=== PATIENT | female | born 1955 | race African-American/Black ===

== ENCOUNTER 2020-11-28 13:30 | Outpatient (CLI) | payer OTHER, SELFPAY ==
--- NOTE | 2020-11-28 15:00 | NEURO_ITS ---
Impression: # Complains of leg and feet pain. # Normal nerve conduction study including lateral and medial plantar distal latencies. # No tarsal tunnel syndrome noted electrically. # Normal needle/EMG exam. # Clinical correlation recommended. Nerve Conduction Studies Anti Sensory Summary Table Stim Site NR Peak (ms) P-T Amp (?V) Site1 Site2 Delta-P (ms) Dist (cm) Jose Antonio (m/s) Left Sup Fibular Anti Sensory (Ant Lat Mall) 14 cm 3.6 27.7 14 cm Ant Lat Mall 3.6 16.0 44 Right Sup Fibular Anti Sensory (Ant Lat Mall) 14 cm 2.9 5.1 14 cm Ant Lat Mall 2.9 16.0 55 Left Sural Anti Sensory (Lat Mall) Calf 3.3 37.1 Calf Lat Mall 3.3 16.0 48 Right Sural Anti Sensory (Lat Mall) Calf 3.2 19.5 Calf Lat Mall 3.2 16.0 50 Motor Summary Table Stim Site NR Onset (ms) O-P Amp (mV) Site1 Site2 Delta-0 (ms) Dist (cm) Jose Antonio (m/s) Left Lateral Plantar Motor (ADM) Med Mall 4.6 3.3 Right Lateral Plantar Motor (ADM) Med Mall 4.3 5.2 Left Peroneal Motor (Vastus Med) Ankle 3.6 2.1 Popit Ankle 7.1 39.0 55 Popit 10.7 1.5 Right Peroneal Motor (Vastus Med) Ankle 3.8 3.0 Popit Ankle 7.4 37.0 50 Popit 11.2 2.3 Left Tibial Motor (Abd Garcia Brev) Ankle 4.1 5.8 Knee Ankle 7.7 40.0 52 Knee 11.8 3.7 Right Tibial Motor Run (Abd Garcia Brev) Ankle 4.5 9.1 Knee Ankle 7.8 42.0 54 Knee 12.3 9.3 F Wave Studies NR F-Lat (ms) L-R F-Lat (ms) Left Peroneal (Mrkrs) (EDB) 46.17 0.89 Right Peroneal (Mrkrs) (EDB) 45.28 0.89 Left Tibial (Mrkrs) (Abd Hallucis) 45.55 0.39 Right Tibial (Mrkrs) (Abd Hallucis) 45.94 0.39 EMG Side Muscle Nerve Root Ins Act Fibs Amp Dur Recrt Comment Right AntTibialis Dp Br Fibular L4-5 Nml Nml Nml Nml Nml Right Gastroc Tibial S1-2 Nml Nml Nml Nml Nml Right Fibularis Long Sup Br Fibular L5-S1 Nml Nml Nml Nml Nml Right Flex Dig Long Tibial L5-S2 Nml Nml Nml Nml Nml Right Ext Dig Brev Dp Br Fibular L5, S1 Nml Nml Nml Nml Nml Left AntTibialis Dp Br Fibular L4-5 Nml Nml Nml Nml Nml Left Gastroc Tibial S1-2 Nml Nml Nml Nml Nml Left Fibularis Long Sup Br Fibular L5-S1 Nml Nml Nml Nml Nml Left Flex Dig Long Tibial L5-S2 Nml Nml Nml Nml Nml Left Ext Dig Brev Dp Br Fibular L5, S1 Nml Nml Nml Nml Nml MTDD
== END 2020-11-28 13:31 | disposition home or self-care (01) ==
PROVIDERS: PCP Internal Medicine; Visit Provider Internal Medicine
DX: M79.661 Pain in right lower leg (principal)
CPT/HCPCS: 95886; 95910

== ENCOUNTER 2022-03-25 08:26 | Outpatient (CLI) | payer MEDICARE, SELFPAY ==
--- NOTE | ~2022-03-25 | CT_ITS ---
EXAMINATION: CT abdomen pelvis w con INDICATION: Mesenteric mass TECHNIQUE: Computed tomographic images of the abdomen and pelvis were obtained after the administrati on of 100 cc of Omnipaque 300 intravenous contrast. The dose-length product (DLP) was 372.73 mGy-cm. Automated exposure control and iterative reconstruction technique were employed. COMPARISON: None available FINDINGS: Minimal dependent atelectasis is present in the lung bases. The heart size is normal. The l iver, spleen, pancreas, gallbladder, and adrenal glands are normal. The kidneys are unremarkable. The re is calcified atherosclerosis of the aorta and many of the other arteries. No pathologically enlarg ed abdominal or pelvic lymph nodes are identified. There is no free intraperitoneal gas or evidence o f bowel obstruction. A moderate volume of colonic stool is present. There are surgical changes in the right lower quadrant. No definite mesenteric mass is identified. There is mild peritoneal thickening and right lower quadrant of unclear significance. There is mild lumbar spondylosis. There is a small fat-containing umbilical hernia. IMPRESSION: 1. No mesenteric mass identified. Surgical changes in the right lower quadrant may reflect mass resec tion. Reviewed, dictated and finalized at location F. IMPRESSION: 1. No mesenteric mass identified. Surgical changes in the right lower quadrant may reflect mass resection.
[2022-03-25 08:53] LABS: Estimated Glomerular Filt Rate 55
== END 2022-03-25 08:27 | disposition home or self-care (01) ==
PROVIDERS: PCP Internal Medicine; Visit Provider Internal Medicine Hematology & Oncology
DX: K63.89 Other specified diseases of intestine (principal); Z98.890 Other specified postprocedural states
CPT/HCPCS: 74177; Q9967

== ENCOUNTER 2022-07-10 08:36 | Outpatient (RCR) | payer MEDICARE, SELFPAY ==
[2022-07-10] VITALS (12 sets, daily range): BP systolic 107–154; BP diastolic 51–93; PULSE 83–97; RESP 12–18; TEMP 36.3–36.7; O2SAT 97–100
[2022-07-10] MEDS: diphenhydrAMINE HCl CAP 25 MG CAPSULE PO (09:03)
[2022-07-10] MEDS: ACETAMINOPHEN 325 MG TABLET 650 MG PO (09:03)
[2022-07-10] MEDS: FUROSEMIDE INJ 40 MG/4 ML VIAL 20 MG IV PUSH (13:40)
== END 2022-10-08 23:59 | disposition home or self-care (01) ==
LOC: ANHCPCTRAN 08:36
PROVIDERS: PCP Internal Medicine; Visit Provider Internal Medicine Hematology & Oncology
DX: D64.9 Anemia, unspecified (principal)
CPT/HCPCS: 36415; 36430; 86850; 86900; 86901; 86920; A9270; J1940; P9016

== ENCOUNTER 2022-09-08 10:17 | Outpatient (CLI) | payer MEDICARE, SELFPAY ==
--- NOTE | ~2022-09-08 | XR_ITS ---
EXAMINATION: XR abdomen obstructive series DATE: 09/08/2022 10:53 INDICATION: Lower abdominal pain and constipation TECHNIQUE: Upright and supine views of the abdomen were obtained. COMPARISON: None. FINDINGS: There are no dilated loops of bowel. No free intraperitoneal gas is identified. The bowel g as pattern is normal. There is a moderate volume of colonic stool. 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 IMPRESSION: 1. Nonobstructive bowel gas pattern. Reviewed, dictated and finalized at location F. ND BLANCHER HAND
--- NOTE | ~2022-09-08 | XR_ITS ---
XR chest 2V DATE: 09/08/2022 10:53 INDICATION: Chest, lower abdomen pain TECHNIQUE: PA and lateral views COMPARISON: None FINDINGS: Normal heart size. No hilar or mediastinal enlargement. Aortic arch and descending thora cic aortic calcification. There is abdominal aortic calcification. No hilar or mediastinal enlargemen t. No pulmonary infiltrate or consolidation, pulmonary vascular congestion or pleural effusion or pn eumothorax. IMPRESSION: No active cardiopulmonary disease Thoracic aortic and abdominal aortic calcification Reviewed, dictated and finalized at location A. [employer]
== END 2022-09-08 10:18 | disposition home or self-care (01) ==
PROVIDERS: PCP Internal Medicine; Visit Provider Internal Medicine Hematology & Oncology
DX: R10.30 Lower abdominal pain, unspecified (principal)
CPT/HCPCS: 36415; 71046; 74019; 80047; 85027; 85055

== ENCOUNTER 2022-12-17 10:06 | Outpatient (CLI) | payer MEDICARE, SELFPAY ==
[2022-12-17 11:04] LABS: Basophils Percent Auto 0.7 % (0.2-1.2); Eosinophils Absolute Auto 0.1 K/mm3 (0-0.3); Eosinophils Percent Auto 1.5 % (0-4.4); Hematocrit 28.7 % (37.0-47.0); Hemoglobin 9.1 g/dL (12.0-15.0); Immature Granulocyte Absolute 0.04 K/mm3 (0.00-0.031); Immature Granulocyte Percent A 0.9 % (0-0.5); Immature Platelet Fraction Pct 9.2 % (0.9-11.2); Lymphocytes Absolute Auto 2.21 K/mm3 (0.9-3.2); Lymphocytes Percent Auto 48.9 % (18.3-44.2); Mean Corpuscular HGB Conc 31.7 g/dl (32-36); Mean Corpuscular Hemoglobin 27.1 pg (26-34); Mean Corpuscular Volume 85.4 fl (80-100); Monocytes Absolute Auto 0.4 K/mm3 (0.1-0.6); Monocytes Percent Auto 9.5 % (2.6-8.5); Neutrophils Absolute Auto 1.7 K/mm3 (1.3-6.7); Neutrophils Percent Auto 38.5 % (45.5-73.1); Nucleated Red Blood Cells Absolute Auto 0.2 K/mm3 (0.0-0.012); Nucleated Red Blood Cells Perc 3.8 % (0.0-0.2); Platelet Count Result 245 k/mm3 (150-375); Red Blood Count 3.36 M/mm3 (4.2-5.4); Red Cell Distribution Width 26.1 % (11.5-14.5); White Blood Count 4.5 K/mm3 (4.5-10.0)
[2022-12-17 14:17] LABS: Alanine Aminotransferase 16 U/L (6-35); Albumin Level 4.5 g/dL (3.5-5.1); Alkaline Phosphatase 115 U/L (38-126); Anion Gap 5 mmol/L (8-16); Aspartate Amino Transferase 30 U/L (14-36); Bilirubin,Total 0.4 mg/dL (0.2-1.3); Blood Urea Nitrogen 13 mg/dL (7-17); Carbon Dioxide 23 mmol/L (22-30); Chloride 105 mmol/L (98-107); Cholesterol 170 mg/dL (0-200); Estimated Glomerular Filt Rate > 60; Glucose 110 mg/dL (65-110); HDL Direct 42 mg/dL; Potassium 3.8 mmol/L (3.4-5.0); Sodium 133 mmol/L (137-145); Triglycerides 140 mg/dL (<150)
[2022-12-17 14:35] LABS: LDL Cholesterol Direct 81 mg/dL
[2022-12-17 14:42] LABS: Vitamin D 25 Hydroxy 25.8 ng/mL
[2022-12-17 14:51] LABS: Hemoglobin A1C 5.5 % (<5.7)
== END 2022-12-17 10:07 | disposition home or self-care (01) ==
LOC: ANHLAB 10:10
PROVIDERS: PCP Internal Medicine; Visit Provider Internal Medicine
DX: R73.9 Hyperglycemia, unspecified (principal); E55.9 Vitamin D deficiency, unspecified; I10 Essential (primary) hypertension
CPT/HCPCS: 36415; 80053; 80061; 82306; 83036; 84439; 84443; 85025; 85055

== ENCOUNTER 2023-03-31 09:05 | Outpatient (CLI) | payer MEDICARE, SELFPAY ==
[2023-03-31 10:06] LABS: Hemoglobin A1C 5.9 % (<5.7)
[2023-03-31 12:35] LABS: Alanine Aminotransferase 19 U/L (6-35); Albumin Level 4.3 g/dL (3.5-5.1); Alkaline Phosphatase 112 U/L (38-126); Anion Gap 10 mmol/L (8-16); Aspartate Amino Transferase 27 U/L (14-36); Bilirubin,Total 0.4 mg/dL (0.2-1.3); Blood Urea Nitrogen 12 mg/dL (7-17); Calcium 8.8 mg/dL (8.4-10.2); Carbon Dioxide 22 mmol/L (22-30); Chloride 105 mmol/L (98-107); Cholesterol 158 mg/dL (0-200); Estimated Glomerular Filt Rate > 60; Glucose 154 mg/dL (65-110); HDL Direct 37 mg/dL; Potassium 3.7 mmol/L (3.4-5.0); Sodium 137 mmol/L (137-145); Triglycerides 215 mg/dL (<150)
[2023-03-31 12:48] LABS: LDL Cholesterol Direct 83 mg/dL
[2023-03-31 13:12] LABS: Vitamin D 25 Hydroxy 60.5 ng/mL
[2023-03-31 13:25] LABS: Thyroid Stimulating Hormone Reflex 0.932 uIU/mL (0.465-4.68)
== END 2023-03-31 09:06 | disposition home or self-care (01) ==
LOC: ANHLAB 09:07
PROVIDERS: PCP Internal Medicine; Visit Provider Internal Medicine Hematology & Oncology
DX: E55.9 Vitamin D deficiency, unspecified (principal); R73.9 Hyperglycemia, unspecified; Z79.899 Other long term (current) drug therapy
CPT/HCPCS: 36415; 80053; 80061; 82306; 83036; 84443

== ENCOUNTER 2023-06-24 09:58 | Outpatient (CLI) | payer MEDICARE, SELFPAY ==
[2023-06-24 14:34] LABS: Alanine Aminotransferase 14 U/L (6-35); Albumin Level 4.2 g/dL (3.5-5.1); Alkaline Phosphatase 87 U/L (38-126); Anion Gap 9 mmol/L (8-16); Aspartate Amino Transferase 26 U/L (14-36); Bilirubin,Total 0.3 mg/dL (0.2-1.3); Blood Urea Nitrogen 18 mg/dL (7-17); Calcium 9.3 mg/dL (8.4-10.2); Carbon Dioxide 25 mmol/L (22-30); Chloride 104 mmol/L (98-107); Cholesterol 161 mg/dL (0-200); Estimated Glomerular Filt Rate 54; Glucose 107 mg/dL (65-110); HDL Direct 38 mg/dL; Potassium 3.8 mmol/L (3.4-5.0); Sodium 138 mmol/L (137-145); Triglycerides 163 mg/dL (<150)
[2023-06-24 14:44] LABS: LDL Cholesterol Direct 84 mg/dL
[2023-06-24 15:42] LABS: Hemoglobin A1C 5.6 % (<5.7)
== END 2023-06-24 09:59 | disposition home or self-care (01) ==
LOC: ANHLAB 09:59
PROVIDERS: PCP Internal Medicine; Visit Provider Internal Medicine
DX: R73.03 Prediabetes (principal); E78.5 Hyperlipidemia, unspecified
CPT/HCPCS: 36415; 80053; 80061; 83036; 84443

== ENCOUNTER 2023-07-29 09:13 | Outpatient (CLI) | payer MEDICARE, MEDICAID, SELFPAY ==
--- NOTE | ~2023-07-29 | CT_ITS ---
CT Scan of the Chest without Contrast: Clinical Indication: Lung cancer screening, personal history of nicotine dependence Technique: Contiguous sections were acquired throughout the chest without intravenous contrast. Dose reduction technique was used on this scan by utilizing automated exposure control and iterative recon struction technique. The dose-length product (DLP) was 54.90 mGy-cm. Findings: There is no evidence of any significant mediastinal, hilar or axillary lymphadenopathy. Small calcifi ed left hilar lymph nodes are present. There are atherosclerotic calcifications of the aorta and alyssa nary arteries. There is no evidence of pleural or pericardial effusion. 3 mm right middle lobe nodule noted (axial image 47). There is linear scarring at the more inferior r ight middle lobe. Images through the upper abdomen reveal no abnormalities. Impression: Lung RADS 2: Benign appearance. 12 month follow-up screening CT advised. Reviewed, dictated and finalized at [facility]. Impression: Lung RADS 2: Benign appearance. 12 month follow-up screening CT advised.
== END 2023-07-29 09:14 | disposition home or self-care (01) ==
PROVIDERS: PCP Internal Medicine; Visit Provider Internal Medicine Hematology & Oncology
DX: Z12.2 Encounter for screening for malignant neoplasm of respiratory organs (principal); Z87.891 Personal history of nicotine dependence
CPT/HCPCS: 71271

== ENCOUNTER 2023-11-18 12:34 | Outpatient (CLI) | payer MEDICARE, MEDICAID, SELFPAY ==
[2023-11-18 13:33] LABS: Cholesterol 152 mg/dL (0-200); HDL Direct 40 mg/dL; Triglycerides 142 mg/dL (<150)
[2023-11-18 13:43] LABS: LDL Cholesterol Direct 81 mg/dL
[2023-11-18 13:51] LABS: Vitamin D 25 Hydroxy 45.2 ng/mL
[2023-11-18 14:05] LABS: Thyroid Stimulating Hormone Reflex 0.944 uIU/mL (0.465-4.68)
== END 2023-11-18 12:35 | disposition home or self-care (01) ==
LOC: ANHLAB 12:36
PROVIDERS: PCP Internal Medicine; Visit Provider Internal Medicine
DX: I10 Essential (primary) hypertension (principal); E55.9 Vitamin D deficiency, unspecified
CPT/HCPCS: 36415; 80061; 82306; 84443

== ENCOUNTER 2024-01-15 07:59 | Outpatient (CLI) | payer MEDICARE, MEDICAID, SELFPAY ==
--- NOTE | ~2024-01-15 | XR_ITS ---
EXAMINATION: XR_ENEMABAC_CR DATE: 01/15/2024 09:27 INDICATION: Incomplete colonoscopy with prior colonic polyps TECHNIQUE: A protocol officer radiograph was obtained. A catheter was inserted into the patient's rectum. Contra st was infused by gravity. Gas was infused by hand pump. Fluoroscopic spot images and conventional ra diographs were obtained. Fluoroscopy exposure time was 1.8 minutes. A total of 17 fluoroscopic images and 14 overhead radiographs were obtained. COMPARISON: CT dated 03/25/2022 FINDINGS: At the tip of the cecum adjacent to a few surgical clips and/or sutures likely related to prior appen dectomy is a focal contour abnormality with more bulging of the cul-de-sac which extends approximatel y 2.4 cm in length and extends approximately 1 cm inward from the expected margin of the wall which w ould be obtained by extending the contour of the wall on either side of the contour abnormality. No a bnormal wall thickening identified at this location on the CT from nearly 2 years prior. There are co uple small diverticula at the proximal sigmoid colon. No strictures or other abnormal masses or mucos al irregularities. IMPRESSION: 1. Contour abnormality with smooth mucosal margins demonstrating inward bulging of the contour of the tip the cecum adjacent to a few surgical clips and/or sutures likely related to prior appendectomy. This could represent mass effect from the postoperative changes . A sessile polyp cannot be absolutel y excluded although there is no evident mass or wall thickening at this location on the CT from 2021. Reviewed, dictated and finalized at location A. IMPRESSION: 1. Contour abnormality with smooth mucosal margins demonstrating inward bulging of the contour of the tip the cecum adjacent to a few surgical clips and/or elise tures likely related to prior appendectomy. This could represent mass effect fr om the postoperative changes . A sessile polyp cannot be absolutely excluded al though there is no evident mass or wall thickening at this location on the CT f rom 03/25/2022.
== END 2024-01-15 08:00 | disposition home or self-care (01) ==
LOC: ANHIMG 08:02
PROVIDERS: PCP Internal Medicine; Visit Provider Internal Medicine Gastroenterology
DX: Z53.09 Procedure and treatment not carried out because of other contraindication (principal); Z86.010 Personal history of colon polyps
CPT/HCPCS: 74280

== ENCOUNTER 2024-08-01 07:55 | Outpatient (CLI) | payer MEDICARE, MEDICAID, SELFPAY ==
--- NOTE | ~2024-08-01 | CT_ITS ---
CT Scan of the Chest without Contrast: Clinical Indication: Lung cancer screening, nicotine dependence Technique: Contiguous sections were acquired throughout the chest without intravenous contrast. Dose reduction technique was used on this scan by utilizing automated exposure control and iterative recon struction technique. The dose-length product (DLP) was 56.68 mGy-cm. COMPARISON: 07/29/2023 Findings: There is no evidence of any significant mediastinal, hilar or axillary lymphadenopathy. There are ath erosclerotic calcifications of the aorta and coronary arteries. There is no evidence of pleural or pericardial effusion. Stable 2 mm right upper lobe pulmonary nodule. Calcified left upper lobe granuloma present. Images through the upper abdomen reveal no abnormalities. Impression: Lung RADS 2: Benign appearance. 12 month follow-up screening CT advised. Reviewed, dictated and finalized at [facility]. Impression: Lung RADS 2: Benign appearance. 12 month follow-up screening CT advised.
== END 2024-08-01 07:56 | disposition home or self-care (01) ==
LOC: ANHIMG 07:57
PROVIDERS: PCP Internal Medicine; Visit Provider Internal Medicine Hematology & Oncology
DX: Z12.2 Encounter for screening for malignant neoplasm of respiratory organs (principal); Z87.891 Personal history of nicotine dependence
CPT/HCPCS: 71271

== ENCOUNTER 2024-08-19 07:21 | Outpatient (RCR) | payer MEDICARE, MEDICAID, SELFPAY ==
[2024-08-19] VITALS (10 sets, daily range): BP systolic 140–166; BP diastolic 44–79; PULSE 82–97; RESP 16–18; TEMP 36.5–37.1; O2SAT 100
[2024-08-19 07:44] LABS: Hematocrit 22.7 % (37.0-47.0)
[2024-08-19 07:48] LABS: Hemoglobin 6.9 g/dL (12.0-15.0)
[2024-08-19] MEDS: ACETAMINOPHEN 325 MG TABLET 650 MG PO (07:55)
[2024-08-19] MEDS: diphenhydrAMINE HCl CAP 25 MG CAPSULE PO (07:56)
[2024-08-19] MEDS: SODIUM CHLORIDE 0.9% IV 250 ML 30 ML IV CONT (07:56)
[2024-08-19] MEDS: FUROSEMIDE INJ 40 MG/4 ML VIAL 20 MG IV PUSH (11:23)
== END 2024-11-17 10:52 | disposition home or self-care (01) ==
LOC: ANHCPCTRAN 07:21
PROVIDERS: PCP Internal Medicine; Visit Provider Internal Medicine Hematology & Oncology
DX: D64.89 Other specified anemias (principal)
CPT/HCPCS: 36415; 36430; 85014; 85018; 86850; 86900; 86901; 86923; 96374; A9270; J1940; J7050; P9016

== ENCOUNTER 2024-09-13 07:32 | Outpatient (RCR) | payer MEDICARE, MEDICAID, SELFPAY ==
[2024-09-13] VITALS (10 sets, daily range): BP systolic 141–160; BP diastolic 52–66; PULSE 74–91; RESP 16–18; TEMP 36.5–37.1; O2SAT 100
[2024-09-13] MEDS: diphenhydrAMINE HCl CAP 25 MG CAPSULE PO (08:22)
[2024-09-13] MEDS: ACETAMINOPHEN 325 MG TABLET 650 MG PO (08:22)
[2024-09-13] MEDS: SODIUM CHLORIDE 0.9% IV 250 ML 30 ML IV CONT (08:23)
[2024-09-13] MEDS: FUROSEMIDE INJ 40 MG/4 ML VIAL 20 MG IV PUSH (11:40)
== END 2024-11-17 10:51 | disposition home or self-care (01) ==
LOC: ANHCPCTRAN 07:32
PROVIDERS: PCP Internal Medicine; Visit Provider Internal Medicine Hematology & Oncology
DX: D46.9 Myelodysplastic syndrome, unspecified (principal)
CPT/HCPCS: 36415; 36430; 86850; 86900; 86901; 86923; 96374; A9270; J1940; J7050; P9016

== ENCOUNTER 2024-11-18 07:34 | Outpatient (RCR) | payer MEDICARE, MEDICAID, SELFPAY ==
[2024-11-18] VITALS (10 sets, daily range): BP systolic 141–163; BP diastolic 45–65; PULSE 84–95; RESP 16–18; TEMP 36.6–37.1; O2SAT 100
[2024-11-18] MEDS: ACETAMINOPHEN 325 MG TABLET 650 MG PO (08:22)
[2024-11-18] MEDS: SODIUM CHLORIDE 0.9% IV 250 ML 30 ML IV CONT (08:22)
[2024-11-18] MEDS: diphenhydrAMINE HCl CAP 25 MG CAPSULE PO (08:23)
[2024-11-18] MEDS: FUROSEMIDE INJ 40 MG/4 ML VIAL 20 MG IV PUSH (11:29)
== END 2024-12-29 10:47 | disposition home or self-care (01) ==
LOC: ANHCPCTRAN 07:34
PROVIDERS: PCP Internal Medicine; Visit Provider Internal Medicine Hematology & Oncology
DX: D46.9 Myelodysplastic syndrome, unspecified (principal)
CPT/HCPCS: 36415; 36430; 86850; 86900; 86901; 86923; 96374; A9270; J1940; J7050; P9016

== ENCOUNTER 2024-12-05 08:52 | Outpatient (CLI) | payer MEDICARE, MEDICAID, SELFPAY ==
--- NOTE | ~2024-12-05 | CT_ITS ---
EXAMINATION: CT sinus wo con DATE: 12/05/2024 09:16 INDICATION: Acute upper respiratory infection. TECHNIQUE: Computed tomography (CT) of the paranasal sinuses was performed without intravenous contra st. Iterative reconstruction technique was employed. The dose-length product was 213.56 mGy-cm. COMPARISON: None FINDINGS: The frontal, ethmoid, and sphenoid sinuses are clear. There is mild mucosal thickening in t he maxillary sinuses. There is ana bullosa involving the bilateral middle turbinates. The ostiomea jackie units are patent. There is rightward deviation of superior nasal septum and leftward deviation of the inferior nasal septum. IMPRESSION: 1. Mild mucosal thickening in the paranasal sinuses. 2. Rightward deviation of superior nasal septum and leftward deviation of the inferior nasal septum. Reviewed, dictated and finalized at location A. HAND IMPRESSION: 1. Mild mucosal thickening in the paranasal sinuses. 2. Rightward deviation of superior nasal septum and leftward deviation of the i nferior nasal septum.
--- OUTSIDE RECORDS SUMMARY | 2024-12-05 09:17 | XMS_ITS | Data Portability ---
Author Organization [facility], Main Office Address [address] [place] [address] Care Team Providers Care Telephone Plant Power Operator Name Role Phone STACIE MCDONOUGH Primary Care Provider [phone] STACIE MCDONOUGH Referring Provider Assessment Encounter Date Assessment Date Assessment LastModified by Organization Details LastModified Time 07/14/2023 07/14/2023 01/16/2022: TSH/FT4/Vit D/LIPIDS: WNL A1C 6.7 CBC: H/H 8.3/26.3 CMP: Gluc 115, alb 4.5, TP WNL 06/24/2023: A1C 5.6 BUN 18, Cr 1.20, GFR 54 TG 163H WBC 4.2, H/H 9.0/27.6 Not available 07/13/2023 09:32:22 12/15/2023 12/15/2023 01/16/2022: TSH/FT4/Vit D/LIPIDS: WNL A1C 6.7 CBC: H/H 8.3/26.3 CMP: Gluc 115, alb 4.5, TP WNL 06/24/2023: A1C 5.6 BUN 18, Cr 1.20, GFR 54 TG 163H WBC 4.2, H/H 9.0/27.6 11/18/2023: Dr Garza H/H 8.2/26.5 Not available 12/15/2023 15:29:50 06/30/2024 06/30/2024 01/16/2022: TSH/FT4/Vit D/LIPIDS: WNL A1C 6.7 CBC: H/H 8.3/26.3 CMP: Gluc 115, alb 4.5, TP WNL 06/24/2023: A1C 5.6 BUN 18, Cr 1.20, GFR 54 TG 163H WBC 4.2, H/H 9.0/27.6 11/18/2023: Dr Garza H/H 8.2/26.5 [email or web address] Not available 06/29/2024 18:20:18 Plan of Treatment Reminders Order Date Submit Date Provider Last Modified By Organization Details Last Modified Time Details Appointments Medicare Wellness 15 2024 01:00P Denae oakes MD Not available Not available Not available Lab lipid panel, serum [address] (Lab), [address] [place], [address], 12/15/2023 16:21:01 CBC w/ auto diff [address] (Lab), [address] [place], [address], 12/15/2023 16:21:18 CMP, serum or plasma [address] (Lab), [address] [place], [address], 12/15/2023 16:21:19 TSH, serum or plasma [address] (Lab), [address] [place], [address], 05/16/2024 09:14:11 glycohemo globin, total, blood [address] (Lab), [address] [place], [address], 04/26/2024 15:32:58 microalbu min, urine [address] (Lab), [address] [place], [address], 04/26/2024 15:32:58 vitamin D, 25-hydrox y, total, serum [address] (Lab), [address] [place], [address], 12/15/2023 16:21:01 vitamin B12 + folate, serum or blood [address] (Lab), [address] [place], [address], 06/20/2024 10:10:25 lipid panel, serum [address] (Lab), [address] [place], [address], 10/13/2024 08:19:16 CBC w/ auto diff [address] (Lab), [address] [place], [address], 10/13/2024 08:19:16 CMP, serum or plasma [address] (Lab), [address] [place], [address], 10/13/2024 08:19:16 TSH, serum or plasma [address] (Lab), [address] [place], [address], 10/13/2024 08:19:16 glycohemo globin, total, blood [address] (Lab), [address] [place], [address], 06/13/2024 11:54:47 microalbu min, urine [address] (Lab), [address] [place], [address], 06/13/2024 11:54:47 vitamin D, 25-hydrox y, total, serum [address] (Lab), [address] [place], [address], 10/13/2024 08:19:16 lipid panel, serum 2023 024 [facility] (Lab), [address] [place], [address], 06/30/2024 18:31:12 CBC w/ auto diff 2023 024 [facility] (Lab), [address] [place], [address], 06/30/2024 18:35:09 CMP, serum or plasma 2023 024 [facility] (Lab), [address] [place], [address], 06/30/2024 18:31:18 TSH, serum or plasma 2023 024 [facility] (Lab), [address] [place], [address], 06/30/2024 18:29:00 vitamin B12 + folate, serum or blood [address] (Lab), [address] [place], [address], 06/30/2024 14:45:57 glycohemo globin, total, blood 2023 024 [facility] (Lab), [address] [place], [address], 07/01/2024 13:13:42 microalbu min, urine 2023 024 [facility] (Lab), [address] [place], [address], 06/30/2024 18:24:21 vitamin D, 25-hydrox y, total, serum 2023 024 [facility] (Lab), [address] [place], [address], 11/27/2024 04:06:38 Referral podiatris t referral 2022 023 stacy Sin DPM, [address], [address], [place], [address], 01/12/2024 11:16:21 nephrolog ist referral 2022 023 stacy Pace MD (Nephrology, [address], [address], [place], [address], 02/11/2024 08:37:36 cardiolog ist referral 2022 023 [place], [address], [address], [place], [address], 01/12/2024 11:16:20 hematolog ist referral 2023 024 stacy Garza, [address], [place], [address], 01/12/2024 11:17:10 podiatris t referral 2023 024 stacy Sin DPM, [address], [address], [place], [address], 07/11/2024 08:52:57 nephrolog ist referral 2023 024 stacy Pace MD (Nephrology, [address], [address], [place], [address], 09/13/2024 10:59:39 cardiolog ist referral 2023 024 [email or web address] [place], [address], [address], [place], [address], 07/11/2024 08:52:57 hematolog ist referral 2023 024 [email or web address] Perry Garza, [address], [place], [address], 06/30/2024 14:54:16 podiatris t referral 2023 024 Kavon Sin DPM, [address] [facility], [address], [place], [address], 06/30/2024 14:54:15 nephrolog ist referral 2023 024 Bunny Pace MD (Nephrology, [address], [address], [place], [address], 06/30/2024 14:54:15 cardiolog ist referral 2023 024 [email or web address] [place], [address], [address], [place], [address], 06/30/2024 14:54:14 Procedures colonosco py screening (PROC) 2023 024 QUYNH Flowers MD, [address] [place], [address], 02/10/2024 11:05:14 Surgeries None recorded. Imaging LDCT, chest, for lung cancer screening 2022 023 [facility] ([facility]), [address], [place], [address], 07/29/2023 11:32:11 MAMMO, screening , digital, bilateral 2023 024 [facility] ([facility]), [address] [place], [address], 12/04/2024 04:01:45 DEXA, axial skeleton 2023 024 [facility] ([facility]), [address] [place], [address], 02/29/2024 11:43:42 US, neck, soft tissue - Please call patient to schedule. 2024 025 [facility], [address] [place] [address], [address], 11/30/2024 11:15:29 CT, sinuses, w/o contrast - Please call patient to schedule. 2024 025 [facility], [address] [place] [address], [place], [address], 11/30/2024 11:15:28 Medication Orders nicotine 21mg/24hr -14mg/24h r-7mg/24h r daily transderm patches,s equentl 2022 023 [facility] #[id number], [address] [place], [place], [id number], 06/30/2024 14:20:14 nicotine 21 mg/24 hr daily transderm al patch 2023 024 [facility] #[id number], [address] [place], [place], [id number], 06/30/2024 14:20:09 amlodipin e 10 mg-benaze pril 20 mg capsule 2023 024 [id number], [address] [place], [place], [id number], 06/30/2024 14:47:58 Medrol (Gavin) 4 mg tablets in a dose pack 2024 [id number], [address] [place], [place], [id number], 11/29/2024 15:37:08 amoxicill in 875 mg-potass ium clavulana te 125 mg tablet 2024 025 [id number], [address] [place], [place], [id number], 11/29/2024 15:36:56 Patient TargetsNo targets recorded. Patient Instructions Encounter Date Encounter Id Patient Instructions Last Modified By Organization Details Last Modified Time 07/14/2023 [id number] diabetic eye exam* [email or web address] Not available 01/14/2024 08:25:33 12/15/2023 [id number] diabetic eye exam* [email or web address] Not available 07/14/2024 08:30:56 06/30/2024 [id number] diabetic eye exam* [email or web address] Not available 06/30/2024 14:47:34 Reason for Referral [employer] Referral for Co ronary arteriosclerosis Referring Physician: Stacie Mcdonough Internal Medicine, Encounter Date: 07/14/2023 Neonatal Social Worker Referral for Ch ronic kidney disease Referring Physician: Stacie Mcdonough Internal Medicine, Encounter Date: 07/14/2023 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 Referral for Hype rglycemia Referring Physician: Stacie Mcdonough Internal Medicine, Encounter Date: 07/14/2023 [employer] Referral for Co ronary arteriosclerosis Referring Physician: Stacie Mcdonough Internal Medicine, Encounter Date: 12/15/2023 Neonatal Social Worker Referral for Ch ronic kidney disease Referring Physician: Stacie Mcdonough Internal Medicine, Encounter Date: 12/15/2023 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 Referral for Hype rglycemia Referring Physician: Stacie Mcdonough Internal Medicine, Encounter Date: 12/15/2023 Referring Physician: Stacie Mcdonough Internal Medicine, Encounter Date: 12/15/2023 [employer] Referral for Co ronary arteriosclerosis Referring Physician: Stacie Mcdonough Internal Medicine, Encounter Date: 06/30/2024 Neonatal Social Worker Referral for Ch ronic kidney disease Referring Physician: Stacie Mcdonough Internal Medicine, Encounter Date: 06/30/2024 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 Referral for Hype rglycemia Referring Physician: Stacie Mcdonough Internal Medicine, Encounter Date: 06/30/2024 Referring Physician: Stacie Mcdonough Internal Medicine, Encounter Date: 06/30/2024 Results Created Date Observation Date Name Description Value Unit Range Abnormal Flag Note LastModifiedBy Organization Detail LastModifiedTime 06/30/20 24 06/30/2024 MICRO ALBUM IN RANDO M URINE microalbumin , urine 255.7 mg/L 0.0-16 .6 high Not Available [facility] (Lab) [address] [place], [address], 06/30/2024 18:26:08 06/30/20 24 06/30/2024 VITAM IN D 25-HY DROXY [id number] 36.7 NG/mL 30-100 Vitam in D Statu s: Defic ient: <20 ng/mL Insuf ficie nt: 20-29 ng/mL Suffi cient : 30-10 0 ng/mL Not Available [facility] (Lab) [address] [place], [address], 06/30/2024 18:25:37 06/30/20 24 06/30/2024 TSH W/REF ANA FT4 TSH with reflex free T4 0.886 uIU/m L 0.465- 4.680 Not Available [facility] (Lab) [address] [place], [address], 06/30/2024 18:28:59 06/30/2006/30/2024 LIPID PANEL cholesterol 146 mg/dL 140-19 9 NIH LIZ NSUS RECOM MENDA TION FOR MERCEDES STERO L: ADULT CHILD LOW RISK: <200 <170 BORDE RLINE : <200- 239 ----- HIGH RISK: >240 >200 Not Available [facility] (Lab) [address] [place], [address], 06/30/2024 18:31:12 06/30/2006/30/2024 LIPID PANEL triglyceride s 150 mg/dL 0-150 NIH LIZ NSUS REPOR T RECOM MENDA TION FOR TRIGL YCERI CLINT: ADULT CHILD LOW RISK: <150 ----- BODER LINE: 150-1 99 ----- HIGH RISK: >200 ----- Not Available [facility] (Lab) [address] [place], [address], 06/30/2024 18:31:12 06/30/20 24 06/30/2024 LIPID PANEL HDL cholesterol 47 mg/dL 40- Not Available [facility] (Lab) [address] [place], [address], 06/30/2024 18:31:12 06/30/20 24 06/30/2024 LIPID PANEL LDL cholesterol, calculated 69 mg/dL 0-130 NIH LIZ NSUS REPOR T RECOM MENDA TIONS FOR LDL: ADULT CHILD LOW RISK <130 <110 (OPTI MAL LDL) <100 ----- BORDE RLINE : 130-1 59 ----- HIGH RISK: >160 >130 A TRIGL YCERI DE RESUL T >400 INVAL IDATE S THE CALCU LATIO N FOR LDL FRACT IONAT ION - THE LDL RESUL T WILL NOT BE REPOR VISHNU. Not Available [facility] (Lab) [address] [place], [address], 06/30/2024 18:31:12 09/05/20 24 06/30/2024 COMPR EHENS ITALIA METAB OLIC PANEL sodium 133 mmol/ L 137-[address] [facility] (Lab) [address] [place], [address], 06/30/2024 18:31:18 06/30/20 24 06/30/2024 COMPR EHENS ITALIA METAB OLIC PANEL potassium 4.7 mmol/ L 3.5-5. [address] [facility] (Lab) [address] [place], [address], 06/30/2024 18:31:18 06/30/20 24 06/30/2024 COMPR EHENS ITALIA METAB OLIC PANEL chloride 103 mmol/ L 98-[address] [facility] (Lab) [address] [place], [address], 06/30/2024 18:31:18 06/30/20 24 06/30/2024 COMPR EHENS ITALIA METAB OLIC PANEL carbon dioxide 24 mmol/ L 22-[address] [facility] (Lab) [address] [place], [address], 06/30/2024 18:31:18 06/30/20 24 06/30/2024 COMPR EHENS ITALIA METAB OLIC PANEL anion gap 10.7 mmol/ L 14-[address] [facility] (Lab) [address] [place], [address], 06/30/2024 18:31:18 06/30/20 24 06/30/2024 COMPR EHENS ITALIA METAB OLIC PANEL glucose 138 mg/dL 70-[address] [facility] (Lab) [address] [place], [address], 06/30/2024 18:31:18 06/30/20 24 06/30/2024 COMPR EHENS ITALIA METAB OLIC PANEL BUN 11 mg/dL 8-19 Not Available [facility] (Lab) [address] [place], [address], 06/30/2024 18:31:18 06/30/2006/30/2024 COMPR EHENS ITALIA METAB OLIC PANEL creatinine 1.06 mg/dL 0.66-1 .25 Not Available [facility] (Lab) [address] [place], [address], 06/30/2024 18:31:18 06/30/20 24 06/30/2024 COMPR EHENS ITALIA METAB OLIC PANEL GFR >60 Refer ence Range : Francisco ge GFR Healt hy Adult : >60 mL/mi n/1.7 3 m2 Chron ic Kidne y Disea se: 15-60 mL/mi n/1.7 3 m2 Kidne y Failu re: <15/m L/min /1.73 m2 www.n iddk. nih.g ov The MDRD study equat ion has not been valid ated in child nick <18 years of age; pregn ant women ; the elder ly >85 years of age; or in some racia l or ethni c subgr oups, such as Hisaz nics. Outsi de the valid ated kiko eters , estim ated GFR is less accur ate, requi ring clini whit judgm ent on a case- by-ca se basis . Clini whit inter preta tion for other races and ages must be made by the clini angelia. The MDRD study equat ion has not been valid ated for the evalu ation of serum creat inine relat ed to nutri neil l statu s or medic ation usage . For perso ns <18 years of age, a pedia tric GFR calcu lator is avail able on the NKF websi te: https ://bob crook.sherita lyon/pr ofess ional s/kdo qi/gf r_cal culat or Not Available [facility] (Lab) [address] [place], [address], 06/30/2024 18:31:18 09/05/20 24 06/30/2024 COMPR EHENS ITALIA METAB OLIC PANEL alkaline phosphatase 101 U/L 38-126 Not Available [facility] (Lab) [address] [place], [address], 06/30/2024 18:31:18 06/30/20 24 06/30/2024 COMPR EHENS ITALIA METAB OLIC PANEL alanine aminotransfe rase 15 U/L 0-35 Not Available [facility] (Lab) [address] [place], [address], 06/30/2024 18:31:18 06/30/20 24 06/30/2024 COMPR EHENS ITALIA METAB OLIC PANEL aspartate aminotransfe rase 36 U/L 15-37 Not Available [facility] (Lab) [address] [place], [address], 06/30/2024 18:31:18 06/30/20 24 06/30/2024 COMPR EHENS ITALIA METAB OLIC PANEL bilirubin, total 0.60 mg/dL 0.20-1 .30 Not Available [facility] (Lab) [address] [place], [address], 06/30/2024 18:31:18 06/30/20 24 06/30/2024 COMPR EHENS ITALIA METAB OLIC PANEL calcium 9.2 mg/dL 8.4-10 .2 Not Available [facility] (Lab) [address] [place], [address], 06/30/2024 18:31:18 06/30/20 24 06/30/2024 COMPR EHENS ITALIA METAB OLIC PANEL total protein 7.2 g/dL 6.3-8. 2 Not Available [facility] (Lab) [address] [place], [address], 06/30/2024 18:31:18 06/30/20 24 06/30/2024 COMPR EHENS ITALIA METAB OLIC PANEL albumin 4.3 g/dL 3.0-4. 4 Not Available [facility] (Lab) [address] [place], [address], 06/30/2024 18:31:18 06/30/20 24 06/30/2024 COMPR EHENS ITALIA METAB OLIC PANEL globulin 2.9 g/dL 2.6-4. 2 Not Available [facility] (Lab) [address] [place], [address], 06/30/2024 18:31:18 06/30/20 24 06/30/2024 COMPR EHENS ITALIA METAB OLIC PANEL A/G ratio 1.5 ratio 1.0-2. 0 Not Available [facility] (Lab) [address] [place], [address], 06/30/2024 18:31:18 06/30/20 24 06/30/2024 CBC/C OMPLE TE BLD COUNT W/DIF F white blood cells 4.8 x10'3 /uL 4.2-10 .8 Not Available [facility] (Lab) [address] [place], [address], 06/30/2024 18:35:09 06/30/20 24 06/30/2024 CBC/C OMPLE TE BLD COUNT W/DIF F red blood cells 2.72 x10'6 /uL 3.80-5 .20 low Not Available [facility] (Lab) [address] [place], [address], 06/30/2024 18:35:09 06/30/20 24 06/30/2024 CBC/C OMPLE TE BLD COUNT W/DIF F hemoglobin 8.1 g/dL 12.0-1 5.6 low Not Available [facility] (Lab) [address] [place], [address], 06/30/2024 18:35:09 06/30/20 24 06/30/2024 CBC/C OMPLE TE BLD COUNT W/DIF F hematocrit 27.2 % 35.7-4 5[address] [facility] (Lab) [address] [place], [address], 06/30/2024 18:35:09 06/30/20 24 06/30/2024 CBC/C OMPLE TE BLD COUNT W/DIF F mean red cell volume 100.0 fL 82.0-9 9[address] [facility] (Lab) [address] [place], [address], 06/30/2024 18:35:09 06/30/20 24 06/30/2024 CBC/C OMPLE TE BLD COUNT W/DIF F mean red cell hemoglobin 29.8 pg 27.0-3 3.0 Not Available [facility] (Lab) [address] [place], [address], 06/30/2024 18:35:09 06/30/20 24 06/30/2024 CBC/C OMPLE TE BLD COUNT W/DIF F mean RBC HGB concentratio n 29.8 g/dL 31.0-3 [address] [facility] (Lab) [address] [place], [address], 06/30/2024 18:35:09 06/30/20 24 06/30/2024 CBC/C OMPLE TE BLD COUNT W/DIF F red cell distribution width 28.1 % 11.8-1 5.[address] [facility] (Lab) [address] [place], [address], 06/30/2024 18:35:09 06/30/20 24 06/30/2024 CBC/C OMPLE TE BLD COUNT W/DIF F platelets 258 x10'3 /uL 150-40 0 Not Available [facility] (Lab) [address] [place], [address], 06/30/2024 18:35:09 06/30/20 24 06/30/2024 CBC/C OMPLE TE BLD COUNT W/DIF F neutrophils 55 % 39.0-[address] [facility] (Lab) [address] [place], [address], 06/30/2024 18:35:09 06/30/20 24 06/30/2024 CBC/C OMPLE TE BLD COUNT W/DIF F bands 6 % 0-[address] [facility] (Lab) [address] [place], [address], 06/30/2024 18:35:09 06/30/20 24 06/30/2024 CBC/C OMPLE TE BLD COUNT W/DIF F lymphocytes 30 % 16.0-[address] [facility] (Lab) [address] [place], [address], 06/30/2024 18:35:09 06/30/20 24 06/30/2024 CBC/C OMPLE TE BLD COUNT W/DIF F monocytes 2 % 5.0-12 [address] [facility] (Lab) [address] [place], [address], 06/30/2024 18:35:09 06/30/20 24 06/30/2024 CBC/C OMPLE TE BLD COUNT W/DIF F eosinophils 4 % 1.0-7. [address] [facility] (Lab) [address] [place], [address], 06/30/2024 18:35:09 06/30/20 24 06/30/2024 CBC/C OMPLE TE BLD COUNT W/DIF F basophils 2 % 0.0-2. 0 Not Available [facility] (Lab) [address] [place], [address], 06/30/2024 18:35:09 06/30/20 24 06/30/2024 CBC/C OMPLE TE BLD COUNT W/DIF F metamyelocyt es 1 % -0 high Not Available [facility] (Lab) [address] [place], [address], 06/30/2024 18:35:09 06/30/20 24 06/30/2024 CBC/C OMPLE TE BLD COUNT W/DIF F neutrophils, absolute count 2.88 x10'3 /uL 1.5-8. 0 Not Available [facility] (Lab) [address] [place], [address], 06/30/2024 18:35:09 06/30/20 24 06/30/2024 CBC/C OMPLE TE BLD COUNT W/DIF F nucleated red blood cells 4 % -0 high Not Available [facility] (Lab) [address] [place], [address], 06/30/2024 18:35:09 06/30/20 24 06/30/2024 CBC/C OMPLE TE BLD COUNT W/DIF F anisocytosis 3+ Not Available [facility] (Lab) [address] [place], [address], 06/30/2024 18:35:09 06/30/20 24 06/30/2024 CBC/C OMPLE TE BLD COUNT W/DIF F poikilocytos is 3+ Not Available [facility] (Lab) [address] [place], [address], 06/30/2024 18:35:09 06/30/20 24 06/30/2024 CBC/C OMPLE TE BLD COUNT W/DIF F hypochromia 1+ Not Available [facility] (Lab) [address] [place], [address], 06/30/2024 18:35:09 06/30/20 24 06/30/2024 CBC/C OMPLE TE BLD COUNT W/DIF F polychromato philic RBCs OCCASI ONAL Not Available [facility] (Lab) [address] [place], [address], 06/30/2024 18:35:09 06/30/20 24 06/30/2024 CBC/C OMPLE TE BLD COUNT W/DIF F basophilic stippling OCCASI ONAL Not Available [facility] (Lab) [address] [place], [address], 06/30/2024 18:35:09 06/30/20 24 06/30/2024 CBC/C OMPLE TE BLD COUNT W/DIF F target cells 1+ Not Available [facility] (Lab) [address] [place], [address], 06/30/2024 18:35:09 06/30/20 24 06/30/2024 CBC/C OMPLE TE BLD COUNT W/DIF F ovalocytes OCCASI ONAL Not Available [facility] (Lab) [address] [place], [address], 06/30/2024 18:35:09 06/30/20 24 06/30/2024 CBC/C OMPLE TE BLD COUNT W/DIF F teardrop red blood cells OCCASI ONAL Not Available [facility] (Lab) [address] [place], [address], 06/30/2024 18:35:09 06/30/20 24 06/30/2024 CBC/C OMPLE TE BLD COUNT W/DIF F schistocytes OCCASI ONAL Not Available [facility] (Lab) [address] [place], [address], 06/30/2024 18:35:09 06/30/20 24 06/30/2024 CBC/C OMPLE TE BLD COUNT W/DIF F large platelets 1+ Not Available [facility] (Lab) [address] [place], [address], 06/30/2024 18:35:09 06/30/20 24 06/30/2024 CBC/C OMPLE TE BLD COUNT W/DIF F giant platelets OCCASI ONAL Not Available [facility] (Lab) [address] [place], [address], 06/30/2024 18:35:09 06/30/20 24 06/30/2024 VITAM IN B12 (VALERIANO ASIF ) vb12 802 pg/mL 239-93 1 Not Available [facility] (Lab) [address] [place], [address], 06/30/2024 19:01:58 06/30/20 24 06/30/2024 FOLAT E, SERUM /PLAS MA folate 10.6 NG/mL 2.76-2 0.0 Not Available [facility] (Lab) [address] [place], [address], 06/30/2024 19:02:03 03/01/20 23 02/27/2023 scree deyvi breas t jose de jesus, bilat [facility] [address] [place] [address] [phone] Patien t Name: TANESHA DIALLO ion #: [id number] Sex: F : 1955 1 Locati on: RAD Attend ing Physic yonis: DECLAN FLORES Orderi Physic yonis: DECLNA FLORES Exam Date: 02/28/20 1:15 PM Exam Name: MG SCRN BREAST JOSE DE JESUS BILAT Admitt ing Diagno sis(es ): MAMMOG TIEN REPORT - FINAL EXAM: MG SCRN BREAST JOSE DE JESUS BILAT HISTOR Y: SCREEN ING MAMMOG TIFFANY COMPAR ALBERTO: 2019 TECHNI QUE: Bilate ral CC and MLO views of the breast s were perfor med. Digita l Mammog tien images were obtain ed. CAD (compu ter assist ed detect ion) was utiliz ed. 3D Digita l breast tomosy nthesi s was perfor med and used in the interp retati on of images . FINDIN GS: There are scatte red areas of fibrog landul ar densit y. No masses , asymme tries, suspic ious calcif icatio ns, or scarlet ectura l Page 1 of 2 [facility] Mustapha galaviz Name: TANESHA DIALLO ion #: [id number] Sex: F : 1955 1 Exam Date: 02/28/20 1:15 PM Exam Name: MG SCRN BREAST JOSE DE JESUS BILAT Admitt ing Diagno sis(es ): distor tion are seen. IMPRES KOREY: BIRADS 1: Assess ment comple te. Negati ve. Recomm end annual screen ing mammog tien. Accord ing to the [employer], yearly mammog jesusita are recomm ended starti ng at age 40 and contin uing as long as the woman is in good health . Clinic al Breast Exam should be part of the period ic health exam-a bout every 3 years for women in their 20s and 30s and every year for women 40 and over. Breast self-e xam is an option for women in their 20s. Any breast change noted on the breast self-e xam she would be report ed prompt ly to the [facility]. A negati ve mammog tien report should not discou rage follow -up or biopsy of a clinic ally signif icant findin g and/or abnorm ality. Dense breast tissue may obscur e small neopla sms. This mustapha galaviz has been entere d into a mammog tien remind er system with a target date for her next mammog tiffany. Create d and electr onical ly signed by: Tr garcia MD Signed Date: 03/01/20 11:32 AM (CT) Dictat ed by: Tr garcia MD (CT) (CT) Page 2 of 2 [email or web address] [facility] (Imaging) [address] [place] [address], [address], 03/05/2023 14:52:38 07/29/20 23 07/29/2023 LDCT, chest , for lung cance r jesús carnes No observ ation record ed. [email or web address] [facility] [address], [place], [address], 07/30/2023 10:25:22 01/15/20 24 01/15/2024 imagi ng/di agnos tic resul t No observ ation record ed. [email or web address], [place], [address], 07/05/2024 16:47:42 02/29/20 24 02/29/2024 jesús carnes breas t jose de jesus, bilat [facility] [address] [place] [address] Patien t Name: TANESHA DIALLO Access ion #: [id number] Sex: F : 1955 7 Dictat ed By: Nisha Tamez Attend ing Physic yonis: DECLAN FLORES Physic yonis: DECLAN FLORES Exam Date: 2023 09:40 AM Exam Name: MG SCRN BREAST JOSE DE JESUS BILAT Admitt ing Diagno sis(es ): SCREEN ING MAMMOG TIFFANY WITH TOMOSY NTHESI S: REASON FOR EXAM: SCREEN ING MAMMOG TIFFANY COMPAR ALBERTO: 02/27/23 ; 02/27/22 TECHNI QUE: Bilate ral CC and MLO views obtain ed. Images were obtain ed using a Digita l Tomosy nthesi s Unit. Standa rd 2D and 3D Tomosy nthesi s images were review ed. FINDIN GS: BREAST COMPOS ITION: There are scatte red areas of fibrog landul ar densit y in the bilate ral breast s. In the right breast , no asymme trical parenc hymal patter n, scarlet ectura l distor tion, pleomo rphic microc alcifi cation s or masses . In the left breast , no asymme trical parenc hymal patter n, scarlet ectura l distor tion, pleomo rphic microc alcifi cation s or masses . IMPRES KOREY: No findin gs of malign musa. Recomm end annual mammog tiffany. BIRADS : 2 - Benign Electr onical ly Signed by: Nisha Tamez at 2023 10:32: 48 AM Page 1 [email or web address] [facility] (Imaging) [address] [place], [address], 06/07/2024 15:26:27 02/29/20 24 02/29/2024 DEXA, axial skele ton [facility] [address] [place] [address] Patien t Name: TANESHA DIALLO Access ion #: [id number] Sex: F : 1955 7 Dictat ed By: Duane Clark Attend ing Physic yonis: [facility]: DECLAN FLORES Exam Date: 2023 09:40 AM Exam Name: XR DEXA-H IPS PELVIS SPINE Admitt ing Diagno sis(es ): INDICA TION: Postme nopaus al osteop orosis DEXA SCAN: BONE DENSIT Y REPORT : AP SPINE (L1-L4 ) : T Score: 1.2 LEFT HIP TOTAL : T Score: 0.2 RT HIP TOTAL : T Score: -0.1 TOTAL BILAT HIP AVG: T Score: 0.0 10 YEAR FRACTU RE RISK* NA IMPRES KOREY: Normal bone minera lizati on ------ ------ ------ ------ ------ ------ ------ ------ ----- *FRAX versio n 3.08. Fractu re probab ility calcul ated for an untrea vishnu patien t. Fractu re probab ility may be lower if the patien t has receiv ed treatm ent. T-scor e: compar alberto by standjess rd deviat ion (SD) to a young adult popula tion, matche d for sex and ethnic ity (used for postme nopaus al women and men >50 years) and classi fied by WHO criter ia. -1.0: normal <-1.0 to >-2.5: osteop enia -2.5: osteop orosis -2.5 plus fragil ity fractu re: severe osteop orosis Page [address] [facility] [address] [facility] [address] [place] [address] Patien t Name: TANESHA DIALLO Access ion #: [id number] Sex: F : 1955 7 Dictat ed By: Duane Clark Attend ing Physic yonis: NISREEN SYKES [facility] Physic yonis: DECLAN FLORES Exam Date: 2023 09:40 AM Exam Name: XR DEXA-H IPS PELVIS SPINE Admitt ing Diagno sis(es ): Z-scor e: compar ed by SD to an age, sex, and ethnic ity popula tion (used for premen opausa l women, men <50 years, and childr en instea d of T-scor e WHO criter ia 4) <-2.0: below expect ed range/ low bone densit y for age, and a cause should be sought Electr onical ly Signed by: Duane Clark at 2023 10:42: 25 AM Page 2 [email or web address] [facility] (Imaging) [address] [place], [address], 06/07/2024 15:26:28 02/29/20 24 02/29/2024 DEXA, axial skele ton No observ ation record ed. [email or web address] [facility] (One Call Scheduling) [address] [place], [address], 06/07/2024 15:26:12 08/01/20 24 08/01/2024 CT, chest , w/o contr ast No observ ation record ed. [address] [facility] [address], [place], [address], 08/04/2024 16:16:09 Result Notes None recorded. Problems Name Problem SNOMED Code Status Onset Date Resolution Date Notes Provider Name and Address Organization Details Recorded Time Blood glucose outside reference range 946285499 Active 2021 Not Available [facility] 3 20:55:26 Hypertrigl yceridemia 011406640 Active 2021 Not Available [facility] 3 20:55:26 Knee pain Active Not Available [facility] 3 20:55:26 Pain of bilateral knee joints 8993543141448 04 Active 2021 Not Available [facility] 3 20:55:26 Hyperlipid emia 05661609 Active 2021 Not Available [facility] 3 20:55:26 Derangemen t of knee 09738273 Active Not Available [facility] 3 20:55:26 Carotid artery stenosis 46630390 Active 2021 Not Available [facility] 3 20:55:27 Vitamin D deficiency 04163656 Active 2022 Meera neal [facility] 3 13:49:15 Hyperglyce marysol 15315635 Active 2022 Meera neal [facility] 3 13:50:00 Prediabete s 669131390 Active 2022 Meera neal [facility] 3 11:21:51 Essential hypertensi on 74123358 Active 2022 Stacie mercado MD [address] [place] [address], [place] [address], [place], [address] , [facility] 3 15:46:00 Anemia 778262503 Active 2022 Stacie mercado MD [address], [place], [address] , [facility] 3 15:47:15 Bilateral cataracts 77442250 Active 2022 Stacie mercado MD [address], [address], [place], [address] , [facility] 3 15:47:25 Smoker 20791384 Active 2022 Stacie mercado MD [address], [place], [address] , [facility] 3 15:54:38 Pain in right hip joint 4735751594908 02 Active 2022 Stacie mercado MD [address], [place], [address] , [facility] 3 15:55:01 Coronary arterioscl erosis 14604024 Active 2022 Stacie mercado MD [address], [place], [address] , [facility] 3 15:55:19 Chronic kidney disease 009393539 Active 2022 Meera Davis null, [facility] 3 12:10:07 Proteinuri a 79407835 Active 2023 DONOVAN Tilley, [facility] 4 10:49:53 Upper respirator y infection 33356882 Active 2024 Stacie mercado MD [address], [place], [address] , [facility] 5 15:34:31 Lymphadeno danni 32256231 Active 2024 Stacie mercado MD [address], [address], [place], [address] , [facility] [employer] [facility] [employer] [facility] [employer] 15:35:27 Problem Notes None recorded. Procedures Surgical History Date Name Laterality Status Provider Name and Address Organization Details Recorded Time 04/14/20 24 Medicare Wellness CPT Code, subsequent cancelled Brenden Sumner LPN [place] [facility] 04/13/2024 15:56:15 delivery completed Meg Rhodes MA [facility] [employer] 06/30/2024 14:21:48 Hysterectomy completed Meg Rhodes MA [facility] 11/29/2024 15:09:28 repair of meniscus completed Meg Rhodes MA [facility] [employer] [facility] 11/29/2024 15:09:50 Imaging Results Imaging Date Name Status LastModified by Organiz ation Details LastModified Time 02/27/2023 screening breast jose de jesus, bilat completed [address] (Imaging) [address] [place], [address], 03/05/2023 14:52:38 07/29/2023 LDCT, chest, for lung cancer screening completed [address], [address], 07/30/2023 10:25:22 01/15/2024 imaging/diagno stic result completed [address], [address], 07/05/2024 16:47:42 02/29/2024 screening breast jose de jesus, bilat completed [address] (Imaging) [address] [place], [address], 06/07/2024 15:26:27 02/29/2024 DEXA, axial skeleton completed [address] (Imaging) [address] [place], [address], 06/07/2024 15:26:28 02/29/2024 DEXA, axial skeleton completed [address] [facility] [address] [facility] (One Call Scheduling) [address], [place], [address], 06/07/2024 15:26:12 08/01/2024 CT, chest, w/o contrast completed [address] [facility] [address], [place], [address], 08/04/2024 16:16:09 Procedure Notes None recorded. Medical Equipment None Reported. Allergies Allergen ID Allergen Name Allergen Category Reaction Reaction Severity Criticality Documentation Date Start Date Code Code System Note Provider Name and Address Organization Details Recorded Time 96885 ibuprofen medicatio n vomiting Not available Not available 12/24/2022 5640 RxNorm Not Available [facility] 20:56:42 Medications Name Sig Start Date Stop Date Status Note LastModified by Organization Details LastModified Time cyclobenzap rine 10 mg tablet TK 1 T PO QHS 01/14 completed Not Available Not Available Not Available amoxicillin 500 mg capsule Take 1 capsule every 8 hours by oral route for 7 days. active Not Available Not Available No t Available metformin 500 mg tablet Take 1 tablet twice a day by oral route. 07/14 completed Not Available Not Available Not Available bupropion HCl SR 150 mg tablet,12 hr sustained-r elease TK 1 T PO BID 01/14 completed Not Available Not Available Not Available azithromyci n 250 mg tablet 01/14 completed Not Available Not Available Not Available Medrol (Gavin) 4 mg tablets in a dose pack Take 1 dose pk by oral route as directed. 2024 active Not Available Not Available Not Avai lable acetaminoph en 300 mg-codeine 30 mg tablet 06/30 completed Not Available Not Available Not Available peg-electro lyte solution 420 gram oral solution 06/30 completed Not Available Not Available Not Available aspirin 81 mg tablet,raymundo yed release Take 1 tablet every day by oral route. active Not Available Not Available No t Available tramadol 50 mg tablet Take 1 tablet every day by oral route as needed for 30 days. active Not Available Not Available No t Available promethazin e 25 mg tablet 06/30 completed Not Available Not Available Not Available nicotine 21 mg/24 hr daily transdermal patch APPLY 1 PATCH TO SKIN ONCE DAILY 06/30 completed Not Available Not Available Not Available gabapentin 300 mg capsule TK 1 C PO TID UTD 06/30 completed Not Available Not Available Not Available amoxicillin 875 mg-potassiu m clavulanate 125 mg tablet Take 1 tablet every 12 hours by oral route for 7 days. 2024 active Not Available Not Available Not Avai lable amlodipine 10 mg-benazepr il 20 mg capsule Take 1 capsule every day by oral route for 90 days. active Not Available Not Available No t Available nicotine 21mg/24hr-1 4mg/24hr-7m g/24hr daily transderm patches,seq uentl Apply 1 package by transderm al route as directed. 06/30 completed Not Available Not Available Not Available iron 2022 active Not Available Not Available Not Avai lable Oysco 500/D 500 mg-5 mcg (200 unit) tablet TK 2 CS PO QD UTD 01/14 completed Not Available Not Available Not Available cholecalcif alpesh (vitamin D3) 1,250 mcg (50,000 unit) capsule Take 1 capsule every week by oral route. 12/15 completed Not Available Not Available Not Available fenofibrate 54 mg tablet TAKE 1 TABLET BY MOUTH EVERY DAY active Not Available Not Available No t Available Vitals Date Recorded Body mass index (BMI) Body height Heart rate Body temperature Body weight Systolic blood pressure Diastolic blood pressure Provider Name and Address Organization Details Last Updated DateTime 3 26.3 kg/m2 162.56 cm 90 /min 97.3 [degF] 29675.6 3 g 132 mm[Hg] 60 mm[Hg] Not Available [facility] 3 20:54:45 Date Recorded Body height Body mass index (BMI) Body weight Body temperature Heart rate Oxygen saturation Oxygen saturation in Arterial blood by Pulse oximetry Systolic blood pressure Diastolic blood pressure Provider Name and Address Organization Details Last Updated DateTime 3 162.56 cm 24.9 kg/m2 71618.8 9 g 97.4 [degF] 87 /min 97 % 97 % 122 mm[Hg] 68 mm[Hg] Jyotsna Stanton MA [facility] [employer] [facility] 3 15:17:38 Date Recorded Body height Body mass index (BMI) Body weight Body temperature Heart rate Systolic blood pressure Diastolic blood pressure Provider Name and Address Organization Details Last Updated DateTime 4 162.56 cm 24.7 kg/m2 46082.3 g 97.4 [degF] 96 /min 134 mm[Hg] 62 mm[Hg] MARITZA Taylor [facility] [employer] [facility] 4 15:14:39 Date Recorded Body height Body mass index (BMI) Body weight Body temperature Heart rate Oxygen saturation Oxygen saturation in Arterial blood by Pulse oximetry Systolic blood pressure Diastolic blood pressure Provider Name and Address Organization Details Last Updated DateTime 4 162.56 cm 23.5 kg/m2 57989.1 5 g 96.6 [degF] 107 /min 97 % 97 % 124 mm[Hg] 60 mm[Hg] Meg Rhodes MA [facility] [employer] [facility] 4 14:19:34 Date Recorded Body height Body mass index (BMI) Body weight Body temperature Pain severity - 0-10 verbal numeric rating [Score] - Reported Heart rate Oxygen saturation Oxygen saturation in Arterial blood by Pulse oximetry Systolic blood pressure Diastolic blood pressure Provider Name and Address Organization Details Last Updated DateTime 5 162.56 cm 21.8 kg/m2 37909.2 3 g 97.5 [degF] 6 105 /min 98 % 98 % 120 mm[Hg] 64 mm[Hg] Meg Rhodes MA [facility] [employer] [facility] 5 15:04:49 Social History Question Answer Notes LastModified by Organizat ion Details LastModified Time Tobacco Smoking Status Current Every Day Smoker Not Available [facility] 12/24/2022 20:54:20 Do You Have An Advance Directive? No MIGRATION.14571 02713 Information not available 12/24/2022 What Is Your Level Of Alcohol Consumption? None MIGRATION.26929 07618 Information not available 12/24/2022 Are You Blind Or Do You Have Difficulty Seeing? No MIGRATION.51185 68519 Information not available 12/24/2022 What Is Your Level Of Caffeine Consumption? Moderate MIGRATION.00443 10989 Information not available 12/24/2022 In The 14 Days Before Symptom Onset, Have You Had Close Contact With A Laboratory-confi rmed COVID-19 While That Case Was Ill? No MIGRATION.81708 71607 Information not available 12/24/2022 In The 14 Days Before Symptom Onset, Have You Had Close Contact With A Person Who Is Under Investigation For COVID-19 While That Person Was Ill? No MIGRATION.11349 05563 Information not available 12/24/2022 Are You Currently Employed? No Information not available 06/30/2024 Are You Deaf Or Do You Have Serious Difficulty Hearing? No MIGRATION.29783 92040 Information not available 12/24/2022 What Type Of Diet Are You Following? REGULAR MIGRATION.81341 25238 Information not available 12/24/2022 What Is The Highest Grade Or Level Of School You Have Completed Or The Highest Degree You Have Received? [id number] MIGRATION.34205 34347 Information not available 12/24/2022 Have There Been Any Changes To Your Family Or Social Situation? No MIGRATION.50829 44199 Information not available 12/24/2022 What Is The Fluoride Status Of Your Home? Unknown MIGRATION.56791 49261 Information not available 12/24/2022 Are There Any Guns Present In Your Home? No MIGRATION.03081 16053 Information not available 12/24/2022 Do You Use Insect Repellent Routinely? No MIGRATION.47992 99082 Information not available 12/24/2022 Where Do You Live? [place]LevelHouse MIGRATION.31098 51396 Information not available 12/24/2022 Do You Have A Medical Power Of Die Technician? No MIGRATION.92550 96050 Information not available 12/24/2022 What Was The Date Of Your Most Recent Tobacco Screening? 11/29/2024 Information not available 11/29/2024 How Many Children Do You Have? 3 Information not available 06/30/2024 Do You Have Any Pets? No MIGRATION.97662 85378 Information not available 12/24/2022 What Is Your Relationship Status? MIGRATION.30847 51812 Information not available 12/24/2022 Do You Use Your Seat Belt Or Car Seat Routinely? Yes [email or web address] Information not available 07/14/2023 Do You Have Smoke And Carbon Monoxide Detectors In Your Home? Yes MIGRATION.86690 52681 Information not available 12/24/2022 At What Age Did You Start Smoking Tobacco? 24 MIGRATION.82875 81012 Information not available 12/24/2022 Are You Passively Exposed To Smoke? No MIGRATION.36942 60349 Information not available 12/24/2022 Are There Any Smokers In Your House? No MIGRATION.07654 16487 Information not available 12/24/2022 How Much Tobacco Do You Smoke? 1 PPD MIGRATION.76985 03619 Information not available 12/24/2022 Do You Feel Stressed (tense, Restless, Nervous, Or Anxious, Or Unable To Sleep At Night)? [id number] MIGRATION.58542 85743 Information not available 12/24/2022 Do You Use Any Illicit Or Recreational Drugs? No MIGRATION.07030 94508 Information not available 12/24/2022 Do You Use Sunscreen Routinely? No MIGRATION.99301 91108 Information not available 12/24/2022 How Many Years Have You Smoked Tobacco? 42 MIGRATION.84448 74216 Information not available 12/24/2022 Have You Recently Traveled Abroad? No MIGRATION.42651 18680 Information not available 12/24/2022 Do You Have Any Dietary Restrictions? No MIGRATION.27647 34815 Information not available 12/24/2022 Do You Or Have You Ever Used Any Other Forms Of Tobacco Or Nicotine? No MIGRATION.21308 46112 Information not available 12/24/2022 Sex: Female Functional Status Question Answer Note LastModified by Organizat ion Details LastModified Time Do you have difficulty walking or climbing stairs? Yes MIGRATION.5112240 026 Information not available 12/24/2022 Do you have transportation difficulties? No MIGRATION.0466361 026 Information not available 12/24/2022 Are you able to walk? YESWOREST MIGRATION.9338934 026 Information not available 12/24/2022 Do you have difficulty doing errands alone? Yes MIGRATION.9884483 026 Information not available 12/24/2022 Are you able to care for yourself? Yes MIGRATION.2172661 026 Information not available 12/24/2022 Do you have difficulty dressing or bathing? Yes MIGRATION.6230236 026 Information not available 12/24/2022 What is your exercise level? None MIGRATION.1848923 026 Information not available 12/24/2022 Mental Status Question Answer Note LastModified by Organizat ion Details LastModified Time Do you have difficulty concentrating, remembering or making decisions? Yes MIGRATION.418295955 6 Information not available 12/24/2022 Family History Relationship Description Onset Age of this Age Resolved Age Notes LastModified by Organization Details LastModified Time Father Malignant tumor of lung MIGRATION.025 [id number] Not available 12/24/2022 20:54:36 Brother Malignant tumor of lung MIGRATION.222 5859974 Not available 12/24/2022 20:54:36 Sister Malignant tumor of pharynx MIGRATION.085 6109014 Not available 12/24/2022 20:54:36 Mother Malignant tumor of lung MIGRATION.034 6433971 Not available 12/24/2022 20:54:36 Medical History Condition Response NERVE DISEASE N BLINDNESS N RHEUMATIC FEVER N KIDNEY STONES N BLADDER PROBLEMS N MRSA N OTHER # 1 N POLIO N LUNG DISEASE/DISORDER N HISTORY OF DRUG ABUSE N RADIATION / CHEMOTHERAPY N COPD N Other # 2 N BLOOD DISEASES N EAR OR HEARING PROBLEMS N MUMPS N SHINGLES N DEPRESSION (INCLUDING POST ) N BOWEL PROBLEMS N STROKE/TIA N ULCERS N BENIGN PROSTATIC HYPERPLASIA N MEASLES N HYPOTENSION N MYOCARDIAL INFARCTION N OBESITY N GERD/NAUSEA N ANEURYSM N URINARY/BLADDER/KIDNEY PROBLEMS N CORONARY ARTERY DISEASE (CAD) N ADDICTION CONCERNS N Impotence N ENDOMETRIOSIS N USE OF BLOOD THINNERS N SKIN PROBLEMS N GASTROINTESTINAL DISORDER N PERIPHERAL VASCULAR DISEASE N MUSCLE,JOINT OR BONE PROBLEMS N GASTROINTESTINAL BLEEDING N BLOOD CLOTS N ASTHMA N CATARACTS N ERECTILE DYSFUNCTION N VARICOSITIES N GI PROBLEMS N Low Testosterone N INFERTILITY N AIDS/HIV N CHEMOTHERAPY / RADIATION N LIVER DISEASE N MALE HYPOGONADISM N HYPERTENSION Y Deficiency N TOURETTE'S N ANXIETY DISORDER N BLOOD TRANSFUSION N ANEMIA/BLOOD DISORDER N CHRONIC EAR INFECTIONS N BRONCHITIS N TUBERCULOSIS N GLAUCOMA N FOOT PROBLEM N DIVERTICULITIS N SLEEP APNEA N CHICKENPOX N INFECTIOUS DISEASE N PROSTATE N HEART ARRHYTHMIA N INSOMNIA N HIGH CHOLESTEROL / HYPERLIPIDEMIA N EYE PROBLEMS N HYPERTHYROIDISM N EDEMA N CHRONIC PAIN SYNDROME N HYPOTHYROIDISM N CAROTID BLOCKAGE N CONSTIPATION N BACK / NECK PROBLEMS N ATHEROSCLEROSIS N BREAST PROBLEMS N DIALYSIS N ECZEMA N OSTEOPOROSIS N ARTHRITIS N APPENDICITIS N DIABETES, TYPE N BAD TEETH N ENT N HEARTBURN / REFLUX N AUTISM SPECTRUM DISORDER (ASD) N HEPATITIS / LIVER DISEASE N GOUT N SLEEP DISORDER N ALZHEIMER'S DISEASE N Brain Problems N DEMENTIA N HERPES N SEIZURES/EPILEPSY N HEADACHES/MIGRAINES N VASCULAR DISEASE N PACEMAKER N Blood Disorder N DIZZINESS N HEART DISEASE/HEART PROBLEMS N KIDNEY DISEASE N MULTIPLE SCLEROSIS N CANCER: SPECIFY N CARDIAC ARRHYTHMIA N ATRIAL FIBRILLATION N Gall Stones N PULMONARY EMBOLISM N AUTOIMMUNE DISEASE N Gynecological History Statement/Question Response How many live births 3 Date of Last Colonoscopy Date of Last Mammogram Date of LMP Most Recent Bone Density Date of Last Pap Current Control Method Hysterectom y Obstetrics History GPAL:G 3 P 3 0 0 1 Type Value Multiple Births 0 Full Term 3 Induced 0 Spontaneous 0 Premature 0 Living 1 Ectopics 0 Total 3 Immunizations Vaccine Type Date Status Note Provider Nam e and Address Organization Details Recorded Time COVID-19, mRNA, LNP-S, PF, 30 mcg/0.3 mL dose 03/14/2021 completed MARITZA Taylor, [place] - [facility] 08/15/2024 12:38:38 COVID-19, mRNA, LNP-S, PF, 30 mcg/0.3 mL dose 02/21/2021 completed MARITZA Taylor, [place] - [facility] 08/15/2024 12:38:38 Past Encounters Encounter ID Performer Location Encounter Start Date Encounter Closed Date Diagnosis/Indication Diagnosis SNOMED-CT Code Diagnosis ICD10 Code Diagnosis Note [id number] [facility] [address] [place] , [address] [address] 01/14/2022 00:00:00 01/14/2022 16:11:57 [id number] [facility] [address] [place] , [address] [address] 02/18/2022 00:00:00 02/20/2022 09:39:41 [id number] [facility] [address] [facility] [address] [address] 11/27/2022 00:00:00 11/27/2022 17:29:20 [id number] Stacie mercado MD [facility] [address] [place] , [address] [address] 07/14/2023 15:01:25 07/14/2023 15:30:47 Screening - NAD [id number] Z13.9 C-scope: 01/04/2021 : Dr Cody ny enema 02/05/2021 Mammogram: 02/27/2022 : NegMammogr am: 02/27/2023 : Neg DEXA: 02/27/2022 : Neg PAP: Get this Get yearly flu shot, declined 07/14/2923 Get tdap if not doneGet PCV #13 and then #23Can do shingrix vaccineHas declined all the above vaccines 11/27/2022 UTD on COVID 19 vaccineGet RSV vaccine RTC in 4 monthsDo labsER if worseShe did verbalize her understand ing of the above Essential hypertension 19449986 I10 On amlodipine -benazepri l 10-20mg dailyGet labs Vitamin D deficiency 347 50693 E55.9 Anemia 490406118 D64.9 Recently admitted and was told she had a mesentric massGet recordsRep eat the labs, will likely have to see Dr Garza CT A/P 03/15/2022 Dr Garza, no mass seen Dr Garza 10/15/2022 , on luspaterce ptDr Arsahd 05/13/2023 , 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, f/u in 6 weeks Smoker 90909348 F17.200 Smoked 1/2 PPD for about 25 years, now does have a mild coughShe is also SOBGet a CT chest doneWants to get on NRT, with patches, does not want chantix, patches sent 07/14/2023 CT chest 02/27/2022 : See case, see [facility] last OV 04/15/2022 , f/u one year Bilateral cataracts 9572 2003 H26.9 Wears glasses Does not want a referral yet, states that she does not have rides and she does not drive Pain in ri ght hip joint [id number] 96486 M25.551 Get xays statMay need to see ortho Addendum: 02/18/2022 :Get on tramadol, needs to see Dr Blackwood OV 11/27/2022 :Does well at this time Pain of bi lateral knee joints 0016404798 72156 M25.561 M25.562 Get xrays statMay need to see orthoPilarie did take her to radiology in a wheelchair OV 11/27/2022 : Does not want any referrals to ortho at this time, wants a 'pain pill'Get on tramadol VERY sparingly Hyperglycemia 70766038 R 73.9 On metformin, wants to stop this 07/14/2023 States that her hip and knees hurt her so much she does not want any meds at this time Coronary arteriosclerosis [id number] I25.10 [facility] 04/15/2022 , Dr Pace, next apt is in one year Chronic ki dney disease [id number] N18.[address] Pace IJ Hyperlipidemia 53440873 E78.5 Do labsHas declined any meds 07/14/2923 [id number] Stacie mercado MD [facility] [address] [facility], [address] [place] [address] 12/15/2023 15:06:35 12/15/2023 15:44:44 Screening - NAD 990310639 Z13.9 C-scope: 01/04/2021 : Dr Cody ny enema 02/05/2021 Mammogram: 02/27/2022 : NegMammogr am: 02/27/2023 : Neg DEXA: 02/27/2022 : Neg PAP: Get this Get yearly flu shot, declined 07/14/2923 Get tdap if not doneGet PCV #13 and then #23Can do shingrix vaccineHas declined all the above vaccines 11/27/2022 UTD on COVID 19 vaccineGet RSV vaccine RTC in 4 monthsDo labsER if worseShe did verbalize her understand ing of the above Essential hypertension 28835310 I10 On amlodipine -benazepri l 10-20mg dailyGet labs Vitamin D deficiency 347 60074 E55.9 Anemia 987228973 D64.9 Recently admitted and was told she had a mesentric massGet recordsRep eat the labs, will likely have to see Dr Garza CT A/P 03/15/2022 Dr Garza, no mass seen Dr Garza 10/15/2022 , on luspaterce ptDr Vik 05/13/2023 , 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, f/u in 6 weeksDr Kayla 12/09/2023 : On luspaterec ept Smoker 62682513 F17.200 Smoked 1/2 PPD for about 25 years, now does have a mild coughShe is also SOBGet a CT chest doneWants to get on NRT, with patches, does not want chantix, patches sent 07/14/2023 CT chest 02/27/2022 : See case, see [facility] last OV 04/15/2022 , f/u one year LDCT 07/29/2023 Patches sent again 12/15/2023 Bilateral cataracts 9572 2003 H26.9 Wears glasses Does not want a referral yet, states that she does not have rides and she does not drive Pain in ri ght hip joint 4717729672 92702 M25.551 Get xays statMay need to see ortho Addendum: 02/18/2022 :Get on tramadol, needs to see Dr Blackwood OV 11/27/2022 :Does well at this time Pain of bi lateral knee joints [id number] 84858 M25.561 M25.562 Get xrays statMay need to see orthoKatie did take her to radiology in a wheelchair OV 11/27/2022 : Does not want any referrals to ortho at this time, wants a 'pain pill'Get on tramadol VERY sparingly OV 12/15/2023 : Does well now Hyperglycemia 24466541 R 73.9 Not on metformin 07/14/2023 States that her hip and knees hurt her so much she does not want any meds at this time Coronary arteriosclerosis 71385114 I25.10 [facility] 04/15/2022 , Dr Pace, next apt is in one year Chronic ki dney disease 970913528 N18.[address] Pace IJ Hyperlipidemia 37088449 E78.5 Do labsHas declined any meds 07/14/2923 Screening mammography 24 295993 Z12.31 Screening for osteoporosis 410396459 Z13.820 Screening for malignant neoplasm of colon 428074404 Z12.11 [id number] Stacie mercaod MD [facility] [address] [facility], [address] [place] [address] 06/30/2024 14:06:29 06/30/2024 14:47:50 Screening - NAD 955331202 Z13.9 C-scope: 01/04/2021 : Dr Cody ny enema 02/05/2021 C-scope: 01/06/2024 : Dr Cody Flowers, next in 3 years Mammogram: 02/27/2022 : NegMammogr am: 02/27/2023 : NegMammogr am: 02/29/2024 : Neg DEXA: 02/27/2022 : NegDEXA: 02/29/2024 : Neg PAP: Get this, states that she does not see OB, declines, 06/30/2024 , denies any complaints Get yearly flu shot, declined 07/14/2923 Get tdap if not doneGet PCV #13 and then #23Can do shingrix vaccineHas declined all the above vaccines 11/27/2022 UTD on COVID 19 vaccineGet RSV vaccine RTC in 4 monthsDo labsER if worseShe did verbalize her understand ing of the above Essential hypertension 79318138 I10 On amlodipine -benazepri l 10-20mg daily, renewed 06/30/2024 Get labs Vitamin D deficiency 347 30935 E55.9 Anemia 412521435 D64.9 Recently admitted and was told she had a mesentric massGet recordsRep eat the labs, will likely have to see Dr Garza CT A/P 03/15/2022 Dr Garza, no mass seen Dr Garza 10/15/2022 , on luspaterce ptDr Vik 05/13/2023 , 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, f/u in 6 weeksDr Garza 12/09/2023 : On luspaterec ept Dr Garza 05/25/2024 , to get CT scan in 07/2024 Smoker 15166737 F17.200 Smoked 1/2 PPD for about 25 years, now does have a mild coughShe is also SOBGet a CT chest doneWants to get on NRT, with patches, does not want chantix, patches sent 07/14/2023 CT chest 02/27/2022 : See case, see [facility] last OV 04/15/2022 , f/u one year LDCT 07/29/2023 Patches sent again 12/15/[address] chest as per Dr Garza on 07/2024 Bilateral cataracts 9572 2003 H26.9 Wears glasses Does not want a referral yet, states that she does not have rides and she does not drive Pain in ri ght hip joint 7839616471 04808 M25.551 Get xays statMay need to see ortho Addendum: 02/18/2022 :Get on tramadol, needs to see Dr Blackwood OV 11/27/2022 :Does well at this time Pain of bi lateral knee joints 6259108051 74728 M25.561 M25.562 Get xrays statMay need to see orthoKatie did take her to radiology in a wheelchair OV 11/27/2022 : Does not want any referrals to ortho at this time, wants a 'pain pill'Get on tramadol VERY sparingly OV 12/15/2023 : Does well now Hyperglycemia 40825502 R 73.9 Not on metformin 07/14/2023 States that her hip and knees hurt her so much she does not want any meds at this time Coronary arteriosclerosis 74342549 I25.10 [facility] 04/15/2022 , Dr Pace, next apt is in one year Chronic ki dney disease 154968496 N18.[address] Pace IJ Hyperlipidemia 01327984 E78.5 Do labsHas declined any meds 07/14/2923 [id number] Stacie mercado MD [facility] [address] [facility], [address] [place] [address] 11/29/2024 14:53:00 11/29/2024 15:38:54 Upper respiratory infection 40550846 J06.9 Get on MDP, and augmentinS he does smoke, will get CT sinus and also advised to quit smokingNot shukri if not better Lymphadenopathy 35844530 R59.1 Tender, large MIREILLE noted L submandibu lar area, get on antibiotic and also get US neck done Screening - NAD 78279476 3 Z13.9 C-scope: 01/04/2021 : Dr Cody ny enema 02/05/2021 C-scope: 01/06/2024 : Dr Cody Flowers, next in 3 years Mammogram: 02/27/2022 : NegMammogr am: 02/27/2023 : NegMammogr am: 02/29/2024 : Neg DEXA: 02/27/2022 : NegDEXA: 02/29/2024 : Neg PAP: Get this, states that she does not see OB, declines, 06/30/2024 , denies any complaints Get yearly flu shot, declined 07/14/2923 Get tdap if not doneGet PCV #13 and then #23Can do shingrix vaccineHas declined all the above vaccines 11/27/2022 UTD on COVID 19 vaccineGet RSV vaccine RTC in 1 monthDo labsER if worseShe did verbalize her understand ing of the above Health Concerns Section Related Observation LastModified by Organization Detai ls LastModified Time None Recorded Concern Status LastModified by Organization Details LastModified Time None Recorded Advance Directives Directive N: Payers Encounter Date Sequence Insurance Name Policy Number Policy Huertas Covered Member ID Huertas Member ID Guarantor Name 07/14/2023 1 [facility] (MEDICARE REPLACEMENT/A DVANTAGE - HMO) [id number] Tanesha A Mansfield [id number] Tanesha Khadra 12/15/2023 1 [facility] (MEDICARE REPLACEMENT/A DVANTAGE - HMO) [id number] Tanesha A Mansfield [id number] Tanesha Khadra 06/30/2024 1 [facility] (MEDICARE REPLACEMENT/A DVANTAGE - HMO) [id number] Tanesha A Khadra [id number] Tanesha Khadra 11/29/2024 1 [facility] (MEDICARE REPLACEMENT/A DVANTAGE - HMO) [id number] Tanesha A Khadra [id number] Tanesha Khadra Notes Date Note Type Note Provider Name and Address Organization Details Recorded Time 07/14/20 23 text/htm l OV 01/14/2022:Here to establish carePast Hx:HTNAnemia, recent hosp with blood transfusionSmokingReviewed social family and surgical historyHere to discuss above, she would like to get labs and is especially wanting to know if she is still anemicFeels well, no blood in urine or stool, no pre syncope or syncope OV 02/18/2022:Here for her routine aptShe has done her labs but not other health maintenance orders and has not yet seen Dr Schneiedr today is in severe pain in the R hip and elizabeth kneesShe denies any traumaShe also c/o R earache, no d/c from the ear, no tinnitus, no dizziness, no fevers or chills OV 11/27/2022:Here for her f/u apt, she is doing well at this time, no recent labs noted, still has the R knee pain, and this hurts her when she walks long distances, declines any ortho referrals at this time OV 07/14/2023: Here for her f/u apt, she is doing well today Stacie Mcdonough MD [address] [facility], [facility] [address], [place], [address], [facility] 07/14/2023 15:46:03 12/15/19 24 text/htm l OV 01/14/2022:Here to establish carePast Hx:HTNAnemia, recent hosp with blood transfusionSmokingReviewed social family and surgical historyHere to discuss above, she would like to get labs and is especially wanting to know if she is still anemicFeels well, no blood in urine or stool, no pre syncope or syncope OV 02/18/2022:Here for her routine aptShe has done her labs but not other health maintenance orders and has not yet seen Dr Schneider today is in severe pain in the R hip and elizabeth kneesShe denies any traumaShe also c/o R earache, no d/c from the ear, no tinnitus, no dizziness, no fevers or chills OV 11/27/2022:Here for her f/u apt, she is doing well at this time, no recent labs noted, still has the R knee pain, and this hurts her when she walks long distances, declines any ortho referrals at this time OV 07/14/2023: Here for her f/u apt, she is doing well today OV 12/15/2023: Here for her routine apt, she is doing well today, she would like to try the nicotine patches again Stacie Mcdonough MD [address], [address], [place], [address], [facility] [employer] [facility] 12/15/2023 15:52:30 06/30/20 24 text/htm l OV 01/14/2022:Here to establish carePast Hx:HTNAnemia, recent hosp with blood transfusionSmokingReviewed social family and surgical historyHere to discuss above, she would like to get labs and is especially wanting to know if she is still anemicFeels well, no blood in urine or stool, no pre syncope or syncopeOV 02/18/2022:Here for her routine aptShe has done her labs but not other health maintenance orders and has not yet seen Dr Schneider today is in severe pain in the R hip and elizabeth kneesShe denies any traumaShe also c/o R earache, no d/c from the ear, no tinnitus, no dizziness, no fevers or chillsOV 11/27/2022:Here for her f/u apt, she is doing well at this time, no recent labs noted, still has the R knee pain, and this hurts her when she walks long distances, declines any ortho referrals at this time OV 07/14/2023: Here for her f/u apt, she is doing well today OV 12/15/2023: Here for her routine apt, she is doing well today, she would like to try the nicotine patches again OV 06/30/2024: Here for her f/u apt, she is doing well today, no new labs noted, does keep her apt with Dr Kayla Mcdonough MD [address], [facility] [address], [place], [address], [facility] [employer] [facility] 06/30/2024 14:49:02 11/29/19 25 text/htm l OV 01/14/2022:Here to establish carePast Hx:HTNAnemia, recent hosp with blood transfusionSmokingReviewed social family and surgical historyHere to discuss above, she would like to get labs and is especially wanting to know if she is still anemicFeels well, no blood in urine or stool, no pre syncope or syncopeOV 02/18/2022:Here for her routine aptShe has done her labs but not other health maintenance orders and has not yet seen Dr Schneider today is in severe pain in the R hip and elizabeth kneesShe denies any traumaShe also c/o R earache, no d/c from the ear, no tinnitus, no dizziness, no fevers or chillsOV 11/27/2022:Here for her f/u apt, she is doing well at this time, no recent labs noted, still has the R knee pain, and this hurts her when she walks long distances, declines any ortho referrals at this time OV 07/14/2023: Here for her f/u apt, she is doing well today OV 12/15/2023: Here for her routine apt, she is doing well today, she would like to try the nicotine patches again OV 06/30/2024: Here for her f/u apt, she is doing well today, no new labs noted, does keep her apt with Dr Garza OV 11/29/2024: Here for ACVNoted difficulty with swallowing as she has a 'bad sinus' infection, has also noted a swelling on the L jaw, since yesterday, no fevers or chills, no cough, no wheezing, no chest pain, no difficulty breathing Stacie Mcdonough MD [address] [place] [address], [place] [address], [place], [address], [facility] 11/29/2024 15:41:58 OBGyn Episode No OBEpisode recorded.
--- OUTSIDE RECORDS SUMMARY | 2024-12-05 09:17 | XMS_ITS | CONTINUITY OF CARE DOCUMENT ---
Author Name chicho valentino Address Unknown Organization [facility] Address [address] [facility] [address] [place] [address] Phone [phone] Care Team Providers Care Quilt Maker Name Role Phone Scott Pace MD Unavailable [phone] STACIE GALLOWAY MD Unavailable [phone] STACIE GALLOWAY MD Unavailable [phone] PROBLEMS Condition Status Date Provider Notes Hyperlipidemia active Remigio Ahmedzai CAD h/o coronary calcificati ons on CT--normal stress nuc, 03/2022 active Remigio Ahmedzai Essential hypertension--echo ef 65%, 03/2022 active 20 16/03/09 Remigio Ahmedzai Tobacco abuse active Remigio Ahmedzai Shortness of breath active Remigio Ahmedzai Pericardial effusion - small seen on CT active Scott Pace MD ENCOUNTERS Date Type Provider Location Encounter Diag nosis - In-person encounter Office Visit Scott Pace MD [facility] - In-person encounter Office Visit Scott Pace MD [facility] CAD h/o coronary calcifications on CT--normal stress nuc, 03/2022Essential hypertension--echo ef 65%, 03/2022 - In-person encounter Office Visit Scott Pace MD [facility] HyperlipidemiaCAD h/o coronary calcifications on CT--normal stress nuc, 03/2022Essential hypertension--echo ef 65%, 03/2022Tobacco abuseShortness of breathPericardial effusion - small seen on CT VITAL SIGNS Date Observation Value Provider Body Mass Index (Ratio) 25.92 kg/m2 Wilfrido Pace MD blood pressure, diastolic 49 mm[Hg] Ca therine Jefferson blood pressure, systolic 115 mm[Hg] Cat herine Jefferson oxygen saturation, oximetry 98 % Manju Jesús pulse rate 91 /min Manju Jesús respiratory rate E&M 16 /min Catheri ne Jesús weight E&M 151 [lb_av] Manju Jesús blood pressure, cuff size regular Ca therine Jesús height E&M 64 [in_i] Manju Jefferson Body Mass Index (Ratio) 26.95 kg/m2 Wilfrido Pace MD blood pressure, diastolic 92 mm[Hg] Mimi nkLogmeera blood pressure, systolic 116 mm[Hg] Carley Arreolaogmeera blood pressure, diastolic 92 mm[Hg] Dinorah Ania Ram blood pressure, systolic 116 mm[Hg] Dali henaovelvetgagan Ram respiratory rate E&M 18 /min Argelia eliot Ram pulse rate 92 /min Arias walton oxygen saturation, oximetry 99 % Arias Ram blood pressure, cuff size regular Dinorah Ram weight E&M 157 [lb_av] Arias walton height E&M 64 [in_i] Arias walton ALLERGIES Allergy Name Onset Date Reaction Criticality Status IBUPROFEN Low Criticality active HISTORY OF MEDICATION USE Medication Status Instructions Dates Provider Indications Com ments aspirin 81 mg tablet,delayed release (DR/EC) active Take 1 tablet by mouth once a day Remigio Del Toro amlodipine-rebecca epril 10-20 mg capsule active 1 capsule daily Arias Ram fenofibrate 54 mg tablet active 1 tablet ralph Ram SOCIAL HISTORY Date Observation Value Provider Exercise counseling yes Linda Staley mmon smoking/tobacco cess ation, patient education and counseling yes Linda Haro number of years as a smoker 20 a Linda Haro smoking, date started 20 Linda Haro smoking history, tot al pack/day 1 Linda Haro cigarette use yes Linda Haro smoking status Current every day smoker S lisa Haro social history reviewed E&M revi ewed - no changes required Linda Haro smoking/tobacco cess ation, patient education and counseling yes Scott Pace MD number of years as a smoker 20 a Manju Jefferson smoking, date started 20 Cather ine Jesús smoking history, tot al pack/day 1 Manju Jesús cigarette use yes Manju Jefferson smoking status Current every day smoker C atherine Jefferson social history reviewed E&M revi ewed - no changes required Scott Pace MD social history E&M S moking History: P atient currently smokes every day. Remigio Del Toro social history reviewed E&M revi ewed - no changes required Remigio Del Toro drug use no Arias walton alcohol use, average drinks per day social Arias Ram alcohol use yes Arias walton number of years as a smoker 20 a Arias Ram smoking, date started 20 Gisselle Ram smoking history, tot al pack/day 1 Arias Ram cigarette use yes Arias espinoza smoking status Current every day smoker L Magali Yo Exercise counseling yes Maegan Ram INSURANCE PROVIDERS Payer name Policy type / Coverage type Steve red republican ID [employer] MEDICARE ADVANTAGE HMO-POS HMO [id number] TREATMENT PLAN Date Name Performer [id number],S, Remigio Ahmedza i [id number],S, Remigio Ahmedza i [id number],S, Remigio Ahmedza i [id number],S, Remigio Ahmedza i [id number],S, Remigio Ahmedza i [id number],B, Remigio Ahmedza i [id number],S, Remigio Ahmedza i [id number],S, Remigio Ahmedza i [id number],S, Remigio Ahmedza i [id number],S, Remigio Ahmedza i [id number],S, Remigio Ahmedza i Cardiology Remigio Ahmedzai Cardiology Remigio Ahmedzai Cardiology Remigio Ahmedzai Cardiology Remigio Ahmedzai Cardiology Remigio Ahmedzai Cardiology Remigio Ahmedzai Cardiology Remigio Ahmedzai Cardiology Remigio Ahmedzai Cardiology Remigio Ahmedzai Cardiology Remigio Ahmedzai Cardiology Remigio Ahmedzai Date Name Stress Exercise Card iolite Complete Echo HISTORY OF PROCEDURES Procedure Date Procedure Name Provider Procedure Notes S tatus EKG Scott Pace MD completed SARAH Pace MD completed
--- OUTSIDE RECORDS SUMMARY | 2024-12-05 09:17 | XMS_ITS | Clinical Summary ---
Author Organization [facility] Scott Robledo Address [address] [place] [address] Care Team Providers Care Package Lift Operator Name Role Phone Winifred Mcdonough MD Primary Care Provider Allergies Active Allergy Reactions Criticality Noted Date Comments Ibuprofen Nausea and Vomiting Low 06/30/2019 Tramadol Headache Low 09/08/2022 Medications amLODIPine-michael zepril (LOTREL) 10-20 mg capsule amlodipine 10 mg-benazepril 20 mg capsule TK 1 C PO D 9 Active gabapentin (NEURONTIN) 300 mg capsule Take 1 Capsule (300 mg) by mouth 3 times daily. 90 Capsule 1 3 Active traMADoL (ULTRAM) 50 mg tabletIndicatio ns:Myelodysplas tic syndrome (CMS/HCC) Take 1 Tablet (50 mg) by mouth every 8 hours as needed for Pain. 60 Tablet 4 Active ferrous fumarate/iron ps cplx (FERROUS FUMARATE-IRON PS CMPLX ORAL) 3 Active Active Problems Problem Noted Date Diagnosed Date Peripheral neuropathy 08/26/2023 Mesenteric mass 03/14/2022 Myelodysplastic syndrome 03/14/2022 Encounters Date Type Department Care Team Description 11/28/2024 Orders Only [facility] Oncology and Hematology - [place] [address] [place] [address] Perry Garza MD Myelodysplastic syndrome (CMS/HCC) 11/18/2024 Abstract [facility] Oncology and Hematology - [place] [address] [place] [address] Perry Garza MD 11/17/2024 9:15 AM TECHNICAL PLANNER [facility] Oncology and Hematology - [place] [place] [address] Perry Garza MD Myelodysplastic syndrome (CMS/HCC) (Primary Dx) 11/16/2024 External Device Data STL ABSTRACTION Provider, Abstract 11/15/2024 External Device Data STL ABSTRACTION Provider, Abstract 11/14/2024 [facility] Oncology and Hematology - [place] [address] [place] [address] Perry Garza MD Myelodysplastic syndrome (CMS/HCC) 11/08/2024 External Device Data STL ABSTRACTION Provider, Abstract 10/31/2024 Orders Only [facility] Oncology and Hematology - [place] [address] [place] [address] Perry Garza MD Myelodysplastic syndrome (CMS/HCC) 10/17/2024 Orders Only [facility] Oncology and Hematology - [place] [address] [place] [address] Perry Garza MD Myelodysplastic syndrome ([facility]/HCC) 10/05/2024 Orders Only [facility] Oncology and Hematology - [address] [place] [address] Perry Garza MD 10/04/2024 [facility] Oncology and Hematology - [place] [address] [place] [address] Perry Garza MD 10/03/2024 9:45 AM TECHNICAL PLANNER Office Visit [facility] Oncology and Hematology - [address] [place] [address] Perry Garza MD Myelodysplastic syndrome (CMS/HCC) 09/19/2024 Orders [facility] Oncology and Hematology - [address] [place] [address] Perry Garza MD Myelodysplastic syndrome (CMS/HCC) 09/16/2024 Abstract [facility] Oncology and Hematology - [place] [address] [place] [id number] Perry Garza MD 09/13/2024 Orders Only [facility] Oncology and Hematology - [place] [address] [place] [address] Perry Garza MD 09/05/2024 Orders Only [facility] Oncology and Hematology - [place] [address] [place] [address] Perry Garza MD Myelodysplastic syndrome ([facility]/HCC) from Last 3 Months Family History Relation Name Status Comments Brother 1 Brother 2 Brother 3 Father Mother Sister 1 Sister 2 Sister 3 Alive Sister 4 Alive Son 1 Alive Son 2 Son 3 Social History Tobacco Use Types Packs/Day Years Used Date Smoking Tobacco: Every Day Cigarettes 0.5 37.1 Started: 1987 Smokeless Tobacco: Never Tobacco Cessation:Ready to Q uit: Not Asked; Counseling Given: Not Answered Alcohol Use Standard Drinks/Week Comments Not Currently 0 (1 standard drink = 0.6 oz pur e alcohol) Comments Unknown Sex and Gender Information Value Date Recorded Sex Assigned at Not on file Legal Sex Female 2:29 PM CDT Gender Identity Not on file Sexual Orientation Not on file Last Filed Vital Signs Vital Sign Reading Time Taken Comments Blood Pressure 82/52 11/17/2024 9:43 AM TECHNICAL PLANNER Pulse 105 11/17/2024 9:43 AM TECHNICAL PLANNER Temperature 36.6 C (97.9 F) 11/17/2024 9:43 AM TECHNICAL PLANNER Respiratory Rate 16 11/17/2024 9:43 AM TECHNICAL PLANNER Oxygen Saturation 97% 11/17/2024 9:43 AM TECHNICAL PLANNER Inhaled Oxygen Concentration - - Weight 61.7 kg (136 lb) 11/17/2024 9:43 AM TECHNICAL PLANNER Height 162.6 cm (5' 4 ) 08/18/2022 8:36 AM CDT Body Mass Index 23.34 08/18/2022 8:36 AM CDT Plan of Treatment Upcoming Encounters Date Type Department Care Team (Late st Contact Info) Description 12/08/2024 10:15 AM TECHNICAL PLANNER Office Visit [facility] Oncology and Hematology [facility] [address] [facility] [address] [place] [address] Perry Garza MD [address] [facility] [address] [place] [address] Health Maintenance Due Date Last Done Comments DTAP/TDAP/TD VACCINES (1 - Tdap) 1975 PNEUMOCOCCAL VACCINE 65+ YEA RS (1 of 2 - PCV) 1975 BREAST CANCER SCREENING 1996 COLORECTAL SCREENING 2001 Colorectal Cancer Screening 2001 FIT-DNA Q 3 years 2001 FIT/FOBT Q 1 year 2001 Flex Sig/CT Colonography Q 5 years 2001 ZOSTER VACCINE (1 of 2) 2006 INFLUENZA VACCINE (#1) 2024 COVID-19 Vaccine ( season) 2024, 02/21/2021 Medicare [place] ([place]) Prev entative Visit/Annual Wellness Visit 10/26/2024 RSV VACCINE (60+ or ) (1 - 1-dose 75+ series) 2031 OSTEOPOROSIS SCREENING Completed 02/27/2022 Procedures Procedure Name Priority Date/Time Associated Diagnosis Comments CHG BLOOD TYPING, ANTIGEN SCREEN Routine 11/18/2024 12:09 PM TECHNICAL PLANNER BASIC METABOLIC PANEL Routine 11/17/2024 10:17 AM TECHNICAL PLANNER CBC WITH DIFFERENTIAL Routine 10/03/2024 4:22 PM TECHNICAL PLANNER BASIC METABOLIC PANEL Routine 10/03/2024 1:05 PM TECHNICAL PLANNER CBC WITH DIFFERENTIAL Routine 09/12/2024 4:12 PM TECHNICAL PLANNER from Last 3 Months Results * CHG BLOOD TYPING, ANTIGEN SCREEN (11/18/2024 12:09 PM TECHNICAL PLANNER) Perry Garza MD CHG - LABORATORY Final Result * BASIC METABOLIC PANEL (11/17/2024 10:17 AM TECHNICAL PLANNER) Only the most recent of2 resultswithin the time period is included. Blood Perry Garza MD CHEMISTRY ORDERABLES Final Resu lt * CBC WITH DIFFERENTIAL (10/03/2024 4:22 PM TECHNICAL PLANNER) Only the most recent of2 resultswithin the time period is included. Blood Perry Garza MD HEMATOLOGY ORDERABLES Final Res ult from Last 3 Months Insurance [facility] [id number] Member Subscriber Plan / Payer (Ef fective 2022-Present) Name:Tanesha Gaviria Relation to Subscriber:Self Name:Tanesha Gaviria Payer ID:[id number] (NAIC) Type:O Address: [place] [id number] Care Teams Package Lift Operator Relationship Specialty Start Date End Date Winifred Mcdonough MD PCP - General Internal Medicine 03/14/22
--- OUTSIDE RECORDS SUMMARY | 2024-12-05 09:17 | XMS_ITS ---
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 Past Treatment and Therapy Plans ONCOLOGY SUPPORTIVE CARE Plan Name Start Date Discontinue Date Treatment Medications Discontinue Reason Plan Provider Cycles SUPPORT - PROCRIT - 2 WEEK - [facility]SCI 07/21/2019 12/20/2020 No medications scheduled. Plan Clean Up Saeed Ellis MD Treatment not started
--- OUTSIDE RECORDS SUMMARY | 2024-12-05 09:17 | XMS_ITS | Clinical Summary ---
Author Organization [facility] Address [address], [facility] [place] [address] Phone Care Team Providers Care Photographic Spotter Name Role Phone Ila Linares MD Primary Care Provider [phone] Allergies Active Allergy Reactions Criticality Noted Date Comments Ibuprofen Vomiting 06/30/2019 Medications amLODIPine Besy-Benazepril HCl 10-20 MG Capsule Take 1 Cap by mouth daily. 3 06/08/2019 Active folic acid (FOLVITE) 1 MG Tablet Take 1 Tab by mouth daily. 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 Family History Medical History Relation Name Comments Cancer Brother 1 Cancer Brother 2 Cancer Brother 3 Cancer Father Cancer Mother Cancer Sister 1 Cancer Sister 2 Other-comment Son 1 Other-comment Son 2 Relation Name Status Comments Brother 1 Brother 2 Brother 3 Father Mother Sister 1 Sister 2 Alive Son 1 Shot Son 2 Shot Son 3 Alive Social History Tobacco Use Types Packs/Day Years Used Date Smoking Tobacco: Every Day Cigarettes 0.5 37 Smokeless Tobacco: Never Alcohol Use Standard Drinks/Week Comments Yes 0 (1 standard drink = 0.6 oz pur e alcohol) Only special occasions PHQ-2 Answer Date Recorded PHQ-2 Score 0 07/21/2019 Comments Unknown Sex and Gender Information Value Date Recorded Sex Assigned at Not on file Legal Sex Female 8:48 PM CDT Gender Identity Not on file Sexual Orientation Not on file Last Filed Vital Signs Vital Sign Reading Time Taken Comments Blood Pressure 148/70 07/21/2019 9:08 AM CDT Pulse 84 07/21/2019 9:08 AM CDT Temperature 36.6 C (97.9 F) 07/21/2019 9:08 AM CDT Respiratory Rate 16 07/21/2019 9:08 AM CDT Oxygen Saturation 98% 07/21/2019 9:08 AM CDT Inhaled Oxygen Concentration - - Weight 72.1 kg (159 lb) 07/21/2019 9:08 AM CDT Height 162.6 cm (5' 4 ) 07/21/2019 9:08 AM CDT Body Mass Index 27.29 07/21/2019 9:08 AM CDT Plan of Treatment Health Maintenance Due Date Last Done Comments DEXA Bone Density 1955 Hepatitis C Virus (HCV) Screening 1955 TdaP Immunization 1955 Pneumococcal Immunization (5 0+ years) (1 of 2 - PCV) 1975 Zoster Immunization (1 of 2) 1975 Colonoscopy 2001 Colorectal Cancer Screening 2001 Cologuard 2006 Immunochemical Fecal Occult Blood 2006 Mammogram 2006 SARS-COV-2 Immunization (3 - Pfizer risk series) 04/11/2021 03/14/2021, 02/21/2021 Influenza Immunization (#1) 2024 Respiratory Syncytial Virus (RSV) Immunization (Adult) (1 - 1-dose 75+ series) 2031 Hepatitis B Immunization Aged Out No longer eligible based on patient's age to complete this topic Meningococcal Immunization (ACWY) Aged Out No longer eligible b ased on patient's age to complete this topic Rotavirus Immunization Aged Out No lo nger eligible based on patient's age to complete this topic Insurance MEDICAID [employer] Care Teams Photographic Spotter Relationship Specialty Start Date End Date Ila Linares MD [address] [place] [address] PCP - General Geriatric Medicine 06/24/19
== END 2024-12-05 08:53 | disposition home or self-care (01) ==
PROVIDERS: PCP Internal Medicine; Visit Provider Internal Medicine
DX: J34.89 Other specified disorders of nose and nasal sinuses (principal); J34.2 Deviated nasal septum; J06.9 Acute upper respiratory infection, unspecified
CPT/HCPCS: 70486

== ENCOUNTER 2024-12-07 14:19 | Outpatient (CLI) | payer MEDICARE, MEDICAID, SELFPAY ==
--- NOTE | ~2024-12-07 | US_ITS ---
EXAMINATION: US soft tissue head and neck DATE: 12/07/2024 15:09 INDICATION: Lymphadenopathy. Acute upper respiratory infection. TECHNIQUE: Multiple grayscale and Doppler ultrasound images of the head and neck were obtained. COMPARISON: None FINDINGS: There are normal lymph nodes in the patient's area of concern in left neck. IMPRESSION: 1. No abnormal mass or lymphadenopathy. Reviewed, dictated and finalized at location A. HANDISE ASSOCIATE
--- OUTSIDE RECORDS SUMMARY | 2024-12-07 14:25 | XMS_ITS | Clinical Summary ---
Author Organization [facility] Address [address], [facility] [address] [place] [address] Phone Care Team Providers Care Touch Up Painter Name Role Phone Ila Linares MD Primary Care Provider [phone] Allergies Active Allergy Reactions Criticality Noted Date [...] Insurance MEDICAID [employer] Care Teams Touch Up Painter Relationship Specialty Start Date End Date Ila Linares MD [address] [place] [address] PCP - General Geriatric Medicine 06/24/19
--- OUTSIDE RECORDS SUMMARY | 2024-12-07 14:25 | XMS_ITS ---
Author Organization [facility] Address [address], [facility] [address] [place] [address] Phone Care Team Providers Care Button Sewer Hand Name Role Phone Ila Linares MD Primary Care Provider [phone] Active Problems Problem Noted Date Diagnosed Date [...]
--- OUTSIDE RECORDS SUMMARY | 2024-12-07 14:25 | XMS_ITS | Clinical Summary ---
Author Organization [facility] Scott Robledo Address [address] [place] [address] Care Team Providers Care Site Identification Specialist Name Role Phone Winifred Mcdonough MD Primary [...] Department Care Team Description 11/28/2024 Orders Only [facility] Oncology and Hematology - [place] [address] [place] [address] Perry Garza MD Myelodysplastic syndrome (CMS/HCC) 11/18/2024 Abstract [facility] Oncology and Hematology - [place] [address] [place] [address] Perry Garza MD 11/17/2024 9:15 AM SECOND WORKER [facility] Oncology and Hematology - [place] [place] [address] Perry Garza MD Myelodysplastic syndrome (CMS/HCC) (Primary Dx) 11/16/2024 External Device Data STL ABSTRACTION Provider, Abstract 11/15/2024 External Device Data STL ABSTRACTION Provider, Abstract 11/14/2024 Orders [facility] Oncology and Hematology - [place] [address] [place] [address] Perry Garza MD Myelodysplastic syndrome (CMS/HCC) 11/08/2024 External Device Data STL ABSTRACTION Provider, Abstract 10/31/2024 Orders Only [facility] Oncology and Hematology - [place] [address] [place] [address] Perry Garza MD Myelodysplastic syndrome (CMS/HCC) 10/17/2024 Orders Only [facility] Oncology and Hematology - [place] [address] [place] [address] Perry Garza MD Myelodysplastic syndrome ([facility]/HCC) 10/05/2024 Orders Only [facility] Oncology and Hematology - [place] [place] [address] Perry Garza MD 10/04/2024 Orders Only [facility] Oncology and Hematology - [place] [address] [place] [address] Perry Garza MD 10/03/2024 9:45 AM SECOND WORKER Office Visit [facility] Oncology and Hematology - [address] [place] [address] Perry Garza MD Myelodysplastic syndrome (CMS/HCC) 09/19/2024 [facility] Oncology and Hematology - [place] [place] [address] Perry Garza MD Myelodysplastic syndrome (CMS/HCC) 09/16/2024 Abstract [facility] Oncology and Hematology - [place] [address] [place] [address] Perry Garza MD 09/13/2024 Orders Only [facility] Oncology and Hematology - [place] [address] [place] [address] Perry Garza MD from Last 3 Months Family History Relation [...] Comments Blood Pressure 82/52 11/17/2024 9:43 AM SECOND WORKER Pulse 105 11/17/2024 9:43 AM SECOND WORKER Temperature 36.6 C (97.9 F) 11/17/2024 9:43 AM SECOND WORKER Respiratory Rate 16 11/17/2024 9:43 AM SECOND WORKER Oxygen Saturation 97% 11/17/2024 9:43 AM SECOND WORKER Inhaled Oxygen Concentration - - Weight 61.7 kg (136 lb) 11/17/2024 9:43 AM SECOND WORKER Height 162.6 cm (5' 4 ) 08/18/2022 8:36 AM CDT Body Mass Index 23.34 08/18/2022 8:36 AM CDT Plan of Treatment Upcoming Encounters Date Type Department Care Team (Late st Contact Info) Description 12/08/2024 10:15 AM SECOND WORKER Office Visit [facility] Oncology and Hematology - [place] [address] [place] [address] Prery Garza MD [address] [facility] [address] [place] [address] Health Maintenance Due Date Last [...] Vaccine ( season) 2024, 02/21/2021 [place] ([place]) Prev entative Visit/Annual Wellness Visit 10/26/2024 RSV VACCINE (60+ or ) (1 - 1-dose 75+ series) 2031 OSTEOPOROSIS SCREENING Completed 02/27/2022 Procedures Procedure Name Priority Date/Time Associated Diagnosis Comments CHG BLOOD TYPING, ANTIGEN SCREEN Routine 11/18/2024 12:09 PM SECOND WORKER BASIC METABOLIC PANEL Routine 11/17/2024 10:17 AM SECOND WORKER CBC WITH DIFFERENTIAL Routine 10/03/2024 4:22 PM SECOND WORKER BASIC METABOLIC PANEL Routine 10/03/2024 1:05 PM SECOND WORKER CBC WITH DIFFERENTIAL Routine 09/12/2024 4:12 PM SECOND WORKER from Last 3 Months Results * CHG BLOOD TYPING, ANTIGEN SCREEN (11/18/2024 12:09 PM SECOND WORKER) Perry Garza MD CHG - LABORATORY Final Result * BASIC METABOLIC PANEL (11/17/2024 10:17 AM SECOND WORKER) Only the most recent of2 resultswithin the time period is included. Blood us Perry Garza MD CHEMISTRY ORDERABLES Final Resu lt * CBC WITH DIFFERENTIAL (10/03/2024 4:22 PM SECOND WORKER) Only the most recent of2 resultswithin the time period is included. Blood Perry Garza MD HEMATOLOGY ORDERABLES Final Res ult from Last 3 Months Insurance [facility] [id number] Care Teams Site Identification Specialist Relationship Specialty Start Date End Date Winifred Mcdonough MD PCP - General Internal Medicine 03/14/22
== END 2024-12-07 14:20 | disposition home or self-care (01) ==
PROVIDERS: PCP Internal Medicine; Visit Provider Internal Medicine
DX: J06.9 Acute upper respiratory infection, unspecified (principal)
CPT/HCPCS: 76536

== ENCOUNTER 2024-12-29 10:48 | Outpatient (RCR) | payer MEDICARE, MEDICAID, SELFPAY | END 2024-12-29 10:49 | disposition home or self-care (01) | LOC: ANHCPCTRAN 10:48 | PROVIDERS: PCP Internal Medicine; Visit Provider Internal Medicine Hematology & Oncology | DX: D46.9 Myelodysplastic syndrome, unspecified (principal) | CPT/HCPCS: 99199 ==

== ENCOUNTER 2024-12-30 08:30 | Outpatient (RCR) | payer MEDICARE, MEDICAID, SELFPAY ==
[2024-12-30] VITALS (10 sets, daily range): BP systolic 124–151; BP diastolic 50–62; PULSE 78–93; RESP 16–18; TEMP 36.8–37.2; O2SAT 98–100
[2024-12-30] MEDS: diphenhydrAMINE HCl CAP 25 MG CAPSULE PO (09:18)
[2024-12-30] MEDS: ACETAMINOPHEN 325 MG TABLET 650 MG PO (09:19)
[2024-12-30] MEDS: SODIUM CHLORIDE 0.9% IV 250 ML 30 ML IV CONT (09:20)
[2024-12-30] MEDS: FUROSEMIDE INJ 40 MG/4 ML VIAL 20 MG IV PUSH (12:36)
== END 2025-03-30 23:59 | disposition home or self-care (01) ==
LOC: ANHCPCTRAN 08:30
PROVIDERS: PCP Internal Medicine; Visit Provider Internal Medicine Hematology & Oncology
DX: D46.9 Myelodysplastic syndrome, unspecified (principal)
CPT/HCPCS: 36415; 36430; 86850; 86900; 86901; 86923; A9270; J1940; J7050; P9016

== ENCOUNTER 2025-01-05 09:56 | Outpatient (CLI) | payer MEDICARE, MEDICAID, SELFPAY ==
[2025-01-05 10:28] LABS: Hematocrit 30.4 % (37.0-47.0); Hemoglobin 9.8 g/dL (12.0-15.0); Immature Platelet Fraction Pct 13.4 % (0.9-11.2); Mean Corpuscular HGB Conc 32.2 g/dl (32-36); Mean Corpuscular Hemoglobin 29.6 pg (26-34); Mean Corpuscular Volume 91.8 fl (80-100); Mean Platelet Volume 12.3 fl (7.4-10.4); Platelet Count Result 197 k/mm3 (150-375); Red Blood Count 3.31 M/mm3 (4.2-5.4); Red Cell Distribution Width 20.7 % (11.5-14.5); White Blood Count 5.8 K/mm3 (4.5-10.0)
[2025-01-05 10:37] LABS: Prothrombin Time 13.6 Seconds (11.1-14.7)
[2025-01-05 10:38] LABS: Partial Thromboplastin Time 27.9 Seconds (22.3-36.8)
[2025-01-05 11:08] LABS: Band Neutrophils Percent 10 % (0-6); Eosinophils Absolute Manual 0.46 K/mm3 (0.02-0.50); Eosinophils Percent Manual 8 % (0-4); Lymphocytes Absolute Manual 2.55 K/mm3 (1.1-4.5); Monocytes Absolute Manual 0.23 K/mm3 (0.1-0.90); Monocytes Percent Manual 4 % (3-9); Neutrophils Absolute Manual 2.55 K/mm3 (1.7-7.2); Neutrophils Percent Manual 34 % (46-73); Total Cells Counted 100
[2025-01-05 11:10] LABS: Platelet Estimate Adequate (Adequate); Schistocytes None Seen
[2025-01-05 11:11] LABS: Anisocytosis 2+
--- OUTSIDE RECORDS SUMMARY | 2025-01-05 11:26 | XMS_ITS | Data Portability ---
Author Organization [employer], Main Office Address [address] [place] [address] Care Team Providers Care Visual And Stock Associate Name Role Phone STACIE MCDONOUGH Primary Care Provider [phone] STACIE MCDONOUGH Referring Provider Assessment Encounter Date [...] H/H 9.0/27.6 11/18/2023: Dr Garza H/H 8.2/26.5 [email or web address] Not available 06/29/2024 18:20:18 Plan of Treatment Reminders Order Date Submit Date Provider Last Modified By Organization Details Last Modified Time Details Appointments Medicare Wellness 15 2024 02:30P Denae oakes MD Not available Not available Not available Lab lipid panel, serum 2023 024 [facility] (Lab), [address] [place], [address], 06/30/2024 18:31:12 CBC w/ auto diff 2023 024 [facility] (Lab), [address] [place], [address], 06/30/2024 18:35:09 CMP, serum or plasma 2023 024 [facility] (Lab), [address] [place], [address], 06/30/2024 18:31:18 TSH, serum or plasma 2023 024 [facility] (Lab), [address] [place], [address], 06/30/2024 18:29:00 vitamin B12 + folate, serum or blood [email or web address] (Lab), [address] [place], [address], 01/03/2025 10:04:38 glycohemo globin, total, blood 2023 024 [facility] (Lab), [address] [place], [address], 07/01/2024 13:13:42 microalbu min, urine 2023 0[email or web address] [address] [place], [address], 06/30/2024 18:24:21 vitamin D, 25-hydrox y, total, serum [address] (Lab), [address] [place], [address], 12/06/2024 11:24:59 vitamin B12 + folate, serum or blood [address] (Lab), [address] [place], [address], 06/20/2024 10:10:25 lipid panel, serum [address] (Lab), [address] [place], [address], 10/13/2024 08:19:16 CBC w/ auto diff [address] (Lab), [address] [place], [address], 10/13/2024 08:19:16 CMP, serum or plasma [address] (Lab), [address] [place], [address], 10/13/2024 08:19:16 TSH, serum or plasma [address] (Lab), [address] [place], [address], 10/13/2024 08:19:16 glycohemo globin, total, blood [address] (Lab), [address] [place], [address], 12/12/2024 11:55:36 microalbu min, urine [address] (Lab), [address] [place], [address], 12/12/2024 11:55:36 vitamin D, 25-hydrox y, total, serum [address] (Lab), [address] [place], [address], 10/13/2024 08:19:16 lipid panel, serum [address] (Lab), [address] [place], [address], 12/15/2023 16:21:01 CBC w/ auto diff [address] (Lab), [address] [place], [address], 12/15/2023 16:21:18 CMP, serum or plasma [address] (Lab), [address] [place], [address], 12/15/2023 16:21:19 TSH, serum or plasma [address] (Lab), [address] [place], [address], 05/16/2024 09:14:11 glycohemo globin, total, blood [address] (Lab), [address] [place], [address], 04/26/2024 15:32:58 microalbu min, urine 2022 023 [email or web address] [facility] (Lab), [address] [place], [address], 04/26/2024 15:32:58 vitamin D, 25-hydrox y, total, serum 2022 023 [email or web address] [facility] (Lab), [address] [place], [address], 12/15/2023 16:21:01 Referral hematolog ist referral 2023 024 [email or web address] Perry Garza MD, [address], [place], [address], 06/30/2024 14:54:16 podiatris t referral 2023 024 [email or web address] Kavon Sin DPM, [address], [place], [address], 06/30/2024 14:54:15 nephrolog ist referral 2023 024 [email or web address] Bunny Pace MD (Nephrology, [address], [address], [place], [address], 06/30/2024 14:54:15 cardiolog ist referral 2023 024 [email or web address] [place], [address], [address], [place], [address], 06/30/2024 14:54:14 hematolog ist referral 2023 024 [email or web address] miguel Garza MD, [address], [place], [address], 01/12/2024 11:17:10 podiatris t referral 2023 024 [email or web address] miguel Sin DPM, [address], [address], [place], [address], 07/11/2024 08:52:57 nephrolog ist referral 2023 024 stacy Pace MD (Nephrology, [address], [address], [place], [address], 09/13/2024 10:59:39 cardiolog ist referral 2023 024 [place], [address], [address], [place], [address], 07/11/2024 08:52:57 podiatris t referral 2022 023 stacy Sin DPM, [address], [address], [place], [address], 01/12/2024 11:16:21 nephrolog ist referral 2022 023 stacy Pace MD (Nephrology, [address], [address], [place], [address], 02/11/2024 08:37:36 cardiolog ist referral 2022 023 [place], [address], [address], [place], [address], 01/12/2024 11:16:20 Procedures colonosco py screening (PROC) 2023 024 [email or web address] Flowers MD, [address] [place], [address], 02/10/2024 11:05:14 Surgeries None recorded. Imaging US, neck, soft tissue - Please call patient to schedule. 2024 025 [facility], [address] [facility] [address], [place], [address], 12/07/2024 16:24:49 CT, sinuses, w/o contrast - Please call patient to schedule. 2024 025 [facility], [address], [place], [address], 12/05/2024 10:57:38 MAMMO, screening , digital, bilateral [email or web address] ([facility]), [address] [place], [address], 12/05/2024 16:17:27 DEXA, axial skeleton 2023 024 [facility] ([facility]), [address] [place], [address], 02/29/2024 11:43:42 LDCT, chest, for lung cancer screening 2022 023 [facility] ([facility]), [address] [place], [address], 07/29/2023 11:32:11 Medication Orders Medrol (Gavin) 4 mg tablets in a dose pack 2024 025 [facility] #[id number], [address], [place], [id number], 11/29/2024 15:37:08 amoxicill in 875 mg-potass ium clavulana te 125 mg tablet 2024 025 [facility] #[id number], [address], [place], [id number], 11/29/2024 15:36:56 amlodipin e 10 mg-benaze pril 20 mg capsule 2023 024 [facility] #67391, [address], [place], [id number], 06/30/2024 14:47:58 nicotine 21 mg/24 hr daily transderm al patch 2023 024 [facility] #25348, [address], [place], [id number], 06/30/2024 14:20:09 nicotine 21mg/24hr -14mg/24h r-7mg/24h r daily transderm patches,s equentl 2022 023 [facility] #[id number], [address], [place], [id number], 06/30/2024 14:20:14 Patient TargetsNo targets recorded. Patient Instructions Encounter Date Encounter Id Patient Instructions Last Modified By Organization Details Last Modified Time 07/14/2023 [id number] diabetic eye exam* [email or web address] Not available 01/14/2024 08:25:33 12/15/2023 [id number] diabetic eye exam* [email or web address] Not available 07/14/2024 08:30:56 06/30/2024 [id number] diabetic eye exam* [email or web address] Not available 12/27/2024 08:45:14 Reason for Referral Internal Medicine Physician Referral for Co ronary arteriosclerosis Referring Physician: Stacie Mcdonough Internal Medicine, Encounter Date: 07/14/2023 Lathe Machinist Referral for Ch ronic kidney disease Referring Physician: Stacie Mcdonough Internal Medicine, Encounter Date: 07/14/2023 Life Insurance Sales Agent Referral for Hype rglycemia Referring Physician: Stacie Mcdonough Internal Medicine, Encounter Date: 07/14/2023 Internal Medicine Physician Referral for Co ronary arteriosclerosis Referring Physician: Stacie Mcdonough Internal Medicine, Encounter Date: 12/15/2023 Lathe Machinist Referral for Ch ronic kidney disease Referring Physician: Stacie Mcdonough Internal Medicine, Encounter Date: 12/15/2023 Life Insurance Sales Agent Referral for Hype rglycemia Referring Physician: Stacie Mcdonough Internal Medicine, Encounter Date: 12/15/2023 Referring Physician: Stacie Mcdonough Internal Medicine, Encounter Date: 12/15/2023 Internal Medicine Physician Referral for Co ronary arteriosclerosis Referring Physician: Stacie Mcdonough Internal Medicine, Encounter Date: 06/30/2024 Lathe Machinist Referral for Ch ronic kidney disease Referring Physician: Stacie Mcdonough Internal Medicine, Encounter Date: 06/30/2024 Life Insurance Sales Agent Referral for Hype rglycemia Referring Physician: Stacie Mcdonough Internal Medicine, Encounter Date: 06/30/2024 Referring Physician: Stacie Mcdonough Internal Medicine, Encounter Date: 06/30/2024 Results Created Date Observation Date Name Description Value Unit Range Abnormal Flag Note LastModifiedBy Organization Detail LastModifiedTime 06/30/20 24 06/30/2024 MICRO ALBUM IN RANDO M URINE microalbumin , urine 255.7 mg/L 0.0-16 .6 high Not Available [facility] (Lab) [address] [place], [address], 06/30/2024 18:26:08 06/30/20 24 06/30/2024 VITAM IN D 25-HY DROXY [id number] 36.7 NG/mL 30-100 Vitam in D Statu s: Defic ient: <20 ng/mL Insuf ficie nt: 20-29 ng/mL Suffi cient : 30-10 0 ng/mL Not Available [facility] (Lab) [address] [place], [address], 06/30/2024 18:25:37 06/30/20 24 06/30/2024 TSH W/REF ANA FT4 TSH with reflex free T4 0.886 uIU/m L 0.465- 4.680 Not Available [facility] (Lab) [address] [place], [address], 06/30/2024 18:28:59 06/30/2006/30/2024 LIPID PANEL cholesterol 146 mg/dL 140-19 9 NIH LIZ NSUS RECOM MENDA TION FOR MERCEDES STERO L: ADULT CHILD LOW RISK: <200 <170 BORDE RLINE : <200- 239 ----- HIGH RISK: >240 >200 Not Available [facility] (Lab) [address] [place], [address], 06/30/2024 18:31:12 06/30/2006/30/2024 LIPID PANEL triglyceride s 150 mg/dL 0-150 NIH LIZ NSUS REPOR T RECOM MENDA TION FOR TRIGL YCERI CLINT: ADULT CHILD LOW RISK: <150 ----- BODER LINE: 150-1 99 ----- HIGH RISK: >200 ----- Not Available [facility] (Lab) [address] [place], [address], 06/30/2024 18:31:12 06/30/2006/30/2024 LIPID PANEL HDL cholesterol 47 mg/dL 40- Not Available [facility] (Lab) [address] [place], [address], 06/30/2024 18:31:12 06/30/2006/30/2024 LIPID PANEL LDL cholesterol, calculated 69 mg/dL [...] WILL NOT BE REPOR VISHNU. Not Available [facility] (Lab) [address] [place], [address], 06/30/2024 18:31:12 06/30/20 24 06/30/2024 COMPR EHENS ITALIA METAB OLIC PANEL sodium 133 mmol/ L 137-14 5 low Not Available [facility] (Lab) [address] [place], [address], 06/30/2024 18:31:18 06/30/20 24 06/30/2024 COMPR EHENS ITALIA METAB OLIC PANEL potassium 4.7 mmol/ L 3.5-5. 1 Not Available [facility] (Lab) [address] [place], [address], 06/30/2024 18:31:18 06/30/20 24 06/30/2024 COMPR EHENS ITALIA METAB OLIC PANEL chloride 103 mmol/ L 98-107 Not Available [facility] (Lab) [address] [place], [address], 06/30/2024 18:31:18 06/30/20 24 06/30/2024 COMPR EHENS ITALIA METAB OLIC PANEL carbon dioxide 24 mmol/ L 22-30 Not Available [facility] (Lab) [address] [place], [address], 06/30/2024 18:31:18 06/30/20 24 06/30/2024 COMPR EHENS ITALIA METAB OLIC PANEL anion gap 10.7 mmol/ L 14-22 low Not Available [facility] (Lab) [address] [place], [address], 06/30/2024 18:31:18 06/30/20 24 06/30/2024 COMPR EHENS ITALIA METAB OLIC PANEL glucose 138 mg/dL 70-99 high Not Available [facility] (Lab) [address] [place], [address], 06/30/2024 18:31:18 06/30/20 24 06/30/2024 COMPR EHENS ITALIA METAB OLIC PANEL BUN 11 mg/dL 8-19 Not Available [facility] (Lab) [address] [place], [address], 06/30/2024 18:31:18 06/30/2006/30/2024 COMPR EHENS ITALIA METAB OLIC PANEL creatinine 1.06 mg/dL 0.66-1 .25 Not Available [facility] (Lab) [address] [place], [address], 06/30/2024 18:31:18 06/30/20 24 06/30/2024 COMPR EHENS ITALIA METAB OLIC PANEL GFR >60 Refer ence Range : [place] ge GFR Healt hy Adult : >60 [...] or ethni c subgr oups, such as Hismi nics. Outsi de the valid ated kiko [...] the NKF websi te: https ://bob crook.sherita ylon/pr isisess ional s/kdo qi/gf r_cal culat or Not Available [facility] (Lab) [address] [place], [address], 06/30/2024 18:31:18 06/30/2006/30/2024 COMPR EHENS ITALIA METAB OLIC PANEL alkaline phosphatase 101 U/L 38-126 Not Available [facility] (Lab) [address] [facility], [address], 06/30/2024 18:31:18 06/30/20 24 06/30/2024 COMPR EHENS ITALIA METAB OLIC PANEL alanine aminotransfe rase 15 U/L 0-35 Not Available [facility] (Lab) [address] [place], [address], 06/30/2024 18:31:18 06/30/20 24 06/30/2024 COMPR EHENS ITALIA METAB OLIC PANEL aspartate aminotransfe rase 36 U/L 15-37 Not Available [facility] (Lab) [address] [place], [address], 06/30/2024 18:31:18 06/30/20 24 06/30/2024 COMPR EHENS ITALIA METAB OLIC PANEL bilirubin, total 0.60 mg/dL 0.20-1 .30 Not Available [facility] (Lab) [address] [place], [address], 06/30/2024 18:31:18 06/30/20 24 06/30/2024 COMPR EHENS ITALIA METAB OLIC PANEL calcium 9.2 mg/dL 8.4-10 .2 Not Available [facility] (Lab) [address] [place], [address], 06/30/2024 18:31:18 06/30/20 24 06/30/2024 COMPR EHENS ITALIA METAB OLIC PANEL total protein 7.2 g/dL 6.3-8. 2 Not Available [facility] (Lab) [address] [place], [address], 06/30/2024 18:31:18 06/30/20 24 06/30/2024 COMPR EHENS ITALIA METAB OLIC PANEL albumin 4.3 g/dL 3.0-4. 4 Not Available [facility] (Lab) [address] [place], [address], 06/30/2024 18:31:18 06/30/20 24 06/30/2024 COMPR EHENS ITALIA METAB OLIC PANEL globulin 2.9 g/dL 2.6-4. 2 Not Available [facility] (Lab) [address] [place], [address], 06/30/2024 18:31:18 06/30/20 24 06/30/2024 COMPR EHENS ITALIA METAB OLIC PANEL A/G ratio 1.5 ratio 1.0-2. 0 Not Available [facility] (Lab) [address] [place], [address], 06/30/2024 18:31:18 06/30/20 24 06/30/2024 CBC/C OMPLE TE BLD COUNT W/DIF F white blood cells 4.8 x10'3 /uL 4.2-10 .8 Not Available [facility] (Lab) [address] [place], [address], 06/30/2024 18:35:09 06/30/20 24 06/30/2024 CBC/C OMPLE TE BLD COUNT W/DIF F red blood cells 2.72 x10'6 /uL 3.80-5 .20 low Not Available [facility] (Lab) [address] [place], [address], 06/30/2024 18:35:09 06/30/20 24 06/30/2024 CBC/C OMPLE TE BLD COUNT W/DIF F hemoglobin 8.1 g/dL 12.0-1 5.6 low Not Available [facility] (Lab) [address] [place], [address], 06/30/2024 18:35:09 06/30/20 24 06/30/2024 CBC/C OMPLE TE BLD COUNT W/DIF F hematocrit 27.2 % 35.7-4 5.7 low Not Available [facility] (Lab) [address] [place], [address], 06/30/2024 18:35:09 06/30/20 24 06/30/2024 CBC/C OMPLE TE BLD COUNT W/DIF F mean red cell volume 100.0 fL 82.0-9 9.0 high Not Available [facility] (Lab) [address] [place], [address], 06/30/2024 18:35:09 06/30/20 24 06/30/2024 CBC/C OMPLE TE BLD COUNT W/DIF F mean red cell hemoglobin 29.8 pg 27.0-3 3.0 Not Available [facility] (Lab) [address] [place], [address], 06/30/2024 18:35:09 06/30/20 24 06/30/2024 CBC/C OMPLE TE BLD COUNT W/DIF F mean RBC HGB concentratio n 29.8 g/dL 31.0-3 6.0 low Not Available [facility] (Lab) [address] [place], [address], 06/30/2024 18:35:09 06/30/20 24 06/30/2024 CBC/C OMPLE TE BLD COUNT W/DIF F red cell distribution width 28.1 % 11.8-1 5.5 high Not Available [facility] (Lab) [address] [place], [address], 06/30/2024 18:35:09 06/30/20 24 06/30/2024 CBC/C OMPLE TE BLD COUNT W/DIF F platelets 258 x10'3 /uL 150-40 0 Not Available [facility] (Lab) [address] [place], [address], 06/30/2024 18:35:09 06/30/20 24 06/30/2024 CBC/C OMPLE TE BLD COUNT W/DIF F neutrophils 55 % 39.0-7 2.0 Not Available [facility] (Lab) [address] [place], [address], 06/30/2024 18:35:09 06/30/20 24 06/30/2024 CBC/C OMPLE TE BLD COUNT W/DIF F bands 6 % 0-3 high Not Available [facility] (Lab) [address] [place], [address], 06/30/2024 18:35:09 06/30/20 24 06/30/2024 CBC/C OMPLE TE BLD COUNT W/DIF F lymphocytes 30 % 16.0-4 7.0 Not Available [facility] (Lab) [address] [place], [address], 06/30/2024 18:35:09 06/30/20 24 06/30/2024 CBC/C OMPLE TE BLD COUNT W/DIF F monocytes 2 % 5.0-12 .0 low Not Available [facility] (Lab) [address] [place], [address], 06/30/2024 18:35:09 06/30/20 24 06/30/2024 CBC/C OMPLE TE BLD COUNT W/DIF F eosinophils 4 % 1.0-7. 0 Not Available [facility] (Lab) [address] [place], [address], 06/30/2024 18:35:09 06/30/20 24 06/30/2024 CBC/C OMPLE TE BLD COUNT W/DIF F basophils 2 % 0.0-2. 0 Not Available [facility] (Lab) [address] [place], [address], 06/30/2024 18:35:09 06/30/20 24 06/30/2024 CBC/C OMPLE TE BLD COUNT W/DIF F metamyelocyt es 1 % -0 high Not Available [facility] (Lab) [address] [place], [address], 06/30/2024 18:35:09 06/30/20 24 06/30/2024 CBC/C OMPLE TE BLD COUNT W/DIF F neutrophils, absolute count 2.88 x10'3 /uL 1.5-8. 0 Not Available [facility] (Lab) [address] [place], [address], 06/30/2024 18:35:09 06/30/20 24 06/30/2024 CBC/C OMPLE TE BLD COUNT W/DIF F nucleated red blood cells 4 % -0 high Not Available [facility] (Lab) [address] [place], [address], 06/30/2024 18:35:09 06/30/20 24 06/30/2024 CBC/C OMPLE TE BLD COUNT W/DIF F anisocytosis 3+ Not Available [facility] (Lab) [address] [place], [address], 06/30/2024 18:35:09 06/30/20 24 06/30/2024 CBC/C OMPLE TE BLD COUNT W/DIF F poikilocytos is 3+ Not Available [facility] (Lab) [address] [place], [address], 06/30/2024 18:35:09 06/30/20 24 06/30/2024 CBC/C OMPLE TE BLD COUNT W/DIF F hypochromia 1+ Not Available [facility] (Lab) [address] [place], [address], 06/30/2024 18:35:09 06/30/20 24 06/30/2024 CBC/C OMPLE TE BLD COUNT W/DIF F polychromato philic RBCs OCCASI ONAL Not Available [facility] (Lab) [address] [place], [address], 06/30/2024 18:35:09 06/30/20 24 06/30/2024 CBC/C OMPLE TE BLD COUNT W/DIF F basophilic stippling OCCASI ONAL Not Available [facility] (Lab) [address] [place], [address], 06/30/2024 18:35:09 06/30/20 24 06/30/2024 CBC/C OMPLE TE BLD COUNT W/DIF F target cells 1+ Not Available [facility] (Lab) [address] [place], [address], 06/30/2024 18:35:09 06/30/20 24 06/30/2024 CBC/C OMPLE TE BLD COUNT W/DIF F ovalocytes OCCASI ONAL Not Available [facility] (Lab) [address] [place], [address], 06/30/2024 18:35:09 06/30/20 24 06/30/2024 CBC/C OMPLE TE BLD COUNT W/DIF F teardrop red blood cells OCCASI ONAL Not Available [facility] (Lab) [address] [place], [address], 06/30/2024 18:35:09 06/30/20 24 06/30/2024 CBC/C OMPLE TE BLD COUNT W/DIF F schistocytes OCCASI ONAL Not Available [facility] (Lab) [address] [place], [address], 06/30/2024 18:35:09 06/30/20 24 06/30/2024 CBC/C OMPLE TE BLD COUNT W/DIF F large platelets 1+ Not Available [facility] (Lab) [address] [place], [address], 06/30/2024 18:35:09 06/30/20 24 06/30/2024 CBC/C OMPLE TE BLD COUNT W/DIF F giant platelets OCCASI ONAL Not Available [facility] (Lab) [address] [place], [address], 06/30/2024 18:35:09 06/30/20 24 06/30/2024 VITAM IN B12 (VALERIANO ASIF ) vb12 802 pg/mL 239-93 1 Not Available [facility] (Lab) [address] [place], [address], 06/30/2024 19:01:58 06/30/20 24 06/30/2024 FOLAT E, SERUM /PLAS MA folate 10.6 NG/mL 2.76-2 0.0 Not Available [facility] (Lab) [address] [place], [address], 06/30/2024 19:02:03 03/01/20 23 02/27/2023 scree deyvi breas t jose de jesus, bilat [facility] [address] [place] [address] Patien t Name: TANESHA DIALLO ion #: [id number] Sex: F : 1955 1 Locati on: RAD Attend ing Physic yonis: DECLAN FLORES Orderi Physic yonis: DECLAN FLORES Exam Date: 02/28/20 1:15 PM Exam Name: MG FRANCHESCA BREAST JOSE DE JESUS BILAT Admitt ing [...] scarlet ectura l Page 1 of 2 [facility] Mustapha galaviz Name: TANESHA DIALLO Access ion #: [id number] Sex: F : 1955 1 Exam [...] (CT) (CT) Page 2 of 2 [email or web address] [facility] (Imaging) [address] [place] [address], [address], 03/05/2023 14:52:38 07/29/20 23 07/29/2023 LDCT, chest , for lung cance r jesús carnes No observ ation record ed. [email or web address] [facility] [address] [facility] [address], [place], [address], 07/30/2023 10:25:22 01/15/20 24 01/15/2024 imagi ng/di agnos tic resul t No observ ation record ed. [email or web address] [place] [address] [address] [facility] [address], [place], [address], 07/05/2024 16:47:42 02/29/20 24 02/29/2024 ejsús carnes breas t jose de jesus, bilat [facility] [address] [address] [phone] Patien t Name: TANESHA DIALLO Access ion #: [id number] Sex: F : 1955 7 Dictat [...] at 2023 10:32: 48 AM Page 1 [email or web address] [facility] (Imaging) [address] [place], [address], 06/07/2024 15:26:27 02/29/20 24 02/29/2024 DEXA, axial skele ton [facility] [address] [id number] Patien t Name: TANESHA DIALLO Access ion #: [id number] Sex: F : 1955 7 Dictat ed By: Duane Clark Attend ing Physic yonis: DECLAN FLORES [facility] Physic yonis: DECLAN FLORES Exam Date: 2023 [...] treatm ent. T-scor e: compar alberto by sahil rg deviat ion (SD) to a young adult popula tion, matche d for sex and ethnic ity (used for postme nopaus al women and men >50 years) and classi fied by WHO criter ia. -1.0: normal <-1.0 to >-2.5: osteop enia -2.5: osteop orosis -2.5 plus fragil ity fractu re: severe osteop orosis Page 1 [facility] [address] [place] [address] Patien t Name: TANESHA DIALLO Access ion #: [id number] Sex: F : 1955 7 Dictat ed By: Duane Clark Attend ing Physic yonis: NISREEN SYKES [facility] Physic yonis: DECLAN FLORES Exam Date: 2023 [...] at 2023 10:42: 25 AM Page 2 [email or web address] [facility] (Im[facility]) [address] [place], [address], 06/07/2024 15:26:28 02/29/20 24 02/29/2024 DEXA, axial skele ton No observ ation record ed. [email or web address] [facility] ([facility]) [address] [place], [address], 06/07/2024 15:26:12 08/01/20 24 08/01/2024 CT, chest , w/o contr ast No observ ation record ed. [address], [place], [address], 08/04/2024 16:16:09 12/05/19 25 12/05/2024 CT, sinus es, w/o contr ast No observ ation record ed. [address], [place], [address], 12/05/2024 10:57:38 12/07/19 25 12/07/2024 US, neck, soft tissu e No observ ation record ed. [address], [place], [address], 12/07/2024 16:24:50 Result Notes None recorded. Problems Name Problem SNOMED Code Status Onset Date Resolution Date Notes Provider Name and Address Organization Details Recorded Time Blood glucose outside reference range 123281153 Active 2021 Not Available [facility] 3 20:55:26 Hypertrigl yceridemia 975080639 Active 2021 Not Available [facility] 3 20:55:26 Knee pain Active Not Available [facility] 3 20:55:26 Pain of bilateral knee joints 9968871479781 04 Active 2021 Not Available [facility] 3 20:55:26 Hyperlipid emia 50993151 Active 2021 Not Available [facility] 3 20:55:26 Derangemen t of knee 68513288 Active Not Available [facility] 3 20:55:26 Carotid artery stenosis 33284213 Active 2021 Not Available [facility] 3 20:55:27 Vitamin D deficiency 37739298 Active 2022 Meera neal [facility] 3 13:49:15 Hyperglyce marysol 35537183 Active 2022 Meera neal [facility] 3 13:50:00 Prediabete s 605340406 Active 2022 Meera neal, [facility] 3 11:21:51 Essential hypertensi on 07281527 Active 2022 Stacie mercado MD [address], [place], [address] , [facility] 3 15:46:00 Anemia 189091104 Active 2022 Stacie mercado MD [address], [place], [address] , [facility] 3 15:47:15 Bilateral cataracts 84905667 Active 2022 Stacie mercado MD [address], [place], [address] , [facility] [facility] 3 15:47:25 Smoker 17080469 Active 2022 Stacie mercado MD [address], [address], [place], [address] , [facility] 3 15:54:38 Pain in right hip joint 7741624074519 02 Active 2022 Stacie mercado MD [address], [address], [place], [address] , [facility] 3 15:55:01 Coronary arterioscl erosis 10730941 Active 2022 Stacie mercado MD [address], [address], [place], [address] , [facility] 3 15:55:19 Chronic kidney disease 183220326 Active 2022 Meera neal, [facility] 3 12:10:07 Proteinuri a 04126661 Active 2023 Carmen Velazquez MA null, [facility] [employer] [facility] 10:49:53 Upper respirator y infection 97561423 Active 2024 Stacie mercado MD [address] [facility], [address] [address], [place], [address] , [facility] [employer] [facility] 15:34:31 Lymphadeno danni 76284330 Active 2024 Stacie mercado MD [address] [facility], [facility] [address], [place], [address] , [facility] 15:35:27 Problem Notes None recorded. Procedures Surgical History Date Name Laterality Status Provider Name and Address Organization Details Recorded Time 04/14/20 Medicare Wellness CPT Code, subsequent cancelled Brenden Sumner LPN [facility] [employer] 04/13/2024 15:56:15 delivery completed Meg Rhodes MA [facility] [employer] [facility] 06/30/2024 14:21:48 Hysterectomy completed Meg Rhodes MA [place] [employer] [place] [facility] [employer] 11/29/2024 15:09:28 repair of meniscus completed Meg Rhodes MA [facility] [employer] [facility] 11/29/2024 15:09:50 Imaging Results Imaging Date Name Status LastModified by Organiz ation Details LastModified Time 02/27/2023 screening breast jose de jesus, bilat completed [address] (Imaging) [address] [place], [address], 03/05/2023 14:52:38 07/29/2023 LDCT, chest, for lung cancer screening completed [address], [address], 07/30/2023 10:25:22 01/15/2024 imaging/diagno stic result completed [address], [address], 07/05/2024 16:47:42 02/29/2024 screening breast jose de jesus, bilat completed [facility] (Imaging) [address] [place], [address], 06/07/2024 15:26:27 02/29/2024 DEXA, axial skeleton completed [email or web address] [facility] (Imaging) [address] [place], [address], 06/07/2024 15:26:28 02/29/2024 DEXA, axial skeleton completed [address] ([employer] Scheduling) [address] [place], [address], 06/07/2024 15:26:12 08/01/2024 CT, chest, w/o contrast completed [address], [address], 08/04/2024 16:16:09 12/05/2024 CT, sinuses, w/o contrast active [address], [address], 12/05/2024 10:57:38 12/07/2024 US, neck, soft tissue active [address], [address], 12/07/2024 16:24:50 Procedure Notes None recorded. Medical Equipment None Reported. Allergies Allergen ID Allergen Name Allergen Category Reaction Reaction Severity Criticality Documentation Date Start Date Code Code System Note Provider Name and Address Organization Details Recorded Time 24112 ibuprofen medicatio n vomiting Not available Not available 12/24/2022 5640 RxNorm Not Available [facility] 20:56:42 Medications Name Sig Start Date [...] completed Not Available Not Available Not Available acetaminoph en 300 mg-codeine 30 mg tablet [...] completed Not Available Not Available Not Available methylpredn isolone 4 mg tablets in a dose pack Take 1 dose pk by oral route as directed. active Not Available Not Available No t Available amoxicillin 875 mg-potassiu m clavulanate 125 mg tablet Take 1 tablet every 12 hours by oral route for 7 days. active Not Available Not Available No t Available amlodipine 10 mg-benazepr il 20 mg capsule [...] kg/m2 162.56 cm 90 /min 97.3 [degF] 35176.6 3 g 132 mm[Hg] 60 mm[Hg] Not Available [facility] 3 20:54:45 Date Recorded Body height Body mass index (BMI) Body weight Body temperature Heart rate Oxygen saturation Oxygen saturation in Arterial blood by Pulse oximetry Systolic blood pressure Diastolic blood pressure Provider Name and Address Organization Details Last Updated DateTime 3 162.56 cm 24.9 kg/m2 84387.8 9 g 97.4 [degF] 87 /min 97 % 97 % 122 mm[Hg] 68 mm[Hg] Jyotsna Stanton MA [facility] 3 15:17:38 Date Recorded Body height Body mass index (BMI) Body weight Body temperature Heart rate Systolic blood pressure Diastolic blood pressure Provider Name and Address Organization Details Last Updated DateTime 4 162.56 cm 24.7 kg/m2 65271.3 g 97.4 [degF] 96 /min 134 mm[Hg] 62 mm[Hg] MARITZA Taylor [facility] 4 15:14:39 Date Recorded Body height Body mass index (BMI) Body weight Body temperature Heart rate Oxygen saturation Oxygen saturation in Arterial blood by Pulse oximetry Systolic blood pressure Diastolic blood pressure Provider Name and Address Organization Details Last Updated DateTime 4 162.56 cm 23.5 kg/m2 44942.1 5 g 96.6 [degF] 107 /min 97 % 97 % 124 mm[Hg] 60 mm[Hg] Meg Rhodes MA [facility] 4 14:19:34 Date Recorded Body height Body mass index (BMI) Body weight Body temperature Pain severity - 0-10 verbal numeric rating [Score] - Reported Heart rate Oxygen saturation Oxygen saturation in Arterial blood by Pulse oximetry Systolic blood pressure Diastolic blood pressure Provider Name and Address Organization Details Last Updated DateTime 5 162.56 cm 21.8 kg/m2 55340.2 3 g 97.5 [degF] 6 105 /min 98 % 98 % 120 mm[Hg] 64 mm[Hg] Meg Rhodes MA [place] [facility] [place] [facility] 5 15:04:49 Social History Question Answer Notes LastModified by Organizat ion Details LastModified Time Tobacco Smoking Status Current Every Day Smoker Not Available [facility] 12/24/2022 20:54:20 Do You Have An Advance Directive? No MIGRATION.43945 75256 Information not available 12/24/2022 What Is Your Level Of Alcohol Consumption? None MIGRATION.13883 97222 Information not available 12/24/2022 Are You Blind Or Do You Have Difficulty Seeing? No MIGRATION.83288 08568 Information not available 12/24/2022 What Is Your Level Of Caffeine Consumption? Moderate MIGRATION.27451 31569 Information not available 12/24/2022 In The 14 Days Before Symptom Onset, Have You Had Close Contact With A Laboratory-confi rmed COVID-19 While That Case Was Ill? No MIGRATION.41146 12275 Information not available 12/24/2022 In The 14 Days Before Symptom Onset, Have You Had Close Contact With A Person Who Is Under Investigation For COVID-19 While That Person Was Ill? No MIGRATION.05867 79128 Information not available 12/24/2022 Are You Currently Employed? No Information not available 06/30/2024 Are You Deaf Or Do You Have Serious Difficulty Hearing? No MIGRATION.46519 00292 Information not available 12/24/2022 What Type Of Diet Are You Following? REGULAR MIGRATION.50124 45870 Information not available 12/24/2022 What Is The Highest Grade Or Level Of School You Have Completed Or The Highest Degree You Have Received? [id number] MIGRATION.98466 79401 Information not available 12/24/2022 Have There Been Any Changes To Your Family Or Social Situation? No MIGRATION.91996 35138 Information not available 12/24/2022 What Is The Fluoride Status Of Your Home? Unknown MIGRATION.82857 18131 Information not available 12/24/2022 Are There Any Guns Present In Your Home? No MIGRATION.88412 51432 Information not available 12/24/2022 Do You Use Insect Repellent Routinely? No MIGRATION.76396 95858 Information not available 12/24/2022 Where Do You Live? [place] MIGRATION.97968 24762 Information not available 12/24/2022 Do You Have A Medical Power Of [place] Neck Whipper? No MIGRATION.31864 60851 Information not available 12/24/2022 What Was The Date Of Your Most Recent Tobacco Screening? 11/29/2024 Information not available 11/29/2024 How Many Children Do You Have? 3 Information not available 06/30/2024 Do You Have Any Pets? No MIGRATION.13089 11082 Information not available 12/24/2022 What Is Your Relationship Status? MIGRATION.71329 67178 Information not available 12/24/2022 Do You Use Your Seat Belt Or Car Seat Routinely? Yes [email or web address] Information not available 07/14/2023 Do You Have Smoke And Carbon Monoxide Detectors In Your Home? Yes MIGRATION.51397 98523 Information not available 12/24/2022 At What Age Did You Start Smoking Tobacco? 24 MIGRATION.47461 94911 Information not available 12/24/2022 Are You Passively Exposed To Smoke? No MIGRATION.98482 84366 Information not available 12/24/2022 Are There Any Smokers In Your House? No MIGRATION.84414 10428 Information not available 12/24/2022 How Much Tobacco Do You Smoke? 1 PPD MIGRATION.04067 36037 Information not available 12/24/2022 Do You Feel Stressed (tense, Restless, Nervous, Or Anxious, Or Unable To Sleep At Night)? [id number] MIGRATION.47922 82308 Information not available 12/24/2022 Do You Use Any Illicit Or Recreational Drugs? No MIGRATION.46622 70858 Information not available 12/24/2022 Do You Use Sunscreen Routinely? No MIGRATION.79719 62322 Information not available 12/24/2022 How Many Years Have You Smoked Tobacco? 42 MIGRATION.45779 25632 Information not available 12/24/2022 Have You Recently Traveled Abroad? No MIGRATION.56330 29585 Information not available 12/24/2022 Do You Have Any Dietary Restrictions? No MIGRATION.40168 08848 Information not available 12/24/2022 Do You Or Have You Ever Used Any Other Forms Of Tobacco Or Nicotine? No MIGRATION.22338 08237 Information not available 12/24/2022 Sex: Female Functional Status Question Answer Note LastModified by [employer] Details LastModified Time Do you have difficulty walking or climbing stairs? Yes MIGRATION.0814785 026 Information not available 12/24/2022 Do you have transportation difficulties? No MIGRATION.8558395 026 Information not available 12/24/2022 Are you able to walk? YESWOREST MIGRATION.6999789 026 Information not available 12/24/2022 Do you have difficulty doing errands alone? Yes MIGRATION.0860555 026 Information not available 12/24/2022 Are you able to care for yourself? Yes MIGRATION.3789053 026 Information not available 12/24/2022 Do you have difficulty dressing or bathing? Yes MIGRATION.9444648 026 Information not available 12/24/2022 What is your exercise level? None MIGRATION.1575672 026 Information not available 12/24/2022 Mental Status Question Answer Note LastModified by Organizat [email or web address] Details LastModified Time Do you have difficulty concentrating, remembering or making decisions? Yes MIGRATION.808569175 6 Information not available 12/24/2022 Family History Relationship Description Onset Age of this Age Resolved Age Notes LastModified by Organization Details LastModified Time Father Malignant tumor of lung MIGRATION.294 [id number] Not available 12/24/2022 20:54:36 Brother Malignant tumor of lung MIGRATION.492 9729769 Not available 12/24/2022 20:54:36 Sister Malignant tumor of pharynx MIGRATION.471 8205920 Not available 12/24/2022 20:54:36 Mother Malignant tumor of lung MIGRATION.664 4899032 Not available 12/24/2022 20:54:36 Medical History Condition Response BLINDNESS N NERVE DISEASE N RHEUMATIC FEVER N BLADDER PROBLEMS N KIDNEY STONES N MRSA N OTHER # 1 N [...] ARTERY DISEASE (CAD) N ADDICTION CONCERNS N ENDOMETRIOSIS N Impotence N USE OF BLOOD THINNERS N SKIN [...] GLAUCOMA N FOOT PROBLEM N DIVERTICULITIS N CHICKENPOX N SLEEP APNEA N INFECTIOUS DISEASE N HEART ARRHYTHMIA N PROSTATE N INSOMNIA N HIGH CHOLESTEROL / HYPERLIPIDEMIA N HYPERTHYROIDISM N EYE PROBLEMS N EDEMA N CHRONIC PAIN SYNDROME N [...] N ALZHEIMER'S DISEASE N Brain Problems N HERPES N DEMENTIA N HEADACHES/MIGRAINES N SEIZURES/EPILEPSY N VASCULAR DISEASE N PACEMAKER N Blood Disorder N DIZZINESS N HEART DISEASE/HEART PROBLEMS N KIDNEY DISEASE N MULTIPLE SCLEROSIS N CARDIAC ARRHYTHMIA N CANCER: SPECIFY N ATRIAL FIBRILLATION N Gall Stones N [...] PF, 30 mcg/0.3 mL dose 03/14/2021 completed Emily Wise RMMadonna null, [place] [facility] [email or web address] 08/15/2024 12:38:38 COVID-19, mRNA, LNP-S, PF, 30 mcg/0.3 mL dose 02/21/2021 completed Emily Wise RMA null, [place] [facility] [place] [employer] [facility] 08/15/2024 12:38:38 Past Encounters Encounter ID Performer Location Encounter Start Date Encounter Closed Date Diagnosis/Indication Diagnosis SNOMED-CT Code Diagnosis ICD10 Code Diagnosis Note [id number] [facility] [address] [place] [address] Ave[address] [address] 01/14/2022 00:00:00 01/14/2022 16:11:57 [id number] [facility] [address] [place] [address] Ave[address] [address] 02/18/2022 00:00:00 02/20/2022 09:39:41 [id number] [facility] [address] [place] [address] Ave[address] [address] 11/27/2022 00:00:00 11/27/2022 17:29:20 [id number] Stacie mercado MD [facility] Internal Med [facility] [address] [place], [place] [address]e., [address] [address] 07/14/2023 15:01:25 07/14/2023 15:30:47 Screening - NAD 334451006 Z13.9 C-scope: 01/04/2021 : Dr Cody ny [...] understand ing of the above Essential hypertension 64654902 I10 On amlodipine -benazepri l 10-20mg dailyGet labs Vitamin D deficiency 347 61801 E55.9 Anemia 940801908 D64.9 Recently admitted and was told she had a mesentric massGet recordsRep eat the labs, will likely have to see Dr Garza CT A/P 03/15/2022 Dr Garza, no mass seen Dr Garza 10/15/2022 , on luspaterce ptDr Vik 05/13/2023 , 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, f/u in 6 weeks Smoker 75317797 F17.200 Smoked 1/2 PPD for about 25 [...] drive Pain in ri ght hip joint 2524192811 27058 M25.551 Get xays statMay need to see ortho Addendum: 02/18/2022 :Get on tramadol, needs to see Dr Blackwood OV 11/27/2022 :Does well at this time Pain of bi lateral knee joints 1343824992 52451 M25.561 M25.562 Get xrays statMay need to see orthoShaunna did take her to radiology in a wheelchair OV 11/27/2022 : Does not want any referrals to ortho at this time, wants a 'pain pill'Get on tramadol VERY sparingly Hyperglycemia 14911530 R 73.9 On metformin, wants to stop this 07/14/2023 States that her hip and knees hurt her so much she does not want any meds at this time Coronary arteriosclerosis 30025304 I25.10 [facility] 04/15/2022 , Dr Pace, next apt is in one year Chronic ki dney disease 642846975 N18.[address] Pace IJ Hyperlipidemia 79747298 E78.5 Do labsHas declined any meds 07/14/2923 [id number] Stacie mercado MD [facility] Med [address] [place] [address] 12/15/2023 15:06:35 12/15/2023 15:44:44 Screening - NAD 978988440 Z13.9 C-scope: 01/04/2021 : Dr Cody ny [...] understand ing of the above Essential hypertension 76204674 I10 On amlodipine -benazepri l 10-20mg dailyGet labs Vitamin D deficiency 347 54991 E55.9 Anemia 820590319 D64.9 Recently admitted and was told she had a mesentric massGet recordsRep eat the labs, will likely have to see Dr Garza CT A/P 03/15/2022 Dr Garza, no mass seen Dr Garza 10/15/2022 , on luspaterce ptDr Vik 05/13/2023 , 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, f/u in 6 weeksDr Kayla 12/09/2023 : On luspaterec ept Smoker 79549922 F17.200 Smoked 1/2 PPD for about 25 [...] drive Pain in ri ght hip joint 5681991349 69517 M25.551 Get xays statMay need to see ortho Addendum: 02/18/2022 :Get on tramadol, needs to see Dr Blackwood OV 11/27/2022 :Does well at this time Pain of bi lateral knee joints 4048443495 40011 M25.561 M25.562 Get xrays statMay need to see orthoShaunna did take her to radiology in a wheelchair OV 11/27/2022 : Does not want any referrals to ortho at this time, wants a 'pain pill'Get on tramadol VERY sparingly OV 12/15/2023 : Does well now Hyperglycemia 04804319 R 73.9 Not on metformin 07/14/2023 States that her hip and knees hurt her so much she does not want any meds at this time Coronary arteriosclerosis 32370885 I25.10 [facility] 04/15/2022 , Dr Pace, next apt is in one year Chronic ki dney disease 433488127 N18.[address] Pace IJ Hyperlipidemia 37480268 E78.5 Do labsHas declined any meds 07/14/2923 Screening mammography 24 351114 Z12.31 Screening for osteoporosis 455388392 Z13.820 Screening for malignant neoplasm of colon 112214289 Z12.11 [id number] Stacie mercado MD [facility] Internal Med [facility] [address] [facility], [facility] [address] [place] [address] 06/30/2024 14:06:29 06/30/2024 14:47:50 Screening - NAD 934913905 Z13.9 C-scope: 01/04/2021 : Dr Cody ny enema 02/05/2021 C-scope: 01/06/2024 : Dr Cody Flowers, rory in 3 years Mammogram: 02/27/2022 : NegMammogr [...] understand ing of the above Essential hypertension 60247360 I10 On amlodipine -benazepri l 10-20mg daily, renewed 06/30/2024 Get labs Vitamin D deficiency 347 63593 E55.9 Anemia 082915282 D64.9 Recently admitted and was told she [...] to get CT scan in 07/2024 Smoker 72498323 F17.200 Smoked 1/2 PPD for about 25 [...] Dr Garza on 07/2024 Bilateral cataracts 9572 2004 H26.9 Wears glasses Does not want a referral yet, states that she does not have rides and she does not drive Pain in ri ght hip joint 3743642926 06340 M25.551 Get xays statMay need to see ortho Addendum: 02/18/2022 :Get on tramadol, needs to see Dr Blackwood OV 11/27/2022 :Does well at this time Pain of bi lateral knee joints 5521751327 69499 M25.561 M25.562 Get xrays statMay need to see orthoShaunna did take her to radiology in a wheelchair OV 11/27/2022 : Does not want any referrals to ortho at this time, wants a 'pain pill'Get on tramadol VERY sparingly OV 12/15/2023 : Does well now Hyperglycemia 42671985 R 73.9 Not on metformin 07/14/2023 States that her hip and knees hurt her so much she does not want any meds at this time Coronary arteriosclerosis 74700260 I25.10 [facility] 04/15/2022 , Dr Pace, next apt is in one year Chronic ki dney disease 353378416 N18.[address] Pace IJ Hyperlipidemia 03850014 E78.5 Do labsHas declined any meds 07/14/2923 [id number] Stacie mercado MD [facility] Internal Med [facility] [address] [facility], [address] [place] [address] 11/29/2024 14:53:00 11/29/2024 15:38:54 Upper respiratory infection 22327604 J06.9 Get on MDP, and augmentinS he does smoke, will get CT sinus and also advised to quit smokingNot shukri if not better Lymphadenopathy 25398443 R59.1 Tender, large MIREILLE noted L submandibu lar area, get on antibiotic and also get US neck done Screening - NAD 73683501 3 Z13.9 C-scope: 01/04/2021 : Dr Cody [...] Huertas Member ID Guarantor Name 07/14/2023 1 [facility] (MEDICARE REPLACEMENT/A DVANTAGE - HMO) [id number] Tanesha A Khadra [id number] Tanesha Khadra 12/15/2023 1 [facility] (MEDICARE REPLACEMENT/A DVANTAGE - HMO) [id number] Tanesha A Khadra [id number] Tanesha [place] 06/30/2024 1 [facility] (MEDICARE REPLACEMENT/A DVANTAGE - HMO) [id number] Tanesha A Khadra [id number] Tanesha [place] 11/29/2024 1 [facility] (MEDICARE REPLACEMENT/A DVANTAGE - HMO) [id number] Tanesha A [place] [id number] Tanesha [place] Notes Date Note Type Note Provider Name [...] is doing well today Stacie Mcdonough MD [address] [place] [address], [facility] [address], [place], [address], [facility] [email or web address] 07/14/2023 15:46:03 12/15/19 24 text/htm l OV [...] nicotine patches again Stacie Mcdonough MD [address] [facility], [address], [place], [address], [place] [facility] [place] [facility] [employer] 12/15/2023 15:52:30 06/30/20 24 text/htm l OV [...] apt with Dr Kayla Mcdonough MD [address] [facility], [address], [place], [address], [place] [facility] 06/30/2024 14:49:02 11/29/19 25 text/htm [...] wheezing, no chest pain, no difficulty breathing Murtuza Bahrainwala, MD [address] [facility], [facility] [address], [place], [address], [facility] 11/29/2024 15:41:58 OBGyn Episode No OBEpisode recorded.
--- OUTSIDE RECORDS SUMMARY | 2025-01-05 11:26 | XMS_ITS | Clinical Summary ---
Author Organization [facility] Address [address], [facility] [address] [place] [address] Phone Care Team Providers Care Language Therapist Name Role Phone Ila Linares MD Primary Care Provider Allergies Active Allergy [...] Insurance MEDICAID [employer] Care Teams Language Therapist Relationship Specialty Start Date End Date Ila Linares MD [address] [place] [address] PCP - General Geriatric Medicine 06/24/19
--- OUTSIDE RECORDS SUMMARY | 2025-01-05 11:26 | XMS_ITS ---
Author Organization [facility] Address [address], [facility] [address] [place] [address] Phone Care Team Providers Care Flakeboard Line Tender Name Role Phone Ila Linares MD Primary Care Provider [phone] Active Problems Problem Noted Date Diagnosed Date [...]
--- OUTSIDE RECORDS SUMMARY | 2025-01-05 11:26 | XMS_ITS | Clinical Summary ---
Author Organization [facility] Scott Robledo Address [address] [place] [address] Care Team Providers Care Hawk Missile System Crewmember Name Role Phone Winifred Mcdonough MD Primary Care Provider Allergies Active Allergy Reactions Criticality Noted Date Comments Ibuprofen Nausea and Vomiting Low 06/30/2019 Medications amLODIPine-michael zepril (LOTREL) 10-20 mg capsule [...] (FERROUS FUMARATE-IRON PS CMPLX ORAL) 3 Active aspirin (ECOTRIN EC) 81 mg Tablet, Delayed Release (E.C.) Take 81 mg by mouth daily. Active Active Problems Problem Noted Date Diagnosed Date Peripheral neuropathy 08/26/2023 Mesenteric mass 03/14/2022 Myelodysplastic syndrome 03/14/2022 Encounters Date Type Department Care Team Description 12/31/2024 External Device Data STL ABSTRACTION Provider, Abstract 12/30/2024 External Device Data STL ABSTRACTION Provider, Abstract 12/30/2024 Abstract [facility] Oncology and Hematology - [address] [address] Perry Garza MD 12/29/2024 8:30 AM GRADUATE RECRUITER Office Visit [facility] Oncology and Hematology - [place] [address] [place] [address] Perry Garza MD Myelodysplastic syndrome (CMS/HCC) (Primary Dx) 12/29/2024 Orders Only [facility] Oncology and Hematology - [place]y [address] [place] [address] Perry Garza MD 12/28/2024 External Device Data STL ABSTRACTION Provider, Abstract 12/27/2024 External Device Data STL ABSTRACTION Provider, Abstract 12/26/2024 Orders Only [facility] Oncology and Hematology - [place]y [address] [place] [address] Perry Garza MD Myelodysplastic syndrome ([facility]/HCC) 12/13/2024 External Device Data STL ABSTRACTION Provider, Abstract 12/12/2024 Orders Only [facility] Oncology and Hematology - Raffy [address] [place] [address] Perry Garza MD Myelodysplastic syndrome ([facility]/HCC) 12/08/2024 10:15 AM GRADUATE RECRUITER Office Visit [facility] Oncology and Hematology - [place]affy [address] [place] [address] Perry Garza MD Myelodysplastic syndrome (CMS/HCC) (Primary Dx) 11/28/2024 Orders Only [facility] Oncology and Hematology - Raffy [address] [place] [address] Perry Garza MD Myelodysplastic syndrome (CMS/HCC) 11/18/2024 Abstract [facility] Oncology and Hematology - [place]y [address] [place] [address] Perry Garza MD 11/17/2024 9:15 AM GRADUATE RECRUITER Office Visit [facility] Oncology and Hematology - Raffy [address] [place] [address] Perry Garza MD Myelodysplastic syndrome (CMS/HCC) (Primary Dx) 11/16/2024 External Device Data STL ABSTRACTION Provider, Abstract 11/15/2024 External Device Data STL ABSTRACTION Provider, Abstract 11/14/2024 Orders Only [facility] Oncology and Hematology - Raffy [address] [place] [address] Perry Garza MD Myelodysplastic syndrome (CMS/HCC) 11/08/2024 External Device Data STL ABSTRACTION Provider, Abstract 10/31/2024 Orders Only [facility] Oncology and Hematology - Raffy [address] [place] [address] Perry Garza MD Myelodysplastic syndrome (CMS/HCC) 10/17/2024 Orders Only [facility] Oncology and Hematology - Raffy [address] [place] [address] Perry Garza MD Myelodysplastic syndrome (CMS/HCC) from Last 3 Months Family History Relation Name Status Comments Brother 1 Brother 2 Brother 3 Father Mother Sister 1 Sister 2 Sister 3 Alive Sister 4 Alive Son 1 Alive Son 2 Son 3 Social History Tobacco Use Types Packs/Day Years Used Date Smoking Tobacco: Every Day Cigarettes 0.5 37.2 Started: 1987 Smokeless Tobacco: Never Tobacco Cessation:Ready [...] Sign Reading Time Taken Comments Blood Pressure 106/65 12/29/2024 8:39 AM GRADUATE RECRUITER Pulse 98 12/29/2024 8:39 AM GRADUATE RECRUITER Temperature 36.1 C (96.9 F) 12/29/2024 8:39 AM GRADUATE RECRUITER Respiratory Rate 15 12/29/2024 8:39 AM GRADUATE RECRUITER Oxygen Saturation 98% 12/29/2024 8:39 AM GRADUATE RECRUITER Inhaled Oxygen Concentration - - Weight 61.7 kg (136 lb) 12/29/2024 8:39 AM GRADUATE RECRUITER Height 162.6 cm (5' 4 ) 08/18/2022 8:36 AM CDT Body Mass Index 23.34 08/18/2022 8:36 AM CDT Plan of Treatment Upcoming Encounters Date Type Department Care Team (Late st Contact Info) Description 01/26/2025 8:30 AM CDT Office Visit [facility] Oncology and Hematology [facility] [address] [facility] [address] [place] [address] Perry Garza MD [address] [facility] [address] [place] [address] Health Maintenance Due Date Last Done Comments DTAP/TDAP/TD VACCINES (1 - Tdap) 1975 PNEUMOCOCCAL VACCINE 50+ YEA RS (1 of 2 - PCV) 1975 BREAST CANCER SCREENING 1996 COLORECTAL SCREENING 2001 Colorectal Cancer Screening 2001 FIT-DNA Q 3 years 2001 FIT/FOBT Q 1 year 2001 Flex Sig/CT Colonography Q 5 years 2001 ZOSTER VACCINE (1 of 2) 2006 INFLUENZA VACCINE (#1) 2024 COVID-19 Vaccine ( season) 2024, 02/21/2021 RSV VACCINE (60+ or ) (1 - 1-dose 75+ series) 2031 OSTEOPOROSIS SCREENING Completed 02/27/2022 Procedures Procedure Name Priority Date/Time Associated Diagnosis Comments BASIC METABOLIC PANEL Routine 12/29/2024 1:44 PM GRADUATE RECRUITER CHG BLOOD TYPING, ANTIGEN SCREEN Routine 11/18/2024 12:09 PM GRADUATE RECRUITER BASIC METABOLIC PANEL Routine 11/17/2024 10:17 AM GRADUATE RECRUITER from Last 3 Months Results * BASIC METABOLIC PANEL (12/29/2024 1:44 PM GRADUATE RECRUITER) Only the most recent of2 resultswithin the time period is included. Blood Perry Garza MD CHEMISTRY ORDERABLES Final Resu lt * CHG BLOOD TYPING, ANTIGEN SCREEN (11/18/2024 12:09 PM GRADUATE RECRUITER) Perry Garza MD CHG - LABORATORY Final Result from Last 3 Months Insurance [facility] [id number] [facility] [place] Address: [place] [address] Care Teams Hawk Missile System Crewmember Relationship Specialty Start Date End Date Winifred Mcdonough MD PCP - General Internal Medicine 03/14/22
--- OUTSIDE RECORDS SUMMARY | 2025-01-05 11:26 | XMS_ITS | CONTINUITY OF CARE DOCUMENT ---
Author Name chicho valentino Address Unknown Organization [place] [facility] Address [address] [facility] [address] [place] [address] Phone [phone] Care Team Providers Care Ladle Liner Helper Name Role Phone Scott Pace MD Unavailable [phone] STACIE GALLOWAY MD Unavailable [phone] STACIE GALLOWAY MD Unavailable [phone] PROBLEMS Condition Status Date Provider Notes Hyperlipidemia [...] In-person encounter Office Visit Scott Pace MD [facility] - In-person encounter Office Visit Scott Pace MD [facility] CAD h/o coronary calcifications on CT--normal stress nuc, 03/2022Essential hypertension--echo ef 65%, 03/2022 - In-person encounter Office Visit Scott Pace MD [facility] HyperlipidemiaCAD h/o coronary calcifications on CT--normal stress nuc, 03/2022Essential hypertension--echo ef 65%, 03/2022Tobacco abuseShortness of breathPericardial effusion - small seen on CT VITAL SIGNS Date Observation Value Provider Body Mass Index (Ratio) 25.92 kg/m2 Wilfrido Pace MD blood pressure, diastolic 49 mm[Hg] Ca therine [place] blood pressure, systolic 115 mm[Hg] Cat herine [place] oxygen saturation, oximetry 98 % Manju Jesús pulse rate 91 /min Manju Jesús respiratory rate E&M 16 /min Catheri ne [place] weight E&M 151 [lb_av] Manju [place] blood pressure, cuff size regular Ca therine [place] height E&M 64 [in_i] Manju [place] Body Mass Index (Ratio) 26.95 kg/m2 Wilfrido [...] Dinorah Ram weight E&M 157 [lb_av] Arias [place] height E&M 64 [in_i] Arias [place] ALLERGIES [...] years as a smoker 20 a Manju Jesús smoking, date started 20 Cather ine Jesús smoking history, tot al pack/day 1 Manju [place] cigarette use yes Manju Jesús smoking status Current every day smoker C atherine Jesús social history reviewed E&M revi ewed - [...] Policy type / Coverage type Steve red constitution party ID AARP MEDICARE ADVANTAGE HMO-POS HMO [id number] TREATMENT PLAN Date Name Performer [id number],S, Remigio Ahmedza i [id number],S, Remigio Ahmedza i [id number],S, Remigio Ahmedza i [id number],S, Remigio Ahmedza i [id number],S, Remigio Ahmedza i [id number],B, Remigio Ahmedza i [id number],S, Remigio Ahmedza i [id number],S, Remigio Ahmedza i [id number],S, Remigio Ahmedza i [id number],S, Remigio Ahmedza i [id number],S, Remigio Ahmedza i Cardiology Remigio Ahmedzai Cardiology [...]
== END 2025-01-05 09:57 | disposition home or self-care (01) ==
PROVIDERS: PCP Internal Medicine; Visit Provider Surgery
DX: D46.9 Myelodysplastic syndrome, unspecified (principal)
CPT/HCPCS: 36415; 85025; 85055; 85610; 85730

== ENCOUNTER 2025-01-11 00:36 | Day surgery (SDC) | payer MEDICARE, MEDICAID, SELFPAY ==
[2025-01-02 16:01] VITALS: BMI 22.6
--- NOTE | 2025-01-02 16:12 | PC.NURSE ---
Addendum entered by Madeleine Lam RN 01/02/25 16:25: 1624 pm - PT to check with Dr Arambula office regarding her daily baby aspirin instructions, I left message for their office to call pt with instructions preop as pt was added on and is unaware of to HOLD it or not as of today. DEA Original Note: Report to the Outpatient Waiting Room, entrance under [facility] green pavilion [facility], at time __1030am on date __01/11/25____. Planned Procedure Time: __12:30pm .? Time changes happen often and if your time is changed the preop area will call you the afternoon before. - You and your visitor will be asked to self-screen and do not enter if you have any COVID symptoms. Please call surgeon if you need to reschedule. - A mask is optional within the hospital at this time. Patients may have clear liquids (water, carbonated beverages, clear teas, apple juice) until 3 hours prior to surgery with a maximum of 20 ounces. - No food from midnight until time of surgery and no smoking, or chewing tobacco (or any form of nicotine). No chewing gum, candy or mints.(0930am) Take only the following medications with a SIP of water on the morning of surgery: __None DO NOT STOP ANY OF YOUR OTHER PRESCRIPTION MEDICATIONS PRIOR TO SURGERY EXCEPT THE FOLLOWING Hold all vitamins and supplements for 3 days per anesthesiologist.Date to take last dose____None Medications to discontinue per physician ____None Date to take last dose__None Please no make-up, nail comoran, hairspray, perfume, deodorant, or body powder the day of surgery.? No jewelry (including any body piercings) or valuables the day of surgery, leave them at home.? Please take a shower or bath the night before, or the morning of, surgery with an antibacterial soap.? Wear comfortable, loose fitting clothing.? - Jewelry must be removed prior to entering the operating room.? Rings and piercings that are not removed may be cut off. - The hospital will not accept responsibility for valuables.? - Please leave all valuables, including medications, at home the day of surgery. If you are going home after surgery, a licensed national flatbed truck driver must drive you home.? - NO public transportation without another adult if you receive anesthesia. - We recommend that an adult stay with you for 24 hours following discharge. - We also recommend that you do not drive, make important decision, drink alcoholic beverages, or take any drugs that were not prescribed by your health care provider for at least 24 hours after your discharge time. Follow any additional instructions given to you from your surgeon. Telephone instructions given to ___Patient and asked if any additional questions and then verbalized understanding. Patient advised to call surgeon office or pre surgery nurse liaison [phone] if any additional questions.
--- NOTE | ~2025-01-11 | XR_ITS ---
XR chest port-a-cath/central Ordering provider: Amada Arambula MD History: 69 years Female with . POST INSERTION TRA CATH . Comparison: September 08, 2022 FINDINGS: MEDIASTINUM: The cardiac silhouette is not enlarged. Left Port-A-Cath with the tip overlying the supe rior vena cava. LUNGS: No infiltrates, effusions or pneumothorax. OTHER: No free air under the diaphragm. IMPRESSION: No acute cardiopulmonary pathology. Reviewed, dictated and finalized at location A.
--- NOTE | ~2025-01-11 | XR_ITS ---
INTRAOPERATIVE FLUOROSCOPY: CLINICAL HISTORY: 69 years old Female; INSERTION TRA CATH PROCEDURE COMMENTS: Limited intraoperative fluoroscopy of the mediastinum was performed. CUMULATIVE DOSE: 13 mGy FLUOROSCOPY TIME: 120 seconds FINDINGS/IMPRESSION: Please refer to operative note for further details. Reviewed, dictated and finalized at location A.
--- OUTSIDE RECORDS SUMMARY | 2025-01-11 00:40 | XMS_ITS | Encounter Summary ---
Author Organization [facility] [place] [facility] Address [address] [place] [address] Care Team Providers Care Cosmetics Supervisor Name Role Phone Winifred Mcdonough MD Primary Care Provider Encounter Details Date Type Department Care Team ([facility] Contact Info) Description 01/09/2025 Orders Only [facility] Oncology and Hematology - [place]affy [address] [place] [address] Perry Garza MD [address] [place] [address] Myelodysplastic syndrome (CMS/HCC) Social History Tobacco Use Types Packs/Day Years Used Date Smoking Tobacco: Every Day Cigarettes 0.5 37.2 Started: 1987 Smokeless Tobacco: Never Alcohol Use Standard Drinks/Week Comments Not Currently 0 (1 standard drink = 0.6 oz pur e alcohol) Comments Unknown Sex and Gender Information Value Date Recorded Sex Assigned at Not on file Legal Sex Female 2:29 PM CDT Gender Identity Not on file Sexual Orientation Not on file documented as of this encounter Plan of Treatment Upcoming Encounters Date Type Department Care Team (Late Contact Info) Description 01/17/2025 10:00 AM CDT Office Visit [facility] Oncology and Hematology - [place]affy [address] [place] [address] Perry Garza MD [address] [place] [address] documented as of this encounter Visit Diagnoses Diagnosis Myelodysplastic syndrome (CMS/HCC) Myelodysplastic syndrome, unspecified documented in this encounter Care Teams Cosmetics Supervisor Relationship Specialty Start Date End Date Winifred Mcdonough MD PCP - General Internal Medicine 03/14/22 documented as of this encounter
--- OUTSIDE RECORDS SUMMARY | 2025-01-11 00:40 | XMS_ITS | Clinical Summary ---
Author Organization [facility] Scott Robledo Address [address] [place] [address] Care Team Providers Care Insurance Commissioner Name Role Phone Winifred Mcdonough MD Primary [...] Take 81 mg by mouth daily. Active lidocaine-prilo tye (EMLA) 2.5-2.5 % CreamIndication s:Myelodysplast ic syndrome (CMS/HCC) Apply a quarter size amount to port site 30 minutes before access. 30 Gram 1 5 Active ondansetron (ZOFRAN ODT) 8 mg Tablet, Rapid Dissolve Dissolve 1 tablet on top of tongue then swallow with saliva every 8 hours as needed for nausea or vomiting 30 Tablet 1 5 Active Active Problems Problem Noted Date Diagnosed Date Peripheral neuropathy 08/26/2023 Mesenteric mass 03/14/2022 Myelodysplastic syndrome 03/14/2022 Encounters Date Type Department Care Team Description 01/09/2025 Orders Only [facility] Oncology and Hematology - [place] [address] [place] [address] Perry Garza MD Myelodysplastic syndrome ([facility]/HCC) 01/06/2025 Refill [facility] Oncology and Hematology - [place] [place] [address] Perry Garza MD Myelodysplastic syndrome ([facility]/HCC) (Primary Dx) 12/31/2024 External Device Data STL ABSTRACTION Provider, Abstract 12/30/2024 External Device Data STL ABSTRACTION Provider, Abstract 12/30/2024 Abstract [facility] Oncology and Hematology - [place] [place] [phone] Perry Garza MD 12/29/2024 8:30 AM FAIRING WORKER Office Visit [facility] Oncology and Hematology - [place] [address] [place] [address] Perry Garza MD Myelodysplastic syndrome ([facility]/HCC) (Primary Dx) 12/29/2024 Orders Only [facility] Oncology and Hematology - [place] [place] [address] Perry Garza MD 12/28/2024 External Device Data STL ABSTRACTION Provider, Abstract 12/27/2024 External Device Data STL ABSTRACTION Provider, Abstract 12/26/2024 Orders Only [facility] Oncology and Hematology - [place] [place] [address] Perry Garza MD Myelodysplastic syndrome ([facility]/HCC) 12/13/2024 External Device Data STL ABSTRACTION Provider, Abstract 12/12/2024 Orders Only [facility] Oncology and Hematology - [place]y [address] [place] [address] Perry Garza MD Myelodysplastic syndrome (CMS/HCC) 12/08/2024 10:15 AM FAIRING WORKER Office Visit [facility] Oncology and Hematology - [place] [address] [place] [address] Perry Garza MD Myelodysplastic syndrome (CMS/HCC) (Primary Dx) 11/28/2024 Orders Only [facility] Oncology and Hematology - [place] [place] [phone] Perry Garza MD Myelodysplastic syndrome (CMS/HCC) 11/18/2024 Abstract [facility] Oncology and Hematology - [place] [place] [address] Perry Garza MD 11/17/2024 9:15 AM FAIRING WORKER Office Visit [facility] Oncology and Hematology - [place] [place] [address] Perry Garza MD Myelodysplastic syndrome (CMS/HCC) (Primary Dx) 11/16/2024 External Device Data STL ABSTRACTION Provider, Abstract 11/15/2024 External Device Data STL ABSTRACTION Provider, Abstract 11/14/2024 Orders Only [facility] Oncology and Hematology - [place] [place] [address] Perry Garza MD Myelodysplastic syndrome ([facility]/HCC) 11/08/2024 External Device Data STL ABSTRACTION Provider, Abstract 10/31/2024 Orders Only [facility] Oncology and Hematology - [place] [place] [address] Perry Garza MD Myelodysplastic syndrome (CMS/HCC) 10/17/2024 Orders Only [facility] Oncology and Hematology - [place] [address] [place] [address] Perry Garza MD Myelodysplastic syndrome (CMS/HCC) from [...] Comments Blood Pressure 106/65 12/29/2024 8:39 AM FAIRING WORKER Pulse 98 12/29/2024 8:39 AM FAIRING WORKER Temperature 36.1 C (96.9 F) 12/29/2024 8:39 AM FAIRING WORKER Respiratory Rate 15 12/29/2024 8:39 AM FAIRING WORKER Oxygen Saturation 98% 12/29/2024 8:39 AM FAIRING WORKER Inhaled Oxygen Concentration - - Weight 61.7 kg (136 lb) 12/29/2024 8:39 AM FAIRING WORKER Height 162.6 cm (5' 4 ) 08/18/2022 8:36 AM CDT Body Mass Index 23.34 08/18/2022 8:36 AM CDT Plan of Treatment Upcoming Encounters Date Type Department Care Team (Late st Contact Info) Description 01/17/2025 10:00 AM CDT Office Visit [facility] Oncology and Hematology [facility] [address] [facility] [address] [place] [address] Perry Garza MD [address] [facility] [address] [place] [address] Health Maintenance Due Date Last [...] Vaccine ( season) 2024, 02/21/2021 Medicare Advant[place] ([place]) Prev entative Visit/Annual Wellness Visit 10/26/2024 RSV VACCINE (60+ or ) (1 - 1-dose 75+ series) 2031 OSTEOPOROSIS SCREENING Completed 02/27/2022 Procedures Procedure Name Priority Date/Time Associated Diagnosis Comments BASIC METABOLIC PANEL Routine 12/29/2024 1:44 PM FAIRING WORKER CHG BLOOD TYPING, ANTIGEN SCREEN Routine 11/18/2024 12:09 PM FAIRING WORKER BASIC METABOLIC PANEL Routine 11/17/2024 10:17 AM FAIRING WORKER from Last 3 Months Results * BASIC METABOLIC PANEL (12/29/2024 1:44 PM FAIRING WORKER) Only the most recent of2 resultswithin the time period is included. Blood us Perry Garza MD CHEMISTRY ORDERABLES Final Resu lt * CHG BLOOD TYPING, ANTIGEN SCREEN (11/18/2024 12:09 PM FAIRING WORKER) us Perry Garza MD CHG - LABORATORY Final Result from Last 3 Months Insurance [facility] [id number] Care Teams Insurance Commissioner Relationship Specialty Start Date End Date Winifred Mcdonough MD PCP - General Internal Medicine 03/14/22
--- OUTSIDE RECORDS SUMMARY | 2025-01-11 00:40 | XMS_ITS | Clinical Summary ---
Author Organization [facility] Address [address], [facility] [address] [place] [address] Phone Care Team Providers Care Radio Dispatcher Name Role Phone Ila Linares MD Primary Care Provider [phone] Allergies Active Allergy Reactions Criticality Noted Date [...] Insurance MEDICAID [employer] Care Teams Radio Dispatcher Relationship Specialty Start Date End Date Ila Linares MD [address] [place] [address] PCP - General Geriatric Medicine 06/24/19
--- OUTSIDE RECORDS SUMMARY | 2025-01-11 00:40 | XMS_ITS ---
Author Organization [facility] Address [address], [facility] [address] [place] [address] Phone Care Team Providers Care Adjustment Clerk Name Role Phone Ila Linares MD Primary Care Provider [phone] Active Problems Problem Noted Date Diagnosed Date [...]
--- OUTSIDE RECORDS SUMMARY | 2025-01-11 00:40 | XMS_ITS | Data Portability ---
Author Organization [place] [facility], Main Office Address [address] [place] [address] Care Team Providers Care Pharmacovigilance Safety Expert Name Role Phone STACIE MCDOONUGH Primary Care Provider STACIE MCDONOUGH Referring Provider Assessment Encounter Date [...] available Lab lipid panel, serum 2023 024 [facility] (Lab), [address] [place], [address], 06/30/2024 18:31:12 CBC w/ auto diff 2023 024 [facility] (Lab), [address] [place], [address], 06/30/2024 18:35:09 CMP, serum or plasma 2023 024 [facility] (Lab), [address] [place], [address], 06/30/2024 18:31:18 TSH, serum or plasma 2023 024 [facility] (Lab), [address] [place], [address], 06/30/2024 18:29:00 vitamin B12 + folate, serum or blood [email or web address] (Lab), [address] [place], [address], 01/03/2025 10:04:38 glycohemo globin, total, blood 2023 024 [facility] (Lab), [address] [place], [address], 07/01/2024 13:13:42 [facility]albu min, [email or web address] [address] [place], [address], 06/30/2024 18:24:21 vitamin D, 25-hydrox y, total, serum [address] (Lab), [address] [place], [address], 12/06/2024 11:24:59 vitamin B12 + folate, serum or blood [address] (Lab), [address] [place], [address], 06/20/2024 10:10:25 lipid panel, serum [address] (Lab), [address] [place], [address], 10/13/2024 08:19:16 CBC w/ auto diff [address] (Lab), [address] [place], [address], 10/13/2024 08:19:16 CMP, serum or plasma [address] (Lab), [address] [place], [address], 10/13/2024 08:19:16 TSH, serum or plasma [address] (Lab), [address] [place], [address], 10/13/2024 08:19:16 glycohemo globin, total, blood [address] (Lab), [address] [place], [address], 12/12/2024 11:55:36 microalbu min, urine [address] (Lab), [address] [place], [address], 12/12/2024 11:55:36 vitamin D, 25-hydrox y, total, serum [address] (Lab), [address] [place], [address], 10/13/2024 08:19:16 lipid panel, serum [address] (Lab), [address] [place], [address], 12/15/2023 16:21:01 CBC w/ auto diff [address] (Lab), [address] [place], [address], 12/15/2023 16:21:18 CMP, serum or plasma [address] (Lab), [address] [place], [address], 12/15/2023 16:21:19 TSH, serum or plasma [address] (Lab), [address] [place], [address], 05/16/2024 09:14:11 glycohemo globin, total, blood [address] (Lab), [address] [place], [address], 04/26/2024 15:32:58 microalbu min, urine 2022 023 [email or web address] [facility] (Lab), [address] [place], [address], 04/26/2024 15:32:58 vitamin D, 25-hydrox y, total, serum 2022 023 [email or web address] [facility] (Lab), [address] [place], [address], 12/15/2023 16:21:01 Referral hematolog ist referral 2023 024 [email or web address] Perry Garza MD, [address], [place], [address], 06/30/2024 14:54:16 podiatris t referral 2023 024 Kavon Sin DPM, [address] , [address], [place], [address], 06/30/2024 14:54:15 nephrolog ist referral 2023 024 Bunny Pace MD (Nephrology, [address], [address], [place], [address], 06/30/2024 14:54:15 cardiolog ist referral 2023 024 [email or web address] [place], [address], [address], [place], [address], 06/30/2024 14:54:14 hematolog ist referral 2023 024 [email or web address] miguel Garza MD, [address], [place], [address], 01/12/2024 11:17:10 podiatris t referral 2023 024 [email or web address] miguel Sin DPM, [address], [address], [place], [address], 07/11/2024 08:52:57 nephrolog ist referral 2023 024 stacy Pace MD (Nephrology, [address], [address], [place], [address], 09/13/2024 10:59:39 cardiolog ist referral 2023 024 [place], [address], [address], [place], [address], 07/11/2024 08:52:57 podiatris t referral 2022 023 stacy Sin DPM, [address], [address], [place], [address], 01/12/2024 11:16:21 nephrolog ist referral 2022 023 stacy Pace MD (Nephrology, [address], [address], [place], [address], 02/11/2024 08:37:36 cardiolog ist referral 2022 023 [place], [address], [address], [place], [address], 01/12/2024 11:16:20 Procedures colonosco py screening (PROC) 2023 024 [email or web address] Flowers MD, [address] [place], [address], 02/10/2024 11:05:14 Surgeries None recorded. Imaging US, neck, soft tissue - Please call patient to schedule. 2024 025 [facility], [address] [facility] [address], [place], [address], 12/07/2024 16:24:49 CT, sinuses, w/o contrast - Please call patient to schedule. 2024 025 [facility], [address], [place], [address], 12/05/2024 10:57:38 MAMMO, screening , digital, bilateral [email or web address] ([facility]), [address] [place], [address], 12/05/2024 16:17:27 DEXA, axial skeleton 2023 024 [facility] ([facility]), [address] [place], [address], 02/29/2024 11:43:42 LDCT, chest, for lung cancer screening 2022 023 [facility] ([facility]), [address] [place], [address], 07/29/2023 11:32:11 Medication Orders Medrol (Gavin) 4 mg tablets in a dose pack 2024 025 [id number], [address] [place], [place], [id number], 11/29/2024 15:37:08 amoxicill in 875 mg-potass ium clavulana te 125 mg tablet 2024 025 [facility] #34272, [address], [place], [id number], 11/29/2024 15:36:56 amlodipin e 10 mg-benaze pril 20 mg capsule 2023 024 [facility] #36643, [address], [place], [id number], 06/30/2024 14:47:58 nicotine 21 mg/24 hr daily transderm al patch 2023 024 [facility] #09967, [address] [place], [place], [id number], 06/30/2024 14:20:09 nicotine 21mg/24hr -14mg/24h r-7mg/24h r daily transderm patches,s equentl 2022 023 [facility] #45185, [address], [place], [id number], 06/30/2024 14:20:14 Patient TargetsNo targets recorded. Patient Instructions Encounter Date Encounter Id Patient Instructions Last Modified By Organization Details Last Modified Time 07/14/2023 [id number] diabetic eye exam* [email or web address] Not available 01/14/2024 08:25:33 12/15/2023 [id number] diabetic eye exam* [email or web address] Not available 07/14/2024 08:30:56 06/30/2024 [id number] diabetic eye exam* [email or web address] Not available 12/27/2024 08:45:14 Reason for Referral Nub Card Tender Referral for Co ronary arteriosclerosis Referring Physician: Stacie Mcdonough Internal Medicine, Encounter Date: 07/14/2023 Sap Director Referral for Ch ronic kidney disease Referring Physician: Stacie Mcdonough Internal Medicine, Encounter Date: 07/14/2023 Blocker Metal Base Referral for Hype rglycemia Referring Physician: Stacie Mcdonough Internal Medicine, Encounter Date: 07/14/2023 Nub Card Tender Referral for Co ronary arteriosclerosis Referring Physician: Stacie Mcdonough Internal Medicine, Encounter Date: 12/15/2023 Sap Director Referral for Ch ronic kidney disease Referring Physician: Stacie Mcdonough Internal Medicine, Encounter Date: 12/15/2023 Blocker Metal [employer] Referral for Hype rglycemia Referring Physician: Stacie Mcdonough Internal Medicine, Encounter Date: 12/15/2023 Referring Physician: Stacie Mcdonough Internal Medicine, Encounter Date: 12/15/2023 Nub Card Tender Referral for Co ronary arteriosclerosis Referring Physician: Stacie Mcdonough Internal Medicine, Encounter Date: 06/30/2024 Sap Director Referral for Ch ronic kidney disease Referring Physician: Stacie Mcdonough Internal Medicine, Encounter Date: 06/30/2024 [employer]ocker [employer] Referral for Hype rglycemia Referring Physician: Stacie Mcdonough Internal Medicine, Encounter Date: 06/30/2024 Referring Physician: Stacie Mcdonough Internal Medicine, Encounter Date: 06/30/2024 Results Created Date Observation Date Name Description Value Unit Range Abnormal Flag Note LastModifiedBy Organization Detail LastModifiedTime 06/30/20 24 06/30/2024 MICRO ALBUM IN RANDO M URINE microalbumin , urine 255.7 mg/L 0.0-16 .6 high Not Available [facility] (Lab) [address] [place], [address], 06/30/2024 18:26:08 06/30/20 24 06/30/2024 VITAM IN D 25-HY DROXY [id number] 36.7 NG/mL 30-100 Vitam in D Statu s: Defic ient: <20 ng/mL Insuf ficie nt: 20-29 ng/mL Suffi cient : 30-10 0 ng/mL Not Available [facility] (Lab) [address] [place], [address], 06/30/2024 18:25:37 06/30/20 24 06/30/2024 TSH W/REF ANA FT4 TSH with reflex free T4 0.886 uIU/m L 0.465- 4.680 Not Available [facility] (Lab) [address] [place], [address], 06/30/2024 18:28:59 06/30/2006/30/2024 LIPID PANEL cholesterol 146 mg/dL 140-19 9 NIH LIZ NSUS RECOM MENDA TION FOR MERCEDES STERO L: ADULT CHILD LOW RISK: <200 <170 BORDE RLINE : <200- 239 ----- HIGH RISK: >240 >200 Not Available [facility] (Lab) [address] [place], [address], 06/30/2024 18:31:12 06/30/2006/30/2024 LIPID PANEL triglyceride s 150 mg/dL 0-150 NIH LIZ NSUS REPOR T RECOM MENDA TION FOR TRIGL YCERI CLINT: ADULT CHILD LOW RISK: <150 ----- BODER LINE: 150-1 99 ----- HIGH RISK: >200 ----- Not Available [facility] (Lab) [address] [place], [address], 06/30/2024 18:31:12 06/30/2006/30/2024 LIPID PANEL HDL cholesterol 47 mg/dL 40- Not Available [facility] (Lab) [address] [place], [address], 06/30/2024 18:31:12 06/30/2006/30/2024 LIPID PANEL LDL cholesterol, [...] WILL NOT BE REPOR VISHNU. Not Available [facility] (Lab) [address] [place], [address], 06/30/2024 18:31:12 06/30/20 24 06/30/2024 COMPR EHENS ITALIA METAB OLIC PANEL sodium 133 mmol/ L 137-14 5 low Not Available [facility] (Lab) [address] [place], [address], 06/30/2024 18:31:18 06/30/20 24 06/30/2024 COMPR EHENS ITALIA METAB OLIC PANEL potassium 4.7 mmol/ L 3.5-5. 1 Not Available [facility] (Lab) [address] [place], [address], 06/30/2024 18:31:18 06/30/20 24 06/30/2024 COMPR EHENS ITALIA METAB OLIC PANEL chloride 103 mmol/ L 98-107 Not Available [facility] (Lab) [address] [place], [address], 06/30/2024 18:31:18 06/30/20 24 06/30/2024 COMPR EHENS ITALIA METAB OLIC PANEL carbon dioxide 24 mmol/ L 22-30 Not Available [facility] (Lab) [address] [place], [address], 06/30/2024 18:31:18 06/30/20 24 06/30/2024 COMPR EHENS ITALIA METAB OLIC PANEL anion gap 10.7 mmol/ L 14-22 low Not Available [facility] (Lab) [address] [place], [address], 06/30/2024 18:31:18 06/30/20 24 06/30/2024 COMPR EHENS ITALIA METAB OLIC PANEL glucose 138 mg/dL 70-99 high Not Available [facility] (Lab) [address] [place], [address], 06/30/2024 18:31:18 06/30/20 24 06/30/2024 COMPR EHENS ITALIA METAB OLIC PANEL BUN 11 mg/dL 8-19 Not Available [facility] (Lab) [address] [place], [address], 06/30/2024 18:31:18 06/30/2006/30/2024 COMPR EHENS ITALIA METAB OLIC PANEL creatinine 1.06 mg/dL 0.66-1 .25 Not Available [facility] (Lab) [address] [place], [address], 06/30/2024 18:31:18 06/30/20 24 06/30/2024 COMPR EHENS ITALIA METAB OLIC PANEL GFR >60 Refer ence Range : [place] ge GFR Healt hy Adult : >60 [...] or ethni c subgr oups, such as Hisfl nics. Outsi de the valid ated kiko [...] NKF websi te: https :[email or web address] crook.sherita lyon/pr isisess ional s/kdo qi/gf r_cal culat or Not Available [facility] (Lab) [address] [place], [address], 06/30/2024 18:31:18 06/30/2006/30/2024 COMPR EHENS ITALIA METAB OLIC PANEL alkaline phosphatase 101 U/L 38-126 Not Available [facility] (Lab) [address] [facility] [place], [address], 06/30/2024 18:31:18 06/30/20 24 06/30/2024 COMPR EHENS ITALIA METAB OLIC PANEL alanine aminotransfe rase 15 U/L 0-35 Not Available [facility] (Lab) [address] [place], [address], 06/30/2024 18:31:18 06/30/20 24 06/30/2024 COMPR EHENS ITALIA METAB OLIC PANEL aspartate aminotransfe rase 36 U/L 15-37 Not Available [facility] (Lab) [address] [place], [address], 06/30/2024 18:31:18 06/30/20 24 06/30/2024 COMPR EHENS ITALIA METAB OLIC PANEL bilirubin, total 0.60 mg/dL 0.20-1 .30 Not Available [facility] (Lab) [address] [place], [address], 06/30/2024 18:31:18 06/30/20 24 06/30/2024 COMPR EHENS ITALIA METAB OLIC PANEL calcium 9.2 mg/dL 8.4-10 .2 Not Available [facility] (Lab) [address] [place], [address], 06/30/2024 18:31:18 06/30/20 24 06/30/2024 COMPR EHENS ITALIA METAB OLIC PANEL total protein 7.2 g/dL 6.3-8. 2 Not Available [facility] (Lab) [address] [place], [address], 06/30/2024 18:31:18 06/30/20 24 06/30/2024 COMPR EHENS ITALIA METAB OLIC PANEL albumin 4.3 g/dL 3.0-4. 4 Not Available [facility] (Lab) [address] [place], [address], 06/30/2024 18:31:18 06/30/20 24 06/30/2024 COMPR EHENS ITALIA METAB OLIC PANEL globulin 2.9 g/dL 2.6-4. 2 Not Available [facility] (Lab) [address] [place], [address], 06/30/2024 18:31:18 06/30/20 24 06/30/2024 COMPR EHENS ITALIA METAB OLIC PANEL A/G ratio 1.5 ratio 1.0-2. 0 Not Available [facility] (Lab) [address] [place], [address], 06/30/2024 18:31:18 06/30/20 24 06/30/2024 CBC/C OMPLE TE BLD COUNT W/DIF F white blood cells 4.8 x10'3 /uL 4.2-10 .8 Not Available [facility] (Lab) [address] [place], [address], 06/30/2024 18:35:09 06/30/20 24 06/30/2024 CBC/C OMPLE TE BLD COUNT W/DIF F red blood cells 2.72 x10'6 /uL 3.80-5 .20 low Not Available [facility] (Lab) [address] [place], [address], 06/30/2024 18:35:09 06/30/20 24 06/30/2024 CBC/C OMPLE TE BLD COUNT W/DIF F hemoglobin 8.1 g/dL 12.0-1 5.6 low Not Available [facility] (Lab) [address] [place], [address], 06/30/2024 18:35:09 06/30/20 24 06/30/2024 CBC/C OMPLE TE BLD COUNT W/DIF F hematocrit 27.2 % 35.7-4 5.7 low Not Available [facility] (Lab) [address] [place], [address], 06/30/2024 18:35:09 06/30/20 24 06/30/2024 CBC/C OMPLE TE BLD COUNT W/DIF F mean red cell volume 100.0 fL 82.0-9 9.0 high Not Available [facility] (Lab) [address] [place], [address], 06/30/2024 18:35:09 06/30/20 24 06/30/2024 CBC/C OMPLE TE BLD COUNT W/DIF F mean red cell hemoglobin 29.8 pg 27.0-3 3.0 Not Available [facility] (Lab) [address] [place], [address], 06/30/2024 18:35:09 06/30/20 24 06/30/2024 CBC/C OMPLE TE BLD COUNT W/DIF F mean RBC HGB concentratio n 29.8 g/dL 31.0-3 6.0 low Not Available [facility] (Lab) [address] [place], [address], 06/30/2024 18:35:09 06/30/20 24 06/30/2024 CBC/C OMPLE TE BLD COUNT W/DIF F red cell distribution width 28.1 % 11.8-1 5.5 high Not Available [facility] (Lab) [address] [place], [address], 06/30/2024 18:35:09 06/30/20 24 06/30/2024 CBC/C OMPLE TE BLD COUNT W/DIF F platelets 258 x10'3 /uL 150-40 0 Not Available [facility] (Lab) [address] [place], [address], 06/30/2024 18:35:09 06/30/20 24 06/30/2024 CBC/C OMPLE TE BLD COUNT W/DIF F neutrophils 55 % 39.0-7 2.0 Not Available [facility] (Lab) [address] [place], [address], 06/30/2024 18:35:09 06/30/20 24 06/30/2024 CBC/C OMPLE TE BLD COUNT W/DIF F bands 6 % 0-3 high Not Available [facility] (Lab) [address] [place], [address], 06/30/2024 18:35:09 06/30/20 24 06/30/2024 CBC/C OMPLE TE BLD COUNT W/DIF F lymphocytes 30 % 16.0-4 7.0 Not Available [facility] (Lab) [address] [place], [address], 06/30/2024 18:35:09 06/30/20 24 06/30/2024 CBC/C OMPLE TE BLD COUNT W/DIF F monocytes 2 % 5.0-12 .0 low Not Available [facility] (Lab) [address] [place], [address], 06/30/2024 18:35:09 06/30/20 24 06/30/2024 CBC/C OMPLE TE BLD COUNT W/DIF F eosinophils 4 % 1.0-7. 0 Not Available [facility] (Lab) [address] [place], [address], 06/30/2024 18:35:09 06/30/20 24 06/30/2024 CBC/C OMPLE TE BLD COUNT W/DIF F basophils 2 % 0.0-2. 0 Not Available [facility] (Lab) [address] [place], [address], 06/30/2024 18:35:09 06/30/20 24 06/30/2024 CBC/C OMPLE TE BLD COUNT W/DIF F metamyelocyt es 1 % -0 high Not Available [facility] (Lab) [address] [place], [address], 06/30/2024 18:35:09 06/30/20 24 06/30/2024 CBC/C OMPLE TE BLD COUNT W/DIF F neutrophils, absolute count 2.88 x10'3 /uL 1.5-8. 0 Not Available [facility] (Lab) [address] [place], [address], 06/30/2024 18:35:09 06/30/20 24 06/30/2024 CBC/C OMPLE TE BLD COUNT W/DIF F nucleated red blood cells 4 % -0 high Not Available [facility] (Lab) [address] [place], [address], 06/30/2024 18:35:09 06/30/20 24 06/30/2024 CBC/C OMPLE TE BLD COUNT W/DIF F anisocytosis 3+ Not Available [facility] (Lab) [address] [place], [address], 06/30/2024 18:35:09 06/30/20 24 06/30/2024 CBC/C OMPLE TE BLD COUNT W/DIF F poikilocytos is 3+ Not Available [facility] (Lab) [address] [place], [address], 06/30/2024 18:35:09 06/30/20 24 06/30/2024 CBC/C OMPLE TE BLD COUNT W/DIF F hypochromia 1+ Not Available [facility] (Lab) [address] [place], [address], 06/30/2024 18:35:09 06/30/20 24 06/30/2024 CBC/C OMPLE TE BLD COUNT W/DIF F polychromato philic RBCs OCCASI ONAL Not Available [facility] (Lab) [address] [place], [address], 06/30/2024 18:35:09 06/30/20 24 06/30/2024 CBC/C OMPLE TE BLD COUNT W/DIF F basophilic stippling OCCASI ONAL Not Available [facility] (Lab) [address] [place], [address], 06/30/2024 18:35:09 06/30/20 24 06/30/2024 CBC/C OMPLE TE BLD COUNT W/DIF F target cells 1+ Not Available [facility] (Lab) [address] [place], [address], 06/30/2024 18:35:09 06/30/20 24 06/30/2024 CBC/C OMPLE TE BLD COUNT W/DIF F ovalocytes OCCASI ONAL Not Available [facility] (Lab) [address] [place], [address], 06/30/2024 18:35:09 06/30/20 24 06/30/2024 CBC/C OMPLE TE BLD COUNT W/DIF F teardrop red blood cells OCCASI ONAL Not Available [facility] (Lab) [address] [place], [address], 06/30/2024 18:35:09 06/30/20 24 06/30/2024 CBC/C OMPLE TE BLD COUNT W/DIF F schistocytes OCCASI ONAL Not Available [facility] (Lab) [address] [place], [address], 06/30/2024 18:35:09 06/30/20 24 06/30/2024 CBC/C OMPLE TE BLD COUNT W/DIF F large platelets 1+ Not Available [facility] (Lab) [address] [place], [address], 06/30/2024 18:35:09 06/30/20 24 06/30/2024 CBC/C OMPLE TE BLD COUNT W/DIF F giant platelets OCCASI ONAL Not Available [facility] (Lab) [address] [place], [address], 06/30/2024 18:35:09 06/30/20 24 06/30/2024 VITAM IN B12 (VALERIANO ASIF ) vb12 802 pg/mL 239-93 1 Not Available [facility] (Lab) [address] [place], [address], 06/30/2024 19:01:58 06/30/20 24 06/30/2024 FOLAT E, SERUM /PLAS MA folate 10.6 NG/mL 2.76-2 0.0 Not Available [facility] (Lab) [address] [place], [address], 06/30/2024 19:02:03 03/01/20 23 02/27/2023 scree deyvi breas t jose de jesus, bilat [facility] [address] [place] [address] Patien t Name: TANESHA DIALLO ion #: [id number] Sex: F : 1955 1 Locati [...] scarlet ectura l Page 1 of 2 [facility] Mustapha galaviz Name: TANESHA DIALLO Access ion #: [id number] Sex: F : 1955 1 Exam [...] ly to the [facility]. A negati ve mammog tien report [...] (CT) (CT) Page 2 of 2 [email or web address] [facility] (Imaging) [address] [place] [address], [address], 03/05/2023 14:52:38 07/29/20 23 07/29/2023 LDCT, chest , for lung cance r jesús carnes No observ ation record ed. [email or web address] [facility] [address], [place], [address], 07/30/2023 10:25:22 01/15/20 24 01/15/2024 imagi ng/di agnos tic resul t No observ ation record ed. [email or web address] [place] [address] [address], [place], [address], 07/05/2024 16:47:42 02/29/20 24 02/29/2024 jesús carnes breas t jose de jesus, bilat [facility] [address] [address] [phone] Patien t Name: TANESHA DIALLO Access ion #: [id number] Sex: F : 1955 7 Dictat [...] at 2023 10:32: 48 AM Page 1 [email or web address] [facility] (Imaging) [address] [place], [address], 06/07/2024 15:26:27 02/29/20 24 02/29/2024 DEXA, axial skele ton [facility] [address] [id number] Patien t Name: TANESHA DIALLO Access ion #: [id number] Sex: F : 1955 7 Dictat ed By: Duane Clark Attend ing Physic yonis: DECLAN LFORES [facility] Physic yonis: DECLAN FLORES Exam Date: 2023 [...] severe osteop orosis Page 1 [facility] [address] [place] [address] Patien t Name: TANESHA DIALLO Access ion #: [id number] Sex: F : 1955 7 Dictat ed By: Duane Clark Attend ing Physic yonis: NISREEN SYKES [facility] Physic yonis: DECLAN FLORES Exam Date: 2023 [...] at 2023 10:42: 25 AM Page 2 [email or web address] [facility] (Imaging) [address] [place], [address], 06/07/2024 15:26:28 02/29/20 24 02/29/2024 DEXA, axial skele ton No observ ation record ed. [email or web address] [facility] ([facility]) [address] [place], [address], 06/07/2024 15:26:12 08/01/20 24 08/01/2024 CT, chest , w/o contr ast No observ ation record ed. [address], [place], [address], 08/04/2024 16:16:09 12/05/19 25 12/05/2024 CT, sinus es, w/o contr ast No observ ation record ed. [address], [place], [address], 12/05/2024 10:57:38 12/07/19 25 12/07/2024 US, neck, soft tissu e No observ ation record ed. [address], [place], [address], 12/07/2024 16:24:50 Result Notes None recorded. Problems Name Problem SNOMED Code Status Onset Date Resolution Date Notes Provider Name and Address Organization Details Recorded Time Blood glucose outside reference range 712168248 Active 2021 Not Available [facility] 3 20:55:26 Hypertrigl yceridemia 096576280 Active 2021 Not Available [facility] 3 20:55:26 Knee pain Active Not Available [facility] 3 20:55:26 Pain of bilateral knee joints 6304185177534 04 Active 2021 Not Available [facility] 3 20:55:26 Hyperlipid emia 45435263 Active 2021 Not Available [facility] 3 20:55:26 Derangemen t of knee 41516457 Active Not Available [facility] 3 20:55:26 Carotid artery stenosis 04236264 Active 2021 Not Available [facility] 3 20:55:27 Vitamin D deficiency 59776461 Active 2022 Meera neal [facility] [employer] [facility] 3 13:49:15 Hyperglyce marysol 38695633 Active 2022 Meera neal [facility] [employer] [facility] 3 13:50:00 Prediabete s 856015513 Active 2022 Meera neal, [facility] 3 11:21:51 Essential hypertensi on 91062727 Active 2022 Stacie mercado MD [address], [place], [address] , [facility] 3 15:46:00 Anemia 134014445 Active 2022 Stacie mercado MD [address], [place], [address] , [facility] 3 15:47:15 Bilateral cataracts 36250503 Active 2022 Stacie mercado MD [address], [place], [address] , [facility] 3 15:47:25 Smoker 83737360 Active 2022 Stacie mercado MD [address], [place], [address] , [facility] 3 15:54:38 Pain in right hip joint 8923194224439 02 Active 2022 Stacie mercado MD [address], [place], [address] , [facility] 3 15:55:01 Coronary arterioscl erosis 17912962 Active 2022 Stacie mercado MD [address], [place], [address] , [facility] [facility] 3 15:55:19 Chronic kidney disease 240381968 Active 2022 Meera neal, [facility] 3 12:10:07 Proteinuri a 84666879 Active 2023 Carmen Velazquez MA null, [facility] [employer] [facility] 10:49:53 Upper respirator y infection 05170224 Active 2024 Satcie mercado MD [address] [facility], [place] [address], [place], [address] , apstrata [facility] [employer] [facility] 15:34:31 Lymphadeno danni 05915249 Active 2024 Stacie mercado MD [address] [facility], [facility] [address], [place], [address] , [employer] 15:35:27 Problem Notes None recorded. Procedures Surgical History Date Name Laterality Status Provider Name and Address Organization Details Recorded Time 04/14/20 Medicare Wellness CPT Code, subsequent cancelled Brenden Sumner LPN apstrata [facility] 04/13/2024 15:56:15 delivery completed Meg Rhodes MA [facility] [employer] [facility] 06/30/2024 14:21:48 Hysterectomy completed Meg Rhodes MA [place] Mungo [facility] [employer] 11/29/2024 15:09:28 repair of meniscus completed Meg Rhodes MA [facility] [employer] [facility] 11/29/2024 15:09:50 Imaging Results Imaging Date Name Status LastModified by Organiz ation Details LastModified Time 02/27/2023 screening breast jose de jesus, bilat completed [address] (Imaging) [address] [place], [address], 03/05/2023 14:52:38 07/29/2023 LDCT, chest, for lung cancer screening completed [address], [address], 07/30/2023 10:25:22 01/15/2024 imaging/diagno stic result completed [address], [address], 07/05/2024 16:47:42 02/29/2024 screening breast jose de jesus, bilat completed [email or web address] [facility] (Imaging) [address] [place], [address], 06/07/2024 15:26:27 02/29/2024 DEXA, axial skeleton completed [email or web address] [facility] (Imaging) [address] [place], [address], 06/07/2024 15:26:28 02/29/2024 DEXA, axial skeleton completed [address] (One Call Scheduling) [address] [place], [address], 06/07/2024 15:26:12 08/01/2024 CT, chest, w/o contrast completed [address], [address], 08/04/2024 16:16:09 12/05/2024 CT, sinuses, w/o contrast active [address], [address], 12/05/2024 10:57:38 12/07/2024 US, neck, soft tissue active [address], [address], 12/07/2024 16:24:50 Procedure Notes None recorded. Medical Equipment None Reported. Allergies Allergen ID Allergen Name Allergen Category Reaction Reaction Severity Criticality Documentation Date Start Date Code Code System Note Provider Name and Address Organization Details Recorded Time 85668 ibuprofen medicatio n vomiting Not available Not available 12/24/2022 5640 RxNorm Not Available [facility] 20:56:42 Medications Name Sig Start Date Stop [...] kg/m2 162.56 cm 90 /min 97.3 [degF] 60908.6 3 g 132 mm[Hg] 60 mm[Hg] Not Available [facility] 3 20:54:45 Date Recorded Body height Body mass index (BMI) Body weight Body temperature Heart rate Oxygen saturation Oxygen saturation in Arterial blood by Pulse oximetry Systolic blood pressure Diastolic blood pressure Provider Name and Address Organization Details Last Updated DateTime 3 162.56 cm 24.9 kg/m2 03612.8 9 g 97.4 [degF] 87 /min 97 % 97 % 122 mm[Hg] 68 mm[Hg] Jyotsna Stanton MA [employer] [facility] 3 15:17:38 Date Recorded Body height Body mass index (BMI) Body weight Body temperature Heart rate Systolic blood pressure Diastolic blood pressure Provider Name and Address Organization Details Last Updated DateTime 4 162.56 cm 24.7 kg/m2 08942.3 g 97.4 [degF] 96 /min 134 mm[Hg] 62 mm[Hg] MARITZA Taylor [employer] [facility] 4 15:14:39 Date Recorded Body height Body mass index (BMI) Body weight Body temperature Heart rate Oxygen saturation Oxygen saturation in Arterial blood by Pulse oximetry Systolic blood pressure Diastolic blood pressure Provider Name and Address Organization Details Last Updated DateTime 4 162.56 cm 23.5 kg/m2 82630.1 5 g 96.6 [degF] 107 /min 97 % 97 % 124 mm[Hg] 60 mm[Hg] Meg Rhodes MA [facility] 4 14:19:34 Date Recorded Body height Body mass index (BMI) Body weight Body temperature Pain severity - 0-10 verbal numeric rating [Score] - Reported Heart rate Oxygen saturation Oxygen saturation in Arterial blood by Pulse oximetry Systolic blood pressure Diastolic blood pressure Provider Name and Address Organization Details Last Updated DateTime 5 162.56 cm 21.8 kg/m2 70144.2 3 g 97.5 [degF] 6 105 /min 98 % 98 % 120 mm[Hg] 64 mm[Hg] Meg Rhodes MA [place] [facility] [place] [employer] [facility] 5 15:04:49 Social History Question Answer Notes LastModified by Organizat ion Details LastModified Time Tobacco Smoking Status Current Every Day Smoker Not Available [facility] 12/24/2022 20:54:20 Do You Have An Advance Directive? No MIGRATION.74059 06858 Information not available 12/24/2022 What Is Your Level Of Alcohol Consumption? None MIGRATION.44025 31542 Information not available 12/24/2022 Are You Blind Or Do You Have Difficulty Seeing? No MIGRATION.22137 82128 Information not available 12/24/2022 What Is Your Level Of Caffeine Consumption? Moderate MIGRATION.96988 09169 Information not available 12/24/2022 In The 14 Days Before Symptom Onset, Have You Had Close Contact With A Laboratory-confi rmed COVID-19 While That Case Was Ill? No MIGRATION.30824 57743 Information not available 12/24/2022 In The 14 Days Before Symptom Onset, Have You Had Close Contact With A Person Who Is Under Investigation For COVID-19 While That Person Was Ill? No MIGRATION.61754 04238 Information not available 12/24/2022 Are You Currently Employed? No Information not available 06/30/2024 Are You Deaf Or Do You Have Serious Difficulty Hearing? No MIGRATION.17793 44995 Information not available 12/24/2022 What Type Of Diet Are You Following? REGULAR MIGRATION.79078 56699 Information not available 12/24/2022 What Is The Highest Grade Or Level Of School You Have Completed Or The Highest Degree You Have Received? [id number] MIGRATION.87790 21440 Information not available 12/24/2022 Have There Been Any Changes To Your Family Or Social Situation? No MIGRATION.48272 08033 Information not available 12/24/2022 What Is The Fluoride Status Of Your Home? Unknown MIGRATION.63986 74744 Information not available 12/24/2022 Are There Any Guns Present In Your Home? No MIGRATION.25728 51170 Information not available 12/24/2022 Do You Use Insect Repellent Routinely? No MIGRATION.42282 52516 Information not available 12/24/2022 Where Do You Live? [place] MIGRATION.60587 12455 Information not available 12/24/2022 Do You Have A Medical Power Of Abstractor? No MIGRATION.34789 68944 Information not available 12/24/2022 What Was The Date Of Your Most Recent Tobacco Screening? 11/29/2024 Information not available 11/29/2024 How Many Children Do You Have? 3 Information not available 06/30/2024 Do You Have Any Pets? No MIGRATION.23820 61415 Information not available 12/24/2022 What Is Your Relationship Status? MIGRATION.23922 56190 Information not available 12/24/2022 Do You Use Your Seat Belt Or Car Seat Routinely? Yes [email or web address] Information not available 07/14/2023 Do You Have Smoke And Carbon Monoxide Detectors In Your Home? Yes MIGRATION.83760 69537 Information not available 12/24/2022 At What Age Did You Start Smoking Tobacco? 24 MIGRATION.52005 66432 Information not available 12/24/2022 Are You Passively Exposed To Smoke? No MIGRATION.52628 73076 Information not available 12/24/2022 Are There Any Smokers In Your House? No MIGRATION.81423 40350 Information not available 12/24/2022 How Much Tobacco Do You Smoke? 1 PPD MIGRATION.90766 20625 Information not available 12/24/2022 Do You Feel Stressed (tense, Restless, Nervous, Or Anxious, Or Unable To Sleep At Night)? [id number] MIGRATION.20369 23120 Information not available 12/24/2022 Do You Use Any Illicit Or Recreational Drugs? No MIGRATION.02782 92605 Information not available 12/24/2022 Do You Use Sunscreen Routinely? No MIGRATION.61238 93615 Information not available 12/24/2022 How Many Years Have You Smoked Tobacco? 42 MIGRATION.32615 29780 Information not available 12/24/2022 Have You Recently Traveled Abroad? No MIGRATION.42709 82243 Information not available 12/24/2022 Do You Have Any Dietary Restrictions? No MIGRATION.19001 18737 Information not available 12/24/2022 Do You Or Have You Ever Used Any Other Forms Of Tobacco Or Nicotine? No MIGRATION.61312 65952 Information not available 12/24/2022 Sex: Female Functional Status Question Answer Note LastModified by [employer] Details LastModified Time Do you have difficulty walking or climbing stairs? Yes MIGRATION.4465892 026 Information not available 12/24/2022 Do you have transportation difficulties? No MIGRATION.1159550 026 Information not available 12/24/2022 Are you able to walk? YESWOREST MIGRATION.0963826 026 Information not available 12/24/2022 Do you have difficulty doing errands alone? Yes MIGRATION.2375156 026 Information not available 12/24/2022 Are you able to care for yourself? Yes MIGRATION.6189957 026 Information not available 12/24/2022 Do you have difficulty dressing or bathing? Yes MIGRATION.5942267 026 Information not available 12/24/2022 What is your exercise level? None MIGRATION.6637164 026 Information not available 12/24/2022 Mental Status Question Answer Note LastModified by Organizat [employer] Details LastModified Time Do you have difficulty concentrating, remembering or making decisions? Yes MIGRATION.300822855 6 Information not available 12/24/2022 Family History Relationship Description Onset Age of this Age Resolved Age Notes LastModified by Organization Details LastModified Time Father Malignant tumor of lung MIGRATION.947 [id number] Not available 12/24/2022 20:54:36 Brother Malignant tumor of lung MIGRATION.154 7287609 Not available 12/24/2022 20:54:36 Sister Malignant tumor of pharynx MIGRATION.675 4855118 Not available 12/24/2022 20:54:36 Mother Malignant tumor of lung MIGRATION.329 9146843 Not available 12/24/2022 20:54:36 Medical History Condition Response NERVE DISEASE N BLINDNESS N RHEUMATIC FEVER N KIDNEY STONES N BLADDER PROBLEMS N MRSA N OTHER # 1 N POLIO N LUNG DISEASE/DISORDER N HISTORY OF DRUG ABUSE N RADIATION / CHEMOTHERAPY N COPD N Other # 2 N BLOOD DISEASES N EAR OR HEARING PROBLEMS N MUMPS N SHINGLES N BOWEL PROBLEMS N DEPRESSION (INCLUDING POST ) N STROKE/TIA N ULCERS N BENIGN PROSTATIC [...] N CHRONIC PAIN SYNDROME N HYPOTHYROIDISM N CONSTIPATION N CAROTID BLOCKAGE N BACK / NECK PROBLEMS N ATHEROSCLEROSIS [...] mcg/0.3 mL dose 03/14/2021 completed Emily Wise RMA null, [place] [facility] [employer] 08/15/2024 12:38:38 COVID-19, mRNA, LNP-S, PF, 30 mcg/0.3 mL dose 02/21/2021 completed Emily Wise RMA null, [place] [facility] [place] [employer] [facility] 08/15/2024 12:38:38 Past Encounters Encounter ID Performer Location Encounter Start Date Encounter Closed Date Diagnosis/Indication Diagnosis SNOMED-CT Code Diagnosis ICD10 Code Diagnosis Note [id number] [facility] Internal Med [facility] [address] [place] [address] Ave[address] [address] 01/14/2022 00:00:00 01/14/2022 16:11:57 [id number] [facility] Internal Med [facility] [address] [place] [address] Ave[address] [address] 02/18/2022 00:00:00 02/20/2022 09:39:41 [id number] [facility] Internal Med [facility] [address] [place] [address] Ave[address] [address] 11/27/2022 00:00:00 11/27/2022 17:29:20 [id number] Stacie mercado MD [facility] Internal Med [facility] [address] [place], [place] [address]e., [address] [address] 07/14/2023 15:01:25 07/14/2023 15:30:47 Screening - NAD 843639354 Z13.9 C-scope: 01/04/2021 : Dr Cody ny [...] understand ing of the above Essential hypertension 93924623 I10 On amlodipine -benazepri l 10-20mg dailyGet labs Vitamin D deficiency 347 60240 E55.9 Anemia 082424541 D64.9 Recently admitted and was told she had a mesentric massGet recordsRep eat the labs, will likely have to see Dr Garza CT A/P 03/15/2022 Dr Garza, no mass seen Dr Garza 10/15/2022 , on luspaterce ptDr Vik 05/13/2023 , 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, f/u in 6 weeks Smoker 18347559 F17.200 Smoked 1/2 PPD for about 25 [...] drive Pain in ri ght hip joint 7704343899 55199 M25.551 Get xays statMay need to see ortho Addendum: 02/18/2022 :Get on tramadol, needs to see Dr Blackwood OV 11/27/2022 :Does well at this time Pain of bi lateral knee joints 8088067809 18901 M25.561 M25.562 Get xrays statMay need to see orthoShaunna did take her to radiology in a wheelchair OV 11/27/2022 : Does not want any referrals to ortho at this time, wants a 'pain pill'Get on tramadol VERY sparingly Hyperglycemia 53076612 R 73.9 On metformin, wants to stop this 07/14/2023 States that her hip and knees hurt her so much she does not want any meds at this time Coronary arteriosclerosis 78329965 I25.10 [facility] 04/15/2022 , Dr Pace, next apt is in one year Chronic ki dney disease 776305665 N18.[address] Pace IJ Hyperlipidemia 68329830 E78.5 Do labsHas declined any meds 07/14/2923 [id number] Stacie mercado MD [facility] [facility] [address] , [address] [place] [address] 12/15/2023 15:06:35 12/15/2023 15:44:44 Screening - NAD 828960582 Z13.9 C-scope: 01/04/2021 : Dr Cody ny [...] understand ing of the above Essential hypertension 15725691 I10 On amlodipine -benazepri l 10-20mg dailyGet labs Vitamin D deficiency 347 71906 E55.9 Anemia 083242999 D64.9 Recently admitted and was told she had a mesentric massGet recordsRep eat the labs, will likely have to see Dr Garza CT A/P 03/15/2022 Dr Garza, no mass seen Dr Garza 10/15/2022 , on luspaterce ptDr Vik 05/13/2023 , 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, f/u in 6 weeksDr Kayla 12/09/2023 : On luspaterec ept Smoker 48653524 F17.200 Smoked 1/2 PPD for about 25 [...] drive Pain in ri ght hip joint 9044782564 70925 M25.551 Get xays statMay need to see ortho Addendum: 02/18/2022 :Get on tramadol, needs to see Dr Blackwood OV 11/27/2022 :Does well at this time Pain of bi lateral knee joints 8949932349 68018 M25.561 M25.562 Get xrays statMay need to see orthoShaunna did take her to radiology in a wheelchair OV 11/27/2022 : Does not want any referrals to ortho at this time, wants a 'pain pill'Get on tramadol VERY sparingly OV 12/15/2023 : Does well now Hyperglycemia 21575453 R 73.9 Not on metformin 07/14/2023 States that her hip and knees hurt her so much she does not want any meds at this time Coronary arteriosclerosis 56742770 I25.10 [facility] 04/15/2022 , Dr Pace, next apt is in one year Chronic ki dney disease 488259066 N18.[address] Pace IJ Hyperlipidemia 40931984 E78.5 Do labsHas declined any meds 07/14/2923 Screening mammography 24 649784 Z12.31 Screening for osteoporosis 104841007 Z13.820 Screening for malignant neoplasm of colon 954234489 Z12.11 [id number] Stacie mercado MD [facility] Internal Med [facility] [address] [facility], [facility] [address] [place] [address] 06/30/2024 14:06:29 06/30/2024 14:47:50 Screening - NAD 955395882 Z13.9 C-scope: 01/04/2021 : Dr Cody ny [...] understand ing of the above Essential hypertension 34338961 I10 On amlodipine -benazepri l 10-20mg daily, renewed 06/30/2024 Get labs Vitamin D deficiency 347 59815 E55.9 Anemia 215742639 D64.9 Recently admitted and was told she [...] to get CT scan in 07/2024 Smoker 60288501 F17.200 Smoked 1/2 PPD for about 25 [...] drive Pain in ri ght hip joint 2082431066 65413 M25.551 Get xays statMay need to see ortho Addendum: 02/18/2022 :Get on tramadol, needs to see Dr Blackwood OV 11/27/2022 :Does well at this time Pain of bi lateral knee joints 6983965101 35786 M25.561 M25.562 Get xrays statMay need to see orthoShaunna did take her to radiology in a wheelchair OV 11/27/2022 : Does not want any referrals to ortho at this time, wants a 'pain pill'Get on tramadol VERY sparingly OV 12/15/2023 : Does well now Hyperglycemia 53240435 R 73.9 Not on metformin 07/14/2023 States that her hip and knees hurt her so much she does not want any meds at this time Coronary arteriosclerosis 55071410 I25.10 [facility] 04/15/2022 , Dr Pace, next apt is in one year Chronic ki dney disease 505032727 N18.[address] Pace IJ Hyperlipidemia 46804408 E78.5 Do labsHas declined any meds 07/14/2923 [id number] Stacie mercado MD [facility] [address] [facility], [address] [place] [address] 11/29/2024 14:53:00 11/29/2024 15:38:54 Upper respiratory infection 24231006 J06.9 Get on MDP, and augmentinS he does smoke, will get CT sinus and also advised to quit smokingNot shukri if not better Lymphadenopathy 24456242 R59.1 Tender, large MIREILLE noted L submandibu lar area, get on antibiotic and also get US neck done Screening - NAD 25265891 3 Z13.9 C-scope: 01/04/2021 : Dr Cody [...] Huertas Member ID Guarantor Name 07/14/2023 1 [facility] (MEDICARE REPLACEMENT/A DVANTAGE - HMO) [id number] Tanesha A Khadra [id number] Tanesha Khadra 12/15/2023 1 [facility] (MEDICARE REPLACEMENT/A DVANTAGE - HMO) [id number] Tanesha A Khadra [id number] [employer] 06/30/2024 1 [facility] (MEDICARE REPLACEMENT/A DVANTAGE - HMO) [id number] Tanesha A Khadra [id number] [employer] 11/29/2024 1 [facility] (MEDICARE REPLACEMENT/A DVANTAGE - HMO) [id number] Tanesha A [employer] [id number] [employer]anesha [employer] Notes Date Note Type Note Provider Name [...] is doing well today Stacie Mcdonough MD [address] [place] [address], [facility] [address], [place], [address], [facility] [employer] 07/14/2023 15:46:03 12/15/19 24 text/htm l OV [...] nicotine patches again Stacie Mcdonough MD [address] [facility], [address], [place], [address], [place] - [facility] [place] [facility] [employer] 12/15/2023 15:52:30 06/30/20 24 text/htm l OV [...] apt with Dr Kayla Mcdonough MD [address] [facility], [address], [place], [address], [place] - [facility] 06/30/2024 14:49:02 11/29/19 25 text/htm l OV [...] no difficulty breathing Murtuza Bahrainwala, MD [address] [facility], [facility] [address], [place], [address], [facility] - [facility] 11/29/2024 15:41:58 OBGyn Episode No OBEpisode recorded.
--- OUTSIDE RECORDS SUMMARY | 2025-01-11 00:40 | XMS_ITS | CONTINUITY OF CARE DOCUMENT ---
Author Name chicho valentino Address Unknown Organization [place] [facility] Address [address] [facility] [address] [place] [address] Phone [phone] Care Team Providers Care Rice Farmer Name Role Phone Scott Pace MD Unavailable STACIE GALLOWAY MD Unavailable STACIE GALLOWAY MD Unavailable PROBLEMS Condition Status Date Provider Notes Hyperlipidemia [...] In-person encounter Office Visit Scott Pace MD [facility] - In-person encounter Office Visit Scott Pace MD [place] [facility] CAD h/o coronary calcifications on CT--normal stress nuc, 03/2022Essential hypertension--echo ef 65%, 03/2022 - In-person encounter Office Visit Scott Pace MD [place] [facility] HyperlipidemiaCAD h/o coronary calcifications on CT--normal stress nuc, 03/2022Essential hypertension--echo ef 65%, 03/2022Tobacco abuseShortness of breathPericardial effusion - small seen on CT VITAL SIGNS Date Observation Value Provider Body Mass Index (Ratio) 25.92 kg/m2 Wilfrido Pace MD blood pressure, diastolic 49 mm[Hg] Ca therine Cumberland blood pressure, systolic 115 mm[Hg] Cat herine C[place] oxygen saturation, oximetry 98 % Majnu Jesús pulse rate 91 /min Manju Jesús respiratory rate E&M 16 /min Catheri ne C[place] weight E&M 151 [lb_av] Manju [place] blood pressure, cuff size regular Ca therine [place] height E&M 64 [in_i] Manju [place] Body Mass Index (Ratio) 26.95 kg/m2 Wilfrido [...] smoking history, tot al pack/day 1 Manju C[place] cigarette use yes Manju Jesús smoking status [...] Policy type / Coverage type Steve red alliance party ID A[employer] MEDICARE ADVANTAGE HMO-POS HMO [id number] TREATMENT PLAN Date Name Performer [id number],S, Remigio Ahmedza i [id number],S, Remigio Ahmedza i [id number],S, Remigio Ahmedza i [id number],S, Remigio Ahmedza i [id number],S, Remigio Ahmedza i [id number],B, Remigio Ahmedza i [id number],S, Remigio Ahmedza i [id number],S, Remigio Ahmedza i [id number],S, Remigio Ahmedza i [id number],S, Remigio Ahmedza i [id number],S, Remigio Ahmedza i Cardiology Remigio Ahmedzai Cardiology [...]
[2025-01-11 10:45] VITALS: BP 104/65; PULSE 103; RESP 16; TEMP 36.3; O2SAT 100; BMI 21.6
[2025-01-11] MEDS: LACTATED RINGERS 1,000 ML 30 ML IV CONT (11:10)
[2025-01-11] MEDS: KETOROLAC 15 MG/ML VIAL (*BKC) IV PUSH (11:21)
--- NOTE | 2025-01-11 11:33 | PM.IMHP ---
H&P: HPI History of Present Illness Date/Time: 01/11/25 11:33 Chief Complaint: Myelodysplastic syndrome Narrative: The patient is a 69-year-old female presenting to the hospital for port placement. The patient myelodysplastic syndrome and is undergoing chemotherapy. The patient denies any previous central venous catheterization. The patient is right handed. Review of Systems Review of Systems: All systems reviewed & are unremarkable except as noted in HPI and below PMFSH Social History Social History Smoking packs per day: 1 Smoking cigarettes per day: 20.0 Years smoked: 46 Smoking pack-years: 46.00 Smoking status: Current every day smoker Tobacco type: cigarettes Alcohol intake: never Substance use: never Living arrangements: alone Spiritual care concerns: No Meds Home Medications and Allergies Home Medications ?Medication ?Instructions ?Recorded ?Confirmed ?Type ferrous sulfate 325 mg (65 mg 325 mg PO DAILY 04/23/22 01/11/25 History iron) tablet amlodipine 10 mg-benazepril 20 mg 1 cap PO DAILY 10/15/22 01/11/25 History capsule aspirin 81 mg tablet 81 mg PO DAILY 11/18/23 01/11/25 History Allergies Allergy/AdvReac Type Severity Reaction Status Date / Time ibuprofen Allergy Mild Itching Verified 01/11/25 10:45 Vital Signs Vital Signs - 24 hr 01/11/25 10:45 Temperature 36.3 C L Pulse Rate 103 H Respiratory Rate 16 Blood Pressure 104/65 Pulse Oximetry 100 Oxygen Delivery Room Air Exam Const: General: cooperative, comfortable and no acute distress Neck: Neck: normal visual inspection, full ROM and no lymphadenopathy Chest: Chest palpation & inspection: normal inspection of the chest Resp: Auscultation: clear to auscultation bilaterally Cardio: Rate: regular rate Rhythm: regular rhythm GI: Inspection: normal to inspection Assessment and Plan Assessment and plan (1) MDS (myelodysplastic syndrome): Code(s): D46.9 - Myelodysplastic syndrome, unspecified Status: Acute Assessment and Plan: Will set up for port placement
--- NOTE | 2025-01-11 11:35 | WPDHPUPDATE1 ---
History and Physical Update Update Date/Time: 01/11/25 11:35 History and Physical has been reviewed, including an updated exam of the patient. There are NO changes in the patient's condition. Risks, benefits, and alternatives have been discussed and questions answered. Patient agrees to proceed with procedure.
--- NOTE | 2025-01-11 12:03 | P.PNAN_ITS ---
Anes - Initial Pre Proc Eval Procedure: Operation Date: 01/11/25 12:30 Proposed Procedures p Insertion Olivia Cath - Amada Arambula MD Date/Time: 01/11/25 12:03 Surgeon: Amada Arambula MD Pre Op Diagnosis: myelodysplastic syndrome Patient Data Age: 69 Gender: F Height: 1.63 m Weight: 57.1 kg Last Vital Signs Temp 36.3 C L 01/11/25 10:45 Pulse 103 H 01/11/25 10:45 Resp 16 01/11/25 10:45 BP 104/65 01/11/25 10:45 Pulse Ox 100 01/11/25 10:45 O2 Del Method Room Air 01/11/25 10:45 Allergies Allergy/AdvReac Type Severity Reaction Status Date / Time ibuprofen Allergy Mild Itching Verified 01/11/25 10:45 Home Medications ?Medication ?Instructions ?Recorded ?Confirmed ?Type ferrous sulfate 325 mg (65 mg 325 mg PO DAILY 04/23/22 01/11/25 History iron) tablet amlodipine 10 mg-benazepril 20 mg 1 cap PO DAILY 10/15/22 01/11/25 History capsule aspirin 81 mg tablet 81 mg PO DAILY 11/18/23 01/11/25 History Patient hx anesthesia problems: none Family hx anesthesia problems: none Results Review: All pre-operative results and documents have been reviewed as part of the pre- operative evaluation. [facility] Past Medical History Medical History (Updated 01/11/25 @ 12:03 by Trace Zamora MD) MDS (myelodysplastic syndrome) Social History Social History Smoking packs per day: 1 Smoking cigarettes per day: 20.0 Years smoked: 46 Smoking pack-years: 46.00 Smoking status: Current every day smoker Tobacco type: cigarettes Alcohol intake: never Substance use: never Living arrangements: alone Spiritual care concerns: No Anes - Eval Final PreProcedure Day of Procedure 01/11/25 12:03 Patient weight: normal Heart: regular rate and rhythm Lungs: clear to auscultation Airway: Mallampati scale class II Neurological: alert and oriented Last oral intake: >/= 8 hours ASA classification: II Emergent: no Anesthetic plan: proceed Anesthesia type and monitoring: general GIVS and standard monitoring Results Review: All pre-operative results and documents have been reviewed as part of the pre- operative evaluation. Informed Consent: The patient's anesthetic plan and its attendant risks and benefits were discussed with the patient/family/POA. Questions were solicited and answers provided to the satisfaction of the patient/family/POA.
[2025-01-11] MEDS: ceFAZolin 2 GM/D5W 50 ML 2 GM/50 ML BAG IVPB (13:10)
[2025-01-11] MEDS: BUPIVACAINE/EPINEPHRINE 0.5% 50 ML VIAL 30 ML INFILTRATE (13:22)
[2025-01-11] MEDS: HEPARIN SODIUM 5,000 UNITS/ML VIAL 5000 UNITS IRRIGATION (13:23)
[2025-01-11] MEDS: HEPARIN SODIUM, PORCINE 10,000 UNITS/10 ML VIAL 10000 UNITS IRRIGATION (13:28)
--- NOTE | 2025-01-11 13:45 | P.OP_ITS ---
Procedure Note - Detailed Date of Procedure 01/11/25 Pre-op Diagnosis myelodysplastic syndrome Post-op Diagnosis Same Procedure Performed placement of left subclavian venous access device under fluoroscopic guidance Surgeon Amada Arambula MD Anesthesia MAC and Local Indications 69-year-old female with myelodysplastic syndrome needing port for chemotherapy access Findings first stick L SCV Description of Procedure Patient was brought into the operating room and placed in the supine position. After adequate induction of mac anesthesia, the patient was prepped and draped in normal sterile fashion. Time-out was then done to verify the patient's identity, as well as the procedure being performed. I began by making a small incision in the left chest, I then gained access into the left subclavian vein w ith an 18 gauge needle. I then placed the guidewire into the vein and confirmed placement via fluoroscopic guidance. I then locally anesthetized the area in the left chest. I then enlarged the incision around the guidewire including making a subcutaneous pocket inferiorly to allow placement of the port itself. I then placed a dilating sheath over the guidewire into the left subclavian vein via sterile Seldinger technique. This was once again done and confirmed via fluoroscopic guidance. I then removed the dilator and the guidewire, now just leaving the sheath in the vein. I then fed the previously flushed catheter into the left subclavian vein under fluoroscopic guidance. At approximately 22 cm, the catheter was noted to be near the atrial caval junction. I then peeled away the sheath, now just leaving the catheter in the vein. I then was able to easily draw and flush from the catheter. The catheter was cut to fit and attached to the port itself. The port was placed into the previously made subcutaneous pocket and sutured in with 0 Ethibond suture. Final fluoroscopic view showed the termination of the catheter at the atrial caval junction with a nice smooth curvature back to the port itself. I was able to gain access to the port with a Khanna needle and was able to easily draw and flush from the port. I then flushed 4 cc of a final heparin flush into the port. The incision was closed with 3 0 Vicryl suture in the subcutaneous tissue and the skin was closed with 4 O Monocryl subcuticular suture. Dermabond was then placed on wound. The patient tolerated the procedure well and will be sent to the recovery room in stable condition. Implants L SCV VAD Estimated Blood Loss 5 Drains No Packing No Pathology None sent Complications No immediate complications Condition Stable Disposition PACU [facility] Billing Surgery - Charge Forward: Surgery Billing
[2025-01-11 13:50] VITALS: BP 146/98; PULSE 75; RESP 20
[2025-01-11 14:20] VITALS: BP 150/48; PULSE 70; RESP 20
[2025-01-11 14:50] VITALS: BP 132/51; PULSE 68; RESP 20
[2025-01-11 15:05] VITALS: BP 150/60; PULSE 62; RESP 20
== END 2025-01-11 15:06 | disposition home or self-care (01) ==
PROVIDERS: PCP Internal Medicine; Visit Provider Surgery
PROC: (CPT 36561; principal; 2025-01-11 12:30)
DX: D46.9 Myelodysplastic syndrome, unspecified (principal); F17.210 Nicotine dependence, cigarettes, uncomplicated
CPT/HCPCS: 36561; 77001; C1788; J0690; J1644; J1885; J2704; J3010; J7030; J7120

== ENCOUNTER 2025-02-01 18:19 | Inpatient (IN) | payer MEDICARE, MEDICAID, SELFPAY ==
[2025-02-01] VITALS (9 sets, daily range): BP systolic 130–159; BP diastolic 46–69; PULSE 93–104; RESP 14–24; TEMP 36.6–36.9; O2SAT 100; BMI 21.7
--- NOTE | ~2025-02-01 | XR_ITS ---
XR chest 1V portable Ordering provider: Ryan Arreola PA-C History: 69 years Female with . fever . Comparison: February 01, 2025 FINDINGS: MEDIASTINUM: The cardiac silhouette is not enlarged. Left Port-A-Cath with the tip overlying the supe rior vena cava. LUNGS: No infiltrates, effusions or pneumothorax. OTHER: No free air under the diaphragm. IMPRESSION: No acute cardiopulmonary pathology. Reviewed, dictated and finalized at location A.
--- NOTE | ~2025-02-01 | BM_ITS ---
EXAMINATION: CCL bone marrow asp w bx diag ORDER COMPLETED DATE: 02/07/2025 08:49 INDICATION: Pancytopenia TECHNIQUE: A time-out was performed to verify the patient's name, date of , and procedure to b e performed. The procedure including the risks and benefits was discussed with the patient. Risks dis cussed included bleeding, infection, nerve injury and allergic reaction. The patient understood the r isks and agreed to proceed. The skin overlying the right posterior iliac spine was prepped and draped in usual sterile fashion. Anesthetic was administered with 1% lidocaine subcutaneously. Moderate co nscious sedation was achieved with 100 mcg fentanyl IV and 1 mg of Versed IV. An 11 gauge needle was inserted into the right ilium with fluoroscopic guidance. Bone marrow was aspirated. An 8 gauge needl e was then inserted into the right ilium with fluoroscopic guidance. A core bone marrow biopsy was ob tained. The needle was removed and the entry site was cleaned and dressed. There were no immediate c omplications. A total of 10 fluoroscopic images were recorded. Fluoroscopy exposure time was 0.1 danielito nettie. Total DAP was 36.1 mGycm^2. FINDINGS: Real-time fluoroscopy demonstrates the biopsy needle tip overlying the right posterior bekah c spine. IMPRESSION: 1. Successful fluoroscopic guided bone marrow aspiration. 2. Successful fluoroscopic guided bone marrow biopsy. Reviewed, dictated and finalized at location A.
--- NOTE | ~2025-02-01 | XR_ITS ---
XR chest 1V portable Ordering provider: Lily Vinson MD History: 69 years Female with . WEAKNESS . Comparison: January 11, 2025 FINDINGS: MEDIASTINUM: The cardiac silhouette is not enlarged. Left Port-A-Cath with the tip overlying the supe rior vena cava slightly retracted compared to previous study. LUNGS: No infiltrates, effusions or pneumothorax. OTHER: No free air under the diaphragm. IMPRESSION: No acute cardiopulmonary pathology. Reviewed, dictated and finalized at location A.
--- NOTE | 2025-02-01 18:26 | ECG_ITS ---
Test Date: 2025-02-01 18:33:52 Measurements Intervals [place] Rate: 98 P: 59 MO: 142 QRS: 53 QRSD: 88 T: 38 QT: 367 QTc: 469 Interpretive Statements SINUS RHYTHM MINIMAL Q WAVES- ANTEROLAT/INF LEADS BASELINE ARTIFACT- I, II, III, AVR, AVL, AVF BORDERLINE ECG No previous ECG available for comparison Electronically Signed On 02-01-2025 20:08:54 CDT by Gordo Carvalho D.O.
[2025-02-01 19:51] LABS: Alanine Aminotransferase 17 U/L (6-35); Albumin Level 3.3 g/dL (3.5-5.1); Alkaline Phosphatase 130 U/L (38-126); Anion Gap 9 mmol/L (4-12); Aspartate Amino Transferase 17 U/L (14-36); Bilirubin,Total 0.2 mg/dL (0.2-1.3); Blood Urea Nitrogen 22 mg/dL (7-17); Calcium 7.9 mg/dL (8.4-10.2); Carbon Dioxide 18 mmol/L (22-30); Chloride 112 mmol/L (98-107); Estimated CRCL calculation 45 ml/min; Estimated Glomerular Filt Rate > 60; Glucose 126 mg/dL (65-110); Potassium 4.4 mmol/L (3.4-5.0); Sodium 139 mmol/L (137-145)
--- NOTE | 2025-02-01 19:52 | PC.NURSE ---
ON 02/01/2025 AT 1951 LAB CALLED AND NOTIFIED THIS RN OF MULTIPLE CRITICAL LAB VALUES. THESE LAB VALUES WERE HEARD BY EDP; DR. MERINO AT THE SAME TIME. 0.9 WBC, 2.9 HGB, 9.6 HCT, [address] MERINO ASKED THE SPINNING FRAME FIXER IF HE THOUGHT THIS BLOOD SAMPLE MAY HAVE BEEN DILUTED OR COMPROMISED. SPINNING FRAME FIXER RESPONDED THAT HE THOUGHT THAT WAS POSSIBLE. EDP ORDERED TO HAVE THIS CBC REDRAWN FOR PT SAFETY.
--- OUTSIDE RECORDS SUMMARY | 2025-02-01 20:04 | XMS_ITS | Clinical Summary ---
Author Organization [facility] Address [address], [facility] [address] [place] [address] Phone Care Team Providers Care Operating Room Surgical Technologist Name Role Phone Ila Linares MD Primary Care Provider [phone] Allergies Active Allergy Reactions Criticality Noted Date [...] Health Maintenance Due Date Last Done Comments Hepatitis C Virus (HCV) Screening 1955 TdaP Immunization 1955 Pneumococcal Immunization (5 0+ years) (1 of 2 - PCV) 1975 Zoster Immunization (1 of 2) 1975 Colonoscopy 2001 Colorectal Cancer Screening 2001 Cologuard 2006 Immunochemical Fecal Occult Blood 2006 SARS-COV-2 Immunization (3 - Pfizer risk [...] Insurance MEDICAID [employer] Care Teams Operating Room Surgical Technologist Relationship Specialty Start Date End Date Ila Linares MD [address] [place] [address] PCP - General Geriatric Medicine 06/24/19
--- OUTSIDE RECORDS SUMMARY | 2025-02-01 20:04 | XMS_ITS | CONTINUITY OF CARE DOCUMENT ---
Author Name chicho valentino Address Unknown Organization [facility] Address [address] [facility] [address] [facility] [address] [place] [address] Phone [phone] Care Team Providers Care Manager Title Name Role Phone Scott Pace MD Unavailable [phone] STACIE GALLOWAY MD Unavailable STACIE GALLOWAY MD Unavailable [phone] PROBLEMS Condition Status Date Provider Notes Hyperlipidemia [...] In-person encounter Office Visit Scott Pace MD [facility] - In-person encounter Office Visit Scott Pace MD [facility] CAD h/o coronary calcifications on CT--normal stress nuc, 03/2022Essential hypertension--echo ef 65%, 03/2022 - In-person encounter Office Visit Scott Pace MD [facility] HyperlipidemiaCAD h/o coronary calcifications on CT--normal stress nuc, 03/2022Essential hypertension--echo ef 65%, 03/2022Tobacco abuseShortness of breathPericardial effusion - small seen on CT VITAL SIGNS Date Observation Value Provider Body Mass Index (Ratio) 25.92 kg/m2 Wilfrido Pace MD blood pressure, diastolic 49 mm[Hg] Ca therine Jesús blood pressure, systolic 115 mm[Hg] Cat herine [place] oxygen saturation, oximetry 98 % Manju Jesús pulse rate 91 /min Manju [place] respiratory rate E&M 16 /min Catheri ne [place] weight E&M 151 [lb_av] Manju [place] blood pressure, cuff size regular Ca therine [place] height E&M 64 [in_i] Manju [place] Body Mass Index (Ratio) 26.95 kg/m2 Wilfrido [...] revi ewed - no changes required Linda Haor smoking/tobacco cess ation, patient education and counseling yes Scott Pace MD number of years as a smoker 20 a Manju Jesús smoking, date started 20 Cather ine [place] smoking history, tot al pack/day 1 Manju Jesús cigarette use yes Manju Jesús smoking status [...] party ID [employer] MED[employer]ARE ADVANTAGE HMO-POS HMO [id number] TREATMENT PLAN Date Name Performer [id number],S, Remigio Ahmedza i [id number],S, Remigio Ahmedza i [id number],S, Remigio Ahmedza i [id number],S, Remigio Ahmedza i [id number],S, Remigio Ahmedza i [id number],B, Remigio Ahmedza i [id number],S, Remigio Ahmedza i [id number],S, Remigio Ahmedza i [id number],S, Remigio Ahmedza i [id number],S, Remiigo Ahmedza i [id number],S, Remigio Ahmedza i Cardiology Remigio Ahmedzai Cardiology [...]
--- OUTSIDE RECORDS SUMMARY | 2025-02-01 20:04 | XMS_ITS | Encounter Summary ---
Author Organization [facility] Address [address] [place] [address] Care Team Providers Care Api Product Manager Name Role Phone Winifred Mcdonough MD Primary Care Provider Encounter Details Date Type Department Care Team ([facility] Contact Info) Description 01/30/2025 Orders Only [facility] Oncology and Hematology - [address] [place] [address] Perry Garza MD [address] [facility] [employer] [address] [address] [place] [address] Myelodysplastic syndrome (CMS/HCC) Social History Tobacco Use Types Packs/Day Years Used Date Smoking Tobacco: Every Day Cigarettes 0.5 37.3 Started: 1987 Smokeless Tobacco: Never Alcohol Use [...] Department Care Team (Late Contact Info) Description 02/15/2025 8:30 AM CDT Office Visit [facility] Oncology and Hematology - [place] [place] [address] Court Dyson MD [address] [place] [address] documented as of this encounter Visit Diagnoses Diagnosis Myelodysplastic syndrome (CMS/HCC) Myelodysplastic syndrome, unspecified documented in this encounter Care Teams Api Product Manager Relationship Specialty Start Date End Date Winifred Mcdonough MD PCP - General Internal Medicine 03/14/22 documented as of this encounter
--- OUTSIDE RECORDS SUMMARY | 2025-02-01 20:04 | XMS_ITS | Data Portability ---
Author Organization [place] [employer], Main Office Address [address] [place] [address] Care Team Providers Care Information Delivery Analyst Name Role Phone WINIFRED MCDONOUGH Primary Care Provider WINIFRED MCDONOUGH Referring Provider Assessment Encounter Date Assessment [...] 11/18/2023: Dr Garza H/H 8.2/26.5 Not available 06/29/2024 18:20:18 Plan of Treatment Reminders Order Date Submit Date Provider Last Modified By Organization Details Last Modified Time Details Appointments None recorded. Lab lipid panel, serum 2023 024 [facility] (Lab), [address] [place], [address], 18:31:12 CBC w/ auto diff 2023 024 [facility] (Lab), [address] [place], [address], 18:35:09 CMP, serum or plasma 2023 024 [facility] (Lab), [address] [place], [address], 18:31:18 TSH, serum or plasma 2023 024 [facility] (Lab), [address] [place], [address], 18:29:00 vitamin B12 + folate, serum or blood [email or web address] (Lab), [address] [place], [address], 5 10:04:38 glycohemog lobin, total, blood 2023 024 [facility] (Lab), [address] [place], [address], 4 13:13:42 microalbum in, urine 2023 024 [email or web address] [facility] (Lab), [address] [place], [address], 4 18:24:21 vitamin D, 25-hydroxy , total, serum [address] (Lab), [address] [place], [address], 5 11:24:59 vitamin B12 + folate, serum or blood [address] (Lab), [address] [place], [address], 4 10:10:25 lipid panel, serum [address] (Lab), [address] [place], [address], 4 08:19:16 CBC w/ auto diff [address] (Lab), [address] [place], [address], 4 08:19:16 CMP, serum or plasma [address] (Lab), [address] [place], [address], 4 08:19:16 TSH, serum or plasma [address] (Lab), [address] [place], [address], 4 08:19:16 glycohemog lobin, total, blood [address] (Lab), [address] [place], [address], 5 11:55:36 microalbum in, urine [address] (Lab), [address] [place], [address], 5 11:55:36 vitamin D, 25-hydroxy , total, serum [address] (Lab), [address] [place], [address], 4 08:19:16 lipid panel, serum [address] (Lab), [address] [place], [address], 4 16:21:01 CBC w/ auto diff [address] (Lab), [address] [place], [address], 4 16:21:18 CMP, serum or plasma [address] (Lab), [address] [place], [address], 4 16:21:19 TSH, serum or plasma [address] (Lab), [address] [place], [address], 4 09:14:11 glycohemog lobin, total, blood [address] (Lab), [address] [place], [address], 4 15:32:58 microalbum in, urine 2022 023 [email or web address] [facility] (Lab), [address] [place], [address], 4 15:32:58 vitamin D, 25-hydroxy , total, serum 2022 023 [email or web address] [facility] (Lab), [address] [place], [address], 4 16:21:[address] referral 2023 024 [email or web address] Perry Garza MD, [address], [place], [address], 4 14:54:16 harbor department manager referral 2023 024 Kavon Sin DPM, [address], [address], [place], [address], 4 14:54:[address] referral 2023 024 [email or web address] Bunny Pace MD (Nephrology, [address], [address], [place], [address], 4 14:54:[address] referral 2023 024 [place], [address], [address], [place], [address], 4 14:54:[address] referral 2023 024 [email or web address] Perry Garza MD, [address], [place], [address], 4 11:17:10 harbor department manager referral 2023 024 Kavon Sin DPM, [address], [address], [place], [address], 4 08:52:[address] referral 2023 024 stacy Pace MD (Nephrology, [address], [address], [place], [address], 4 10:59:[address] referral 2023 024 [place], [address], [address], [place], [address], 4 08:52:57 harbor department manager referral 2022 023 stacy Sin DPM, [address], [address], [place], [address], 4 11:16:[address] referral 2022 023 stacy Pace MD (Nephrology, [address], [address], [place], [address], 4 08:37:[address] referral 2022 023 [place], [address], [address], [place], [address], 4 11:16:20 Procedures colonoscop y screening (PROC) 2023 024 QUYNH Flowers MD, [address] [place], [address], 4 11:05:14 Surgeries None recorded. Imaging US, neck, soft tissue - Please call patient to schedule. 2024 025 [facility], [address], [place], [address], 5 16:24:49 CT, sinuses, w/o contrast - Please call patient to schedule. [address] [facility], [address], [place], [address], 5 10:57:38 MAMMO, screening, digital, bilateral 2023 024 [email or web address] [facility] ([facility]), [address] [place], [address], 5 16:17:27 DEXA, axial skeleton 2023 024 [facility] ([facility]), [address] [place], [address], 4 11:43:42 LDCT, chest, for lung cancer screening 2022 023 [facility] ([facility]), [address] [place], [address], 3 11:32:11 Medication Orders Medrol (Gavin) 4 mg tablets in a dose pack 2024 025 [id number], [address], [place], [id number], 5 15:37:08 amoxicilli n 875 mg-potassi um clavulanat e 125 mg tablet 2024 025 [facility] #[id number], [address], [place], [id number], 5 15:36:56 amlodipine 10 mg-benazep ril 20 mg capsule 2023 024 [facility]11719, [address], [place], [id number], 4 14:47:58 nicotine 21 mg/24 hr daily transderma l patch 2023 024 [facility]78488, [address], [place], [id number], 14:20:09 nicotine 21mg/24hr- 14mg/24hr- 7mg/24hr daily transderm patches,se quentl 2022 023 [facility] [id number], [place], [id number], 14:20:14 Patient TargetsNo targets recorded. Patient Instructions Encounter Date Encounter Id Patient Instructions Last Modified By Organization Details Last Modified Time 07/14/2023 [id number] diabetic eye exam* [email or web address] Not available 01/14/2024 08:25:33 12/15/2023 [id number] diabetic eye exam* [email or web address] Not available 07/14/2024 08:30:56 06/30/2024 [id number] diabetic eye exam* [email or web address] Not available 12/27/2024 08:45:14 Reason for Referral Bander And Cellophaner Helper Machine Referral for Co ronary arteriosclerosis Referring Physician: Winifred Mcdonough Internal Medicine, Encounter Date: 07/14/2023 Shellfish Manager Referral for Ch ronic kidney disease Referring Physician: Winifred Mcdonough Internal Medicine, Encounter Date: 07/14/2023 Knurling Machine Operator Referral for Hype rglycemia Referring Physician: Winifred Mcdonough Internal Medicine, Encounter Date: 07/14/2023 Bander And Cellophaner Helper Machine Referral for Co ronary arteriosclerosis Referring Physician: Winifred Mcdonough Internal Medicine, Encounter Date: 12/15/2023 Shellfish Manager Referral for Ch ronic kidney disease Referring Physician: Winifred Mcdonough Internal Medicine, Encounter Date: 12/15/2023 Knurling Machine Operator Referral for Hype rglycemia Referring Physician: Winifred Mcdonough Internal Medicine, Encounter Date: 12/15/2023 Referring Physician: Winifred Mcdonough Internal Medicine, Encounter Date: 12/15/2023 Bander And Cellophaner Helper Machine Referral for Co ronary arteriosclerosis Referring Physician: Winifred Mcdonough Internal Medicine, Encounter Date: 06/30/2024 Shellfish Manager Referral for Ch ronic kidney disease Referring Physician: Winifred Mcdonough Internal Medicine, Encounter Date: 06/30/2024 Knurling Machine Operator Referral for Hype rglycemia Referring Physician: Winifred Mcdonough Internal Medicine, Encounter Date: 06/30/2024 Referring Physician: Winifred Mcdonough Internal Medicine, Encounter Date: 06/30/2024 Results Created Date Observation Date Name Description Value Unit Range Abnormal Flag Note LastModifiedBy Organization Detail LastModifiedTime 06/30/2006/30/2024 MICRO ALBUM IN RANDO M URINE microalbumin , urine 255.7 mg/L 0.0-16 .6 high Not Available [facility] (Lab) [address] [place], [address], 06/30/2024 18:26:08 06/30/20 24 06/30/2024 VITAM IN D 25-HY DROXY [id number] 36.7 NG/mL 30-100 Vitam in D Statu s: Defic ient: <20 ng/mL Insuf ficie nt: 20-29 ng/mL Suffi cient : 30-10 0 ng/mL Not Available [facility] (Lab) [address] [place], [address], 06/30/2024 18:25:37 06/30/20 24 06/30/2024 TSH W/REF ANA FT4 TSH with reflex free T4 0.886 uIU/m L 0.465- 4.680 Not Available [facility] (Lab) [address] [place], [address], 06/30/2024 18:28:59 06/30/20 24 06/30/2024 LIPID PANEL cholesterol 146 mg/dL 140-19 9 NIH LIZ NSUS RECOM MENDA TION FOR MERCEDES STERO L: ADULT CHILD LOW RISK: <200 <170 BORDE RLINE : <200- 239 ----- HIGH RISK: >240 >200 Not Available [facility] (Lab) [address] [place], [address], 06/30/2024 18:31:12 06/30/20 24 06/30/2024 LIPID PANEL triglyceride s 150 mg/dL 0-150 NIH LIZ NSUS REPOR T RECOM MENDA TION FOR TRIGL YCERI CLINT: ADULT CHILD LOW RISK: <150 ----- BODER LINE: 150-1 99 ----- HIGH RISK: >200 ----- Not Available [facility] (Lab) [address] [place], [address], 06/30/2024 18:31:12 06/30/20 24 06/30/2024 LIPID PANEL HDL cholesterol 47 mg/dL 40- Not Available [facility] (Lab) [address] [place], [address], 06/30/2024 18:31:12 06/30/20 24 06/30/2024 LIPID PANEL [...] LDL RESUL T WILL NOT BE REPOR DEYSI. Not Available [facility] (Lab) [address] [place], [address], 06/30/2024 18:31:12 06/30/20 24 06/30/2024 COMPR EHENS ITALIA METAB OLIC PANEL sodium 133 mmol/ L 137-14 5 low Not Available [facility] (Lab) [address] [place], [address], 06/30/2024 18:31:18 06/30/20 24 06/30/2024 COMPR EHENS ITALIA METAB OLIC PANEL potassium 4.7 mmol/ L 3.5-5. 1 Not Available [facility] (Lab) [address] [place], [address], 06/30/2024 18:31:18 06/30/20 24 06/30/2024 COMPR EHENS ITALIA METAB OLIC PANEL chloride 103 mmol/ L 98-107 Not Available [facility] (Lab) [address] [place], [address], 06/30/2024 18:31:18 06/30/20 24 06/30/2024 COMPR EHENS ITALIA METAB OLIC PANEL carbon dioxide 24 mmol/ L 22-30 Not Available [facility] (Lab) [address] [place], [address], 06/30/2024 18:31:18 06/30/20 24 06/30/2024 COMPR EHENS ITALIA METAB OLIC PANEL anion gap 10.7 mmol/ L 14-22 low Not Available [facility] (Lab) [address] [place], [address], 06/30/2024 18:31:18 06/30/20 24 06/30/2024 COMPR EHENS ITALIA METAB OLIC PANEL glucose 138 mg/dL 70-99 high Not Available [facility] (Lab) [address] [place], [address], 06/30/2024 18:31:18 06/30/20 24 06/30/2024 COMPR EHENS ITALIA METAB OLIC PANEL BUN 11 mg/dL 8-19 Not Available [facility] (Lab) [address] [place], [address], 06/30/2024 18:31:18 06/30/20 24 06/30/2024 COMPR EHENS ITALIA METAB OLIC PANEL creatinine 1.06 mg/dL 0.66-1 .25 Not Available [facility] (Lab) [address] [place], [address], 06/30/2024 18:31:18 06/30/20 24 06/30/2024 COMPR EHENS ITALIA METAB OLIC PANEL GFR >60 Refer ence Range : [place] ge GFR Healt hy Adult : >60 mL/mi n/1.7 3 m2 Chron ic Kidne y Disea se: 15-60 mL/mi n/1.7 3 m2 Kidne y Failu re: <15/m L/min /1.73 m2 www.n iddk. [facility].g ov The MDRD study equat ion has not been valid ated in child nick <18 years of age; pregn ant women ; the elder ly >85 years of age; or in some racia l or ethni c subgr oups, such as Hisak nics. Outsi de the valid ated kiko [...] calcu lator is avail able on the F websi te: https ://ww w.kid ambreen.o rg/pr ofess ional s/kdo qi/gf r_cal culat or Not Available [facility] (Lab) [address] [place], [address], 06/30/2024 18:31:18 06/30/20 24 06/30/2024 COMPR EHENS ITALIA METAB OLIC PANEL alkaline phosphatase 101 U/L 38-126 Not Available [facility] (Lab) [address] [place], [address], 06/30/2024 18:31:18 06/30/20 24 06/30/2024 COMPR EHENS ITALIA METAB OLIC PANEL alanine aminotransfe rase 15 U/L 0-[address] [facility] (Lab) [address] [place], [address], 06/30/2024 18:31:18 06/30/20 24 06/30/2024 COMPR EHENS ITALIA METAB OLIC PANEL aspartate aminotransfe rase 36 U/L 15-[address] [facility] (Lab) [address] [place], [address], 06/30/2024 18:31:18 06/30/20 24 06/30/2024 COMPR EHENS ITALIA METAB OLIC PANEL bilirubin, total 0.60 mg/dL 0.20-1 .30 Not Available [facility] (Lab) [address] [place], [address], 06/30/2024 18:31:18 06/30/20 24 06/30/2024 COMPR EHENS ITALIA METAB OLIC PANEL calcium 9.2 mg/dL 8.4-10 .2 Not Available [facility] (Lab) [address] [place], [address], 06/30/2024 18:31:18 06/30/20 24 06/30/2024 COMPR EHENS ITALIA METAB OLIC PANEL total protein 7.2 g/dL 6.3-8. 2 Not Available [facility] (Lab) [address] [place], [address], 06/30/2024 18:31:18 06/30/20 24 06/30/2024 COMPR EHENS ITALIA METAB OLIC PANEL albumin 4.3 g/dL 3.0-4. 4 Not Available [facility] (Lab) [address] [place], [address], 06/30/2024 18:31:18 06/30/20 24 06/30/2024 COMPR EHENS ITALIA METAB OLIC PANEL globulin 2.9 g/dL 2.6-4. 2 Not Available [facility] (Lab) [address] [place], [address], 06/30/2024 18:31:18 06/30/20 24 06/30/2024 COMPR EHENS ITALIA METAB OLIC PANEL A/G ratio 1.5 ratio 1.0-2. 0 Not Available [facility] (Lab) [address] [place], [address], 06/30/2024 18:31:18 06/30/20 24 06/30/2024 CBC/C OMPLE TE BLD COUNT W/DIF F white blood cells 4.8 x10'3 /uL 4.2-10 .8 Not Available [facility] (Lab) [address] [place], [address], 06/30/2024 18:35:09 06/30/20 24 06/30/2024 CBC/C OMPLE TE BLD COUNT W/DIF F red blood cells 2.72 x10'6 /uL 3.80-5 .20 low Not Available [facility] (Lab) [address] [place], [address], 06/30/2024 18:35:09 06/30/20 24 06/30/2024 CBC/C OMPLE TE BLD COUNT W/DIF F hemoglobin 8.1 g/dL 12.0-1 5.6 low Not Available [facility] (Lab) [address] [place], [address], 06/30/2024 18:35:09 06/30/20 24 06/30/2024 CBC/C OMPLE TE BLD COUNT W/DIF F hematocrit 27.2 % 35.7-4 5.7 low Not Available [facility] (Lab) [address] [place], [address], 06/30/2024 18:35:09 06/30/20 24 06/30/2024 CBC/C OMPLE TE BLD COUNT W/DIF F mean red cell volume 100.0 fL 82.0-9 9.0 high Not Available [facility] (Lab) [address] [place], [address], 06/30/2024 18:35:09 06/30/20 24 06/30/2024 CBC/C OMPLE TE BLD COUNT W/DIF F mean red cell hemoglobin 29.8 pg 27.0-3 3.0 Not Available [facility] (Lab) [address] [place], [address], 06/30/2024 18:35:09 06/30/20 24 06/30/2024 CBC/C OMPLE TE BLD COUNT W/DIF F mean RBC HGB concentratio n 29.8 g/dL 31.0-3 6.0 low Not Available [facility] (Lab) [address] [place], [address], 06/30/2024 18:35:09 06/30/20 24 06/30/2024 CBC/C OMPLE TE BLD COUNT W/DIF F red cell distribution width 28.1 % 11.8-1 5.5 high Not Available [facility] (Lab) [address] [place], [address], 06/30/2024 18:35:09 06/30/20 24 06/30/2024 CBC/C OMPLE TE BLD COUNT W/DIF F platelets 258 x10'3 /uL 150-40 0 Not Available [facility] (Lab) [address] [place], [address], 06/30/2024 18:35:09 06/30/20 24 06/30/2024 CBC/C OMPLE TE BLD COUNT W/DIF F neutrophils 55 % 39.0-7 2.0 Not Available [facility] (Lab) [address] [place], [address], 06/30/2024 18:35:09 06/30/20 24 06/30/2024 CBC/C OMPLE TE BLD COUNT W/DIF F bands 6 % 0-3 high Not Available [facility] (Lab) [address] [place], [address], 06/30/2024 18:35:09 06/30/20 24 06/30/2024 CBC/C OMPLE TE BLD COUNT W/DIF F lymphocytes 30 % 16.0-4 7.0 Not Available [facility] (Lab) [address] [place], [address], 06/30/2024 18:35:09 06/30/20 24 06/30/2024 CBC/C OMPLE TE BLD COUNT W/DIF F monocytes 2 % 5.0-12 .0 low Not Available [facility] (Lab) [address] [place], [address], 06/30/2024 18:35:09 06/30/20 24 06/30/2024 CBC/C OMPLE TE BLD COUNT W/DIF F eosinophils 4 % 1.0-7. 0 Not Available [facility] (Lab) [address] [place], [address], 06/30/2024 18:35:09 06/30/20 24 06/30/2024 CBC/C OMPLE TE BLD COUNT W/DIF F basophils 2 % 0.0-2. 0 Not Available [facility] (Lab) [address] [place], [address], 06/30/2024 18:35:09 06/30/20 24 06/30/2024 CBC/C OMPLE TE BLD COUNT W/DIF F metamyelocyt es 1 % -[address] [facility] (Lab) [address] [place], [address], 06/30/2024 18:35:09 06/30/20 24 06/30/2024 CBC/C OMPLE TE BLD COUNT W/DIF F neutrophils, absolute count 2.88 x10'3 /uL 1.5-8. 0 Not Available [facility] (Lab) [address] [place], [address], 06/30/2024 18:35:09 06/30/20 24 06/30/2024 CBC/C OMPLE TE BLD COUNT W/DIF F nucleated red blood cells 4 % -[address] [facility] (Lab) [address] [place], [address], 06/30/2024 18:35:09 06/30/20 24 06/30/2024 CBC/C OMPLE TE BLD COUNT W/DIF F anisocytosis 3+ Not Available [facility] (Lab) [address] [place], [address], 06/30/2024 18:35:09 06/30/20 24 06/30/2024 CBC/C OMPLE TE BLD COUNT W/DIF F poikilocytos is 3+ Not Available [facility] (Lab) [address] [place], [address], 06/30/2024 18:35:09 06/30/20 24 06/30/2024 CBC/C OMPLE TE BLD COUNT W/DIF F hypochromia 1+ Not Available [facility] (Lab) [address] [place], [address], 06/30/2024 18:35:09 06/30/20 24 06/30/2024 CBC/C OMPLE TE BLD COUNT W/DIF F polychromato philic RBCs OCCASI ONAL Not Available [facility] (Lab) [address] [place], [address], 06/30/2024 18:35:09 06/30/20 24 06/30/2024 CBC/C OMPLE TE BLD COUNT W/DIF F basophilic stippling OCCASI ONAL Not Available [facility] (Lab) [address] [place], [address], 06/30/2024 18:35:09 06/30/20 24 06/30/2024 CBC/C OMPLE TE BLD COUNT W/DIF F target cells 1+ Not Available [facility] (Lab) [address] [place], [address], 06/30/2024 18:35:09 06/30/20 24 06/30/2024 CBC/C OMPLE TE BLD COUNT W/DIF F ovalocytes OCCASI ONAL Not Available [facility] (Lab) [address] [place], [address], 06/30/2024 18:35:09 06/30/20 24 06/30/2024 CBC/C OMPLE TE BLD COUNT W/DIF F teardrop red blood cells OCCASI ONAL Not Available [facility] (Lab) [address] [place], [address], 06/30/2024 18:35:09 06/30/20 24 06/30/2024 CBC/C OMPLE TE BLD COUNT W/DIF F schistocytes OCCASI ONAL Not Available [facility] (Lab) [address] [place], [address], 06/30/2024 18:35:09 06/30/20 24 06/30/2024 CBC/C OMPLE TE BLD COUNT W/DIF F large platelets 1+ Not Available [facility] (Lab) [address] [place], [address], 06/30/2024 18:35:09 06/30/20 24 06/30/2024 CBC/C OMPLE TE BLD COUNT W/DIF F giant platelets OCCASI ONAL Not Available [facility] (Lab) [address] [place], [address], 06/30/2024 18:35:09 06/30/20 24 06/30/2024 VITAM IN B12 (VALERIANO ASIF ) vb12 802 pg/mL 239-93 1 Not Available [facility] (Lab) [address] [place], [address], 06/30/2024 19:01:58 06/30/20 24 06/30/2024 FOLAT E, SERUM /PLAS MA folate 10.6 NG/mL 2.76-2 0.0 Not Available [facility] (Lab) [address] [place], [address], 06/30/2024 19:02:03 03/01/20 23 02/27/2023 scree deyvi breas t jose de jesus, bilat [facility] [address] [place] [address] Patien t Name: TANESHA DIALLO Access ion #: [id number] Sex: F : 1955 1 Locati on: RAD Attend ing Physic yonis: DECLAN FLORES Orderi ng Physic yonis: DECLAN FLORES Exam Date: 02/28/20 23 1:15 PM Exam Name: MG SCRN BREAST JOSE DE JESUS BILAT Admitt ing Diagno sis(es ): MAMMOG TOO REPORT - FINAL EXAM: MG SCRN BREAST JOSE DE JESUS BILAT HISTOR Y: SCREEN ING MAMMOG TIERA COMPAR SAKINA: 2019 TECHNI QUE: Bilate ral CC and MLO views of the breast s were perfor med. Digita l Mammog too images were obtain ed. CAD (compu ter [...] scarlet ectura l Page 1 of 2 [facility] Talya galaviz Name: TANESHA DIALLO ion #: [id number] Sex: F : 1955 1 Exam Date: 02/28/20 1:15 PM Exam Name: MG SCRN BREAST JOSE DE JESUS BILAT Admitt ing Diagno sis(es ): distor tion are seen. IMPRES KOREY: BIRADS 1: Assess ment comple te. Negati ve. Recomm end annual screen ing mammog too. Accord ing to the [employer] [...] be report ed prompt ly to the talya galaviz's [facility] er. A negati ve mammog too report should not discou rage follow -up or biopsy of a clinic ally signif icant findin g and/or abnorm ality. Dense breast tissue may obscur e small neopla sms. This talya galaviz has been entere d into a mammog too remind er system with a target date for her next mammog tiera. Create d and electr onical ly signed by: Tr garcia MD Signed Date: 03/01/20 11:32 AM (CT) Dictat ed by: Tr garcia MD (CT) (CT) Page 2 of 2 [email or web address] [facility] (Imaging) [address] [place], [address], 03/05/2023 14:52:38 07/29/2007/29/2023 LDCT, chest , for lung cance r jesús carnes No observ ation record ed. [email or web address] [facility] [address], [place], [address], 07/30/2023 10:25:22 01/15/20 24 01/15/2024 imagi ng/di agnos tic resul t No observ ation record ed. [email or web address] [facility] [address], [place], [address], 07/05/2024 16:47:42 02/29/20 24 02/29/2024 jesús carnes breas t jose de jesus, bilat [facility] [address] [address] Patien t Name: TANESAH DIALLO Access ion #: [id number] Sex: F : 1955 7 Dictat ed By: Nisha Tamez Attend ing Physic yonis: DECLAN FLORES Orderi ng Physic yonis: DECLAN FLORES Exam Date: 2023 09:40 AM Exam Name: MG FRANCHESCA BREAST JOSE DE JESUS BILAT Admitt ing Diagno sis(es ): SCREEN ING MAMMOG TIERA WITH TOMOSY NTHESI S: REASON FOR EXAM: SCREEN ING MAMMOG TIERA COMPAR SAKINA: 02/27/23 ; 02/27/22 TECHNI QUE: Bilate ral [...] of malign musa. Recomm end annual mammog tiera. BIRADS : 2 - Benign Electr onical ly Signed by: Nisha Tamez at 2023 10:32: 48 AM Page 1 [email or web address] [facility] (Imaging) [address] [facility], [place], [address], 06/07/2024 15:26:27 02/29/20 24 02/29/2024 DEXA, axial skele ton [facility] [address] [facility], [place] [address] [phone] Patien t Name: TANESHA DIALLO Access ion #: [id number] Sex: F : 1955 7 Dictat ed By: Duane Clark Attend ing Physic yonis: DECLAN FLORES [facility] Physic yonis: DECLAN FLORES Exam Date: 2023 [...] probab ility calcul ated for an untrea deysi patien t. Fractu re probab ility may be lower if the patien t has receiv ed treatm ent. T-scor e: compar sakina by sahil scales ion (SD) to a young adult popula tion, matche d for sex and ethnic ity (used for postme nopaus al women and men >50 years) and classi fied by WHO criter ia. -1.0: normal <-1.0 to >-2.5: osteop enia -2.5: osteop orosis -2.5 plus fragil ity fractu re: severe osteop orosis Page 1 [facility] [address] [place] [address] Patien t Name: TANESHA DIALLO Access ion #: [id number] Sex: F : 1955 7 Dictat ed By: Duane Clark Attend ing Physic yonis: [facility] Physic [facility]: DECLAN FLORES Exam Date: [...] at 2023 10:42: 25 AM Page [email or web address] (Imaging) [address] [place], [address], 06/07/2024 15:26:28 02/29/20 24 02/29/2024 DEXA, axial skele ton No observ ation record ed. [email or web address] ([employer]) [address] [place], [address], 06/07/2024 15:26:12 08/01/20 24 08/01/2024 CT, chest , w/o contr ast No observ ation record ed. [address], [place], [address], 08/04/2024 16:16:09 12/05/19 25 12/05/2024 CT, sinus es, w/o contr ast No observ ation record ed. [address], [place], [address], 12/05/2024 10:57:38 12/07/19 25 12/07/2024 US, neck, soft tissu e No observ ation record ed. [address], [place], [address], 12/07/2024 16:24:50 01/12/20 25 01/11/2025 imagi ng/di agnos tic resul t No observ ation record ed. [address], [place], [address], 01/11/2025 15:14:27 01/12/20 25 01/11/2025 imagi ng/di agnos tic resul t No observ ation record ed. [address], [place], [address], 01/11/2025 16:52:55 02/02/20 25 02/01/2025 imagi ng/di agnos tic resul t No observ ation record ed. [address], [place], [address], 02/01/2025 20:01:29 Result Notes None recorded. Problems Name Problem SNOMED Code Status Onset Date Resolution Date Notes Provider Name and Address Organization Details Recorded Time Blood glucose outside reference range 957345155 Active 2021 Not Available [facility] 3 20:55:26 Hypertrigl yceridemia 885062721 Active 2021 Not Available [facility] 3 20:55:26 Knee pain Active Not Available [facility] 3 20:55:26 Pain of bilateral knee joints 2112664580779 04 Active 2021 Not Available [facility] 3 20:55:26 Hyperlipid emia 27059920 Active 2021 Not Available [facility] 3 20:55:26 Derangemen t of knee 01946387 Active Not Available [facility] 3 20:55:26 Carotid artery stenosis 83846187 Active 2021 Not Available [facility] 3 20:55:27 Vitamin D deficiency 17547850 Active 2022 Meera neal, [facility] 3 13:49:15 Hyperglyce marysol 56683845 Active 2022 Meera neal, [facility] 3 13:50:00 Prediabete s 328273296 Active 2022 Meera neal, [facility] 3 11:21:51 Essential hypertensi on 00794889 Active 2022 Wiinfred mercado MD [address], [address], [place], [address] , [facility] 3 15:46:00 Anemia 558938801 Active 2022 Winifred mercado MD [address], [address], [place], [address] , [facility] 3 15:47:15 Bilateral cataracts 61633636 Active 2022 Winifred mercado MD [address], [address], [place], [address] , [facility] 3 15:47:25 Smoker 27931797 Active 2022 Winifred mercado MD [address], [address], [place], [address] , [facility] 3 15:54:38 Pain in right hip joint 5753651688237 02 Active 2022 Winifred mercado MD [address], [address], [place], [address] , [facility] 3 15:55:01 Coronary arterioscl erosis 12085211 Active 2022 Winifred mercado MD [address], [place], [address] , [facility] 3 15:55:19 Chronic kidney disease 383246125 Active 2022 Meera Davis null, [facility] 3 12:10:07 Proteinuri a 73697945 Active 2023 Carmen Velazquez MA null, [facility] 4 10:49:53 Upper respirator y infection 20159610 Active 2024 Winifred mercado MD [address], [place], [address] , [facility] 5 15:34:31 Lymphadeno danni 91640075 Active 2024 Winifred mercado MD [address], [place], [address] , [facility] 5 15:35:27 Problem Notes None recorded. Procedures Surgical History Date Name Laterality Status Provider Name and Address Organization Details Recorded Time 04/14/20 24 Medicare Wellness CPT Code, subsequent cancelled Brenden Sumner LPN [facility] 04/13/2024 15:56:15 delivery completed Meg Rhodes MA [facility] [employer] [facility] 06/30/2024 14:21:48 Hysterectomy completed Meg Rhodes MA [facility] 11/29/2024 15:09:28 repair of meniscus completed Meg Rhodes MA [facility] 11/29/2024 15:09:50 Imaging Results Imaging Date Name Status LastModified by Organiz ation Details LastModified Time 02/27/2023 screening breast jose de jesus, bilat completed [email or web address] [facility] (Imaging) [address] [place], [address], 03/05/2023 14:52:38 07/29/2023 LDCT, chest, for lung cancer screening completed [email or web address], [address], 07/30/2023 10:25:22 01/15/2024 imaging/diagno stic result completed [address], [address], 07/05/2024 16:47:42 02/29/2024 screening breast jose de jesus, bilat completed [email or web address] (Imaging) [address] [place], [address], 06/07/2024 15:26:27 02/29/2024 DEXA, axial skeleton completed [address] (Imaging) [address] [place], [address], 06/07/2024 15:26:28 02/29/2024 DEXA, axial skeleton completed [address] ([employer]) [address] [place], [address], 06/07/2024 15:26:12 08/01/2024 CT, chest, w/o contrast completed [address], [address], 08/04/2024 16:16:09 12/05/2024 CT, sinuses, w/o contrast active [address], [address], 12/05/2024 10:57:38 12/07/2024 US, neck, soft tissue active [address], [address], 12/07/2024 16:24:50 01/11/2025 imaging/diagno stic result active [address], [place], [address], 01/11/2025 15:14:27 01/11/2025 imaging/diagno stic result active [address], [place], [address], 01/11/2025 16:52:55 02/01/2025 imaging/diagno stic result active [address], [place], [address], 02/01/2025 20:01:29 Procedure Notes None recorded. Medical Equipment None Reported. Allergies Allergen ID Allergen Name Allergen Category Reaction Reaction Severity Criticality Documentation Date Start Date Code Code System Note Provider Name and Address Organization Details Recorded Time 49376 ibuprofen medicatio n vomiting Not available Not available 12/24/2022 5640 RxNorm Not Available [facility] 20:56:42 Medications Name Sig Start Date Stop [...] kg/m2 162.56 cm 90 /min 97.3 [degF] 22523.6 3 g 132 mm[Hg] 60 mm[Hg] Not Available [facility] 3 20:54:45 Date Recorded Body height Body mass index (BMI) Body weight Body temperature Heart rate Oxygen saturation Oxygen saturation in Arterial blood by Pulse oximetry Systolic blood pressure Diastolic blood pressure Provider Name and Address Organization Details Last Updated DateTime 3 162.56 cm 24.9 kg/m2 21861.8 9 g 97.4 [degF] 87 /min 97 % 97 % 122 mm[Hg] 68 mm[Hg] Jyotsna Stanton MA [facility] [employer] [facility] 3 15:17:38 Date Recorded Body height Body mass index (BMI) Body weight Body temperature Heart rate Systolic blood pressure Diastolic blood pressure Provider Name and Address Organization Details Last Updated DateTime 4 162.56 cm 24.7 kg/m2 76526.3 g 97.4 [degF] 96 /min 134 mm[Hg] 62 mm[Hg] MARITZA Taylor [facility] [employer] [facility] 4 15:14:39 Date Recorded Body height Body mass index (BMI) Body weight Body temperature Heart rate Oxygen saturation Oxygen saturation in Arterial blood by Pulse oximetry Systolic blood pressure Diastolic blood pressure Provider Name and Address Organization Details Last Updated DateTime 4 162.56 cm 23.5 kg/m2 41581.1 5 g 96.6 [degF] 107 /min 97 % 97 % 124 mm[Hg] 60 mm[Hg] Meg Rhodes MA [facility] [employer] [facility] 4 14:19:34 Date Recorded Body height Body mass index (BMI) Body weight Body temperature Pain severity - 0-10 verbal numeric rating [Score] - Reported Heart rate Oxygen saturation Oxygen saturation in Arterial blood by Pulse oximetry Systolic blood pressure Diastolic blood pressure Provider Name and Address Organization Details Last Updated DateTime 5 162.56 cm 21.8 kg/m2 91925.2 3 g 97.5 [degF] 6 105 /min 98 % 98 % 120 mm[Hg] 64 mm[Hg] Meg Rhodes MA [facility] [employer] [facility] 5 15:04:49 Social History Question Answer Notes LastModified by Organizat ion Details LastModified Time Tobacco Smoking Status Current Every Day Smoker Not Available [facility] 12/24/2022 20:54:20 Do You Have An Advance Directive? No MIGRATION.50633 65075 Information not available 12/24/2022 What Is Your Level Of Alcohol Consumption? None MIGRATION.99451 00131 Information not available 12/24/2022 Are You Blind Or Do You Have Difficulty Seeing? No MIGRATION.93328 42110 Information not available 12/24/2022 What Is Your Level Of Caffeine Consumption? Moderate MIGRATION.66915 07492 Information not available 12/24/2022 In The 14 Days Before Symptom Onset, Have You Had Close Contact With A Laboratory-confi rmed COVID-19 While That Case Was Ill? No MIGRATION.32208 77371 Information not available 12/24/2022 In The 14 Days Before Symptom Onset, Have You Had Close Contact With A Person Who Is Under Investigation For COVID-19 While That Person Was Ill? No MIGRATION.30029 35342 Information not available 12/24/2022 Are You Currently Employed? No Information not available 06/30/2024 Are You Deaf Or Do You Have Serious Difficulty Hearing? No MIGRATION.97005 03764 Information not available 12/24/2022 What Type Of Diet Are You Following? REGULAR MIGRATION.08390 45914 Information not available 12/24/2022 What Is The Highest Grade Or Level Of School You Have Completed Or The Highest Degree You Have Received? [id number] MIGRATION.24583 21748 Information not available 12/24/2022 Have There Been Any Changes To Your Family Or Social Situation? No MIGRATION.36753 94119 Information not available 12/24/2022 What Is The Fluoride Status Of Your Home? Unknown MIGRATION.73505 74002 Information not available 12/24/2022 Are There Any Guns Present In Your Home? No MIGRATION.42886 66203 Information not available 12/24/2022 Do You Use Insect Repellent Routinely? No MIGRATION.46629 46543 Information not available 12/24/2022 Where Do You Live? [place]House MIGRATION.84167 70295 Information not available 12/24/2022 Do You Have A Medical Power Of Pesticide Use Medical Coordinator? No MIGRATION.17583 08175 Information not available 12/24/2022 What Was The Date Of Your Most Recent Tobacco Screening? 11/29/2024 Information not available 11/29/2024 How Many Children Do You Have? 3 Information not available 06/30/2024 Do You Have Any Pets? No MIGRATION.15822 12137 Information not available 12/24/2022 What Is Your Relationship Status? MIGRATION.44597 11127 Information not available 12/24/2022 Do You Use Your Seat Belt Or Car Seat Routinely? Yes [email or web address] Information not available 07/14/2023 Do You Have Smoke And Carbon Monoxide Detectors In Your Home? Yes MIGRATION.89562 67291 Information not available 12/24/2022 At What Age Did You Start Smoking Tobacco? 24 MIGRATION.89037 12274 Information not available 12/24/2022 Are You Passively Exposed To Smoke? No MIGRATION.37023 09599 Information not available 12/24/2022 Are There Any Smokers In Your House? No MIGRATION.20607 27507 Information not available 12/24/2022 How Much Tobacco Do You Smoke? 1 PPD MIGRATION.54048 51796 Information not available 12/24/2022 Do You Feel Stressed (tense, Restless, Nervous, Or Anxious, Or Unable To Sleep At Night)? [id number] MIGRATION.49835 12686 Information not available 12/24/2022 Do You Use Any Illicit Or Recreational Drugs? No MIGRATION.12386 40648 Information not available 12/24/2022 Do You Use Sunscreen Routinely? No MIGRATION.34499 67444 Information not available 12/24/2022 How Many Years Have You Smoked Tobacco? 42 MIGRATION.05764 82015 Information not available 12/24/2022 Have You Recently Traveled Abroad? No MIGRATION.19234 36131 Information not available 12/24/2022 Do You Have Any Dietary Restrictions? No MIGRATION.09023 14033 Information not available 12/24/2022 Do You Or Have You Ever Used Any Other Forms Of Tobacco Or Nicotine? No MIGRATION.58135 29292 Information not available 12/24/2022 Sex: Female Functional Status Question Answer Note LastModified by Organizat ion Details LastModified Time Do you have difficulty walking or climbing stairs? Yes MIGRATION.4652028 026 Information not available 12/24/2022 Do you have transportation difficulties? No MIGRATION.7817568 026 Information not available 12/24/2022 Are you able to walk? YESWOREST MIGRATION.5273871 026 Information not available 12/24/2022 Do you have difficulty doing errands alone? Yes MIGRATION.5421424 026 Information not available 12/24/2022 Are you able to care for yourself? Yes MIGRATION.4110668 026 Information not available 12/24/2022 Do you have difficulty dressing or bathing? Yes MIGRATION.6992066 026 Information not available 12/24/2022 What is your exercise level? None MIGRATION.3463064 026 Information not available 12/24/2022 Mental Status Question Answer Note LastModified by Organizat ion Details LastModified Time Do you have difficulty concentrating, remembering or making decisions? Yes MIGRATION.881973324 6 Information not available 12/24/2022 Family History Relationship Description Onset Age of this Age Resolved Age Notes LastModified by Organization Details LastModified Time Father Malignant tumor of lung MIGRATION.633 8789843 Not available 12/24/2022 20:54:36 Brother Malignant tumor of lung MIGRATION.012 6575811 Not available 12/24/2022 20:54:36 Sister Malignant tumor of pharynx MIGRATION.168 3140212 Not available 12/24/2022 20:54:36 Mother Malignant tumor of lung MIGRATION.556 8823179 Not available 12/24/2022 20:54:36 Medical History Condition Response NERVE DISEASE N BLINDNESS N RHEUMATIC FEVER N KIDNEY STONES N BLADDER PROBLEMS N MRSA N OTHER # 1 N POLIO N LUNG DISEASE/DISORDER N HISTORY OF DRUG ABUSE N COPD N RADIATION / CHEMOTHERAPY N Other # 2 N BLOOD DISEASES [...] 30 mcg/0.3 mL dose 03/14/2021 completed MARITZA Taylor [employer] [facility] [employer] 08/15/2024 12:38:38 COVID-19, mRNA, LNP-S, PF, 30 mcg/0.3 mL dose 02/21/2021 completed MARITZA Taylor [employer] 08/15/2024 12:38:38 Past Encounters Encounter ID Performer Location Encounter Start Date Encounter Closed Date Diagnosis/Indication Diagnosis SNOMED-CT Code Diagnosis ICD10 Code Diagnosis Note [id number] [facility] [address] [address] 01/14/2022 00:00:00 01/14/2022 16:11:57 [id number] [facility] [address] [address] 02/18/2022 00:00:00 02/20/2022 09:39:41 [id number] [facility] [address] [address] 11/27/2022 00:00:00 11/27/2022 17:29:20 [id number] Winifred mercado MD [facility] [address] 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, f/u in 6 weeks Smoker 05569672 F17.200 Smoked 1/2 PPD for about 25 [...] drive Pain in ri ght hip joint 8245843980 85474 M25.551 Get xays statMay need to see ortho Addendum: 02/18/2022 :Get on tramadol, needs to see Dr Blackwood OV 11/27/2022 :Does well at this time Pain of bi lateral knee joints 8997222482 91054 M25.561 M25.562 Get xrays statMay need to see orthoKatie did take her to radiology in a wheelchair OV 11/27/2022 : Does not want any referrals to ortho at this time, wants a 'pain pill'Get on tramadol VERY sparingly Hyperglycemia 30065589 R 73.9 On metformin, wants to stop this 07/14/2023 States that her hip and knees hurt her so much she does not want any meds at this time Coronary arteriosclerosis 25602382 I25.10 [facility] 04/15/2022 , Dr Pace, next apt is in one year Chronic ki dney disease 891211280 N18.[address] Pace IJ Hyperlipidemia 93963915 E78.5 Do labsHas declined any meds 07/14/2923 [id number] Winifred mercado MD [facility] [address] [facility], [address] [place] [address] 12/15/2023 15:06:35 12/15/2023 15:44:44 Screening - NAD 325714226 Z13.9 C-scope: 01/04/2021 : Dr Cody ny [...] understand ing of the above Essential hypertension 28925245 I10 On amlodipine -benazepri l 10-20mg dailyGet labs Vitamin D deficiency 347 64199 E55.9 Anemia 555300005 D64.9 Recently admitted and was told she had a mesentric massGet recordsRep eat the labs, will likely have to see Dr Garza CT A/P 03/15/2022 Dr Garza, no mass seen Dr Garza 10/15/2022 , on luspaterce ptDr Vik 05/13/2023 , 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, f/u in 6 weeksDr Kayla 12/09/2023 : On luspaterec ept Smoker 88129557 F17.200 Smoked 1/2 PPD for about 25 years, now does have a mild coughShe is also SOBGet a CT chest doneWants to get on NRT, with patches, does not want chantix, patches sent 07/14/2023 CT chest 02/27/2022 : See case, see [facility] last OV 04/15/2022 , f/u one year LDCT 07/29/2023 Patches sent again 12/15/2023 Bilateral cataracts 9572 2003 H26.9 Wears glasses Does not want a referral yet, states that she does not have rides and she does not drive Pain in ri ght hip joint 0815985356 17648 M25.551 Get xays statMay need to see ortho Addendum: 02/18/2022 :Get on tramadol, needs to see Dr Blackwood OV 11/27/2022 :Does well at this time Pain of bi lateral knee joints 9707412960 91913 M25.561 M25.562 Get xrays statMay need to see orthoKatie did take her to radiology in a wheelchair OV 11/27/2022 : Does not want any referrals to ortho at this time, wants a 'pain pill'Get on tramadol VERY sparingly OV 12/15/2023 : Does well now Hyperglycemia 45696319 R 73.9 Not on metformin 07/14/2023 States that her hip and knees hurt her so much she does not want any meds at this time Coronary arteriosclerosis 01465671 I25.10 [facility] 04/15/2022 , Dr Pace, next apt is in one year Chronic ki dney disease 514647335 N18.[address] Pace IJ Hyperlipidemia 65358470 E78.5 Do labsHas declined any meds 07/14/2923 Screening mammography 24 630499 Z12.31 Screening for osteoporosis 292478314 Z13.820 Screening for malignant neoplasm of colon 581177181 Z12.11 [id number] Winifred mercado MD [facility] [address] [facility], [facility] [address] [place] [address] 06/30/2024 14:06:29 06/30/2024 14:47:50 Screening - NAD 603484604 Z13.9 C-scope: 01/04/2021 : Dr Cody ny [...] understand ing of the above Essential hypertension 06167170 I10 On amlodipine -benazepri l 10-20mg daily, renewed 06/30/2024 Get labs Vitamin D deficiency 347 68266 E55.9 Anemia 877862717 D64.9 Recently admitted and was told she [...] to get CT scan in 07/2024 Smoker 03957544 F17.200 Smoked 1/2 PPD for about 25 years, now does have a mild coughShe is also SOBGet a CT chest doneWants to get on NRT, with patches, does not want chantix, patches sent 07/14/2023 CT chest 02/27/2022 : See case, see [facility] last OV 04/15/2022 , f/u one year LDCT 07/29/2023 Patches sent again 12/15/[address] chest as per Dr Garza on 07/2024 Bilateral cataracts 9572 2004 H26.9 Wears glasses Does not want a referral yet, states that she does not have rides and she does not drive Pain in ri ght hip joint 2343261274 03630 M25.551 Get xays statMay need to see ortho Addendum: 02/18/2022 :Get on tramadol, needs to see Dr Blackwood OV 11/27/2022 :Does well at this time Pain of bi lateral knee joints 5725244441 34323 M25.561 M25.562 Get xrays statMay need to see orthoKatdiana did take her to radiology in a wheelchair OV 11/27/2022 : Does not want any referrals to ortho at this time, wants a 'pain pill'Get on tramadol VERY sparingly OV 12/15/2023 : Does well now Hyperglycemia 94050457 R 73.9 Not on metformin 07/14/2023 States that her hip and knees hurt her so much she does not want any meds at this time Coronary arteriosclerosis 88693446 I25.10 [facility] 04/15/2022 , Dr Pace, next apt is in one year Chronic ki dney disease 790425753 N18.[address] Pace IJ Hyperlipidemia 73277780 E78.5 Do labsHas declined any meds 07/14/2923 [id number] Winifred mercado MD [facility] [address] [facility], [address] [place] [address] 11/29/2024 14:53:00 11/29/2024 15:38:54 Upper respiratory infection 77697557 J06.9 Get on MDP, and augmentinS he does smoke, will get CT sinus and also advised to quit smokingNot shukri if not better Lymphadenopathy 19674422 R59.1 Tender, large MIREILLE noted L submandibu lar area, get on antibiotic and also get US neck done Screening - NAD 65020411 3 Z13.9 C-scope: 01/04/2021 : Dr Cody [...] Huertas Member ID Guarantor Name 07/14/2023 1 [facility] (MEDICARE REPLACEMENT/A DVANTAGE - HMO) [id number] Tanesha A Khadra [id number] Tanesha Khadra 12/15/2023 1 [facility] (MEDICARE REPLACEMENT/A DVANTAGE - HMO) [id number] Tanesha A [place] [id number] Tanesha Khadra 06/30/2024 1 [facility] (MEDICARE REPLACEMENT/A DVANTAGE - HMO) [id number] Tanesha A [place] [id number] Tanesha [place] 11/29/2024 1 [facility] (MEDICARE REPLACEMENT/A DVANTAGE - HMO) [id number] Tanesha A [place] [id number] Tanesha Khadra Notes Date Note Type Note [...] f/u apt, she is doing well today Winifred Mcdonough MD [address] [place] [address], [address], [place], [address], [place] [facility] 07/14/2023 15:46:03 12/15/19 24 text/htm l OV [...] like to try the nicotine patches again Winifred Mcdonough MD [address], [address], [place], [address], [facility] [employer] [facility] 12/15/2023 15:52:30 06/30/20 24 text/htm l OV [...] her apt with Dr Kayla Mcdonough MD [address], [address], [place], [address], [facility] [employer] [facility] 06/30/2024 14:49:02 11/29/19 25 text/htm l [...] wheezing, no chest pain, no difficulty breathing Winifred Mcdonough MD [address] [facility], [facility] [address], [place], [address], [place] [facility] [employer] 11/29/2024 15:41:58 OBGyn Episode No OBEpisode recorded.
--- OUTSIDE RECORDS SUMMARY | 2025-02-01 20:04 | XMS_ITS ---
Author Organization [facility] Address [address], [facility] [address] [place] [address] Phone Care Team Providers Care Manager Leasing Name Role Phone Ila Linares MD Primary Care Provider [phone] Active Problems Problem Noted Date Diagnosed Date [...]
--- OUTSIDE RECORDS SUMMARY | 2025-02-01 20:04 | XMS_ITS | Clinical Summary ---
Author Organization [facility] Scott Robledo Address [address] [place] [address] Care Team Providers Care Resist Coater Developer Name Role Phone Winifred Mcdonough MD Primary [...] Encounters Date Type Department Care Team Description 01/30/2025 Telephone [facility] Oncology and Hematology - [place] [address] [place] [address] Perry Garza MD Ringing in Ear 01/30/2025 Orders Only [facility] Oncology and Hematology - [place] [address] [place] [address] Perry Garza MD Myelodysplastic syndrome (CMS/HCC) 01/23/2025 Orders Only [facility] Oncology and Hematology - [place] [address] [place] [id number] Perry Garza MD Myelodysplastic syndrome ([facility]/HCC) 01/19/2025 9:30 AM CDT Office Visit [facility] Oncology and Hematology - [place] [address] [place] [id number] Perry Garza MD Myelodysplastic syndrome (CMS/HCC) (Primary Dx) 01/17/2025 Abstract [facility] Oncology and Hematology - [place] [address] [place] [address] Perry Garza MD 01/17/2025 Orders Only [facility] Oncology and Hematology - [place] [address] [place] [id number] Perry Garza MD 01/16/2025 Orders Only [facility] Oncology and Hematology - [place] [address] [place] [address] Perry Garza MD Myelodysplastic syndrome (CMS/HCC) (Primary Dx) 01/11/2025 External Device Data STL ABSTRACTION Provider, Abstract 01/09/2025 Orders Only [facility] Oncology and Hematology - [place] [address] [place] [address] Perry Garza MD Myelodysplastic syndrome (CMS/HCC) 01/06/2025 Refill [facility] Oncology and Hematology - [place] [address] [place] [address] Perry Garza MD Myelodysplastic syndrome ([facility]/HCC) (Primary Dx) 12/31/2024 External Device Data STL ABSTRACTION Provider, Abstract 12/30/2024 External Device Data STL ABSTRACTION Provider, Abstract 12/30/2024 Abstract [facility] Oncology and Hematology [place] [address] [place] [address] Perry Garza MD 12/29/2024 8:30 AM EVENT HOST Office Visit [facility] Oncology and Hematology [facility] [address] [place] [address] Perry Garza MD Myelodysplastic syndrome ([facility]/HCC) (Primary Dx) 12/29/2024 Orders Only [facility] Oncology and Hematology - [place] [address] [place] [address] Perry Garza MD 12/28/2024 External Device Data STL ABSTRACTION Provider, Abstract 12/27/2024 External Device Data STL ABSTRACTION Provider, Abstract 12/26/2024 Orders Only [facility] Oncology and Hematology - [place] [address] [place] [address] Perry Garza MD Myelodysplastic syndrome ([facility]/HCC) 12/13/2024 External Device Data STL ABSTRACTION Provider, Abstract 12/12/2024 Orders Only [facility] Oncology and Hematology - [place] [address] [place] [address] Perry Garza MD Myelodysplastic syndrome ([facility]/HCC) 12/08/2024 10:15 AM EVENT HOST Office Visit [facility] Oncology and Hematology [place] [address] [place] [address] Perry Garza MD Myelodysplastic syndrome ([facility]/HCC) (Primary Dx) 11/28/2024 Orders Only [facility] Oncology and Hematology - [place] [address] [place] [address] Perry Garza MD Myelodysplastic syndrome ([facility]/HCC) 11/18/2024 Abstract [facility] Oncology and Hematology [facility] [address] [place] [address] Perry Garza MD 11/17/2024 9:15 AM EVENT HOST Office Visit [facility] Oncology and Hematology [facility] [address] [place] [address] Perry Garza MD Myelodysplastic syndrome ([facility]/HCC) (Primary Dx) 11/16/2024 External Device Data STL ABSTRACTION Provider, Abstract 11/15/2024 External Device Data STL ABSTRACTION Provider, Abstract 11/14/2024 Orders Only [facility] Oncology and Hematology [facility] [address] [place] [address] Perry Garza MD Myelodysplastic syndrome ([facility]) 11/08/2024 External Device Data STL ABSTRACTION Provider, Abstract from Last 3 Months Family History Relation Name Status Comments Brother 1 Brother 2 Brother 3 Father Mother Sister 1 Sister 2 Sister 3 Alive Sister 4 Alive Son 1 Alive Son 2 Son 3 Social History Tobacco Use Types Packs/Day Years Used Date Smoking Tobacco: Every Day Cigarettes 0.5 37.3 Started: 1987 Smokeless Tobacco: Never Tobacco Cessation:Ready [...] Sign Reading Time Taken Comments Blood Pressure 107/61 01/19/2025 9:33 AM CDT Pulse 102 01/19/2025 9:33 AM CDT Temperature 36 C (96.8 F) 01/19/2025 9:33 AM CDT Respiratory Rate 15 01/19/2025 9:33 AM CDT Oxygen Saturation 98% 01/19/2025 9:33 AM CDT Inhaled Oxygen Concentration - - Weight 61 kg (134 lb 6.4 oz) 01/19/2025 9:33 AM CDT Height 162.6 cm (5' 4 ) 08/18/2022 8:36 AM CDT Body Mass Index 23.07 08/18/2022 8:36 AM CDT Plan of Treatment Upcoming Encounters Date Type Department Care Team (Late st Contact Info) Description 02/15/2025 8:30 AM CDT Office Visit [facility] Oncology and Hematology - [place] [address] [place] [address] Court Dyson MD [address] [place] [address] Health Maintenance Due Date Last [...] Vaccine ( season) 2024, 02/21/2021 [place] ([place]) Prev entative Visit/Annual Wellness Visit 10/26/2024 RSV VACCINE (60+ or ) (1 - 1-dose 75+ series) 2031 OSTEOPOROSIS SCREENING Completed 02/27/2022 Procedures Procedure Name Priority Date/Time Associated Diagnosis Comments COMPREHENSIVE METABOLIC PANEL Routine 01/16/2025 2:24 PM CDT BASIC METABOLIC PANEL Routine 01/16/2025 11:45 AM CDT CBC WITH DIFFERENTIAL Routine 01/16/2025 11:40 AM CDT BASIC METABOLIC PANEL Routine 12/29/2024 1:44 PM EVENT HOST CHG BLOOD TYPING, ANTIGEN SCREEN Routine 11/18/2024 12:09 PM EVENT HOST BASIC METABOLIC PANEL Routine 11/17/2024 10:17 AM EVENT HOST from Last 3 Months Results * COMPREHENSIVE METABOLIC PANEL (01/16/2025 2:24 PM CDT) Blood us Perry Garza MD CHEMISTRY ORDERABLES Final Resu lt * BASIC METABOLIC PANEL (01/16/2025 11:45 AM CDT) Only the most recent of3 resultswithin the time period is included. Blood us Perry Garza MD CHEMISTRY ORDERABLES Final Resu lt * CBC WITH DIFFERENTIAL (01/16/2025 11:40 AM CDT) Blood us Perry Garza MD HEMATOLOGY ORDERABLES Final Res ult * CHG BLOOD TYPING, ANTIGEN SCREEN (11/18/2024 12:09 PM EVENT HOST) us Perry Garza MD CHG - LABORATORY Final Result from Last 3 Months Insurance [facility] [place] [id number] [facility] [address] [facility] Address: [place] [address] Care Teams Resist Coater Developer Relationship Specialty Start Date End Date Winifred Mcdonough MD PCP - General Internal Medicine 03/14/22
--- NOTE | 2025-02-01 20:05 | ED.GENADULT ---
HPI - General Adult General Chief complaint: Weakness Stated complaint: NAUSEA,WEAKNESS HARD TO STAY AWAKE Time Seen by Provider: 02/01/25 19:47 History of Present Illness HPI narrative: Patient is a 69-year-old female who presents emergency department with chief complaint of generalized weakness nausea vomiting. Patient reports that she has history of myelodysplasia syndrome and receives chemotherapy patient sees Dr. yeung I would with oncology patient reports he has been very lethargic reports that she has pain over her body particularly in her legs. Related Data Home Medications ?Medication ?Instructions ?Recorded ?Confirmed ?Last Taken ?Type ferrous sulfate 325 mg (65 mg 325 mg PO DAILY 04/23/22 01/11/25 01/04/25 History iron) tablet amlodipine 10 mg-benazepril 20 mg 1 cap PO DAILY 10/15/22 01/11/25 01/10/25 History capsule aspirin 81 mg tablet 81 mg PO DAILY 11/18/23 01/11/25 01/04/25 History Allergies Allergy/AdvReac Type Severity Reaction Status Date / Time ibuprofen Allergy Mild Itching Verified 01/19/25 13:25 Review of Systems Review of Systems: A 10 system review of systems was completed on the patient and is negative except for what is stated in the HPI. Nursing and ancillary documentation was reviewed. [facility] Past Medical History Medical History MDS (myelodysplastic syndrome) Social History Social History Smoking packs per day: 1 Smoking cigarettes per day: 20.0 Years smoked: 46 Smoking pack-years: 46.00 Smoking status: Current every day smoker Tobacco type: cigarettes Alcohol intake: never Substance use: never Living arrangements: alone Spiritual care concerns: No Exam Narrative: GENERAL: Well-appearing, well-nourished, and in no acute distress. HEAD: Normocephalic, atraumatic. EYES: PERRLA and EOMI. ENT: Nares clear, no rhinorrhea or epistaxis. Mucous membranes moist. NECK: Supple. CHEST: Clear to auscultation. No respiratory distress. HEART: Regular rate and rhythm. No murmur heard. Normal peripheral pulses. ABDOMEN: Soft, nontender, nondistended, normal active bowel sounds. EXTREMITIES: Normal range of motion. No edema. SKIN: Warm, dry, no rash. NEURO: No focal deficits. Alert and oriented x3. PSYCH: Normal mood and affect. Course Course Emergency Course: Differential diagnosis includes electrolyte abnormality, dehydration, infection, Studies were obtained on the patient showed a white count of 0.8 hemoglobin of 3.0 and a platelet count 10 this was actually repeated and verified. Anemia labs have been sent on the patient the case was discussed with the patient's oncologist who recommended admitting the patient hospitalist service and he will consult 2 units packed red blood cells ordered for the patient at this time Vital Signs Vital signs: Vital Signs Pulse Rate 95 02/01/25 18:20 Respiratory Rate 18 02/01/25 18:20 Blood Pressure 132/46 L 02/01/25 18:20 Pulse Oximetry 100 02/01/25 18:20 Oxygen Delivery Room Air 02/01/25 18:20 Temperature 36.7 C 02/01/25 21:45 Pulse Rate 97 02/01/25 21:45 Respiratory Rate 21 H 02/01/25 21:45 Blood Pressure 159/62 H 02/01/25 21:45 Pulse Oximetry 100 02/01/25 21:45 Oxygen Delivery Room Air 02/01/25 18:20 Medical Decision Making Vital Signs Vital Signs: Vital Signs Pulse Rate 95 02/01/25 18:20 Respiratory Rate 18 02/01/25 18:20 Blood Pressure 132/46 L 02/01/25 18:20 Pulse Oximetry 100 02/01/25 18:20 Oxygen Delivery Room Air 02/01/25 18:20 Temperature 36.7 C 02/01/25 21:45 Pulse Rate 97 02/01/25 21:45 Respiratory Rate 21 H 02/01/25 21:45 Blood Pressure 159/62 H 02/01/25 21:45 Pulse Oximetry 100 02/01/25 21:45 Oxygen Delivery Room Air 02/01/25 18:20 Lab Data 02/01/25 20:32 02/01/25 19:35 Labs: Lab Results 02/01/25 02/01/25 02/01/25 Range/Units 19:34 19:35 20:32 WBC 0.8 L* (4.5-10.0) K/mm3 RBC 1.04 L (4.2-5.4) M/mm3 Hgb 3.0 L* D (12.0-15.0) g/dL Hct 9.8 L* (37.0-47.0) % MCV 94.2 (80-100) fl MCH 28.8 (26-34) pg MCHC 30.6 L (32-36) g/dl RDW 20.2 H (11.5-14.5) % Plt Count 10 L* D (150-375) k/mm3 MPV TNP Immature Gran % (Auto) Not Reportable Neut % (Auto) Not Reportable Lymph % (Auto) Not Reportable [place] % (Auto) Not Reportable Eos % (Auto) Not Reportable Baso % (Auto) Not Reportable Lymph # (Auto) Not Reportable [place] # (Auto) Not Reportable Eos # (Auto) Not Reportable Baso # (Auto) Not Reportable Abs Immat Gran (auto) Not Reportable Absolute Neuts (auto) Not Reportable Absolute Nucleated RBC Not Reportable Total Counted 100 Neutrophils % (Manual) 19 L (46-73) % Band Neutrophils % 0 (0-6) % Lymphocytes % (Manual) 81.0 H (18-44) % Nucleated RBC % Not Reportable Abs Neuts (Manual) 0.15 L (1.7-7.2) K/mm3 Abs Lymphs (Manual) 0.64 L (1.1-4.5) K/mm3 Platelet Estimate Decreased (Adequate) Hypochromasia 2+ Anisocytosis 3+ Schistocytes None seen Sodium 139 (137-145) mmol/L Potassium 4.4 (3.4-5.0) mmol/L Chloride 112 H (98-107) mmol/L Carbon Dioxide 18 L (22-30) mmol/L Anion Gap 9 (4-12) mmol/L BUN 22 H D (7-17) mg/dL Creatinine 0.91 (0.7-1.0) mg/dL Estim Creat Clear Calc 45 ml/min Estimated GFR > 60 (59 - ) Glucose 126 H (65-110) mg/dL Calcium 7.9 L (8.4-10.2) mg/dL Iron Pending TIBC Pending % Saturation Pending Total Bilirubin 0.2 (0.2-1.3) mg/dL AST 17 (14-36) U/L ALT 17 (6-35) U/L Alkaline Phosphatase 130 H (38-126) U/L Total Protein 6.0 L (6.3-8.2) g/dL Albumin 3.3 L (3.5-5.1) g/dL Vitamin B12 Pending Folate Pending Urine Color Urine Appearance Urine pH Ur Specific [place] Urine Protein Urine Glucose (UA) Urine Ketones Ur Blood (Man) Urine Nitrate Urine Bilirubin Urine Urobilinogen Leukocyte Esterase Rfl Blood Type O Positive Antibody Screen Negative Crossmatch See Detail 02/01/25 Range/Units 21:58 WBC (4.5-10.0) K/mm3 RBC (4.2-5.4) M/mm3 Hgb (12.0-15.0) g/dL Hct (37.0-47.0) % MCV (80-100) fl MCH (26-34) pg MCHC (32-36) g/dl RDW (11.5-14.5) % Plt Count (150-375) k/mm3 MPV Immature Gran % (Auto) Neut % (Auto) Lymph % (Auto) [place] % (Auto) Eos % (Auto) Baso % (Auto) Lymph # (Auto) [place] # (Auto) Eos # (Auto) Baso # (Auto) Abs Immat Gran (auto) Absolute Neuts (auto) Absolute Nucleated RBC Total Counted Neutrophils % (Manual) (46-73) % Band Neutrophils % (0-6) % Lymphocytes % (Manual) (18-44) % Nucleated RBC % Abs Neuts (Manual) (1.7-7.2) K/mm3 Abs Lymphs (Manual) (1.1-4.5) K/mm3 Platelet Estimate (Adequate) Hypochromasia Anisocytosis Schistocytes Sodium (137-145) mmol/L Potassium (3.4-5.0) mmol/L Chloride (98-107) mmol/L Carbon Dioxide (22-30) mmol/L Anion Gap (4-12) mmol/L BUN (7-17) mg/dL Creatinine (0.7-1.0) mg/dL Estim Creat Clear Calc ml/min Estimated GFR (59 - ) Glucose (65-110) mg/dL Calcium (8.4-10.2) mg/dL Iron TIBC % Saturation Total Bilirubin (0.2-1.3) mg/dL AST (14-36) U/L ALT (6-35) U/L Alkaline Phosphatase (38-126) U/L Total Protein (6.3-8.2) g/dL Albumin (3.5-5.1) g/dL Vitamin B12 Folate Urine Color Pending Urine Appearance Pending Urine pH Pending Ur Specific [place] Pending Urine Protein Pending Urine Glucose (UA) Pending Urine Ketones Pending Ur Blood (Man) Pending Urine Nitrate Pending Urine Bilirubin Pending Urine Urobilinogen Pending Leukocyte Esterase Rfl Pending Blood Type Antibody Screen Crossmatch Critical Care Time Critical Care Time Critical Care Time: Yes Total Critical Care Time: 35 Discharge Plan Discharge Clinical Impression: Pancytopenia Patient Disposition: Still a Patient Condition: Stable Patient Language: Polish Prescriptions: No Action ferrous sulfate 325 mg (65 mg iron) Tablet 325 mg PO DAILY Patient Comments: . amlodipine-benazepril 10-20 mg Capsule 1 cap PO DAILY Patient Comments: . aspirin 81 mg Tablet 81 mg PO DAILY Patient Comments: . Follow-up/Referrals: Sharonda,MD Winifred [Primary Care Provider] - Time of Disposition: 22:12
[2025-02-01 20:42] LABS: Mean Corpuscular HGB Conc 30.6 g/dl (32-36); Mean Corpuscular Hemoglobin 28.8 pg (26-34); Mean Corpuscular Volume 94.2 fl (80-100); Red Blood Count 1.04 M/mm3 (4.2-5.4); Red Cell Distribution Width 20.2 % (11.5-14.5)
[2025-02-01 20:48] LABS: White Blood Count 0.8 K/mm3 (4.5-10.0)
[2025-02-01 20:49] LABS: Hematocrit 9.8 % (37.0-47.0); Platelet Count Result 10 k/mm3 (150-375)
[2025-02-01 21:06] LABS: Lymphocytes Absolute Manual 0.64 K/mm3 (1.1-4.5); Neutrophils Percent Manual 19 % (46-73); Total Cells Counted 100
[2025-02-01 21:07] LABS: Platelet Estimate Decreased (Adequate)
[2025-02-01 21:08] LABS: Hypochromasia 2+; Schistocytes None Seen
[2025-02-01 21:09] LABS: Anisocytosis 3+
[2025-02-01 21:10] LABS: Band Neutrophils Percent 0 % (0-6); Neutrophils Absolute Manual 0.15 K/mm3 (1.7-7.2)
[2025-02-01] MEDS: SODIUM CHLORIDE 0.9% IV 250 ML 30 ML IV CONT (21:33)
[2025-02-01 22:14] LABS: Add Urine Microscopic? YES; Appearance Urine Cloudy (Clear); Bacteria Urine Rare /hpf; Bilirubin Urine Negative (Negative); Blood Urine Negative (Negative); Color Urine Yellow (Yellow); Glucose Urine UA Negative (Negative); Ketones Urine Negative (Negative); Leukocyte Esterase Ur Negative LEU/UL (Negative); Nitrate Urine Negative (Negative); Non Pathogenic Casts 0-2; Protein Urine Trace mg/dL (Negative); RBC Urine 0-2 /hpf (0-2); Specific Grav Ur 1.012 (1.001-1.035); Squamous Epithelial Cell Urine Moderate /hpf (Few); Urobilinogen Urine 0.2 mg/dL (<2.0); WBC Urine 0-5 /hpf (0-3); pH Urine 5.5 (5.0-9.0)
[2025-02-01 22:22] LABS: Iron 246 ug/dL (37-170)
[2025-02-01 22:36] LABS: Percent Iron Saturation 86 % (20-50)
--- NOTE | 2025-02-01 23:22 | ADMGEN ---
This patient, Tanesha Gaviria, was admitted to IMU Room 210-01. Patient/family oriented to hospital policies and general routines including ID bracelet, bed and alarms, visiting hours, pain management, procedures, bathroom and other care routines, personal items, smoking policy, room service/diet, and visiting hours. Information on how to activate the Rapid Response Team has been discussed. Patient/Family are encouraged to report perceived risks to care and to ask questions if they do not understand what they are told or what they should do.
[2025-02-01 23:25] LABS: Folic Acid 10.7 ng/mL (2.76->20)
[2025-02-02] VITALS (22 sets, daily range): BP systolic 132–160; BP diastolic 44–69; PULSE 63–101; RESP 14–18; TEMP 36.5–37.2; O2SAT 98–100; BMI 21.7
--- NOTE | 2025-02-02 01:46 | PM.IMHP ---
H&P: HPI History of Present Illness Date/Time: 02/02/25 01:46 Chief Complaint: 1. Fatigue 2. Myalgia Narrative: Tanesha Gaviria is a 69yo F with a mhx significant for myelodysplasia, hypertension, iron deficiency anemia Diagnosed with low-grade MDS in 2018, she remained untreated until 2021 when she was placed on Luspatercept; per EMR, the decision was made recently to increase the dose of Luspatercept and if failure to improve refractory anemia, therapy will be switched to Decitabine; a CVC line was placed on 01/11/25. With her last chemotherapy regimen received about 4 weeks ago, had remained stable until the last 1 week when she developed increasing/worsening symptoms of myalgias, malaise, fatigue and increased somnolence. Her symptoms are aggravated by exertion, alleviated by rest, associated with anorexia, dyspnea on exertion Na restriction number ADLs. Currently on ferrous supplements, she is unable to testify to bloody stools. She however denies hematemesis, bleeding diathesis, fevers, chills, dizziness, LOC, chest pain, bipedal edema.. She smokes about 0.5-1 pack per day cigarettes, denies alcohol intake; denies recreational/illicit drug use. Family is positive for neoplastic illness in her father, mother, brother (lung cancer) and sister (ovarian cancer). Work-up findings: VS: Unremarkable WBC 0.8; Hb 3; PLT 10 Na 139; K 4.4; Cl 112; CO2 18; HGB 9; BUN 22; CR 0.91; GFR 45 AST 17; ALT 17; ALP 130; T. Bilirubin 0.2 UA: Unremarkable CXR: Unremarkable Tanesha Gaviria will be admitted, evaluated and managed for pancytopenia with symptomatic anemia Review of Systems Review of Systems: All systems reviewed & are unremarkable except as noted in HPI and below PMFSH Past Medical History Medical History MDS (myelodysplastic syndrome) Family History Family History (Updated 02/01/25 @ 23:32 by Amy Echeverria RN) Father Lung cancer Mother Lung cancer Mother No problems noted. Social History Social History Smoking packs per day: 1 Smoking cigarettes per day: 20.0 Years smoked: 46 Smoking pack-years: 46.00 Smoking status: Current every day smoker Tobacco type: cigarettes Alcohol intake: never Substance use: never Substance use type: does not use Do You Feel Safe in your Home?: Yes Lack of Transportation: No Lack of Food: Never True Current Housing: I Have Housing Concerned About Future Housing: No Difficulty Paying Gas/Electric Bills: No Difficulty Paying for Meds: No Currently Unemployed: No Education: High School Diploma/GED Difficulty w/ Childcare or Family Care: No Living arrangements: alone Spiritual care concerns: No Meds Home Medications and Allergies Home Medications ?Medication ?Instructions ?Recorded ?Confirmed ?Type ferrous sulfate 325 mg (65 mg 325 mg PO DAILY 04/23/22 02/01/25 History iron) tablet amlodipine 10 mg-benazepril 20 mg 1 cap PO DAILY 10/15/22 02/01/25 History capsule aspirin 81 mg tablet 81 mg PO DAILY 11/18/23 02/01/25 History Allergies Allergy/AdvReac Type Severity Reaction Status Date / Time ibuprofen Allergy Mild Itching Verified 01/19/25 13:25 Vital Signs Vital Signs - 24 hr 02/01/25 18:20 02/01/25 20:10 02/01/25 21:29 Temperature 98.3 F 98.4 F Pulse Rate 95 104 H Respiratory Rate 18 14 Blood Pressure 132/46 L 141/47 H Pulse Oximetry 100 100 Oxygen Delivery Room Air 02/01/25 21:34 02/01/25 21:34 02/01/25 21:45 Temperature 98.1 F Pulse Rate 100 102 H 97 Respiratory Rate 24 H 21 H Blood Pressure 130/68 159/62 H Pulse Oximetry 100 100 Oxygen Delivery 02/01/25 22:45 02/01/25 23:29 02/01/25 23:29 Temperature 97.9 F Pulse Rate 93 93 93 Respiratory Rate 16 16 16 Blood Pressure 148/69 H 148/69 H 148/69 H Pulse Oximetry 100 100 100 Oxygen Delivery 02/01/25 23:47 02/01/25 23:52 02/02/25 00:00 Temperature 98.3 F 98.3 F 98.3 F Pulse Rate 99 99 63 Respiratory Rate 16 16 16 Blood Pressure 154/64 H 154/64 H 156/49 H Pulse Oximetry 100 100 99 Oxygen Delivery 02/02/25 00:00 02/02/25 00:00 02/02/25 00:08 Temperature 98.5 F Pulse Rate 85 87 Respiratory Rate 16 Blood Pressure 132/69 Pulse Oximetry 100 Oxygen Delivery Room Air 02/02/25 00:08 02/02/25 01:06 02/02/25 01:08 Temperature 98.5 F 98.5 F 98.5 F Pulse Rate 87 86 86 Respiratory Rate 16 16 16 Blood Pressure 132/69 150/63 H 150/63 H Pulse Oximetry 100 99 99 Oxygen Delivery Exam Const: General: comfortable and no acute distress HENMT: Ears: TM's normal bilaterally Face/Nose/Sinus: Normal nares present Eyes: General: appearance normal, both eyes and all related structures Pupils: Equal, round and reactive pupils present Neck: Neck: supple Resp: Effort & Inspection: normal respiratory effort Auscultation: clear to auscultation bilaterally Cardio: Rate: regular rate Rhythm: regular rhythm GI: GI Palp: Yes Soft to palpation Skin: Other: Pallor Neuro: General: gait normal Speech: normal speech Motor exam (neuro): 5/5 motor strength present throughout Extrem: General: normal to inspection Psych: Mental Status: mental status grossly normal Affect: Anxious affect present H&P: Results Labs Labs: Short CBC 02/01/25 Range/Units 20:32 WBC 0.8 L* (4.5-10.0) K/mm3 Hgb 3.0 L* D (12.0-15.0) g/dL Hct 9.8 L* (37.0-47.0) % Plt Count 10 L* D (150-375) k/mm3 BMP 02/01/25 19:35 Sodium 139 Potassium 4.4 Chloride 112 H Carbon Dioxide 18 L BUN 22 H D Creatinine 0.91 Glucose 126 H Calcium 7.9 L Liver Function 02/01/25 Range/Units 19:35 Total Bilirubin 0.2 (0.2-1.3) mg/dL AST 17 (14-36) U/L ALT 17 (6-35) U/L Alkaline Phosphatase 130 H (38-126) U/L Albumin 3.3 L (3.5-5.1) g/dL Urine 02/01/25 Range/Units 21:58 Urine Color Yellow (Yellow) Urine Appearance Cloudy H (Clear) Urine pH 5.5 (5.0-9.0) Ur Specific [place] 1.012 (1.001-1.035) Urine Protein Trace (Negative) mg/dL Urine Glucose (UA) Negative (Negative) mg/dL Assessment and Plan Assessment and plan (1) Pancytopenia: Code(s): D61.818 - Other pancytopenia Status: Acute (2) Symptomatic anemia: Code(s): D64.9 - Anemia, unspecified Status: Acute (3) MDS (myelodysplastic syndrome), low grade: Code(s): D46.Z - Other myelodysplastic syndromes Status: Acute (4) Nicotine dependence: Code(s): F17.200 - Nicotine dependence, unspecified, uncomplicated Status: Acute (5) Hypertension: Code(s): I10 - Essential (primary) hypertension Status: Acute Plan Acute and principal conditions 1. Symptomatic anemia 2. MDS 3. Pancytopenia Rx: A. Type and Screen; transfuse 4U. hx of recurrent blood transfusions B. Goal Hb >7 C. Hematology consult D. Supplemental oxygen for symptomatic relief E. Monitor CBC Chronic and stable conditions 1. Hypertension. 2. Nicotine dependence. Cessation counseling 3. CHICO. Miscellaneous care 1.Code status. Full 2. Nutrition. Heart health 3. VTE prophylaxis. SCDs; holding pharmacologic VTE Rx due to thrombocytopenia Quality VTE Prophylaxis VTE prophylaxis: mechanical ordered and pharmacologic ordered If No VTE Prophylaxis Answer both mechanical and pharmacologic: Reason no mechanical VTE proph: medical contraindication (Thrombocytopenia) Hospitalist MIPS Advance Care Plan I have confirmed that the patient's Advanced Care Plan is present, code status is documented, or surrogate decision maker is listed in patient medical record.: Yes Medication Reconciliation I have utilized all available resources to obtain, update and review the patients current medications (includes all prescriptions, OTC, herbals, cannabis, and nutritional supplements).: Yes The patient is not eligible for med reconciliation; the patient is in a emergent medical situation where delaying treatment would jeopardize the patients health.: Yes
[2025-02-02 04:39] LABS: Hematocrit 23.5 % (37.0-47.0); Hemoglobin 7.7 g/dL (12.0-15.0); Immature Platelet Fraction Pct 9.1 % (0.9-11.2); Mean Corpuscular HGB Conc 32.8 g/dl (32-36); Mean Corpuscular Hemoglobin 28.5 pg (26-34); Red Cell Distribution Width 15.4 % (11.5-14.5)
[2025-02-02 04:54] LABS: Anion Gap 8 mmol/L (4-12); Blood Urea Nitrogen 22 mg/dL (7-17); Calcium 7.9 mg/dL (8.4-10.2); Carbon Dioxide 18 mmol/L (22-30); Chloride 111 mmol/L (98-107); Estimated CRCL calculation 57 ml/min; Estimated Glomerular Filt Rate > 60; Glucose 108 mg/dL (65-110); Magnesium 2.3 mg/dL (1.6-2.3); Phosphorus 3.5 mg/dL (2.5-4.5); Potassium 4.5 mmol/L (3.4-5.0); Sodium 137 mmol/L (137-145)
[2025-02-02 05:00] LABS: Alanine Aminotransferase 15 U/L (6-35); Albumin Level 3.3 g/dL (3.5-5.1); Alkaline Phosphatase 121 U/L (38-126); Anion Gap 5 mmol/L (4-12); Aspartate Amino Transferase 17 U/L (14-36); Bilirubin,Total 0.7 mg/dL (0.2-1.3); Blood Urea Nitrogen 22 mg/dL (7-17); Carbon Dioxide 20 mmol/L (22-30); Chloride 112 mmol/L (98-107); Estimated CRCL calculation 54 ml/min; Estimated Glomerular Filt Rate > 60; Glucose 111 mg/dL (65-110); Potassium 4.5 mmol/L (3.4-5.0); Sodium 137 mmol/L (137-145)
[2025-02-02 05:03] LABS: Hemoglobin A1C 5.6 % (<5.7)
[2025-02-02 05:26] LABS: Platelet Count Result 6 k/mm3 (150-375); White Blood Count 1.2 K/mm3 (4.5-10.0)
[2025-02-02 05:49] LABS: Band Neutrophils Percent 2 % (0-6); Basophils Absolute Manual 0.01 K/mm3 (0.0-0.1); Basophils Percent Manual 1 % (0-1); Eosinophils Absolute Manual 0.01 K/mm3 (0.02-0.50); Eosinophils Percent Manual 1 % (0-4); Lymphocytes Absolute Manual 1.03 K/mm3 (1.1-4.5); Monocytes Absolute Manual 0.02 K/mm3 (0.1-0.90); Monocytes Percent Manual 2 % (3-9); Neutrophils Absolute Manual 0.12 K/mm3 (1.7-7.2); Neutrophils Percent Manual 8 % (46-73); Total Cells Counted 100
[2025-02-02 05:50] LABS: Anisocytosis 1+; Burr Cells 1+; Platelet Estimate Decreased (Adequate); Poikilocytosis 1+; Schistocytes None Seen
[2025-02-02 05:53] LABS: Influenza A QL RT-PCR Negative (Negative); Influenza B QL RT-PCR Negative (Negative); RSV RNA, RT-PCR Negative (Negative); SARS-CoV-2 RNA PCR Negative (Negative)
--- NOTE | 2025-02-02 09:28 | PM.IMPN ---
Progress Note: A&P Assessment and Plan (1) Symptomatic anemia: Code(s): D64.9 - Anemia, unspecified Status: Acute Assessment and Plan: - Hgb: 7.7 (3.0 on admission) - Received 4 units of blood transfusion - add iron, TIBC, ferritin, B12, folic acid, and TSH - transfuse if <7 - trend H&H - Pending Hematology consult (2) Pancytopenia: Code(s): D61.818 - Other pancytopenia Status: Acute Assessment and Plan: In ED: RBC 1.04, WBC 0.8, Plt 10 Ordered 1 unit FFP and Filgrastim Monitor CBC daily Pending Hematology consult (3) MDS (myelodysplastic syndrome), low grade: Code(s): D46.Z - Other myelodysplastic syndromes Status: Acute Assessment and Plan: Diagnosed in 2018, remained untreated until 2021 On Luspatercept, recent dose increase, may consider switch to Decitabine if still no improvment in Anemia Last chemo tx 4 weeks ago (4) Nicotine dependence: Code(s): F17.200 - Nicotine dependence, unspecified, uncomplicated Status: Acute Assessment and Plan: Cessation counseling (5) Hypertension: Code(s): I10 - Essential (primary) hypertension Status: Acute Assessment and Plan: Chronic, ranges from 130/68 to 156/49 Continue Amlodipine/Benazepril Time Spent With Patient Time: - Subjective Date/time seen: 02/02/25 09:28 Interval history: 69yo F with a mhx significant for myelodysplasia, hypertension, iron deficiency anemia, Diagnosed with low-grade MDS in 2019. With her last chemotherapy regimen received about 4 weeks ago, had remained stable until the last 1 week when she developed increasing/worsening symptoms of myalgias, malaise, fatigue and increased somnolence. 02/02/2025 Patient is sitting comfortably in bed at time of examination. She reports improvement in her symptoms, and denies any chest pain, shortness of breath, dizziness, n/v, or abdominal pain at this time. 1 unit of FFP along with Filgrastim for Thrombocytopenia and Leukopenia. Still pending Hematology consult at this time. No other obvious signs of bleeding. Vitals are stable and patient endorsing subjective improvement of symptoms. Continue to closely monitor H&H. Review of Systems Review of Systems: All systems reviewed & are unremarkable except as noted in HPI and below Exam Const: General: comfortable and no acute distress HENMT: Ears: TM's normal bilaterally Face/Nose/Sinus: Normal nares present Eyes: General: appearance normal, both eyes and all related structures Pupils: Equal, round and reactive pupils present Neck: Neck: supple Resp: Effort & Inspection: normal respiratory effort Auscultation: clear to auscultation bilaterally Cardio: Rate: regular rate Rhythm: regular rhythm Skin: Other: Pallor Neuro: General: gait normal Cranial nerves: Yes Equal, round and reactive pupils present Speech: normal speech Motor exam (neuro): 5/5 motor strength present throughout Extrem: General: normal to inspection Psych: Mental Status: mental status grossly normal Affect: Anxious affect present Objective Data Vital Signs Vital Signs: Vital Signs - 24 hr 02/01/25 18:20 02/01/25 20:10 02/01/25 21:29 Temperature 98.3 F 98.4 F Pulse Rate 95 104 H Respiratory Rate 18 14 Blood Pressure 132/46 L 141/47 H Pulse Oximetry 100 100 Oxygen Delivery Room Air 02/01/25 21:34 02/01/25 21:34 02/01/25 21:45 Temperature 98.1 F Pulse Rate 100 102 H 97 Respiratory Rate 24 H 21 H Blood Pressure 130/68 159/62 H Pulse Oximetry 100 100 Oxygen Delivery 02/01/25 22:45 02/01/25 23:29 02/01/25 23:29 Temperature 97.9 F Pulse Rate 93 93 93 Respiratory Rate 16 16 16 Blood Pressure 148/69 H 148/69 H 148/69 H Pulse Oximetry 100 100 100 Oxygen Delivery 02/01/25 23:47 02/01/25 23:52 02/02/25 00:00 Temperature 98.3 F 98.3 F 98.3 F Pulse Rate 99 99 63 Respiratory Rate 16 16 16 Blood Pressure 154/64 H 154/64 H 156/49 H Pulse Oximetry 100 100 99 Oxygen Delivery 02/02/25 00:00 02/02/25 00:00 02/02/25 00:08 Temperature 98.5 F Pulse Rate 85 87 Respiratory Rate 16 Blood Pressure 132/69 Pulse Oximetry 100 Oxygen Delivery Room Air 02/02/25 00:08 02/02/25 01:06 02/02/25 01:08 Temperature 98.5 F 98.5 F 98.5 F Pulse Rate 87 86 86 Respiratory Rate 16 16 16 Blood Pressure 132/69 150/63 H 150/63 H Pulse Oximetry 100 99 99 Oxygen Delivery 02/02/25 02:00 02/02/25 02:08 02/02/25 02:24 Temperature 98.6 F 98.6 F Pulse Rate 90 93 97 Respiratory Rate 14 16 Blood Pressure 145/55 H 142/56 H Pulse Oximetry 100 100 Oxygen Delivery 02/02/25 03:43 02/02/25 04:00 02/02/25 04:00 Temperature 98 F Pulse Rate 101 H 88 Respiratory Rate 16 Blood Pressure 147/50 H Pulse Oximetry 100 Oxygen Delivery Room Air 02/02/25 06:00 02/02/25 07:53 Temperature 98.5 F Pulse Rate 92 91 Respiratory Rate 18 Blood Pressure 144/44 H Pulse Oximetry 100 Oxygen Delivery Intake/Output Intake/Output: Intake & Output 01/30/25 01/31/25 02/01/25 02/02/25 23:59 23:59 23:59 23:59 Intake Total 350 3220 Output Total 800 Balance 350 2420 Meds/Results Medications: Active Medications Generic Name Dose Route Start Last Admin Trade Name Freq PRN Reason Stop Dose Admin Acetaminophen 650 mg 02/02/25 01:43 Acetaminophen 325 Mg Tablet PO Q4H PRN Mild Pain (1-3) or Fever Dextrose 12.5 gm 02/02/25 01:43 Dextrose 50% 25 Gm/50 Ml Syringe IV PUSH PRN PRN Hypoglycemia Protocol Glucagon 1 mg 02/02/25 01:43 Glucagon For Inj 1 Mg Vial IM PRN PRN Hypoglycemia Protocol Glucose 15 gm 02/02/25 01:43 Glucose Oral Gel 15 Gm Of Glucse In 37.5 Gm Tube PO PRN PRN Hypoglycemia Protocol Dextrose 1,000 mls @ 100 mls/hr 02/02/25 01:43 Dextrose 5% 1,000 Ml IVPB PRN PRN Hypoglycemia Protocol Melatonin 5 mg 02/02/25 01:43 Melatonin 5 Mg Tablet PO HS PRN Insomnia Prochlorperazine Edisylate 10 mg 02/02/25 01:43 Prochlorperazine Edisylate 10 Mg/2 Ml Vial IV PUSH Q6H PRN Nausea And Vomiting Radiology Results: ITS Impressions Chest X-Ray 02/01/25 18:54 IMPRESSION: No acute cardiopulmonary pathology. Labs Labs: Laboratory Results - last 24 hr 02/01/25 02/01/25 02/01/25 19:34 19:35 20:32 WBC 0.8 L* RBC 1.04 L Hgb 3.0 L* D Hct 9.8 L* MCV 94.2 MCH 28.8 MCHC 30.6 L RDW 20.2 H Plt Count 10 L* D MPV TNP Immature Gran % (Auto) Not Reportable Neut % (Auto) Not Reportable Lymph % (Auto) Not Reportable [place] % (Auto) Not Reportable Eos % (Auto) Not Reportable Baso % (Auto) Not Reportable Lymph # (Auto) Not Reportable [place] # (Auto) Not Reportable Eos # (Auto) Not Reportable Baso # (Auto) Not Reportable Abs Immat Gran (auto) Not Reportable Absolute Neuts (auto) Not Reportable Absolute Nucleated RBC Not Reportable Total Counted 100 Neutrophils % (Manual) 19 L Band Neutrophils % 0 Lymphocytes % (Manual) 81.0 H Monocytes % (Manual) Eosinophils % (Manual) Basophils % (Manual) Nucleated RBC % Not Reportable Abs Neuts (Manual) 0.15 L Abs Lymphs (Manual) 0.64 L Abs Monocytes (Manual) Absolute Eos (Manual) Abs Basophils (Manual) Platelet Estimate Decreased % Immature Plt Fraction Hypochromasia 2+ Poikilocytosis Anisocytosis 3+ Marti Cells Schistocytes None seen Sodium 139 Potassium 4.4 Chloride 112 H Carbon Dioxide 18 L Anion Gap 9 BUN 22 H D Creatinine 0.91 Estim Creat Clear Calc 45 Estimated GFR > 60 Glucose 126 H Hemoglobin A1c Calcium 7.9 L Phosphorus Magnesium Iron 246 H TIBC 287 % Saturation 86 H Total Bilirubin 0.2 AST 17 ALT 17 Alkaline Phosphatase 130 H Total Protein 6.0 L Albumin 3.3 L Vitamin B12 402.0 Folate 10.7 Urine Color Urine Appearance Urine pH Ur Specific [place] Urine Protein Urine Glucose (UA) Urine Ketones Ur Blood (Man) Urine Nitrate Urine Bilirubin Urine Urobilinogen Leukocyte Esterase Rfl Urine RBC Urine WBC Ur Squamous Epith Cells Urine Bacteria Urine Casts Influenza A (RT-PCR) Influenza B (RT-PCR) RSV (RT-PCR) SARS-CoV-2 RNA (RT-PCR) Blood Type O Positive Antibody Screen Negative Crossmatch See Detail 02/01/25 02/02/25 02/02/25 21:58 04:05 04:05 WBC 1.2 L* RBC 2.70 L Hgb 7.7 L D Hct 23.5 L MCV 87.0 D MCH 28.5 MCHC 32.8 RDW 15.4 H Plt Count 6 L* MPV TNP Immature Gran % (Auto) Not Reportable Neut % (Auto) Not Reportable Lymph % (Auto) Not Reportable [place] % (Auto) Not Reportable Eos % (Auto) Not Reportable Baso % (Auto) Not Reportable Lymph # (Auto) Not Reportable [place] # (Auto) Not Reportable Eos # (Auto) Not Reportable Baso # (Auto) Not Reportable Abs Immat Gran (auto) Not Reportable Absolute Neuts (auto) Not Reportable Absolute Nucleated RBC Not Reportable Total Counted 100 Neutrophils % (Manual) 8 L Band Neutrophils % 2 Lymphocytes % (Manual) 86.0 H Monocytes % (Manual) 2 L Eosinophils % (Manual) 1 Basophils % (Manual) 1 Nucleated RBC % Not Reportable Abs Neuts (Manual) 0.12 L Abs Lymphs (Manual) 1.03 L Abs Monocytes (Manual) 0.02 L Absolute Eos (Manual) 0.01 L Abs Basophils (Manual) 0.01 Platelet Estimate Decreased % Immature Plt Fraction 9.1 Hypochromasia Poikilocytosis 1+ Anisocytosis 1+ [place] Cells 1+ Schistocytes None seen Sodium 137 137 Potassium 4.5 Chloride Carbon Dioxide Anion Gap BUN Creatinine Estim Creat Clear Calc Estimated GFR Glucose Hemoglobin A1c Calcium Phosphorus Magnesium Iron TIBC % Saturation Total Bilirubin AST ALT Alkaline Phosphatase Total Protein Albumin Vitamin B12 Folate Urine Color Yellow Urine Appearance Cloudy H Urine pH 5.5 Ur Specific [place] 1.012 Urine Protein Trace Urine Glucose (UA) Negative Urine Ketones Negative Ur Blood (Man) Negative Urine Nitrate Negative Urine Bilirubin Negative Urine Urobilinogen 0.2 Leukocyte Esterase Rfl Negative Urine RBC 0-2 Urine WBC 0-5 Ur Squamous Epith Cells Moderate Urine Bacteria Rare Urine Casts 0-2 Influenza A (RT-PCR) Influenza B (RT-PCR) RSV (RT-PCR) SARS-CoV-2 RNA (RT-PCR) Blood Type Antibody Screen Crossmatch 02/02/25 02/02/25 02/02/25 04:05 04:05 04:05 WBC RBC Hgb Hct MCV MCH MCHC RDW Plt Count MPV Immature Gran % (Auto) Neut % (Auto) Lymph % (Auto) [place] % (Auto) Eos % (Auto) Baso % (Auto) Lymph # (Auto) [place] # (Auto) Eos # (Auto) Baso # (Auto) Abs Immat Gran (auto) Absolute Neuts (auto) Absolute Nucleated RBC Total Counted Neutrophils % (Manual) Band Neutrophils % Lymphocytes % (Manual) Monocytes % (Manual) Eosinophils % (Manual) Basophils % (Manual) Nucleated RBC % Abs Neuts (Manual) Abs Lymphs (Manual) Abs Monocytes (Manual) Absolute Eos (Manual) Abs Basophils (Manual) Platelet Estimate % Immature Plt Fraction Hypochromasia Poikilocytosis Anisocytosis [place] Cells Schistocytes Sodium Potassium 4.5 Chloride 111 H 112 H Carbon Dioxide 18 L 20 L Anion Gap 8 BUN Creatinine Estim Creat Clear Calc Estimated GFR Glucose Hemoglobin A1c Calcium Phosphorus Magnesium Iron TIBC % Saturation Total Bilirubin AST ALT Alkaline Phosphatase Total Protein Albumin Vitamin B12 Folate Urine Color Urine Appearance Urine pH Ur Specific [place] Urine Protein Urine Glucose (UA) Urine Ketones Ur Blood (Man) Urine Nitrate Urine Bilirubin Urine Urobilinogen Leukocyte Esterase Rfl Urine RBC Urine WBC Ur Squamous Epith Cells Urine Bacteria Urine Casts Influenza A (RT-PCR) Influenza B (RT-PCR) RSV (RT-PCR) SARS-CoV-2 RNA (RT-PCR) Blood Type Antibody Screen Crossmatch 02/02/25 02/02/25 02/02/25 04:05 04:05 04:05 WBC RBC Hgb Hct MCV MCH MCHC RDW Plt Count MPV Immature Gran % (Auto) Neut % (Auto) Lymph % (Auto) [place] % (Auto) Eos % (Auto) Baso % (Auto) Lymph # (Auto) [place] # (Auto) Eos # (Auto) Baso # (Auto) Abs Immat Gran (auto) Absolute Neuts (auto) Absolute Nucleated RBC Total Counted Neutrophils % (Manual) Band Neutrophils % Lymphocytes % (Manual) Monocytes % (Manual) Eosinophils % (Manual) Basophils % (Manual) Nucleated RBC % Abs Neuts (Manual) Abs Lymphs (Manual) Abs Monocytes (Manual) Absolute Eos (Manual) Abs Basophils (Manual) Platelet Estimate % Immature Plt Fraction Hypochromasia Poikilocytosis Anisocytosis [place] Cells Schistocytes Sodium Potassium Chloride Carbon Dioxide Anion Gap 5 BUN 22 H 22 H Creatinine 0.70 0.75 Estim Creat Clear Calc 57 Estimated GFR Glucose Hemoglobin A1c Calcium Phosphorus Magnesium Iron TIBC % Saturation Total Bilirubin AST ALT Alkaline Phosphatase Total Protein Albumin Vitamin B12 Folate Urine Color Urine Appearance Urine pH Ur Specific [place] Urine Protein Urine Glucose (UA) Urine Ketones Ur Blood (Man) Urine Nitrate Urine Bilirubin Urine Urobilinogen Leukocyte Esterase Rfl Urine RBC Urine WBC Ur Squamous Epith Cells Urine Bacteria Urine Casts Influenza A (RT-PCR) Influenza B (RT-PCR) RSV (RT-PCR) SARS-CoV-2 RNA (RT-PCR) Blood Type Antibody Screen Crossmatch 02/02/25 02/02/25 02/02/25 04:05 04:05 04:05 WBC RBC Hgb Hct MCV MCH MCHC RDW Plt Count MPV Immature Gran % (Auto) Neut % (Auto) Lymph % (Auto) [place] % (Auto) Eos % (Auto) Baso % (Auto) Lymph # (Auto) [place] # (Auto) Eos # (Auto) Baso # (Auto) Abs Immat Gran (auto) Absolute Neuts (auto) Absolute Nucleated RBC Total Counted Neutrophils % (Manual) Band Neutrophils % Lymphocytes % (Manual) Monocytes % (Manual) Eosinophils % (Manual) Basophils % (Manual) Nucleated RBC % Abs Neuts (Manual) Abs Lymphs (Manual) Abs Monocytes (Manual) Absolute Eos (Manual) Abs Basophils (Manual) Platelet Estimate % Immature Plt Fraction Hypochromasia Poikilocytosis Anisocytosis [place] Cells Schistocytes Sodium Potassium Chloride Carbon Dioxide Anion Gap BUN Creatinine Estim Creat Clear Calc 54 Estimated GFR > 60 > 60 Glucose 108 111 H Hemoglobin A1c 5.6 Calcium 7.9 L Phosphorus Magnesium Iron TIBC % Saturation Total Bilirubin AST ALT Alkaline Phosphatase Total Protein Albumin Vitamin B12 Folate Urine Color Urine Appearance Urine pH Ur Specific [place] Urine Protein Urine Glucose (UA) Urine Ketones Ur Blood (Man) Urine Nitrate Urine Bilirubin Urine Urobilinogen Leukocyte Esterase Rfl Urine RBC Urine WBC Ur Squamous Epith Cells Urine Bacteria Urine Casts Influenza A (RT-PCR) Influenza B (RT-PCR) RSV (RT-PCR) SARS-CoV-2 RNA (RT-PCR) Blood Type Antibody Screen Crossmatch 02/02/25 02/02/25 04:05 05:12 WBC RBC Hgb Hct MCV MCH MCHC RDW Plt Count MPV Immature Gran % (Auto) Neut % (Auto) Lymph % (Auto) [place] % (Auto) Eos % (Auto) Baso % (Auto) Lymph # (Auto) [place] # (Auto) Eos # (Auto) Baso # (Auto) Abs Immat Gran (auto) Absolute Neuts (auto) Absolute Nucleated RBC Total Counted Neutrophils % (Manual) Band Neutrophils % Lymphocytes % (Manual) Monocytes % (Manual) Eosinophils % (Manual) Basophils % (Manual) Nucleated RBC % Abs Neuts (Manual) Abs Lymphs (Manual) Abs Monocytes (Manual) Absolute Eos (Manual) Abs Basophils (Manual) Platelet Estimate % Immature Plt Fraction Hypochromasia Poikilocytosis Anisocytosis [place] Cells Schistocytes Sodium Potassium Chloride Carbon Dioxide Anion Gap BUN Creatinine Estim Creat Clear Calc Estimated GFR Glucose Hemoglobin A1c Calcium 8.0 L Phosphorus 3.5 Magnesium 2.3 Iron TIBC % Saturation Total Bilirubin 0.7 AST 17 ALT 15 Alkaline Phosphatase 121 Total Protein 6.0 L Albumin 3.3 L Vitamin B12 Folate Urine Color Urine Appearance Urine pH Ur Specific [place] Urine Protein Urine Glucose (UA) Urine Ketones Ur Blood (Man) Urine Nitrate Urine Bilirubin Urine Urobilinogen Leukocyte Esterase Rfl Urine RBC Urine WBC Ur Squamous Epith Cells Urine Bacteria Urine Casts Influenza A (RT-PCR) Negative Influenza B (RT-PCR) Negative RSV (RT-PCR) Negative SARS-CoV-2 RNA (RT-PCR) Negative Blood Type Antibody Screen Crossmatch Quality VTE Prophylaxis VTE prophylaxis: mechanical ordered and pharmacologic ordered
[2025-02-02 11:02] LABS: Add Urine Microscopic? NO; Appearance Urine Clear (Clear); Bilirubin Urine Negative (Negative); Blood Urine Negative (Negative); Color Urine Yellow (Yellow); Glucose Urine UA Negative (Negative); Ketones Urine Negative (Negative); Leukocyte Esterase Ur Negative LEU/UL (Negative); Nitrate Urine Negative (Negative); Protein Urine Negative (Negative); Specific Grav Ur 1.009 (1.001-1.035); pH Urine 6.5 (5.0-9.0)
[2025-02-02] MEDS: SODIUM CHLORIDE 0.9% IV 250 ML 30 ML IV CONT (15:39)
[2025-02-02] MEDS: TUBING, BLOOD PLUM PUMP TUBING 1 EACH XX (15:40)
[2025-02-02 15:54] LABS: Glucose Point of Care 118 mg/dl (65-105)
[2025-02-02] MEDS: FILGRASTIM-SNDZ 300 MCG/0.5 ML SYRINGE SUB-Q (16:09)
[2025-02-02] MEDS: lisinopriL 20 MG TABLET PO (16:09)
[2025-02-02] MEDS: amLODIPine BESYLATE 10 MG TABLET BY MOUTH (16:09)
[2025-02-03] VITALS (35 sets, daily range): BP systolic 103–227; BP diastolic 41–84; PULSE 92–122; RESP 16–22; TEMP 36.5–39.4; O2SAT 100
[2025-02-03 05:32] LABS: Alanine Aminotransferase 13 U/L (6-35); Alkaline Phosphatase 104 U/L (38-126); Anion Gap 6 mmol/L (4-12); Aspartate Amino Transferase 16 U/L (14-36); Bilirubin,Total 0.6 mg/dL (0.2-1.3); Blood Urea Nitrogen 30 mg/dL (7-17); Calcium 8.1 mg/dL (8.4-10.2); Carbon Dioxide 22 mmol/L (22-30); Chloride 107 mmol/L (98-107); Estimated CRCL calculation 51 ml/min; Estimated Glomerular Filt Rate > 60; Glucose 109 mg/dL (65-110); Sodium 135 mmol/L (137-145)
[2025-02-03 06:44] LABS: Eosinophils Percent Auto 1.4 % (0-4.4); Immature Platelet Fraction Pct 12.4 % (0.9-11.2); Lymphocytes Absolute Auto 0.62 K/mm3 (0.9-3.2); Lymphocytes Percent Auto 89.9 % (18.3-44.2); Mean Corpuscular HGB Conc 32.9 g/dl (32-36); Mean Corpuscular Hemoglobin 28.9 pg (26-34); Mean Corpuscular Volume 87.7 fl (80-100); Monocytes Percent Auto 1.4 % (2.6-8.5); Neutrophils Absolute Auto 0.1 K/mm3 (1.3-6.7); Neutrophils Percent Auto 7.3 % (45.5-73.1); Red Blood Count 1.87 M/mm3 (4.2-5.4); Red Cell Distribution Width 15.5 % (11.5-14.5)
[2025-02-03 07:17] LABS: White Blood Count 0.7 K/mm3 (4.5-10.0)
[2025-02-03 07:18] LABS: Hematocrit 16.4 % (37.0-47.0); Hemoglobin 5.4 g/dL (12.0-15.0); Platelet Count Result 4 k/mm3 (150-375)
[2025-02-03 07:19] LABS: Hypochromasia 1+; Microcytosis 2+ (NORMAL); Ovalocytes 1+; Platelet Estimate Decreased (Adequate); Schistocytes None Seen; Target Cells 1+
--- NOTE | 2025-02-03 07:36 | P.PNIM_ITS ---
Progress Note: A&P Assessment and Plan (1) Symptomatic anemia: Code(s): D64.9 - Anemia, unspecified Status: Acute Assessment and Plan: - Hgb: 3.0 on admission - Received 4 units of blood transfusion - add iron, TIBC, ferritin, B12, folic acid, and TSH - transfuse if <7 - trend H&H - Pending Hematology consult - 02/03 Hgb =5.4 - To receive another 2 units PRBC (2) Pancytopenia: Code(s): D61.818 - Other pancytopenia Status: Acute Assessment and Plan: * In ED: RBC 1.04, WBC 0.8, Plt 10 * Monitor CBC daily * Pending Hematology consult * 02/03 WBC 0.7, Plt 4 * 2 units of Platelets ordered * Ordered 1 additional unit of Filgrastim (3) MDS (myelodysplastic syndrome), low grade: Code(s): D46.Z - Other myelodysplastic syndromes Status: Acute Assessment and Plan: * Diagnosed in 2018, remained untreated until 2021 * On Luspatercept, recent dose increase, may consider switch to Decitabine if still no improvment in Anemia * Last chemo tx 4 weeks ago (4) Nicotine dependence: Code(s): F17.200 - Nicotine dependence, unspecified, uncomplicated Status: Acute Assessment and Plan: * Cessation counseling (5) Hypertension: Code(s): I10 - Essential (primary) hypertension Status: Acute Assessment and Plan: * Chronic, ranges from 130/68 to 156/49 * Continue Amlodipine/Benazepril Time Spent With Patient Time: - Subjective Date/time seen: 02/03/25 07:36 Interval history: 69yo F with a mhx significant for myelodysplasia, hypertension, iron deficiency anemia, Diagnosed with low-grade MDS in 2018. With her last chemotherapy regimen received about 4 weeks ago, had remained stable until the last 1 week when she developed increasing/worsening symptoms of myalgias, malaise, fatigue and increased somnolence. 02/03/2025 Patient sitting comfortably in bed at time of examination. At this time, she denies any chest pain, shortness of breath, n/v, or abdominal pain. Hematology consult is still pending at this time. Hgb found to be 5.4 this am, will transfuse another 2 units of PRBC. Will also transfuse 2 units of Platelets due to Plt count of 4. Another dose of Filgrastim ordered as well. Dr. Garza ordered a bone marrow specimen to be obtained. Patient does appear anxious regarding the workup but otherwise denies any pain at this time. Will order PRN Hydroxyzine Review of Systems Review of Systems: All systems reviewed & are unremarkable except as noted in HPI and below Exam Const: General: comfortable and no acute distress HENMT: Ears: TM's normal bilaterally Face/Nose/Sinus: Normal nares present Eyes: General: appearance normal, both eyes and all related structures Pupils: Equal, round and reactive pupils present Neck: Neck: supple Resp: Effort & Inspection: normal respiratory effort Auscultation: clear to auscultation bilaterally Cardio: Rate: regular rate Rhythm: regular rhythm Skin: Other: Pallor Neuro: General: gait normal Cranial nerves: Yes Equal, round and reactive pupils present Speech: normal speech Motor exam (neuro): 5/5 motor stren gth present throughout Extrem: General: normal to inspection Psych: Mental Status: mental status grossly normal Affect: Anxious affect present Objective Data Vital Signs Vital Signs: Vital Signs - 24 hr 02/02/25 07:53 02/02/25 08:00 02/02/25 10:00 Temperature 98.5 F Pulse Rate 91 87 85 Respiratory Rate 18 Blood Pressure 144/44 H Pulse Oximetry 100 Oxygen Delivery 02/02/25 11:41 02/02/25 12:00 02/02/25 14:00 Temperature 98.3 F Pulse Rate 95 97 94 Respiratory Rate 18 Blood Pressure 160/56 H Pulse Oximetry 98 Oxygen Delivery 02/02/25 15:32 02/02/25 15:49 02/02/25 16:00 Temperature 99.0 F 98.2 F 99.0 F Pulse Rate 96 97 96 Respiratory Rate 16 18 16 Blood Pressure 143/53 H 158/62 H 143/53 H Pulse Oximetry 100 100 100 Oxygen Delivery 02/02/25 16:00 02/02/25 17:59 02/02/25 20:00 Temperature 97.7 F Pulse Rate 91 90 99 Respiratory Rate 16 Blood Pressure 149/46 H Pulse Oximetry 100 Oxygen Delivery 02/02/25 20:00 02/02/25 20:00 02/02/25 22:00 Temperature Pulse Rate 94 94 Respiratory Rate Blood Pressure Pulse Oximetry Oxygen Delivery Room Air 02/02/25 23:57 02/03/25 00:00 02/03/25 00:00 Temperature 98.4 F Pulse Rate 91 92 Respiratory Rate 16 Blood Pressure 148/50 H Pulse Oximetry 100 Oxygen Delivery Room Air 02/03/25 02:00 02/03/25 03:21 02/03/25 03:36 Temperature 99.1 F Pulse Rate 100 107 H Respiratory Rate 16 Blood Pressure 145/44 H Pulse Oximetry 100 Oxygen Delivery Room Air 02/03/25 04:00 02/03/25 06:00 Temperature Pulse Rate 103 H 93 Respiratory Rate Blood Pressure Pulse Oximetry Oxygen Delivery Intake/Output Intake/Output: Intake & Output 01/31/25 02/01/25 02/02/25 02/03/25 23:59 23:59 23:59 23:59 Intake Total 350 4636 780 Output Total 4000 400 Balance 350 636 380 Meds/Results Medications: Active Medications Generic Name Dose Route Start Last Admin Trade Name Freq PRN Reason Stop Dose Admin Acetaminophen 650 mg 02/02/25 01:43 Acetaminophen 325 Mg Tablet PO Q4H PRN Mild Pain (1-3) or Fever Amlodipine Besylate 10 mg 02/03/25 09:00 Amlodipine Besylate 10 Mg Tablet BY MOUTH DAILY [facility] Dextrose 12.5 gm 02/02/25 01:43 Dextrose 50% 25 Gm/50 Ml Syringe IV PUSH PRN PRN Hypoglycemia Protocol Ferrous Sulfate 325 mg 02/03/25 09:00 Ferrous Sulfate [address] BY MOUTH DAILY [facility] Glucagon 1 mg 02/02/25 01:43 Glucagon For Inj 1 Mg Vial IM PRN PRN Hypoglycemia Protocol Glucose 15 gm 02/02/25 01:43 Glucose Oral Gel 15 Gm Of Glucse In 37.5 Gm Tube PO PRN PRN Hypoglycemia Protocol Dextrose 1,000 mls @ 100 mls/hr 02/02/25 01:43 Dextrose 5% 1,000 Ml IVPB PRN PRN Hypoglycemia Protocol Sodium Chloride 250 mls @ 30 mls/hr 02/03/25 07:30 Normal Saline Iv IV CONT 02/03/25 15:49 [id number] STA Lisinopril 20 mg 02/03/25 09:00 Lisinopril 20 Mg Tablet PO QAM JW Melatonin 5 mg 02/02/25 01:43 Melatonin 5 Mg Tablet PO HS PRN Insomnia Prochlorperazine Edisylate 10 mg 02/02/25 01:43 Prochlorperazine Edisylate 10 Mg/2 Ml Vial IV PUSH Q6H PRN Nausea And Vomiting Radiology Results: ITS Impressions Chest X-Ray 02/01/25 18:54 IMPRESSION: No acute cardiopulmonary pathology. Labs Labs: Laboratory Results - last 24 hr 02/01/25 02/02/25 02/02/25 19:35 10:50 15:47 WBC RBC Hgb Hct MCV MCH MCHC RDW Plt Count MPV Immature Gran % (Auto) Neut % (Auto) Lymph % (Auto) [place] % (Auto) Eos % (Auto) Baso % (Auto) Lymph # (Auto) [place] # (Auto) Eos # (Auto) Baso # (Auto) Abs Immat Gran (auto) Absolute Neuts (auto) Absolute Nucleated RBC Band Neutrophils % Nucleated RBC % Platelet Estimate % Immature Plt Fraction Hypochromasia Microcytosis Target Cells Ovalocytes Schistocytes Sodium Potassium Chloride Carbon Dioxide Anion Gap BUN Creatinine Estim Creat Clear Calc Estimated GFR Glucose POC Capillary Glucose 118 H Calcium Total Bilirubin AST ALT Alkaline Phosphatase Total Protein Albumin Urine Color Yellow Urine Appearance Clear Urine pH 6.5 Ur Specific [place] 1.009 Urine Protein Negative Urine Glucose (UA) Negative Urine Ketones Negative Ur Blood (Man) Negative Urine Nitrate Negative Urine Bilirubin Negative Urine Urobilinogen 1.0 Ur Leukocyte Esterase Negative Blood Type O Positive Antibody Screen Negative Crossmatch See Detail 02/03/25 02/03/25 04:42 04:43 WBC 0.7 L* RBC 1.87 L Hgb 5.4 L* Hct 16.4 L* MCV 87.7 MCH 28.9 MCHC 32.9 RDW 15.5 H Plt Count 4 L* MPV TNP Immature Gran % (Auto) 0.0 Neut % (Auto) 7.3 L Lymph % (Auto) 89.9 H [place] % (Auto) 1.4 L Eos % (Auto) 1.4 Baso % (Auto) 0.0 L Lymph # (Auto) 0.62 L [place] # (Auto) 0.0 L Eos # (Auto) 0.0 Baso # (Auto) 0.0 Abs Immat Gran (auto) 0.00 Absolute Neuts (auto) 0.1 L Absolute Nucleated RBC 0.000 Band Neutrophils % Not Reportable Nucleated RBC % 0.0 Platelet Estimate Decreased % Immature Plt Fraction 12.4 H Hypochromasia 1+ Microcytosis 2+ Target Cells 1+ Ovalocytes 1+ Schistocytes None seen Sodium 135 L Potassium 4.0 Chloride 107 Carbon Dioxide 22 Anion Gap 6 BUN 30 H Creatinine 0.80 Estim Creat Clear Calc 51 Estimated GFR > 60 Glucose 109 POC Capillary Glucose Calcium 8.1 L Total Bilirubin 0.6 AST 16 ALT 13 Alkaline Phosphatase 104 Total Protein 6.0 L Albumin 3.0 L Urine Color Urine Appearance Urine pH Ur Specific [place] Urine Protein Urine Glucose (UA) Urine Ketones Ur Blood (Man) Urine Nitrate Urine Bilirubin Urine Urobilinogen Ur Leukocyte Esterase Blood Type Antibody Screen Crossmatch Quality VTE Prophylaxis VTE prophylaxis: mechanical ordered and pharmacologic ordered
--- NOTE | 2025-02-03 08:40 | P.CDI_ITS ---
<Statement entered by Ryan Arreola PA-C - 02/03/25 09:31> This documentation has been reviewed and approved. CDI Query Clarification Request BMI: 21.6 Nutritional Diagnostic Statement: Please refer to the comprehensive nutrition assessment for further information. If you agree with diagnosis of Severe protein calorie malnutrition related to chronic cancer, chemotherapy as evidenced by weight loss 9%/2 months; inadequate intake <75% needs >1 month; moderate fat loss; severe muscle wasting. Please specify severity if known: * Mild * Moderate * Severe * Other/Unknown <Paz Taylor RN - Last Filed: 02/03/25 08:49> Clarified Diagnosis Clarified Diagnosis: Agree with diagnosis of Severe protein calorie malnutrition related to chronic cancer, chemotherapy, will appreciate nutrition recommendations <Ryan Arreola PA-C - Last Filed: 02/03/25 09:31>
[2025-02-03] MEDS: SODIUM CHLORIDE 0.9% IV 250 ML 30 ML IV CONT ×2 (09:50→09:51)
[2025-02-03] MEDS: TUBING, BLOOD PLUM PUMP TUBING 1 EACH XX ×3 (09:51→18:10)
[2025-02-03] MEDS: FILGRASTIM-SNDZ 300 MCG/0.5 ML SYRINGE SUB-Q (09:51)
[2025-02-03] MEDS: lisinopriL 20 MG TABLET PO (09:52)
[2025-02-03] MEDS: FERROUS SULFATE 325 MG TABLET DR BY MOUTH (09:52)
[2025-02-03] MEDS: amLODIPine BESYLATE 10 MG TABLET BY MOUTH (09:52)
--- NOTE | 2025-02-03 11:57 | PC.NURSE ---
On 02/03/25, the student, [Jun Paredes], provided care and completed [facility] documentation on this patient. I have reviewed the student's documentation and agree with the findings.
[2025-02-03] MEDS: ACETAMINOPHEN 325 MG TABLET 650 MG PO ×2 (16:10→21:30)
[2025-02-03 18:03] LABS: Lactate Dehydrogenase 169 U/L (120-246)
[2025-02-03 22:00] LABS: Eosinophils Percent Auto 3.6 % (0-4.4); Hematocrit 23.6 % (37.0-47.0); Hemoglobin 8.1 g/dL (12.0-15.0); Immature Granulocyte Absolute 0.01 K/mm3 (0.00-0.031); Immature Granulocyte Percent A 3.6 % (0-0.5); Lymphocytes Absolute Auto 0.23 K/mm3 (0.9-3.2); Lymphocytes Percent Auto 82.1 % (18.3-44.2); Mean Corpuscular HGB Conc 34.3 g/dl (32-36); Mean Corpuscular Hemoglobin 29.9 pg (26-34); Mean Corpuscular Volume 87.1 fl (80-100); Mean Platelet Volume 9.1 fl (7.4-10.4); Monocytes Percent Auto 3.6 % (2.6-8.5); Neutrophils Percent Auto 7.1 % (45.5-73.1); Platelet Count Result 119 k/mm3 (150-375); Red Blood Count 2.71 M/mm3 (4.2-5.4); Red Cell Distribution Width 13.9 % (11.5-14.5)
[2025-02-03 22:07] LABS: White Blood Count 0.3 K/mm3 (4.5-10.0)
[2025-02-03 22:18] LABS: Anisocytosis 1+; Band Neutrophils Percent 0 % (0-6); Hypochromasia 1+; Platelet Estimate Adequate (Adequate)
[2025-02-03 22:19] LABS: Microcytosis 1+ (NORMAL); Ovalocytes 1+; Schistocytes None Seen
[2025-02-04] VITALS (21 sets, daily range): BP systolic 101–133; BP diastolic 40–81; PULSE 89–113; RESP 16–28; TEMP 36.5–39.4; O2SAT 99–100
[2025-02-04] MEDS: ACETAMINOPHEN 325 MG TABLET 650 MG PO ×3 (03:41→20:48)
[2025-02-04 04:35] LABS: Alanine Aminotransferase 18 U/L (6-35); Albumin Level 3.4 g/dL (3.5-5.1); Alkaline Phosphatase 116 U/L (38-126); Anion Gap 11 mmol/L (4-12); Aspartate Amino Transferase 23 U/L (14-36); Blood Urea Nitrogen 21 mg/dL (7-17); Calcium 8.3 mg/dL (8.4-10.2); Carbon Dioxide 19 mmol/L (22-30); Chloride 106 mmol/L (98-107); Estimated CRCL calculation 49 ml/min; Estimated Glomerular Filt Rate > 60; Glucose 97 mg/dL (65-110); Potassium 3.5 mmol/L (3.4-5.0); Sodium 136 mmol/L (137-145)
--- NOTE | 2025-02-04 08:05 | P.PNIM_ITS ---
Progress Note: A&P Assessment and Plan (1) Symptomatic anemia: Code(s): D64.9 - Anemia, unspecified Status: Acute Assessment and Plan: - Hgb: 3.0 on admission - Received 4 units of blood transfusion - add iron, TIBC, ferritin, B12, folic acid, and TSH - transfuse if <7 - trend H&H - Pending Hematology consult - 02/04 Hgb =8.1 - Received 2 additional Units PRBC yesterday (2) Pancytopenia: Code(s): D61.818 - Other pancytopenia Status: Acute Assessment and Plan: * In ED: RBC 1.04, WBC 0.8, Plt 10 * Monitor CBC daily * Hematology consulted, added bone marrow aspiration/biopsy, platelet antibodies and hemolytic anemia workup * 02/04 WBC 0.3, Plt 119 * Ordered 1 additional unit of Filgrastim (3) MDS (myelodysplastic syndrome), low grade: Code(s): D46.Z - Other myelodysplastic syndromes Status: Acute Assessment and Plan: * Diagnosed in 2018, remained untreated until 2021 * On Luspatercept, recent dose increase, may consider switch to Decitabine if still no improvment in Anemia * Last chemo tx 4 weeks ago (4) Nicotine dependence: Code(s): F17.200 - Nicotine dependence, unspecified, uncomplicated Status: Acute Assessment and Plan: * Cessation counseling (5) Hypertension: Code(s): I10 - Essential (primary) hypertension Status: Acute Assessment and Plan: * Chronic, ranges from 130/68 to 156/49 * Continue Amlodipine/Benazepril Time Spent With Patient Time: Subjective Date/time seen: 02/04/25 08:05 Interval history: 69yo F with a mhx significant for myelodysplasia, hypertension, iron deficiency anemia, Diagnosed with low-grade MDS in 2019. With her last chemotherapy regimen received about 4 weeks ago, had remained stable until the last 1 week when she developed increasing/worsening symptoms of myalgias, malaise, fatigue and increased somnolence. 02/04/2025 Patient sitting comfortably in bed at time of examination. At this time, she denies any chest pain, shortness of breath, n/v, or abdominal pain. Hematology consulted, added on bone marrow biopsy, platelet antibiodies and workup for hemolytic anemia. At this time we will continue to monitor CBC and h/h for possible further transfusion need. Review of Systems Review of Systems: All systems reviewed & are unremarkable except as noted in HPI and below Exam Const: General: comfortable and no acute distress HENMT: Ears: TM's normal bilaterally Face/Nose/Sinus: Normal nares present Eyes: General: appearance normal, both eyes and all related structures Pupils: Equal, round and reactive pupils present Neck: Neck: supple Resp: Effort & Inspection: normal respiratory effort Auscultation: clear to auscultation bilaterally Cardio: Rate: regular rate Rhythm: regular rhythm Skin: Other: Pallor Neuro: General: gait normal Cranial nerves: Yes Equal, round and reactive pupils present Speech: normal speech Motor exam (neuro): 5/5 motor strength present throughout Extrem: General: normal to inspection Psych: Mental Status: mental status grossly normal Affect: Anxious affect present Objective Data Vital Signs Vital Signs: Vital Signs - 24 hr 02/03/25 09:30 02/03/25 09:44 02/03/25 09:59 Temperature 98.9 F 101.6 F H 98.9 F Pulse Rate 112 H 114 H 107 H Respiratory Rate 20 22 H 22 H Blood Pressure 148/41 H 110/53 L 227/52 H Pulse Oximetry 100 100 100 Oxygen Delivery 02/03/25 10:00 02/03/25 10:35 02/03/25 10:37 Temperature 101.0 F H 101 F H Pulse Rate 108 H 108 H 108 H Respiratory Rate 20 20 Blood Pressure 106/65 106/65 Pulse Oximetry 100 100 Oxygen Delivery 02/03/25 10:58 02/03/25 11:58 02/03/25 12:00 Temperature 101.9 F H 99.5 F 98.5 F Pulse Rate 111 H 109 H 112 H Respiratory Rate 20 18 16 Blood Pressure 103/57 L 120/54 L 105/67 Pulse Oximetry 100 100 100 Oxygen Delivery 02/03/25 12:00 02/03/25 12:58 02/03/25 13:31 Temperature 100.5 F H 100.2 F H Pulse Rate 107 H 110 H 111 H Respiratory Rate 20 16 Blood Pressure 135/54 L 122/51 L Pulse Oximetry 100 100 Oxygen Delivery 02/03/25 13:36 02/03/25 13:49 02/03/25 14:00 Temperature 100.2 F H 100.6 F H Pulse Rate 112 H 103 H 105 H Respiratory Rate 16 16 Blood Pressure 122/51 L 130/52 L Pulse Oximetry 100 100 Oxygen Delivery 02/03/25 14:49 02/03/25 15:49 02/03/25 16:00 Temperature 98.3 F 102.1 F H 99.3 F Pulse Rate 108 H 114 H 115 H Respiratory Rate 16 20 20 Blood Pressure 130/59 L 118/54 L 118/54 L Pulse Oximetry 100 100 100 Oxygen Delivery 02/03/25 16:00 02/03/25 16:10 02/03/25 17:12 Temperature 99.3 F 98.8 F Pulse Rate 112 H 116 H 105 H Respiratory Rate 18 20 Blood Pressure 117/57 L 108/58 L Pulse Oximetry 100 100 Oxygen Delivery 02/03/25 17:27 02/03/25 18:00 02/03/25 18:26 Temperature 98.6 F 97.7 F Pulse Rate 97 102 H 99 Respiratory Rate 18 18 Blood Pressure 115/49 L 110/53 L Pulse Oximetry 100 100 Oxygen Delivery 02/03/25 19:46 02/03/25 20:00 02/03/25 20:00 Temperature 98.1 F Pulse Rate 100 102 H Respiratory Rate 16 Blood Pressure 111/84 Pulse Oximetry 100 Oxygen Delivery Room Air 02/03/25 21:26 02/03/25 21:30 02/03/25 22:00 Temperature 102.9 F H 102.9 F H Pulse Rate 122 H 106 H Respiratory Rate Blood Pressure Pulse Oximetry Oxygen Delivery 02/03/25 22:30 02/03/25 23:27 02/03/25 23:53 Temperature 101.9 F H 99.7 F H Pulse Rate 102 H Respiratory Rate 16 Blood Pressure 115/53 L Pulse Oximetry 100 Oxygen Delivery Room Air 02/04/25 00:00 02/04/25 02:00 02/04/25 03:31 Temperature 100.5 F H Pulse Rate 94 98 106 H Respiratory Rate 20 Blood Pressure 112/45 L Pulse Oximetry 100 Oxygen Delivery 02/04/25 03:41 02/04/25 03:53 02/04/25 04:00 Temperature 101.2 F H Pulse Rate 100 Respiratory Rate Blood Pressure Pulse Oximetry Oxygen Delivery Room Air 02/04/25 04:40 02/04/25 05:38 02/04/25 06:00 Temperature 103 F H 100 F H Pulse Rate 92 Respiratory Rate Blood Pressure Pulse Oximetry Oxygen Delivery Intake/Output Intake/Output: Intake & Output 02/01/25 02/02/25 02/03/25 02/04/25 23:59 23:59 23:59 23:59 Intake Total 350 4636 2970 Output Total 4000 3400 1475 Balance 350 427 -050 -[id number] Meds/Results Medications: Active Medications Generic Name Dose Route Start Last Admin Trade Name Freq PRN Reason Stop Dose Admin Acetaminophen 650 mg 02/02/25 01:43 02/04/25 03:41 Acetaminophen 325 Mg Tablet PO 650 mg Q4H PRN Administration Mild Pain (1-3) or Fever Amlodipine Besylate 10 mg 02/03/25 09:00 02/03/25 09:52 Amlodipine Besylate 10 Mg Tablet BY MOUTH 10 mg DAILY JW Administration Dextrose 12.5 gm 02/02/25 01:43 Dextrose 50% 25 Gm/50 Ml Syringe IV PUSH PRN PRN Hypoglycemia Protocol Ferrous Sulfate 325 mg 02/03/25 09:00 02/03/25 09:52 Ferrous Sulfate [address] BY MOUTH 325 mg DAILY WJ Administration Filgrastim-Sndz 300 mcg 02/03/25 09:00 02/03/25 09:51 Filgrastim-Sndz 300 Mcg/0.5 Ml Syringe SUB-Q 300 mcg DAILY JW Administration Glucagon 1 mg 02/02/25 01:43 Glucagon For Inj 1 Mg Vial IM PRN PRN Hypoglycemia Protocol Glucose 15 gm 02/02/25 01:43 Glucose Oral Gel 15 Gm Of Glucse In 37.5 Gm Tube PO PRN PRN Hypoglycemia Protocol Hydroxyzine HCl 25 mg 02/03/25 16:18 Hydroxyzine Hcl 25 Mg Tablet PO Q6H PRN Anxiety Dextrose 1,000 mls @ 100 mls/hr 02/02/25 01:43 Dextrose 5% 1,000 Ml IVPB PRN PRN Hypoglycemia Protocol Lisinopril 20 mg 02/03/25 09:00 02/03/25 09:52 Lisinopril 20 Mg Tablet PO 20 mg QAM JW Administration Melatonin 5 mg 02/02/25 01:43 Melatonin 5 Mg Tablet PO HS PRN Insomnia Neomycin/Polymyxin/Bacitracin 1 applic 02/03/25 08:41 Neomycin/Polymyxin/Bacitracin Ointment 15 Gm Tube TOPICAL PRN PRN with dressing changes Prochlorperazine Edisylate 10 mg 02/02/25 01:43 Prochlorperazine Edisylate 10 Mg/2 Ml Vial IV PUSH Q6H PRN Nausea And Vomiting Radiology Results: ITS Impressions Chest X-Ray 02/01/25 18:54 IMPRESSION: No acute cardiopulmonary pathology. Labs Labs: Laboratory Results - last 24 hr 02/01/25 02/03/25 02/03/25 19:35 17:40 21:54 WBC 0.3 L* RBC 2.71 L Hgb 8.1 L Hct 23.6 L MCV 87.1 MCH 29.9 MCHC 34.3 RDW 13.9 Plt Count 119 L D MPV 9.1 Immature Gran % (Auto) 3.6 H Neut % (Auto) 7.1 L Lymph % (Auto) 82.1 H [place] % (Auto) 3.6 Eos % (Auto) 3.6 Baso % (Auto) 0.0 L Lymph # (Auto) 0.23 L [place] # (Auto) 0.0 L Eos # (Auto) 0.0 Baso # (Auto) 0.0 Abs Immat Gran (auto) 0.01 Absolute Neuts (auto) 0.0 L Absolute Nucleated RBC 0.000 Band Neutrophils % 0 Nucleated RBC % 0.0 Platelet Estimate Adequate Hypochromasia 1+ Anisocytosis 1+ Microcytosis 1+ Ovalocytes 1+ Schistocytes None seen Sodium Potassium Chloride Carbon Dioxide Anion Gap BUN Creatinine Estim Creat Clear Calc Estimated GFR Glucose Calcium Total Bilirubin AST ALT Alkaline Phosphatase Lactate Dehydrogenase 169 Total Protein Albumin Blood Type O Positive Antibody Screen Negative URIEL, IgG Interpret Not Performed URIEL, Poly Interpret Negative URIEL, Complement Interp Negative Crossmatch See Detail 02/04/25 03:51 WBC RBC Hgb Hct MCV MCH MCHC RDW Plt Count MPV Immature Gran % (Auto) Neut % (Auto) Lymph % (Auto) [place] % (Auto) Eos % (Auto) Baso % (Auto) Lymph # (Auto) [place] # (Auto) Eos # (Auto) Baso # (Auto) Abs Immat Gran (auto) Absolute Neuts (auto) Absolute Nucleated RBC Band Neutrophils % Nucleated RBC % Platelet Estimate Hypochromasia Anisocytosis Microcytosis Ovalocytes Schistocytes Sodium 136 L Potassium 3.5 Chloride 106 Carbon Dioxide 19 L Anion Gap 11 BUN 21 H Creatinine 0.82 Estim Creat Clear Calc 49 Estimated GFR > 60 Glucose 97 Calcium 8.3 L Total Bilirubin 1.0 AST 23 ALT 18 Alkaline Phosphatase 116 Lactate Dehydrogenase Total Protein 6.0 L Albumin 3.4 L Blood Type Antibody Screen URIEL, IgG Interpret URIEL, Poly Interpret URIEL, Complement Interp Crossmatch Quality VTE Prophylaxis VTE prophylaxis: mechanical ordered and pharmacologic ordered
[2025-02-04] MEDS: FERROUS SULFATE 325 MG TABLET DR BY MOUTH (08:08)
[2025-02-04] MEDS: lisinopriL 20 MG TABLET PO (08:08)
[2025-02-04] MEDS: amLODIPine BESYLATE 10 MG TABLET BY MOUTH (08:08)
[2025-02-04] MEDS: FILGRASTIM-SNDZ 300 MCG/0.5 ML SYRINGE SUB-Q (08:09)
[2025-02-04] MEDS: CENTRAL LINE FLUSH 10 ML IV PUSH (14:48)
[2025-02-05] VITALS (17 sets, daily range): BP systolic 95–135; BP diastolic 40–54; PULSE 89–107; RESP 16–24; TEMP 36.7–38.9; O2SAT 99–100
[2025-02-05 02:38] LABS: Haptoglobin 125 mg/dL (43-212)
[2025-02-05 05:04] LABS: Alanine Aminotransferase 15 U/L (6-35); Albumin Level 3.1 g/dL (3.5-5.1); Alkaline Phosphatase 140 U/L (38-126); Anion Gap 6 mmol/L (4-12); Aspartate Amino Transferase 17 U/L (14-36); Bilirubin,Total 1.1 mg/dL (0.2-1.3); Blood Urea Nitrogen 11 mg/dL (7-17); Calcium 8.2 mg/dL (8.4-10.2); Carbon Dioxide 21 mmol/L (22-30); Chloride 108 mmol/L (98-107); Estimated CRCL calculation 46 ml/min; Estimated Glomerular Filt Rate > 60; Glucose 110 mg/dL (65-110); Potassium 3.3 mmol/L (3.4-5.0); Sodium 135 mmol/L (137-145)
--- NOTE | 2025-02-05 08:02 | P.PNIM_ITS ---
Progress Note: A&P Assessment and Plan (1) Symptomatic anemia: Code(s): D64.9 - Anemia, unspecified Status: Acute Assessment and Plan: - Hgb: 3.0 on admission - Received 4 units of blood transfusion - add iron, TIBC, ferritin, B12, folic acid, and TSH - transfuse if <7 - trend H&H - Received 2 additional Units PRBC on 02/03 - Hematology following - 02/05 Hgb =7.3 - Bone aspiration and biopsy planned tomorrow (2) Pancytopenia: Code(s): D61.818 - Other pancytopenia Status: Acute Assessment and Plan: * In ED: RBC 1.04, WBC 0.8, Plt 10 * Monitor CBC daily * Hematology consulted, added bone marrow aspiration/biopsy, platelet antibodies and hemolytic anemia workup * 02/05 WBC 0.2, Plt 76 * Hold Filgrastim * Continue to transfuse as necessary if Hgb<7.0 * Bone aspiration and biopsy planned tomorrow (3) Sepsis: Code(s): A41.9 - Sepsis, unspecified organism Status: Acute Assessment and Plan: Meets SIRS criteria: 103 HR, 24 RR, 102.1F - lactic acid: pending - suspected source: unspecified - blood cultures drawn on 02/01 negative, repeat drawn on 02/05 pending - UA: Unremarkable - Urine culture pending - CXR: No acute cardiopulmonary pathology. (4) MDS (myelodysplastic syndrome), low grade: Code(s): D46.Z - Other myelodysplastic syndromes Status: Acute Assessment and Plan: * Diagnosed in 2018, remained untreated until 2021 * On Luspatercept, recent dose increase, may consider switch to Decitabine if still no improvment in Anemia * Last chemo tx 4 weeks ago (5) Neutropenia: Code(s): D70.9 - Neutropenia, unspecified Status: Acute Assessment and Plan: - Upon admission: Absolute Neuts 0.1 - likely related to MDS - 02/05: 0.0 - Will monitor CBC/CMP as well as for fever (6) Nicotine dependence: Code(s): F17.200 - Nicotine dependence, unspecified, uncomplicated Status: Acute Assessment and Plan: * Cessation counseling (7) Hypertension: Code(s): I10 - Essential (primary) hypertension Status: Acute Assessment and Plan: * Chronic, ranges from 130/68 to 156/49 * Continue Amlodipine/Benazepril Time Spent With Patient Time: Subjective Date/time seen: 02/05/25 08:02 Interval history: 69yo F with a mhx significant for myelodysplasia, hypertension, iron deficiency anemia, Diagnosed with low-grade MDS in 2019. With her last chemotherapy regimen received about 4 weeks ago, had remained stable until the last 1 week when she developed increasing/worsening symptoms of myalgias, malaise, fatigue and increased somnolence. 02/05/2025 Patient sitting comfortably in bed at time of examination. At this time, she denies any chest pain, shortness of breath, n/v, or abdominal pain. Hematology following. Ordered repeat blood cultures, chest XR, UA with reflex culture, and started on Zosyn for possible neutropenic fever. Chest XR negative for any acute cardiopulmonary findings. Cultures pending at this time. Plan to continue with bone marrow biopsy tomorrow. Holding Neupogen for now. Review of Systems Review of Systems: All systems reviewed & are unremarkable except as noted in HPI and below Exam Const: General: comfortable and no acute distress HENMT: Ears: TM's normal bilaterally Face/Nose/Sinus: Normal nares present Eyes: General: appearance normal, both eyes and all related structures Pupils: Equal, round and reactive pupils present Neck: Neck: supple Resp: Effort & Inspection: normal respiratory effort Auscultation: clear to auscultation bilaterally Cardio: Rate: regular rate Rhythm: regular rhythm Skin: Other: Pallor Neuro: General: gait normal Cranial nerves: Yes Equal, round and reactive pupils present Speech: normal speech Motor exam (neuro): 5/5 motor strength present throughout Extrem: General: normal to inspection Psych: Mental Status: mental status grossly normal Affect: Anxious affect present Objective Data Vital Signs Vital Signs: Vital Signs - 24 hr 02/04/25 10:00 02/04/25 12:00 02/04/25 12:00 Temperature 100.6 F H Pulse Rate 109 H 113 H 106 H Respiratory Rate 16 Blood Pressure 119/52 L Pulse Oximetry 100 Oxygen Delivery 02/04/25 13:02 02/04/25 14:00 02/04/25 16:00 Temperature 100.3 F H Pulse Rate 103 H 101 H Respiratory Rate Blood Pressure Pulse Oximetry Oxygen Delivery 02/04/25 16:00 02/04/25 17:49 02/04/25 18:00 Temperature 97.7 F 99 F Pulse Rate 106 H 95 Respiratory Rate 16 Blood Pressure 101/81 Pulse Oximetry 100 Oxygen Delivery 02/04/25 18:14 02/04/25 19:50 02/04/25 20:00 Temperature 100.1 F H Pulse Rate 98 Respiratory Rate 20 20 Blood Pressure 115/43 L Pulse Oximetry 99 100 100 Oxygen Delivery Room Air Room Air 02/04/25 20:00 02/04/25 22:00 02/04/25 23:40 Temperature Pulse Rate 104 H 92 Respiratory Rate 20 Blood Pressure Pulse Oximetry 100 Oxygen Delivery Room Air 02/05/25 00:00 02/05/25 00:00 02/05/25 02:00 Temperature 99.5 F Pulse Rate 97 104 H 89 Respiratory Rate 20 Blood Pressure 135/40 L Pulse Oximetry 100 Oxygen Delivery 02/05/25 04:00 02/05/25 04:00 02/05/25 04:00 Temperature 100.7 F H Pulse Rate 107 H 107 H Respiratory Rate 18 16 Blood Pressure 101/44 L Pulse Oximetry 100 100 Oxygen Delivery Room Air 02/05/25 06:00 Temperature Pulse Rate 104 H Respiratory Rate Blood Pressure Pulse Oximetry Oxygen Delivery Intake/Output Intake/Output: Intake & Output 02/02/25 02/03/25 02/04/25 02/05/25 23:59 23:59 23:59 23:59 Intake Total 4636 2970 1270 550 Output Total 4000 3400 2825 1100 Balance 636 -430 -1555 -550 Meds/Results Medications: Active Medications Generic Name Dose Route Start Last Admin Trade Name Freq PRN Reason Stop Dose Admin Acetaminophen 650 mg 02/02/25 01:43 02/04/25 20:48 Acetaminophen 325 Mg Tablet PO 650 mg Q4H PRN Administration Mild Pain (1-3) or Fever Amlodipine Besylate 10 mg 02/03/25 09:00 02/04/25 08:08 Amlodipine Besylate 10 Mg Tablet BY MOUTH 10 mg DAILY JW Administration Dextrose 12.5 gm 02/02/25 01:43 Dextrose 50% 25 Gm/50 Ml Syringe IV PUSH PRN PRN Hypoglycemia Protocol Ferrous Sulfate 325 mg 02/03/25 09:00 02/04/25 08:08 Ferrous Sulfate [address] BY MOUTH 325 mg DAILY JW Administration Filgrastim-Sndz 300 mcg 02/03/25 09:00 02/04/25 08:09 Filgrastim-Sndz 300 Mcg/0.5 Ml Syringe SUB-Q 300 mcg DAILY JW Administration Glucagon 1 mg 02/02/25 01:43 Glucagon For Inj 1 Mg Vial IM PRN PRN Hypoglycemia Protocol Glucose 15 gm 02/02/25 01:43 Glucose Oral Gel 15 Gm Of Glucse In 37.5 Gm Tube PO PRN PRN Hypoglycemia Protocol Heparin Sodium (Beef Lung) 50 units 02/05/25 09:00 Heparin Flush 50 Units/5 Ml Syringe IV PUSH QAM JW Heparin Sodium (Beef Lung) 50 units 02/04/25 09:54 Heparin Flush 50 Units/5 Ml Syringe IV PUSH PRN PRN after intermittent infusion Heparin Sodium (Beef Lung) 50 units 02/04/25 09:54 Heparin Flush 50 Units/5 Ml Syringe IV PUSH PRN PRN after blood draws Heparin Sodium (Porcine) 500 units 02/04/25 09:54 Heparin Sodium Lock Flush 500 Units/5 Ml Syringe IV PUSH PRN PRN see comments below Hydroxyzine HCl 25 mg 02/03/25 16:18 Hydroxyzine Hcl 25 Mg Tablet PO Q6H PRN Anxiety Dextrose 1,000 mls @ 100 mls/hr 02/02/25 01:43 Dextrose 5% 1,000 Ml IVPB PRN PRN Hypoglycemia Protocol Lisinopril 20 mg 02/03/25 09:00 02/04/25 08:08 Lisinopril 20 Mg Tablet PO 20 mg QAM [facility] Administration Melatonin 5 mg 02/02/25 01:43 Melatonin 5 Mg Tablet PO HS PRN Insomnia Neomycin/Polymyxin/Bacitracin 1 applic 02/03/25 08:41 Neomycin/Polymyxin/Bacitracin Ointment 15 Gm Tube TOPICAL PRN PRN with dressing changes Prochlorperazine Edisylate 10 mg 02/02/25 01:43 Prochlorperazine Edisylate 10 Mg/2 Ml Vial IV PUSH Q6H PRN Nausea And Vomiting Sodium Chloride 10 ml 02/04/25 14:00 02/05/25 04:59 Central Line Flush IV PUSH Not Given Q8HR [facility] Radiology Results: ITS Impressions Chest X-Ray 02/01/25 18:54 IMPRESSION: No acute cardiopulmonary pathology. Labs Labs: Laboratory Results - last 24 hr 02/03/25 02/05/25 17:41 04:13 Haptoglobin 125 Sodium 135 L Potassium 3.3 L Chloride 108 H Carbon Dioxide 21 L Anion Gap 6 BUN 11 D Creatinine 0.89 Estim Creat Clear Calc 46 Estimated GFR > 60 Glucose 110 Calcium 8.2 L Total Bilirubin 1.1 AST 17 ALT 15 Alkaline Phosphatase 140 H Total Protein 6.0 L Albumin 3.1 L Quality VTE Prophylaxis VTE prophylaxis: mechanical ordered and pharmacologic ordered
[2025-02-05 08:30] LABS: Eosinophils Percent Auto 4.2 % (0-4.4); Hematocrit 21.6 % (37.0-47.0); Hemoglobin 7.3 g/dL (12.0-15.0); Lymphocytes Absolute Auto 0.21 K/mm3 (0.9-3.2); Lymphocytes Percent Auto 87.5 % (18.3-44.2); Mean Corpuscular HGB Conc 33.8 g/dl (32-36); Mean Corpuscular Hemoglobin 30.2 pg (26-34); Mean Corpuscular Volume 89.3 fl (80-100); Mean Platelet Volume 10.2 fl (7.4-10.4); Monocytes Percent Auto 4.2 % (2.6-8.5); Neutrophils Percent Auto 4.1 % (45.5-73.1); Platelet Count Result 76 k/mm3 (150-375); Red Blood Count 2.42 M/mm3 (4.2-5.4); Red Cell Distribution Width 14.2 % (11.5-14.5)
[2025-02-05 08:35] LABS: White Blood Count 0.2 K/mm3 (4.5-10.0)
[2025-02-05] MEDS: FILGRASTIM-SNDZ 300 MCG/0.5 ML SYRINGE SUB-Q (09:06)
[2025-02-05] MEDS: FERROUS SULFATE 325 MG TABLET DR BY MOUTH (09:06)
[2025-02-05] MEDS: PIPERACILLIN/TAZ 4.5G/NS 100ML 4.5 GM/100 ML BAG IVPB (12:45)
[2025-02-05] MEDS: ACETAMINOPHEN 325 MG TABLET 650 MG PO (12:45)
[2025-02-05 14:19] LABS: MRSA (PCR) NOT DETECTED (NOT DETECTE)
[2025-02-05 16:48] LABS: Add Urine Microscopic? YES; Appearance Urine Clear (Clear); Bacteria Urine None Seen /hpf; Bilirubin Urine Negative (Negative); Blood Urine 2+ (Negative); Color Urine Yellow (Yellow); Glucose Urine UA Negative (Negative); Ketones Urine Negative (Negative); Leukocyte Esterase Ur Negative LEU/UL (Negative); Nitrate Urine Negative (Negative); Non Pathogenic Casts 0-2; Protein Urine 2+ mg/dL (Negative); RBC Urine 0-2 /hpf (0-2); Specific Grav Ur 1.013 (1.001-1.035); Squamous Epithelial Cell Urine Occasional /hpf (Few); WBC Urine 0-5 /hpf (0-3); pH Urine 5.5 (5.0-9.0)
[2025-02-05 16:53] LABS: Lactic Acid Reflex 2.3 mmol/L (0.7-2.0)
[2025-02-05] MEDS: PIPERACILLN/TAZ 3.375GM/NS50ML 3.375 GM/50 ML BAG IVPB (18:35)
[2025-02-05] MEDS: CENTRAL LINE FLUSH 10 ML IV PUSH ×2 (18:35→20:37)
[2025-02-05 18:41] LABS: Reflex Lactic Acid Yes or No Add Lactic
[2025-02-06] VITALS (30 sets, daily range): BP systolic 98–124; BP diastolic 44–71; PULSE 83–116; RESP 14–20; TEMP 36.6–39.4; O2SAT 97–100
[2025-02-06] MEDS: ACETAMINOPHEN 325 MG TABLET 650 MG PO ×3 (00:37→21:19)
[2025-02-06] MEDS: PIPERACILLN/TAZ 3.375GM/NS50ML 3.375 GM/50 ML BAG IVPB ×4 (00:38→17:36)
[2025-02-06 06:06] LABS: Immature Platelet Fraction Pct 1.6 % (0.9-11.2); Mean Corpuscular HGB Conc 32.1 g/dl (32-36); Mean Corpuscular Hemoglobin 29.4 pg (26-34); Mean Corpuscular Volume 91.5 fl (80-100); Mean Platelet Volume 9.8 fl (7.4-10.4); Platelet Count Result 50 k/mm3 (150-375); Red Blood Count 2.01 M/mm3 (4.2-5.4); Red Cell Distribution Width 14.1 % (11.5-14.5)
[2025-02-06] MEDS: CENTRAL LINE FLUSH 10 ML IV PUSH (06:12)
[2025-02-06 06:20] LABS: Alanine Aminotransferase 13 U/L (6-35); Albumin Level 2.9 g/dL (3.5-5.1); Alkaline Phosphatase 133 U/L (38-126); Anion Gap 9 mmol/L (4-12); Aspartate Amino Transferase 13 U/L (14-36); Bilirubin,Total 1.7 mg/dL (0.2-1.3); Blood Urea Nitrogen 11 mg/dL (7-17); Carbon Dioxide 22 mmol/L (22-30); Chloride 106 mmol/L (98-107); Estimated CRCL calculation 38 ml/min; Estimated Glomerular Filt Rate 50; Glucose 112 mg/dL (65-110); Potassium 3.4 mmol/L (3.4-5.0); Sodium 137 mmol/L (137-145)
--- NOTE | 2025-02-06 07:16 | P.PNIM_ITS ---
Progress Note: A&P Assessment and Plan (1) Symptomatic anemia: Code(s): D64.9 - Anemia, unspecified Status: Acute Assessment and Plan: - Hgb: 3.0 on admission - Received 4 units of blood transfusion - add iron, TIBC, ferritin, B12, folic acid, and TSH - transfuse if <7 - trend H&H - Received 2 additional Units PRBC on 02/03 - Hematology following - 02/06 Hgb =5.9 - Required 2 additional units PRBC today - Bone aspiration and biopsy planned today (2) Pancytopenia: Code(s): D61.818 - Other pancytopenia Status: Acute Assessment and Plan: * In ED: RBC 1.04, WBC 0.8, Plt 10 * Monitor CBC daily * Hematology consulted, added bone marrow aspiration/biopsy, platelet antibodies and hemolytic anemia workup * 02/06 WBC 0.3, Plt 50 * Hold Filgrastim * Continue to transfuse as necessary if Hgb<7.0 * Bone aspiration and biopsy planned tomorrow (3) Sepsis: Code(s): A41.9 - Sepsis, unspecified organism Status: Acute Assessment and Plan: Meets SIRS criteria: 103 HR, 24 RR, 102.1F - lactic acid: pending - suspected source: unspecified - blood cultures drawn on 02/01 negative, repeat drawn on 02/05 pending - UA: Unremarkable - Urine culture pending - CXR: No acute cardiopulmonary pathology. - Periodically elevated HR and RR likely partially related to low Hgb, anxiety - Temperature continues to fluctuate between normal and borderline high (4) MDS (myelodysplastic syndrome), low grade: Code(s): D46.Z - Other myelodysplastic syndromes Status: Acute Assessment and Plan: * Diagnosed in 2018, remained untreated until 2021 * On Luspatercept, recent dose increase, may consider switch to Decitabine if still no improvment in Anemia * Last chemo tx 4 weeks ago (5) Neutropenia: Code(s): D70.9 - Neutropenia, unspecified Status: Acute Assessment and Plan: - Upon admission: Absolute Neuts 0.1 - likely related to MDS - 02/05: 0.0 - Will monitor CBC/CMP as well as for fever (6) Nicotine dependence: Code(s): F17.200 - Nicotine dependence, unspecified, uncomplicated Status: Acute Assessment and Plan: * Cessation counseling (7) Hypertension: Code(s): I10 - Essential (primary) hypertension Status: Acute Assessment and Plan: * Chronic, ranges from 130/68 to 156/49 * Continue Amlodipine/Benazepril Subjective Date/time seen: 02/06/25 07:16 Interval history: 69yo F with a mhx significant for myelodysplasia, hypertension, iron deficiency anemia, Diagnosed with low-grade MDS in 2019. With her last chemotherapy regimen received about 4 weeks ago, had remained stable until the last 1 week when she developed increasing/worsening symptoms of myalgias, malaise, fatigue and increased somnolence. 02/06/2025 Patient sitting comfortably in bed at time of examination. At this time, she denies any chest pain, shortness of breath, n/v, or abdominal pain. Hematology following. Plan is to obtain bone marrow aspiration and biopsy. Pt needed 2 additional units PRBC today as Hgb 5.9. Pt does not have any other complaints at this time. Review of Systems Review of Systems: All systems reviewed & are unremarkable except as noted in HPI and below Exam Const: General: comfortable and no acute distress HENMT: Ears: TM's normal bilaterally Face/Nose/Sinus: Normal nares present Eyes: General: appearance normal, both eyes and all related structures Pupils: Equal, round and reactive pupils present Neck: Neck: supple Resp: Effort & Inspection: normal respiratory effort Auscultation: clear to auscultation bilaterally Cardio: Rate: regular rate Rhythm: regular rhythm Skin: Other: Pallor Neuro: General: gait normal Cranial nerves: Yes Equal, round and reactive pupils present Speech: normal speech Motor exam (neuro): 5/5 motor strength present throughout Extrem: General: normal to inspection Psych: Mental Status: mental status grossly normal Affect: Anxious affect present Objective Data Vital Signs Vital Signs: Vital Signs - 24 hr 02/05/25 08:00 02/05/25 08:00 02/05/25 09:03 Temperature 100.4 F H Pulse Rate 104 H 103 H Respiratory Rate 24 H Blood Pressure 95/47 L 101/53 L Pulse Oximetry 100 Oxygen Delivery 02/05/25 09:04 02/05/25 10:00 02/05/25 11:58 Temperature 102.1 F H Pulse Rate 100 100 Respiratory Rate 24 H Blood Pressure 99/48 L 103/40 L Pulse Oximetry 99 Oxygen Delivery 02/05/25 12:00 02/05/25 13:53 02/05/25 16:00 Temperature 98.0 F Pulse Rate 107 H 103 H 92 Respiratory Rate 16 Blood Pressure 112/44 L Pulse Oximetry 100 Oxygen Delivery 02/05/25 16:00 02/05/25 18:00 02/05/25 19:37 Temperature 98.9 F Pulse Rate 98 105 H 102 H Respiratory Rate 16 Blood Pressure 107/54 L Pulse Oximetry 100 Oxygen Delivery 02/05/25 20:30 02/06/25 00:00 02/06/25 00:00 Temperature 102.8 F H Pulse Rate 102 H 83 Respiratory Rate 16 14 Blood Pressure 104/71 Pulse Oximetry 100 97 Oxygen Delivery Room Air 02/06/25 00:35 02/06/25 00:37 02/06/25 01:37 Temperature 102.8 F H 98.5 F Pulse Rate 83 Respiratory Rate 14 Blood Pressure Pulse Oximetry 97 Oxygen Delivery Room Air 02/06/25 03:30 02/06/25 04:00 Temperature 98.6 F Pulse Rate 89 89 Respiratory Rate 14 14 Blood Pressure 103/50 L Pulse Oximetry 100 100 Oxygen Delivery Room Air Intake/Output Intake/Output: Intake & Output 02/03/25 02/04/25 02/05/25 02/06/25 23:59 23:59 23:59 23:59 Intake Total 2970 1270 1790 450 Output Total 3400 2825 2500 300 Balance -430 -1555 -710 150 Meds/Results Medications: Active Medications Generic Name Dose Route Start Last Admin Trade Name Aye PRN Reason Stop Dose Admin Acetaminophen 650 mg 02/02/25 01:43 02/06/25 00:37 Acetaminophen 325 Mg Tablet PO 650 mg Q4H PRN Administration Mild Pain (1-3) or Fever Amlodipine Besylate 10 mg 02/03/25 09:00 02/05/25 09:05 Amlodipine Besylate 10 Mg Tablet BY MOUTH Not Given DAILY [facility] Dextrose 12.5 gm 02/02/25 01:43 Dextrose 50% 25 Gm/50 Ml Syringe IV PUSH PRN PRN Hypoglycemia Protocol Ferrous Sulfate 325 mg 02/03/25 09:00 02/05/25 09:06 Ferrous Sulfate [address] BY MOUTH 325 mg DAILY JW Administration Filgrastim-Sndz 300 mcg 04/11/25 09:00 02/05/25 09:06 Filgrastim-Sndz 300 Mcg/0.5 Ml Syringe SUB-Q 300 mcg DAILY JW Administration Glucagon 1 mg 02/02/25 01:43 Glucagon For Inj 1 Mg Vial IM PRN PRN Hypoglycemia Protocol Glucose 15 gm 02/02/25 01:43 Glucose Oral Gel 15 Gm Of Glucse In 37.5 Gm Tube PO PRN PRN Hypoglycemia Protocol Hydroxyzine HCl 25 mg 02/03/25 16:18 Hydroxyzine Hcl 25 Mg Tablet PO Q6H PRN Anxiety Dextrose 1,000 mls @ 100 mls/hr 02/02/25 01:43 Dextrose 5% 1,000 Ml IVPB PRN PRN Hypoglycemia Protocol Piperacillin/Tazobactam/Dextrose 3.375 gm in 50 mls @ 100 mls/hr 02/05/25 18:20 02/06/25 06:12 Zosyn 3.375 Gm/Ns 50 Ml IVPB 100 mls/hr Q6HR JW Administration Lisinopril 20 mg 02/03/25 09:00 02/05/25 09:05 Lisinopril 20 Mg Tablet PO Not Given QAM JW Melatonin 5 mg 02/02/25 01:43 Melatonin 5 Mg Tablet PO HS PRN Insomnia Neomycin/Polymyxin/Bacitracin 1 applic 02/03/25 08:41 Neomycin/Polymyxin/Bacitracin Ointment 15 Gm Tube TOPICAL PRN PRN with dressing changes Prochlorperazine Edisylate 10 mg 02/02/25 01:43 Prochlorperazine Edisylate 10 Mg/2 Ml Vial IV PUSH Q6H PRN Nausea And Vomiting Sodium Chloride 10 ml 02/04/25 14:00 02/06/25 06:12 Central Line Flush IV PUSH 10 ml Q8HR JW Administration Radiology Results: ITS Impressions Chest X-Ray 02/05/25 13:42 IMPRESSION: No acute cardiopulmonary pathology. Labs Labs: Laboratory Results - last 24 hr 02/05/25 02/05/25 02/05/25 04:13 12:54 16:28 WBC 0.2 L* RBC 2.42 L Hgb 7.3 L Hct 21.6 L MCV 89.3 MCH 30.2 MCHC 33.8 RDW 14.2 Plt Count 76 L MPV 10.2 Immature Gran % (Auto) 0.0 Neut % (Auto) 4.1 L Lymph % (Auto) 87.5 H Parke % (Auto) 4.2 Eos % (Auto) 4.2 Baso % (Auto) 0.0 L Lymph # (Auto) 0.21 L Parke # (Auto) 0.0 L Eos # (Auto) 0.0 Baso # (Auto) 0.0 Abs Immat Gran (auto) 0.00 Absolute Neuts (auto) 0.0 L Absolute Nucleated RBC 0.000 Nucleated RBC % 0.0 % Immature Plt Fraction 1.0 Sodium Potassium Chloride Carbon Dioxide Anion Gap BUN Creatinine Estim Creat Clear Calc Estimated GFR Glucose Lactic Acid 2.3 H Calcium Total Bilirubin AST ALT Alkaline Phosphatase Total Protein Albumin Urine Color Urine Appearance Urine pH Ur Specific [place] Urine Protein Urine Glucose (UA) Urine Ketones Ur Blood (Man) Urine Nitrate Urine Bilirubin Urine Urobilinogen Leukocyte Esterase Rfl Urine RBC Urine WBC Ur Squamous Epith Cells Urine Bacteria Urine Casts Nasal MRSA (PCR) Not detected 02/05/25 02/06/25 16:35 05:54 WBC RBC Hgb Hct MCV MCH MCHC RDW Plt Count MPV Immature Gran % (Auto) Neut % (Auto) Lymph % (Auto) Parke % (Auto) Eos % (Auto) Baso % (Auto) Lymph # (Auto) Parke # (Auto) Eos # (Auto) Baso # (Auto) Abs Immat Gran (auto) Absolute Neuts (auto) Absolute Nucleated RBC Nucleated RBC % % Immature Plt Fraction Sodium 137 Potassium 3.4 Chloride 106 Carbon Dioxide 22 Anion Gap 9 BUN 11 Creatinine 1.08 H Estim Creat Clear Calc 38 Estimated GFR 50 L Glucose 112 H Lactic Acid Calcium 8.0 L Total Bilirubin 1.7 H AST 13 L ALT 13 Alkaline Phosphatase 133 H Total Protein 6.0 L Albumin 2.9 L Urine Color Yellow Urine Appearance Clear Urine pH 5.5 Ur Specific [place] 1.013 Urine Protein 2+ H Urine Glucose (UA) Negative Urine Ketones Negative Ur Blood (Man) 2+ H Urine Nitrate Negative Urine Bilirubin Negative Urine Urobilinogen 4.0 H Leukocyte Esterase Rfl Negative Urine RBC 0-2 Urine WBC 0-5 Ur Squamous Epith Cells Occasional Urine Bacteria None seen Urine Casts 0-2 Nasal MRSA (PCR) Quality VTE Prophylaxis VTE prophylaxis: mechanical ordered and pharmacologic ordered
[2025-02-06 07:48] LABS: Hemoglobin 5.9 g/dL (12.0-15.0); White Blood Count 0.3 K/mm3 (4.5-10.0)
[2025-02-06 07:49] LABS: Hematocrit 18.4 % (37.0-47.0)
[2025-02-06 08:25] LABS: Lymphocytes Absolute Manual 0.27 K/mm3 (1.1-4.5); Monocytes Absolute Manual 0.01 K/mm3 (0.1-0.90); Monocytes Percent Manual 5 % (3-9); Neutrophils Percent Manual 5 % (46-73); Total Cells Counted 100
[2025-02-06 08:26] LABS: Hypochromasia 2+; Microcytosis 1+ (NORMAL); Platelet Estimate Decreased (Adequate); Schistocytes None Seen
[2025-02-06 08:28] LABS: Smudge Cells PRESENT
[2025-02-06 08:29] LABS: Band Neutrophils Percent 0 % (0-6); Neutrophils Absolute Manual 0.01 K/mm3 (1.7-7.2)
[2025-02-06] MEDS: lisinopriL 20 MG TABLET PO (08:32)
[2025-02-06] MEDS: amLODIPine BESYLATE 10 MG TABLET BY MOUTH (08:32)
[2025-02-06] MEDS: FERROUS SULFATE 325 MG TABLET DR BY MOUTH (08:33)
[2025-02-06] MEDS: SODIUM CHLORIDE 0.9% IV 250 ML 30 ML IV CONT (10:19)
[2025-02-06 17:55] LABS: Hemoglobin 9.5 g/dL (12.0-15.0); Immature Platelet Fraction Pct 2.6 % (0.9-11.2); Mean Corpuscular HGB Conc 33.9 g/dl (32-36); Mean Corpuscular Hemoglobin 30.5 pg (26-34); Mean Platelet Volume 10.3 fl (7.4-10.4); Platelet Count Result 40 k/mm3 (150-375); Red Blood Count 3.11 M/mm3 (4.2-5.4); Red Cell Distribution Width 14.1 % (11.5-14.5)
[2025-02-06 18:08] LABS: White Blood Count 0.2 K/mm3 (4.5-10.0)
[2025-02-07] VITALS (16 sets, daily range): BP systolic 102–120; BP diastolic 47–59; PULSE 82–98; RESP 12–22; TEMP 36.8–39.2; O2SAT 99–100
[2025-02-07] MEDS: PIPERACILLN/TAZ 3.375GM/NS50ML 3.375 GM/50 ML BAG IVPB ×3 (01:00→12:45)
[2025-02-07 04:43] LABS: Hematocrit 26.6 % (37.0-47.0); Immature Platelet Fraction Pct 4.3 % (0.9-11.2); Lymphocytes Percent Auto 90.9 % (18.3-44.2); Mean Corpuscular HGB Conc 33.8 g/dl (32-36); Mean Corpuscular Hemoglobin 30.5 pg (26-34); Mean Corpuscular Volume 90.2 fl (80-100); Mean Platelet Volume 10.2 fl (7.4-10.4); Neutrophils Percent Auto 9.1 % (45.5-73.1); Platelet Count Result 40 k/mm3 (150-375); Red Blood Count 2.95 M/mm3 (4.2-5.4); Red Cell Distribution Width 14.1 % (11.5-14.5)
[2025-02-07 04:59] LABS: Alanine Aminotransferase 12 U/L (6-35); Albumin Level 2.9 g/dL (3.5-5.1); Alkaline Phosphatase 132 U/L (38-126); Anion Gap 10 mmol/L (4-12); Aspartate Amino Transferase 13 U/L (14-36); Bilirubin,Total 3.8 mg/dL (0.2-1.3); Blood Urea Nitrogen 11 mg/dL (7-17); Calcium 7.9 mg/dL (8.4-10.2); Carbon Dioxide 20 mmol/L (22-30); Chloride 105 mmol/L (98-107); Estimated CRCL calculation 41 ml/min; Estimated Glomerular Filt Rate 56; Glucose 97 mg/dL (65-110); Potassium 3.4 mmol/L (3.4-5.0); Sodium 135 mmol/L (137-145)
[2025-02-07 05:05] LABS: White Blood Count 0.2 K/mm3 (4.5-10.0)
[2025-02-07 05:07] LABS: Anisocytosis 1+; Burr Cells 1+; Ovalocytes 1+; Platelet Estimate Decreased (Adequate); Schistocytes None Seen
--- NOTE | 2025-02-07 07:58 | P.PNIM_ITS ---
Progress Note: A&P Assessment and Plan (1) Symptomatic anemia: Code(s): D64.9 - Anemia, unspecified Status: Acute Assessment and Plan: - Hgb: 3.0 on admission - Received 4 units of blood transfusion - add iron, TIBC, ferritin, B12, folic acid, and TSH - transfuse if <7 - trend H&H - Received 2 additional Units PRBC on 02/03 - Hematology following - 02/06 Hgb =5.9 - Required 2 additional units PRBC today - Bone aspiration and biopsy planned today (2) Pancytopenia: Code(s): D61.818 - Other pancytopenia Status: Acute Assessment and Plan: * In ED: RBC 1.04, WBC 0.8, Plt 10 * Monitor CBC daily * Hematology consulted, added bone marrow aspiration/biopsy, platelet antibodies and hemolytic anemia workup * 02/06 WBC 0.3, Plt 50 * Hold Filgrastim * Continue to transfuse as necessary if Hgb<7.0 * Bone aspiration and biopsy planned tomorrow (3) Sepsis: Code(s): A41.9 - Sepsis, unspecified organism Status: Acute Assessment and Plan: Meets SIRS criteria: 103 HR, 24 RR, 102.1F - lactic acid: pending - suspected source: unspecified - blood cultures drawn on 02/01 negative, repeat drawn on 02/05 pending - UA: Unremarkable - Urine culture pending - CXR: No acute cardiopulmonary pathology. - Periodically elevated HR and RR likely partially related to low Hgb, anxiety - Temperature continues to fluctuate between normal and borderline high (4) MDS (myelodysplastic syndrome), low grade: Code(s): D46.Z - Other myelodysplastic syndromes Status: Acute Assessment and Plan: * Diagnosed in 2018, remained untreated until 2021 * On Luspatercept, recent dose increase, may consider switch to Decitabine if still no improvment in Anemia * Last chemo tx 4 weeks ago (5) Neutropenia: Code(s): D70.9 - Neutropenia, unspecified Status: Acute Assessment and Plan: - Upon admission: Absolute Neuts 0.1 - likely related to MDS - 02/05: 0.0 - Will monitor CBC/CMP as well as for fever (6) Nicotine dependence: Code(s): F17.200 - Nicotine dependence, unspecified, uncomplicated Status: Acute Assessment and Plan: * Cessation counseling (7) Hypertension: Code(s): I10 - Essential (primary) hypertension Status: Acute Assessment and Plan: * Chronic, ranges from 130/68 to 156/49 * Continue Amlodipine/Benazepril Subjective Date/time seen: 02/07/25 07:58 Interval history: 69yo F with a mhx significant for myelodysplasia, hypertension, iron deficiency anemia, Diagnosed with low-grade MDS in 2019. With her last chemotherapy regimen received about 4 weeks ago, had remained stable until the last 1 week when she developed increasing/worsening symptoms of myalgias, malaise, fatigue and increased somnolence. 02/07/2025 Patient sitting comfortably in bed at time of examination. At this time, she denies any chest pain, shortness of breath, n/v, or abdominal pain. Hematology following. Plan is to obtain bone marrow aspiration and biopsy hopefully today. Review of Systems Review of Systems: All systems reviewed & are unremarkable except as noted in HPI and below Exam Const: General: comfortable and no acute distress HENMT: Ears: TM's normal bilaterally Face/Nose/Sinus: Normal nares present Eyes: General: appearance normal, both eyes and all related structures Pupils: Equal, round and reactive pupils present Neck: Neck: supple Resp: Effort & Inspection: normal respiratory effort Auscultation: clear to auscultation bilaterally Cardio: Rate: regular rate Rhythm: regular rhythm Skin: Other: Pallor Neuro: General: gait normal Cranial nerves: Yes Equal, round and reactive pupils present Speech: normal speech Motor exam (neuro): 5/5 motor strength present throughout Extrem: General: normal to inspection Psych: Mental Status: mental status grossly normal Affect: Anxious affect present Objective Data Vital Signs Vital Signs: Vital Signs - 24 hr 02/06/25 08:00 02/06/25 08:00 02/06/25 10:00 Temperature 99.9 F H Pulse Rate 102 H 103 H 116 H Respiratory Rate 18 Blood Pressure 100/45 L Pulse Oximetry 100 Oxygen Delivery 02/06/25 10:30 02/06/25 10:49 02/06/25 10:50 Temperature 101.5 F H 101.3 F H 101.3 F H Pulse Rate 112 H 110 H 110 H Respiratory Rate 16 16 16 Blood Pressure 103/49 L 99/49 L 99/49 L Pulse Oximetry 98 99 99 Oxygen Delivery 02/06/25 11:10 02/06/25 11:50 02/06/25 11:50 Temperature 101.3 F H 100.8 F H 100.8 F H Pulse Rate 108 H 108 H Respiratory Rate 18 18 Blood Pressure 104/52 L 104/52 L Pulse Oximetry 99 99 Oxygen Delivery 02/06/25 12:00 02/06/25 12:10 02/06/25 12:46 Temperature 100.8 F H 98.9 F Pulse Rate 102 H 97 Respiratory Rate 18 Blood Pressure 98/44 L Pulse Oximetry 100 Oxygen Delivery 02/06/25 13:13 02/06/25 13:36 02/06/25 13:36 Temperature 98.8 F 98.6 F 98.6 F Pulse Rate 92 95 95 Respiratory Rate 16 16 16 Blood Pressure 110/51 L 108/52 L 108/52 L Pulse Oximetry 100 100 100 Oxygen Delivery 02/06/25 14:00 02/06/25 14:36 02/06/25 15:30 Temperature 98.6 F 97.9 F Pulse Rate 94 96 94 Respiratory Rate 16 18 Blood Pressure 118/60 124/51 L Pulse Oximetry 100 100 Oxygen Delivery 02/06/25 16:00 02/06/25 16:00 02/06/25 18:00 Temperature 98.3 F Pulse Rate 101 H 93 96 Respiratory Rate 20 Blood Pressure 122/68 Pulse Oximetry 100 Oxygen Delivery 02/06/25 20:00 02/06/25 20:00 02/06/25 20:00 Temperature 100.3 F H Pulse Rate 112 H 101 H Respiratory Rate 20 Blood Pressure 121/50 L Pulse Oximetry 99 Oxygen Delivery Room Air 02/06/25 21:19 02/06/25 22:00 02/06/25 22:15 Temperature 103 F H 99.8 F H Pulse Rate 104 H Respiratory Rate Blood Pressure Pulse Oximetry Oxygen Delivery 02/06/25 22:17 02/07/25 00:00 02/07/25 00:00 Temperature 99.3 F 98.6 F Pulse Rate 88 Respiratory Rate 20 Blood Pressure 119/54 L Pulse Oximetry 100 Oxygen Delivery Room Air 02/07/25 00:00 02/07/25 02:00 02/07/25 04:00 Temperature 98.5 F Pulse Rate 83 82 85 Respiratory Rate 20 Blood Pressure 116/53 L Pulse Oximetry 100 Oxygen Delivery 02/07/25 04:00 02/07/25 04:00 02/07/25 06:00 Temperature Pulse Rate 88 97 Respiratory Rate Blood Pressure Pulse Oximetry Oxygen Delivery Room Air Intake/Output Intake/Output: Intake & Output 02/04/25 02/05/25 02/06/25 02/07/25 23:59 23:59 23:59 23:59 Intake Total 1270 1790 2140 300 Output Total 2825 2500 1750 300 Balance -1555 -710 390 0 Meds/Results Medications: Active Medications Generic Name Dose Route Start Last Admin Trade Name Freq PRN Reason Stop Dose Admin Acetaminophen 650 mg 02/02/25 01:43 02/06/25 21:19 Acetaminophen 325 Mg Tablet PO 650 mg Q4H PRN Administration Mild Pain (1-3) or Fever Amlodipine Besylate 10 mg 02/03/25 09:00 02/06/25 08:32 Amlodipine Besylate 10 Mg Tablet BY MOUTH 10 mg DAILY JW Administration Dextrose 12.5 gm 02/02/25 01:43 Dextrose 50% 25 Gm/50 Ml Syringe IV PUSH PRN PRN Hypoglycemia Protocol Ferrous Sulfate 325 mg 02/03/25 09:00 02/06/25 08:33 Ferrous Sulfate [address] BY MOUTH 325 mg DAILY JW Administration Filgrastim-Sndz 300 mcg 02/03/25 09:00 02/05/25 09:06 Filgrastim-Sndz 300 Mcg/0.5 Ml Syringe SUB-Q 300 mcg DAILY JW Administration Glucagon 1 mg 02/02/25 01:43 Glucagon For Inj 1 Mg Vial IM PRN PRN Hypoglycemia Protocol Glucose 15 gm 02/02/25 01:43 Glucose Oral Gel 15 Gm Of Glucse In 37.5 Gm Tube PO PRN PRN Hypoglycemia Protocol Hydroxyzine HCl 25 mg 02/03/25 16:18 Hydroxyzine Hcl 25 Mg Tablet PO Q6H PRN Anxiety Dextrose 1,000 mls @ 100 mls/hr 02/02/25 01:43 Dextrose 5% 1,000 Ml IVPB PRN PRN Hypoglycemia Protocol Piperacillin/Tazobactam/Dextrose 3.375 gm in 50 mls @ 100 mls/hr 02/05/25 18:20 02/07/25 06:03 Zosyn 3.375 Gm/Ns 50 Ml IVPB 100 mls/hr Q6HR JW Administration Lisinopril 20 mg 02/03/25 09:00 02/06/25 08:32 Lisinopril 20 Mg Tablet PO 20 mg QAM JW Administration Melatonin 5 mg 02/02/25 01:43 Melatonin 5 Mg Tablet PO HS PRN Insomnia Neomycin/Polymyxin/Bacitracin 1 applic 02/03/25 08:41 Neomycin/Polymyxin/Bacitracin Ointment 15 Gm Tube TOPICAL PRN PRN with dressing changes Prochlorperazine Edisylate 10 mg 02/02/25 01:43 Prochlorperazine Edisylate 10 Mg/2 Ml Vial IV PUSH Q6H PRN Nausea And Vomiting Radiology Results: ITS Impressions Chest X-Ray 02/05/25 13:42 IMPRESSION: No acute cardiopulmonary pathology. Labs Labs: Laboratory Results - last 24 hr 02/06/25 02/06/25 02/06/25 05:54 08:01 17:46 WBC 0.3 L* 0.2 L* RBC 2.01 L 3.11 L Hgb 5.9 L* 9.5 L D Hct 18.4 L* 28.0 L MCV 91.5 90.0 MCH 29.4 30.5 MCHC 32.1 33.9 RDW 14.1 14.1 Plt Count 50 L 40 L MPV 9.8 10.3 Immature Gran % (Auto) Neut % (Auto) Lymph % (Auto) Cass % (Auto) Eos % (Auto) Baso % (Auto) Lymph # (Auto) [place] # (Auto) Eos # (Auto) Baso # (Auto) Abs Immat Gran (auto) Absolute Neuts (auto) Absolute Nucleated RBC Total Counted 100 Neutrophils % (Manual) 5 L Band Neutrophils % 0 Lymphocytes % (Manual) 90.0 H Monocytes % (Manual) 5 Nucleated RBC % Abs Neuts (Manual) 0.01 L Abs Lymphs (Manual) 0.27 L Abs Monocytes (Manual) 0.01 L Smudge Cells Present Platelet Estimate Decreased % Immature Plt Fraction 1.6 2.6 Hypochromasia 2+ Anisocytosis Microcytosis 1+ Ovalocytes Marti Cells Schistocytes None seen Sodium Potassium Chloride Carbon Dioxide Anion Gap BUN Creatinine Estim Creat Clear Calc Estimated GFR Glucose Calcium Total Bilirubin AST ALT Alkaline Phosphatase Total Protein Albumin Blood Type O Positive Antibody Screen Negative Crossmatch See Detail 02/07/25 03:51 WBC 0.2 L* RBC 2.95 L Hgb 9.0 L Hct 26.6 L MCV 90.2 MCH 30.5 MCHC 33.8 RDW 14.1 Plt Count 40 L MPV 10.2 Immature Gran % (Auto) 0.0 Neut % (Auto) 9.1 L Lymph % (Auto) 90.9 H Cass % (Auto) 0.0 L Eos % (Auto) 0.0 Baso % (Auto) 0.0 L Lymph # (Auto) 0.20 L Cass # (Auto) 0.0 L Eos # (Auto) 0.0 Baso # (Auto) 0.0 Abs Immat Gran (auto) 0.00 Absolute Neuts (auto) 0.0 L Absolute Nucleated RBC 0.000 Total Counted Neutrophils % (Manual) Band Neutrophils % Not Reportable Lymphocytes % (Manual) Monocytes % (Manual) Nucleated RBC % 0.0 Abs Neuts (Manual) Abs Lymphs (Manual) Abs Monocytes (Manual) Smudge Cells Platelet Estimate Decreased % Immature Plt Fraction 4.3 Hypochromasia Anisocytosis 1+ Microcytosis Ovalocytes 1+ [place] Cells 1+ Schistocytes None seen Sodium 135 L Potassium 3.4 Chloride 105 Carbon Dioxide 20 L Anion Gap 10 BUN 11 Creatinine 0.99 Estim Creat Clear Calc 41 Estimated GFR 56 L Glucose 97 Calcium 7.9 L Total Bilirubin 3.8 H AST 13 L ALT 12 Alkaline Phosphatase 132 H Total Protein 6.0 L Albumin 2.9 L Blood Type Antibody Screen Crossmatch Quality VTE Prophylaxis VTE prophylaxis: mechanical ordered and pharmacologic ordered
--- NOTE | 2025-02-07 08:11 | P.SEDATION_ITS ---
Moderate Sedation Note-Pt Data Patient Data Diagnosis: myleosyplastic syndrome Present Complaint: pancytopenia Procedure to be performed/Plan: bone marrow biopsy Allergies Allergy/AdvReac Type Severity Reaction Status Date / Time ibuprofen Allergy Mild Itching Verified 01/19/25 13:25 Home Medications ?Medication ?Instructions ?Recorded ?Confirmed ?Type ferrous sulfate 325 mg (65 mg 325 mg PO DAILY 04/23/22 02/01/25 History iron) tablet amlodipine 10 mg-benazepril 20 mg 1 cap PO DAILY 10/15/22 02/01/25 History capsule aspirin 81 mg tablet 81 mg PO DAILY 11/18/23 02/01/25 History Current Medications: Active Medications Acetaminophen (Acetaminophen 325 Mg Tablet) 650 mg PO Q4H PRN PRN Reason: Mild Pain (1-3) or Fever Last Admin: 02/06/25 21:19 Dose: 650 mg Amlodipine Besylate (Amlodipine Besylate 10 Mg Tablet) 10 mg BY MOUTH DAILY [facility] Last Admin: 02/06/25 08:32 Dose: 10 mg Dextrose (Dextrose 50% 25 Gm/50 Ml Syringe) 12.5 gm IV PUSH PRN PRN; Protocol PRN Reason: Hypoglycemia Ferrous Sulfate (Ferrous Sulfate [address]) 325 mg BY MOUTH DAILY [facility] Last Admin: 02/06/25 08:33 Dose: 325 mg Filgrastim-Sndz (Filgrastim-Sndz 300 Mcg/0.5 Ml Syringe) 300 mcg SUB-Q DAILY [facility] Last Admin: 02/05/25 09:06 Dose: 300 mcg Glucagon (Glucagon For Inj 1 Mg Vial) 1 mg IM PRN PRN; Protocol PRN Reason: Hypoglycemia Glucose (Glucose Oral Gel 15 Gm Of Glucse In 37.5 Gm Tube) 15 gm PO PRN PRN; Protocol PRN Reason: Hypoglycemia Hydroxyzine HCl (Hydroxyzine Hcl 25 Mg Tablet) 25 mg PO Q6H PRN PRN Reason: Anxiety Dextrose (Dextrose 5% 1,000 Ml) 1,000 mls @ 100 mls/hr IVPB PRN PRN; Protocol PRN Reason: Hypoglycemia Piperacillin/Tazobactam/Dextrose (Zosyn 3.375 Gm/Ns 50 Ml) 3.375 gm in 50 mls @ 100 mls/hr IVPB Q6HR [facility] Last Admin: 02/07/25 06:03 Dose: 100 mls/hr Lisinopril (Lisinopril 20 Mg Tablet) 20 mg PO QAM [facility] Last Admin: 02/06/25 08:32 Dose: 20 mg Melatonin (Melatonin 5 Mg Tablet) 5 mg PO HS PRN PRN Reason: Insomnia Neomycin/Polymyxin/Bacitracin (Neomycin/Polymyxin/Bacitracin Ointment 15 Gm Tube) 1 applic TOPICAL PRN PRN PRN Reason: with dressing changes Prochlorperazine Edisylate (Prochlorperazine Edisylate 10 Mg/2 Ml Vial) 10 mg IV PUSH Q6H PRN PRN Reason: Nausea And Vomiting Sedation/Anesthesia: No previous sedation/anesthesia problems (including family history). [facility] Past Medical History Medical History MDS (myelodysplastic syndrome) Family History Family History (Updated 02/01/25 @ 23:32 by Amy Echeverria RN) Father Lung cancer Mother Lung cancer Mother No problems noted. Social History Social History Smoking packs per day: 1 Smoking cigarettes per day: 20.0 Years smoked: 46 Smoking pack-years: 46.00 Smoking status: Current every day smoker Tobacco type: cigarettes Alcohol intake: never Substance use: never Substance use type: does not use Do You Feel Safe in your Home?: Yes Lack of Transportation: No Lack of Food: Never True Current Housing: I Have Housing Concerned About Future Housing: No Difficulty Paying Gas/Electric Bills: No Difficulty Paying for Meds: No Currently Unemployed: No Education: High School Diploma/GED Difficulty w/ Childcare or Family Care: No Living arrangements: alone Spiritual care concerns: No Mod Sed Physical Exam Physical Exam Pre Procedural Exam: Normal: Appearance, Throat, Lungs and Heart Rhythm and Variation: Heart Rate (borderline tachycardia) Hours since solid foods: 12 Hours since liquid intake: 12 Mallampati Classification: class III Internal Medicine - PN: Obj Da Vital Signs Vital Signs: Vital Signs - 24 hr 02/06/25 10:00 02/06/25 10:30 02/06/25 10:49 Temperature 101.5 F H 101.3 F H Pulse Rate 116 H 112 H 110 H Respiratory Rate 16 16 Blood Pressure 103/49 L 99/49 L Pulse Oximetry 98 99 Oxygen Delivery 02/06/25 10:50 02/06/25 11:10 02/06/25 11:50 Temperature 101.3 F H 101.3 F H 100.8 F H Pulse Rate 110 H 108 H Respiratory Rate 16 18 Blood Pressure 99/49 L 104/52 L Pulse Oximetry 99 99 Oxygen Delivery 02/06/25 11:50 02/06/25 12:00 02/06/25 12:10 Temperature 100.8 F H 100.8 F H Pulse Rate 108 H 102 H Respiratory Rate 18 Blood Pressure 104/52 L Pulse Oximetry 99 Oxygen Delivery 02/06/25 12:46 02/06/25 13:13 02/06/25 13:36 Temperature 98.9 F 98.8 F 98.6 F Pulse Rate 97 92 95 Respiratory Rate 18 16 16 Blood Pressure 98/44 L 110/51 L 108/52 L Pulse Oximetry 100 100 100 Oxygen Delivery 02/06/25 13:36 02/06/25 14:00 02/06/25 14:36 Temperature 98.6 F 98.6 F Pulse Rate 95 94 96 Respiratory Rate 16 16 Blood Pressure 108/52 L 118/60 Pulse Oximetry 100 100 Oxygen Delivery 02/06/25 15:30 02/06/25 16:00 02/06/25 16:00 Temperature 97.9 F 98.3 F Pulse Rate 94 101 H 93 Respiratory Rate 18 20 Blood Pressure 124/51 L 122/68 Pulse Oximetry 100 100 Oxygen Delivery 02/06/25 18:00 02/06/25 20:00 02/06/25 20:00 Temperature 100.3 F H Pulse Rate 96 112 H Respiratory Rate 20 Blood Pressure 121/50 L Pulse Oximetry 99 Oxygen Delivery Room Air 02/06/25 20:00 02/06/25 21:19 02/06/25 22:00 Temperature 103 F H Pulse Rate 101 H 104 H Respiratory Rate Blood Pressure Pulse Oximetry Oxygen Delivery 02/06/25 22:15 02/06/25 22:17 02/07/25 00:00 Temperature 99.8 F H 99.3 F 98.6 F Pulse Rate 88 Respiratory Rate 20 Blood Pressure 119/54 L Pulse Oximetry 100 Oxygen Delivery 02/07/25 00:00 02/07/25 00:00 02/07/25 02:00 Temperature Pulse Rate 83 82 Respiratory Rate Blood Pressure Pulse Oximetry Oxygen Delivery Room Air 02/07/25 04:00 02/07/25 04:00 02/07/25 04:00 Temperature 98.5 F Pulse Rate 85 88 Respiratory Rate 20 Blood Pressure 116/53 L Pulse Oximetry 100 Oxygen Delivery Room Air 02/07/25 06:00 02/07/25 07:59 Temperature 102.6 F H Pulse Rate 97 96 Respiratory Rate 18 Blood Pressure 111/50 L Pulse Oximetry 100 Oxygen Delivery Intake/Output Intake/Output: Intake & Output 02/04/25 02/05/25 02/06/25 02/07/25 23:59 23:59 23:59 23:59 Intake Total 1270 1790 2140 300 Output Total 2825 2500 1750 300 Balance -1555 -710 390 0 Meds/Results Medications: Active Medications Generic Name Dose Route Start Last Admin Trade Name Freq PRN Reason Stop Dose Admin Acetaminophen 650 mg 02/02/25 01:43 02/06/25 21:19 Acetaminophen 325 Mg Tablet PO 650 mg Q4H PRN Administration Mild Pain (1-3) or Fever Amlodipine Besylate 10 mg 02/03/25 09:00 02/06/25 08:32 Amlodipine Besylate 10 Mg Tablet BY MOUTH 10 mg DAILY JW Administration Dextrose 12.5 gm 02/02/25 01:43 Dextrose 50% 25 Gm/50 Ml Syringe IV PUSH PRN PRN Hypoglycemia Protocol Ferrous Sulfate 325 mg 02/03/25 09:00 02/06/25 08:33 Ferrous Sulfate [address] BY MOUTH 325 mg DAILY JW Administration Filgrastim-Sndz 300 mcg 02/03/25 09:00 02/05/25 09:06 Filgrastim-Sndz 300 Mcg/0.5 Ml Syringe SUB-Q 300 mcg DAILY JW Administration Glucagon 1 mg 02/02/25 01:43 Glucagon For Inj 1 Mg Vial IM PRN PRN Hypoglycemia Protocol Glucose 15 gm 02/02/25 01:43 Glucose Oral Gel 15 Gm Of Glucse In 37.5 Gm Tube PO PRN PRN Hypoglycemia Protocol Hydroxyzine HCl 25 mg 02/03/25 16:18 Hydroxyzine Hcl 25 Mg Tablet PO Q6H PRN Anxiety Dextrose 1,000 mls @ 100 mls/hr 02/02/25 01:43 Dextrose 5% 1,000 Ml IVPB PRN PRN Hypoglycemia Protocol Piperacillin/Tazobactam/Dextrose 3.375 gm in 50 mls @ 100 mls/hr 02/05/25 18:20 02/07/25 06:03 Zosyn 3.375 Gm/Ns 50 Ml IVPB 100 mls/hr Q6HR JW Administration Lisinopril 20 mg 02/03/25 09:00 02/06/25 08:32 Lisinopril 20 Mg Tablet PO 20 mg QAM JW Administration Melatonin 5 mg 02/02/25 01:43 Melatonin 5 Mg Tablet PO HS PRN Insomnia Neomycin/Polymyxin/Bacitracin 1 applic 02/03/25 08:41 Neomycin/Polymyxin/Bacitracin Ointment 15 Gm Tube TOPICAL PRN PRN with dressing changes Prochlorperazine Edisylate 10 mg 02/02/25 01:43 Prochlorperazine Edisylate 10 Mg/2 Ml Vial IV PUSH Q6H PRN Nausea And Vomiting Radiology Results: ITS Impressions Chest X-Ray 02/05/25 13:42 IMPRESSION: No acute cardiopulmonary pathology. Labs 02/07/25 03:51 02/07/25 03:51 Labs: Laboratory Results - last 24 hr 02/06/25 02/06/25 02/06/25 05:54 08:01 17:46 WBC 0.3 L* 0.2 L* RBC 2.01 L 3.11 L Hgb 5.9 L* 9.5 L D Hct 18.4 L* 28.0 L MCV 91.5 90.0 MCH 29.4 30.5 MCHC 32.1 33.9 RDW 14.1 14.1 Plt Count 50 L 40 L MPV 9.8 10.3 Immature Gran % (Auto) Neut % (Auto) Lymph % (Auto) [place] % (Auto) Eos % (Auto) Baso % (Auto) Lymph # (Auto) [place] # (Auto) Eos # (Auto) Baso # (Auto) Abs Immat Gran (auto) Absolute Neuts (auto) Absolute Nucleated RBC Total Counted 100 Neutrophils % (Manual) 5 L Band Neutrophils % 0 Lymphocytes % (Manual) 90.0 H Monocytes % (Manual) 5 Nucleated RBC % Abs Neuts (Manual) 0.01 L Abs Lymphs (Manual) 0.27 L Abs Monocytes (Manual) 0.01 L Smudge Cells Present Platelet Estimate Decreased % Immature Plt Fraction 1.6 2.6 Hypochromasia 2+ Anisocytosis Microcytosis 1+ Ovalocytes [place] Cells Schistocytes None seen Sodium Potassium Chloride Carbon Dioxide Anion Gap BUN Creatinine Estim Creat Clear Calc Estimated GFR Glucose Calcium Total Bilirubin AST ALT Alkaline Phosphatase Total Protein Albumin Blood Type O Positive Antibody Screen Negative Crossmatch See Detail 02/07/25 03:51 WBC 0.2 L* RBC 2.95 L Hgb 9.0 L Hct 26.6 L MCV 90.2 MCH 30.5 MCHC 33.8 RDW 14.1 Plt Count 40 L MPV 10.2 Immature Gran % (Auto) 0.0 Neut % (Auto) 9.1 L Lymph % (Auto) 90.9 H [place] % (Auto) 0.0 L Eos % (Auto) 0.0 Baso % (Auto) 0.0 L Lymph # (Auto) 0.20 L [place] # (Auto) 0.0 L Eos # (Auto) 0.0 Baso # (Auto) 0.0 Abs Immat Gran (auto) 0.00 Absolute Neuts (auto) 0.0 L Absolute Nucleated RBC 0.000 Total Counted Neutrophils % (Manual) Band Neutrophils % Not Reportable Lymphocytes % (Manual) Monocytes % (Manual) Nucleated RBC % 0.0 Abs Neuts (Manual) Abs Lymphs (Manual) Abs Monocytes (Manual) Smudge Cells Platelet Estimate Decreased % Immature Plt Fraction 4.3 Hypochromasia Anisocytosis 1+ Microcytosis Ovalocytes 1+ Marti Cells 1+ Schistocytes None seen Sodium 135 L Potassium 3.4 Chloride 105 Carbon Dioxide 20 L Anion Gap 10 BUN 11 Creatinine 0.99 Estim Creat Clear Calc 41 Estimated GFR 56 L Glucose 97 Calcium 7.9 L Total Bilirubin 3.8 H AST 13 L ALT 12 Alkaline Phosphatase 132 H Total Protein 6.0 L Albumin 2.9 L Blood Type Antibody Screen Crossmatch ASA Classification/Sedation ASA Classification/Sedation ASA Class: III Emergent: No Risks: Risks, benefits and alternatives explained and patient/family accepted plan for sedation. Patient re-evaluated immediately prior to sedation.
[2025-02-07] MEDS: ACETAMINOPHEN 325 MG TABLET 650 MG PO (10:11)
[2025-02-07] MEDS: lisinopriL 20 MG TABLET PO (10:12)
[2025-02-07] MEDS: amLODIPine BESYLATE 10 MG TABLET BY MOUTH (10:12)
[2025-02-07] MEDS: FERROUS SULFATE 325 MG TABLET DR BY MOUTH (10:12)
--- NOTE | 2025-02-07 11:59 | PCNFU ---
Nutrition Follow-Up Complete: Severe protein calorie malnutrition related to chronic cancer, chemotherapy as evidenced by weight loss 9%/2 months; inadequate intake <75% needs >1 month; moderate fat loss; severe muscle wasting Goal:PO intake at least 75% meals and supplements Pt progressing towards goal Pt current nutrition is NPO today for a biopsy. Regular diet, Ensure enlive TID. Nutrition recommendation: continue with current plan of care Last recorded weight is 58 kg. Bowel Motility: +BM 02/04 Labs Reviewed: Hgb:9.0, HCT:26.6, Alb:2.9, Na:135, GFR:56 Meds Noted: Skin:WNL Additional Notes: Pt NPO today for a biopsy, diet resumed to regular, Will restart Ensure Enlive TID per previous orders, Intake 50-100% and improved. Pt to possibly discharge today. Monitoring intakes, weights, labs, supplement tolerance, plan of care Follow up in 5 days
[2025-02-07] MEDS: FILGRASTIM-SNDZ 300 MCG/0.5 ML SYRINGE SUB-Q (13:14)
--- NOTE | 2025-02-07 15:28 | PM.DS ---
DS: Admitting Diagnosis Discharge Date 02/07/2025 Admitting Diagnosis Symptomatic anemia Pancytopenia MDS DS: Discharge Diagnosis Discharge Diagnosis (1) Symptomatic anemia: Code(s): D64.9 - Anemia, unspecified Status: Acute (2) Pancytopenia: Code(s): D61.818 - Other pancytopenia Status: Acute (3) Sepsis: Code(s): A41.9 - Sepsis, unspecified organism Status: Acute (4) MDS (myelodysplastic syndrome), low grade: Code(s): D46.Z - Other myelodysplastic syndromes Status: Acute (5) Neutropenia: Code(s): D70.9 - Neutropenia, unspecified Status: Acute (6) Nicotine dependence: Code(s): F17.200 - Nicotine dependence, unspecified, uncomplicated Status: Acute (7) Hypertension: Code(s): I10 - Essential (primary) hypertension Status: Acute DS: Summary Hospital Course Reason for hospitalization: Fatigue Myalgia Hospital Course: Tanesha Gaviria is a 69yo F with a mhx significant for myelodysplasia, hypertension, iron deficiency anemia. Diagnosed with low-grade MDS in 2018, she remained untreated until 2021 when she was placed on Luspatercept; per EMR, the decision was made recently to increase the dose of Luspatercept and if failure to improve refractory anemia, therapy will be switched to Decitabine; a CVC line was placed on 01/11/25. With her last chemotherapy regimen received about 4 weeks ago, had remained stable until the last 1 week when she developed increasing/worsening symptoms of myalgias, malaise, fatigue and increased somnolence. Her symptoms are aggravated by exertion, alleviated by rest, associated with anorexia, dyspnea on exertion Na restriction number ADLs. Currently on ferrous supplements, she is unable to testify to bloody stools. She however denies hematemesis, bleeding diathesis, fevers, chills, dizziness, LOC, chest pain, bipedal edema.She smokes about 0.5-1 pack per day cigarettes, denies alcohol intake; denies recreational/illicit drug use. Family is positive for neoplastic illness in her father, mother, brother (lung cancer) and sister (ovarian cancer). Work-up findings: VS: Unremarkable WBC 0.8; Hb 3; PLT 10 Na 139; K 4.4; Cl 112; CO2 18; HGB 9; BUN 22; CR 0.91; GFR 45 AST 17; ALT 17; ALP 130; T. Bilirubin 0.2 UA: Unremarkable CXR: Unremarkable Sepsis orders were initiated to rule out sepsis as pt had periodic high temperatures, as well as periodic tachycardia. Blood cultures were negative and repeat CXR was negative. At no point did the pt need O2 supplementation or feel short of breath or have chest pain. Hematology was consulted as she follows with Dr. Garza in the outpt setting for management of her MDS. She was ordered Filgrastim for perpetually low WBC throughout her stay until 2 days before her scheduled bone marrow aspiration and biopsy, which was ordered by Dr. Garza. She underwent the BM biopsy on the morning of 02/07 with no complications and she will follow up with Kayla's office regarding the results of this test. She received multiple units of PRBCs, both while inpatient and in the ED, for low Hgb. She also received 1 unit of Platelet transfustion for Thrombocytopenia. Throughout her stay in the hospital, she never had any symptoms of dizziness, fatigue, chest pain, shortness of breath, nausea, vomiting, headaches, abdominal pain, or urinary complaints. She was able to ambulate independently with no difficulties. She will be able follow up with Hematology regarding anemia studies as well as BM Bx. Pt otherwise stable for discharge at this time. Status at Discharge Functional status at discharge: independent ambulation Overall status at discharge: patient is back to baseline Time Spent with Patient Time attestation: Total time spent providing and/or coordinating discharge services: 45 Exam Narrative: Gen - well appearing female in no acute respiratory distress who is nontoxic-appearing lying semi recumbent in bed HEENT - normocephalic. Atraumatic. Pupils equal round and reactive. Extraocular motions intact. Sclera clear and anicteric. Nares patent. Oropharynx was clear. No oral lesions. Moist mucous membranes. Tongue was midline. Palate gerald symmetrically. No facial asymmetry. Neck - neck was supple. No dominant adenopathy, thyromegaly or masses. 2+ carotid upstrokes without bruits. Chest - lungs are clear to auscultation bilaterally. No wheezes or crackles. Breast exam was deferred. CV - heart was regular rate and rhythm. S1-S2. No murmurs gallops or rubs. Abd - abdomen was soft. Nontender. Nondistended. Positive bowel sounds. No organomegaly or masses. Ext - no clubbing, cyanosis or edema. 2+ DP pulses bilaterally. Neuro - patient is alert and oriented x4. Strength is 5/5 in both upper and lower extremities. Cranial nerves 2-12 are intact. Speech is clear. Psych - normal mood and affect. Patient is pleasant and cooperative. Skin - warm and dry. No rashes noted. Skin: Other: Pallor DS: Data Data Completed and Pending Pending studies at discharge: Pending at discharge 02/03/25 08:41 Bone Marrow [PTH] Routine Labs on day of discharge: Labs from last 24 hours 02/07/25 02/06/25 02/06/25 03:51 17:46 08:01 WBC 0.2 L* 0.2 L* RBC 2.95 L 3.11 L Hgb 9.0 L 9.5 L D Hct 26.6 L 28.0 L MCV 90.2 90.0 MCH 30.5 30.5 MCHC 33.8 33.9 RDW 14.1 14.1 Plt Count 40 L 40 L MPV 10.2 10.3 Immature Gran % (Auto) 0.0 Neut % (Auto) 9.1 L Lymph % (Auto) 90.9 H Todd % (Auto) 0.0 L Eos % (Auto) 0.0 Baso % (Auto) 0.0 L Lymph # (Auto) 0.20 L Todd # (Auto) 0.0 L Eos # (Auto) 0.0 Baso # (Auto) 0.0 Abs Immat Gran (auto) 0.00 Absolute Neuts (auto) 0.0 L Absolute Nucleated RBC 0.000 Band Neutrophils % Not Reportable Nucleated RBC % 0.0 Platelet Estimate Decreased % Immature Plt Fraction 4.3 2.6 Anisocytosis 1+ Ovalocytes 1+ [place] Cells 1+ Schistocytes None seen Sodium 135 L Potassium 3.4 Chloride 105 Carbon Dioxide 20 L Anion Gap 10 BUN 11 Creatinine 0.99 Estim Creat Clear Calc 41 Estimated GFR 56 L Glucose 97 Calcium 7.9 L Total Bilirubin 3.8 H AST 13 L ALT 12 Alkaline Phosphatase 132 H Total Protein 6.0 L Albumin 2.9 L Crossmatch See Detail Preliminary micro results at discharge 02/05/25 13:05 Blood Culture - Preliminary Blood 04/13/25 12:30 Blood Culture - Preliminary Blood Imaging Radiologist's impression: XR chest 1V portable 02/05/25 IMPRESSION: No acute cardiopulmonary pathology. XR chest 1V portable 02/01/25 IMPRESSION: No acute cardiopulmonary pathology. Discharge Plan Discharge Attending physician on discharge: Ryan Arreola Consulting providers: Perry Garza Discharging Clinician: Ryan Arreola Anticipated Discharge Date/Time: 02/07/25 15:18 Patient Disposition: Home Activity: as tolerated Diet: as tolerated Discharge Instructions: Discharge disposition: Stable Take medications as prescribed. You will be prescribed Cefpodoxime. Monitor blood pressures Take caution while standing, rising, or moving Change positions slowly taking a break between each position change If you standing feel dizzy sit back down and take a break Encouraged to continue with yearly vaccinations Return to the emergency department if he developed sudden shortness of breath, chest pain, nausea, vomiting, upset stomach or intractable diarrhea Return to the emergency department if you develop fever greater than 101.5 Follow-up with the primary care physician within 1-2 weeks Make an appointment with Dr. Garza's office as soon as possible as well. Thank you for choosing [facility] for your healthcare needs Patient Instructions: Antibiotic Form Patient Language: Irish Stand Alone Forms: General Discharge Information Follow-up/Referrals: Perry Gar[facility] MD [Physician[facility] [Primary Care Provider[facility] - Discharge Medications: New cefpodoxime 200 mg tablet 200 mg PO BID 5 Days Qty: 10 0RF Rx Instructions: must administer with a meal/food Continued ferrous sulfate 325 mg (65 mg iron) Tablet 325 mg PO DAILY Patient Comments: . amlodipine-benazepril 10-20 mg Capsule 1 cap PO DAILY Patient Comments: . aspirin 81 mg Tablet 81 mg PO DAILY Patient Comments: . Date of admission: 02/01/25 22:11 Primary Care Provider: Sharonda,Winifred Admitting Provider: Sandeep Atkinson Attending physician on admission: Ryan Arreola Condition: Stable Quality VTE Prophylaxis VTE prophylaxis: mechanical ordered and pharmacologic ordered
== END 2025-02-07 18:02 | disposition home or self-care (01) | DRG 811 ==
LOC: ANHED 22:14 → ANHIMU 22:45
PROVIDERS: Radiology Diagnostic Radiology; Student in an Organized Health Care Education/Training Program; Admitting Provider Internal Medicine; Emergency Provider Emergency Medicine; PCP Internal Medicine; Referring Provider Internal Medicine Hematology & Oncology; Visit Provider Physician Assistant
PROC: 079T3ZX Drainage of Bone Marrow, Percutaneous Approach, Diagnostic (ICD-10-PCS; principal; 2025-02-07 08:00)
DX: D46.9 Myelodysplastic syndrome, unspecified (principal); E43 Unspecified severe protein-calorie malnutrition; D61.818 Other pancytopenia; I10 Essential (primary) hypertension; F17.210 Nicotine dependence, cigarettes, uncomplicated; Z20.822 Contact with and (suspected) exposure to COVID-19; Z79.82 Long term (current) use of aspirin; Z68.21 Body mass index [BMI] 21.0-21.9, adult
CPT/HCPCS: 36415; 36430; 38222; 71045; 80048; 80053; 81001; 81003; 82607; 82746; 82948; 83010; 83036; 83540; 83550; 83605; 83615; 83735; 84100; 85025; 85027; 85055; 86023; 86850; 86880; 86900; 86901; 86923; 87040; 87086; 87637; 87641; 88305; 88311; 88313; 93005; 96360; 99285; A9270; J2250; J2543; J3010; J7050; P9016; P9017; P9034; Q5101

== ENCOUNTER 2025-03-10 08:49 | Outpatient (RCR) | payer MEDICARE, MEDICAID, SELFPAY ==
[2025-03-10 10:55] VITALS: TEMP 36.4
[2025-03-10] MEDS: SODIUM CHLORIDE 0.9% IV 250 ML 30 ML IV CONT (10:55)
[2025-03-10] MEDS: diphenhydrAMINE HCl CAP 25 MG CAPSULE PO (10:55)
[2025-03-10] MEDS: ACETAMINOPHEN 325 MG TABLET 650 MG PO (10:55)
[2025-03-10 11:15] VITALS: BP 135/56; PULSE 85; RESP 14; TEMP 36.4; O2SAT 100
[2025-03-10 11:30] VITALS: BP 125/57; PULSE 87; RESP 15; TEMP 36.4; O2SAT 100
[2025-03-10 12:30] VITALS: BP 130/53; PULSE 87; RESP 14; TEMP 36.3; O2SAT 100
[2025-03-10 13:30] VITALS: BP 128/55; PULSE 93; RESP 15; TEMP 36.7; O2SAT 100
[2025-03-10 14:13] VITALS: BP 127/56; PULSE 93; RESP 16; TEMP 36.4; O2SAT 100
== END 2025-04-14 07:14 | disposition home or self-care (01) ==
LOC: ANHCPCTRAN 08:49
PROVIDERS: PCP Internal Medicine; Visit Provider Internal Medicine Hematology & Oncology
DX: D46.9 Myelodysplastic syndrome, unspecified (principal)
CPT/HCPCS: 36415; 36430; 86850; 86900; 86901; 86923; A9270; J7050; P9016

== ENCOUNTER 2025-04-14 07:46 | Outpatient (RCR) | payer MEDICARE, MEDICAID, SELFPAY ==
[2025-04-14] VITALS (10 sets, daily range): BP systolic 118–157; BP diastolic 45–67; PULSE 89–111; RESP 14–17; TEMP 35.7–37.3; O2SAT 98–100
[2025-04-14 08:30] LABS: Hematocrit 18.0 % (37.0-47.0); Hemoglobin 5.7 g/dL (12.0-15.0)
[2025-04-14] MEDS: ACETAMINOPHEN 325 MG TABLET 650 MG PO (09:19)
[2025-04-14] MEDS: diphenhydrAMINE HCl CAP 25 MG CAPSULE PO (09:22)
[2025-04-14] MEDS: SODIUM CHLORIDE 0.9% IV 250 ML 30 ML IV CONT (09:48)
[2025-04-14] MEDS: HEPARIN SODIUM LOCK FLUSH 500 UNITS/5 ML SYRINGE (14:07)
== END 2025-07-03 10:29 | disposition home or self-care (01) ==
LOC: ANHCPCTRAN 07:46
PROVIDERS: PCP Internal Medicine; Visit Provider Internal Medicine Hematology & Oncology
DX: D46.9 Myelodysplastic syndrome, unspecified (principal)
CPT/HCPCS: 36415; 36430; 85014; 85018; 86850; 86900; 86901; 86923; A9270; J7050; P9016

== ENCOUNTER 2025-05-29 06:57 | Outpatient (RCR) | payer MEDICARE, MEDICAID, SELFPAY ==
[2025-05-29] VITALS (8 sets, daily range): BP systolic 131–142; BP diastolic 51–67; PULSE 79–95; RESP 14–19; TEMP 36.4–37.1; O2SAT 99–100
[2025-05-29 08:06] LABS: Hemoglobin 5.3 g/dL (12.0-15.0)
[2025-05-29 08:07] LABS: Hematocrit 16.9 % (37.0-47.0)
[2025-05-29] MEDS: ACETAMINOPHEN 325 MG TABLET 650 MG PO (08:21)
[2025-05-29] MEDS: diphenhydrAMINE HCl CAP 25 MG CAPSULE PO (08:22)
[2025-05-29] MEDS: SODIUM CHLORIDE 0.9% IV 250 ML 30 ML IV CONT (08:23)
[2025-05-29] MEDS: FUROSEMIDE INJ 40 MG/4 ML VIAL 20 MG IV PUSH (10:54)
== END 2025-07-03 10:29 | disposition home or self-care (01) ==
LOC: ANHCPCTRAN 06:57
PROVIDERS: PCP Internal Medicine; Visit Provider Internal Medicine Hematology & Oncology
DX: D46.9 Myelodysplastic syndrome, unspecified (principal)
CPT/HCPCS: 36415; 36430; 85014; 85018; 96374; A9270; J1938; J7050; P9016

== ENCOUNTER 2025-06-28 22:21 | Inpatient (IN) | payer MEDICARE, MEDICAID, SELFPAY ==
--- NOTE | ~2025-06-28 | XR_ITS ---
EXAM/PROCEDURE: XR chest 2V - 06/28/2025 23:00 CDT HISTORY: 69 years old Female with cp TECHNIQUE: Two view(s) of the chest. COMPARISON: None available. FINDINGS: LUNGS/ PLEURA: No focal consolidation. No appreciable pneumothorax or large pleural effusion. HEART/ MEDIASTINUM: Heart appears normal in size. BONES: Degenerative changes. OTHER: Visualized upper abdomen is unremarkable. Tip of the Mediport catheter is in the mid SVC. IMPRESSION: No acute process. Reviewed, dictated and finalized at location N. IMPRESSION: No acute process.
--- NOTE | ~2025-06-28 | XR_ITS ---
EXAM/PROCEDURE: XR chest 1V portable - 06/28/2025 23:55 CDT HISTORY: 69 years old Female with chest pain TECHNIQUE: Two view(s) of the chest. COMPARISON: None available. FINDINGS: LUNGS/ PLEURA: No focal consolidation. No appreciable pneumothorax or large pleural effusion. HEART/ MEDIASTINUM: Heart appears normal in size. BONES: No acute osseous abnormality. OTHER: Visualized upper abdomen is unremarkable. Tip of the Mediport catheter is in proximal SVC. IMPRESSION: No acute process. Reviewed, dictated and finalized at location N. IMPRESSION: No acute process.
[2025-06-28 22:32] VITALS: BP 118/63; PULSE 94; RESP 18; O2SAT 100
--- NOTE | 2025-06-28 22:36 | ECG_ITS ---
Test Date: 2025-06-28 22:46:23 Measurements Intervals [place] Rate: 92 P: 65 [place]: 174 QRS: 55 QRSD: 86 T: 51 QT: 358 QTc: 444 Interpretive Statements SINUS RHYTHM POSSIBLE LEFT ATRIAL ENLARGEMENT [-0.1mV P-WAVE IN V1/V2] Compared to ECG 02/01/2025 18:33:52 No significant changes Electronically Signed On 06-29-2025 11:34:21 CDT by Drew Meyer M.D.
[2025-06-28 22:45] VITALS: BP 113/60; PULSE 89; RESP 18; O2SAT 99
[2025-06-28 22:57] LABS: Immature Platelet Fraction Pct 12.6 % (0.9-11.2); Mean Corpuscular HGB Conc 31.6 g/dl (32-36); Mean Corpuscular Hemoglobin 29.1 pg (26-34); Mean Corpuscular Volume 91.9 fl (80-100); Platelet Count Result 32 k/mm3 (150-375); Red Blood Count 1.48 M/mm3 (4.2-5.4); White Blood Count 3.6 K/mm3 (4.5-10.0)
[2025-06-28 23:09] LABS: Alanine Aminotransferase 12 U/L (6-35); Albumin Level 3.8 g/dL (3.5-5.1); Alkaline Phosphatase 73 U/L (38-126); Anion Gap 7 mmol/L (4-12); Aspartate Amino Transferase 21 U/L (14-36); Bilirubin,Total 0.5 mg/dL (0.2-1.3); Blood Urea Nitrogen 18 mg/dL (7-17); Calcium 9.4 mg/dL (8.4-10.2); Carbon Dioxide 19 mmol/L (22-30); Chloride 108 mmol/L (98-107); Estimated CRCL calculation 47 ml/min; Estimated Glomerular Filt Rate > 60; Glucose 96 mg/dL (65-110); Lipase 97 U/L (23-300); Potassium 4.3 mmol/L (3.4-5.0); Sodium 134 mmol/L (137-145); Total Protein 7.0 g/dL (6.3-8.2)
[2025-06-28 23:11] LABS: INR 1.0; Prothrombin Time 13.4 Seconds (11.1-14.7)
[2025-06-28 23:12] LABS: Partial Thromboplastin Time 25.9 Seconds (22.3-36.8)
[2025-06-28 23:20] LABS: Troponin I < 0.012 ng/mL (0.000-0.034)
[2025-06-28 23:25] LABS: Hemoglobin 4.3 g/dL (12.0-15.0)
[2025-06-28 23:26] LABS: Hematocrit 13.6 % (37.0-47.0); Total Cells Counted 100
[2025-06-28 23:28] LABS: Band Neutrophils Percent 12 % (0-6); Eosinophils Absolute Manual 0.28 K/mm3 (0.02-0.50); Eosinophils Percent Manual 8 % (0-4); Lymphocytes Absolute Manual 0.90 K/mm3 (1.1-4.5); Lymphocytes Percent Manual 25 % (18-44); Monocytes Absolute Manual 0.03 K/mm3 (0.1-0.90); Monocytes Percent Manual 1 % (3-9); Neutrophils Absolute Manual 2.37 K/mm3 (1.3-6.7); Neutrophils Percent Manual 54 % (46-73)
[2025-06-28 23:29] LABS: Anisocytosis 1+; Hypochromasia 1+; Ovalocytes 1+; Schistocytes None Seen
[2025-06-28 23:30] VITALS: BP 118/63; PULSE 91; RESP 18; O2SAT 100
--- OUTSIDE RECORDS SUMMARY | 2025-06-28 23:31 | XMS_ITS | Encounter Summary ---
Author Organization [facility] Address [address] [place] [address] Care Team Providers Care Faucets Assembler Name Role Phone Florecita Abdi MD Unavailable Winifred Mcdonough MD Primary Care Provider Encounter Details Date Type Department Care Team (Late st Contact Info) Description 02/07/2025 Lab Requisition [facility] - Pathology Lab [address] [place] [phone] Jeremy Peterson MD [address] [place] [id number] Myelodysplastic syndrome, unspecified (HCC); Other decreased white blood cell count; Anemia, unspecified Social History Tobacco Use Types Packs/Day Years Used Date Smoking Tobacco: Every Day Cigarettes 0.5 20 Alcohol Use Standard Drinks/Week Comments No 0 (1 standard drink = 0.6 oz pur e alcohol) Comments Unknown Sex and Gender Information Value Date Recorded Sex Assigned at Not on file Legal 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 Gender Identity Not on file Sexual Orientation Not on file documented as of this encounter Plan of Treatment Not on file documented as of this encounter Procedures Procedure Name Priority Date/Time Associated Diagnosis Comments FLOW CYTOMETRY BONE MARROW Routine 02/07/2025 8:49 AM CDT Myelodysplastic syndrome, unspecified (HCC) Other decreased white blood cell count Anemia, unspecified documented in this encounter Results * FLOW CYTOMETRY BONE MARROW (02/07/2025 8:49 AM CDT) Case Report Flow Cytometry Case: [id number] Authorizing Provider: Kristen Jeremy Collected: 02/07/2025 08:49 AM MD Savage Ordering Location: [facility] - Received: 02/07/2025 01:14 PM Pathology Lab Pathologist: Bonnie Bailey MD Specimen: Bone Marrow 02/07/2025 4:40 PM CDT [facility] Final Diagnosis Bone marrow, flow cytometric immunophenotyping: - 19% [id number] blasts (favor myeloblasts) in a markedly paucicellular specimen, see comment - No diagnostic immunophenotypic evidence of monoclonal B-cells or plasma cell neoplasm Comment: [id number] blasts are increased (19%) which are favored to represent myeloblasts. However, myeloid specific antigen expression (myeloperoxidase) is not identified. The presence of CD33, CD13, and CD117 expression is typical of myeloblasts, and the absence of lymphoid antigen expression further favors myeloblasts. 19% blasts are identified by flow cytometry; however, this number may not be reflective of the actual bone marrow cellularity as the bone marrow aspirate specimen is markedly paucicellular and hemodilute. Correlation with histologic review of the bone marrow is required. 02/07/2025 4:40 PM T [facility] at 1640 CDT Flow Cytometry Interpretation Viability: 86% B-cells: 7% of total, polytypic, kappa:lambda ratio 3.2:1, no significant CD5 or CD10 coexpression T-cells: no significant immunophenotypic aberrancy detected between CD2, CD5, and CD7, full immunophenotype not explored given the patient's diagnosis Blasts: detected, 19%, express CD34, CD33, dim CD13, CD117 without significant myeloperoxidase, TdT, or other lymphoid antigen expression. Plasma cells: no significant population detected MRD sent: No A bone marrow aspirate smear prepared from the flow cytometry specimen has been reviewed for quality systems engineer purposes. Please correlate with morphologic review of the bone marrow. 02/07/2025 4:40 PM [facility] Flow Cytometry Results Differential Result Comment Flow Cell Count /uL 840 Total Viability % 86.0 Lymphocytes % 63 Dim CD45 Region % 27 Monocytes % 3 Granulocytes % 6 02/07/2025 4:40 PM [facility] Reason for test Myelodysplastic syndrome, unspecified (HCC) 238.75 Other decreased white blood cell count 288.59 Anemia, unspecified 285.9 02/07/2025 4:40 PM T [facility] Client Specimen ID # [id number] 02/07/2025 4:40 PM [facility] Number of markers 24 were performed. A-2 Flow CD10 A-3 Flow CD13 A-5 Flow CD20 A-11 Flow CD2 A-13 Flow CD14 A-16 Flow CD117 A-17 Flow CD11b A-18 Flow CD11c A-1 Flow CD5 A-4 Flow CD19 A-6 Flow CD33 A-7 Flow CD34 A-8 Flow CD45 A-12 Flow CD7 A-14 Flow CD56 A-15 Flow CD64 A-23 cyCD22 A-24 yrOZ63l A-9 [place]+CD19+ A-10 Lambda+CD19+ A-19 Flow HLA-DR A-20 Flow MPO A-21 Flow TdT A-22 cyCD3 02/07/2025 4:40 PM T [facility] Pathologist Location at [facility] 02/07/2025 4:40 PM T [facility] Disclaimer Test performed at [facility], [address] [place] [address], [id number]. *The established laboratory minimum viability is 70%. Values below the minimum may result in the failure to find an abnormal population of cells. This test was developed and its performance characteristics determined by the Flow Cytometry Laboratory. It has not been cleared by the [place] Food and Drug Administration (FDA). The FDA has determined that such clearance or approval is not necessary. This test is used for clinical purposes. It should not be regarded as investigational or for research. This laboratory is regulated under the Clinical Laboratory Improvement Amendments of 1998 (CLIA) as a qualified to perform high complexity clinical testing. 02/07/2025 4:40 PM T [facility] Embedded Images 4:40 PM [facility] Pathology/Cytolo gy BONE MARROW SPECIMEN / Unknown 02/07/2025 8:49 AM CDT 02/07/2025 1:14 PM CDT Jeremy Peterson MD LAB - PATHOLOGY/CYT OLOGY ORDERABLES Final Result [facility] [address] [place] [address], [facility] [phone] documented in this encounter Visit Diagnoses Diagnosis Myelodysplastic syndrome, unspecified (HCC) Myelodysplastic syndrome, unspecified Other decreased white blood cell count Anemia, unspecified documented in this encounter Care Teams Faucets Assembler Relationship Specialty Start Date End Date Winifred Mcdonough MD [address] [facility] [address] [phone] PCP - General Internal Medicine 02/23/25 Florecita Abdi MD [address] [place] [address] Straw Boss/Oncologist Hematology and Oncology 02/14/25 05/08/25 documented as of this encounter
--- OUTSIDE RECORDS SUMMARY | 2025-06-28 23:31 | XMS_ITS | Clinical Summary ---
Author Organization [facility] Scott Robledo Address [address] [place] [address] Care Team Providers Care Escrow Closer Name Role Phone Winifred Mcdonough MD Primary [...] needed for Pain. 60 Tablet 4 Active lidocaine-prilo tye (EMLA) 2.5-2.5 % CreamIndication s:Myelodysplast ic syndrome (CMS/HCC) Apply a quarter size amount to port site 30 minutes before access. 30 Gram 1 5 Active ondansetron (ZOFRAN ODT) 8 mg Tablet, Rapid Dissolve Dissolve 1 tablet on top of tongue then swallow with saliva every 8 hours as needed for nausea or vomiting 30 Tablet 1 5 Active cefpodoxime (VANTIN) 200 mg Tablet Take 200 mg by mouth every 12 hours. 5 Active decitabine-ceda zuridine 35-100 mg Tablet Take 1 tablet by mouth daily for 5 days each 28 day cycle. 5 Tablet 5 06/05/2025 12:57 PM CDT 5 07/03/20 Active megestroL (MEGACE) 400 mg/10 mL (40 mg/mL) suspension Take 10 mL (400 mg) by mouth daily. 240 mL 1 Active ondansetron (ZOFRAN) 8 mg Tablet Take 1 Tablet (8 mg) by mouth every 8 hours as needed for Nausea/Emesis. 30 Tablet 1 Active Active Problems Problem Noted Date Diagnosed Date Peripheral neuropathy 08/26/2023 Mesenteric mass 03/14/2022 Myelodysplastic syndrome 03/14/2022 Encounters Date Type Department Care Team Description 06/26/2025 Orders Only [facility] Oncology and Hematology - [place] [address] [place] [address] Perry Garza MD Myelodysplastic syndrome ([facility]/HCC) 06/20/2025 Orders Only [facility] Oncology and Hematology - [place] [address] [place] [address] Perry Garza MD 06/19/2025 9:45 AM CDT Office Visit [facility] Oncology and Hematology - [place] [address] [place] [address] Perry Garza MD Myelodysplastic syndrome ([facility]/HCC) 06/12/2025 Orders Only [facility] Oncology and Hematology - [place] [address] [place] [address] Perry Garza MD Myelodysplastic syndrome ([facility]/HCC) 06/05/2025 Orders Only [facility] Oncology and Hematology - [place] [address] [place] [address] Perry Garza MD Myelodysplastic syndrome ([facility]/HCC) 06/01/[address] [facility] [address] [place] [phone] Mirna Raman, PHARMACIST Specialty Pharmacy Refill Coordination 06/01/[address] [facility] [address] [place] [address] [place] [address] Mirna Raman, PHARMACIST Specialty Pharmacy Clinical Assessment 06/01/[address] [facility] [address] [place] [address] [place] [address] Mirna Raman, PHARMACIST Specialty Pharmacy Prior Auth Coordination 06/01/2025 Telephone [facility] Oncology [facility] Hematology - [place] [address] [place] [phone] Perry Garza MD Medication Questions 05/31/2025 External Device Data STL ABSTRACTION Provider, Abstract 05/30/2025 External Device Data [facility]L ABSTRACTION Provider, Abstract 05/30/2025 Orders Only [facility] Oncology and Hematology - [place] [address] [place] [phone] Perry Garza MD 05/29/2025 Telephone [facility] Oncology and Hematology - [place] [address] [place] [phone] Perry Garza MD Pain Concerns 05/29/2025 [facility] Oncology and Hematology - [place] [address] [place] [phone] Perry Garza MD Myelodysplastic syndrome (CMS/HCC) 05/26/2025 Abstract [facility] Oncology and Hematology - [place] [address] [place] [address] Perry Garza MD 05/26/2025 Abstract [facility] Oncology and Hematology - [place] [address] [place] [address] Perry Garza MD 05/22/2025 Orders [facility] Oncology and Hematology - [place] [address] [place] [address] Perry Garza MD Myelodysplastic syndrome (CMS/HCC) 05/15/2025 Orders Only [facility] Oncology [facility]ematology - [place] [address] [place] [address] Perry Garza MD Myelodysplastic syndrome (CMS/HCC) 05/11/2025 4:30 PM CDT Telephone Check Up [facility] Oncology and Hematology - [place] [address] [place] [phone] Perry Garza MD Myelodysplastic syndrome ([facility]/HCC) (Primary Dx); Eosinophilia, unspecified type 05/10/2025 External Device Data STL ABSTRACTION Provider, Abstract 05/10/2025 External Device Data STL ABSTRACTION Provider, Abstract 05/09/2025 External Device Data STL ABSTRACTION Provider, Abstract 05/08/2025 Orders Only [facility] Oncology and Hematology - [place] [address] [place] [address] Perry Garza MD Myelodysplastic syndrome ([facility]/HCC) 05/03/2025 4:30 PM CDT Telephone Check Up [facility] Oncology and Hematology - [place] [address] [place] [phone] Perry Garza MD 05/01/2025 Orders Only [facility] Oncology and Hematology - [place] [address] [place] [phone] Perry Garza MD Myelodysplastic syndrome (CMS/HCC) 04/24/2025 Orders Only [facility] Oncology and Hematology - [place] [address] [place] [address] Perry Garza MD Myelodysplastic syndrome ([facility]/HCC) 04/21/2025 Orders Only [facility] Oncology and Hematology - [place] [address] [place] [phone] Perry Garza MD 04/19/2025 Abstract [facility] Oncology and Hematology - [place] [address] [place] [phone] Perry Garza MD 04/19/2025 Orders Only [facility] Oncology and Hematology - [place] [address] Perry Garza MD 04/17/2025 Abstract [facility] Oncology and Hematology - [place] [address] Perry Garza MD 04/17/2025 Abstract [facility] Oncology and Hematology - [place] [address] [place] [phone] Perry Garza MD 04/17/2025 Orders Only [facility] Oncology and Hematology - [place] [address] [place] [phone] Perry Garza MD Myelodysplastic syndrome (CMS/HCC) 04/13/2025 Orders Only [facility] Oncology and Hematology - [place] [address] Perry Garza MD Myelodysplastic syndrome (CMS/HCC) (Primary Dx) 04/10/2025 Orders Only [facility] Oncology and Hematology - [place] [address] [place] [phone] Perry Garza MD Myelodysplastic syndrome (CMS/HCC) 04/03/2025 Orders Only [facility] Oncology and Hematology - [place] [place] [address] Perry Garza MD Myelodysplastic syndrome (CMS/HCC) 03/28/2025 Orders Only [facility] Oncology and Hematology - [place] [address] [place] [address] Perry Garza MD from Last 3 Months Family History Relation Name Status Comments Brother 1 Brother 2 Brother 3 Father Mother Sister 1 Sister 2 Sister 3 Alive Sister 4 Alive Son 1 Alive Son 2 Son 3 Social History Tobacco Use Types Packs/Day Years Used Date Smoking Tobacco: Every Day Cigarettes 0.5 37.7 Started: 1987 Smokeless Tobacco: Never Alcohol Use [...] Sign Reading Time Taken Comments Blood Pressure 140/67 06/19/2025 9:34 AM CDT Pulse 102 06/19/2025 9:32 AM CDT Temperature 36.4 C (97.6 F) 06/19/2025 9:32 AM CDT Respiratory Rate 15 06/19/2025 9:32 AM CDT Oxygen Saturation 97% 06/19/2025 9:32 AM CDT Inhaled Oxygen Concentration - - Weight 53.5 kg (118 lb) 06/19/2025 9:32 AM CDT Height 162.6 cm (5' 4) 08/18/2022 8:36 AM CDT Body Mass Index 20.25 08/18/2022 8:36 AM CDT Plan of Treatment Upcoming Encounters Date Type Department Care Team (Late st Contact Info) Description 07/31/2025 2:30 PM CDT Office Visit [facility] Oncology and Hematology - [place] [address] [facility] [address] [place] [address] Perry Garza MD [address] [facility] [address] [place] [address] Health Maintenance Due Date Last Done Comments DTAP/TDAP/TD VACCINES (1 - Tdap) 1975 PNEUMOCOCCAL VACCINE 50+ YEA RS (1 of 2 - PCV) 1975 BREAST CANCER SCREENING 1996 COLORECTAL SCREENING 2001 Colorectal Cancer Screening 2001 FIT-DNA Q 3 years 2001 FIT/FOBT Q 1 year 2001 Flex Sig/CT Colonography Q 5 years 2001 ZOSTER VACCINE (1 of 2) 2006 INFLUENZA VACCINE (#1) 2025 COVID-19 Vaccine ( season) 2025, 02/21/2021 OSTEOPOROSIS SCREENING 02/27/2027 02/27/2022 RSV VACCINE (60+ or ) (1 - 1-dose 75+ series) 2031 Procedures Procedure Name Priority Date/Time Associated Diagnosis Comments BASIC METABOLIC PANEL Routine 06/19/2025 10:23 AM CDT CBC WITH AUTODIFFERENTIAL Routine 2024 10:15 AM CDT TRYPTASE Routine 05/26/2025 12:41 PM CDT BASIC METABOLIC PANEL Routine 05/26/2025 10:29 AM CDT BASIC METABOLIC PANEL Routine 05/26/2025 10:22 AM CDT COMPREHENSIVE METABOLIC PANEL Routine 04/20/2025 7:51 AM CDT TYPE AND SCREEN Routine 04/14/2025 1:54 PM CDT TYPE AND SCREEN Routine 04/14/2025 1:28 PM CDT HEMATOCRIT Routine 04/14/2025 10:[address] GUIDED BIOPSY Routine 03/31/2025 7:32 AM CDT from Last 3 Months Results * BASIC METABOLIC PANEL (06/19/2025 10:23 AM CDT) Only the most recent of3 resultswithin the time period is included. Blood us Perry Garza MD CHEMISTRY ORDERABLES Final Resu lt * CBC WITH AUTODIFFERENTIAL (06/19/2025 10:15 AM CDT) Blood us Perry Garza MD HEMATOLOGY ORDERABLES Final Res ult * TRYPTASE (05/26/2025 12:41 PM CDT) Blood us Perry Garza MD CHEMISTRY ORDERABLES Final Resu lt * COMPREHENSIVE METABOLIC PANEL (04/20/2025 7:51 AM CDT) Blood us Perry Garza MD CHEMISTRY ORDERABLES Final Resu lt * TYPE AND SCREEN (04/14/2025 1:54 PM CDT) Only the most recent of2 resultswithin the time period is included. Blood Perry Garza MD BLOOD BANK ORDERABLES Final Res ult * HEMATOCRIT (04/14/2025 10:34 AM CDT) Blood Perry Garza MD HEMATOLOGY ORDERABLES Final Res ult * CT GUIDED BIOPSY (03/31/2025 7:32 AM CDT) Anatomical Region Laterality Modality Computed Tomogra phy Provider Scanning CT ORDERABLES Final Result from Last 3 Months Insurance RX [employer] RX Member Subscriber Plan / Payer (Ef fective 2024-Present) Name:Tanesha Gaviria Relation to Subscriber:Self Name:Tanesha Gaviria Payer ID:Not on file Group ID:[id number] Type:RX Medicare Part D Address: [address] Care Teams Escrow Closer Relationship Specialty Start Date End Date Winifred Mcdonough MD PCP - General Internal Medicine 03/14/22
--- OUTSIDE RECORDS SUMMARY | 2025-06-28 23:31 | XMS_ITS | Encounter Summary ---
Author Organization [facility] Address [address] [place] [address] Care Team Providers Care Food And Beverage Associate Name Role Phone Florecita Abdi MD Unavailable Winifred Mcdonough MD Primary Care Provider Encounter Details Date Type Department Care Team (Late st Contact Info) Description 02/08/2025 Lab Requisition [facility] - Pathology Lab [address] [place] [phone] Jeremy Peterson MD [address] [facility] [address] [place] [address] Illness, unspecified Social History Tobacco Use Types Packs/Day Years Used Date Smoking Tobacco: Every Day Cigarettes 0.5 20 Alcohol Use Standard Drinks/Week Comments No 0 (1 standard drink = 0.6 oz pur e alcohol) Comments Unknown Sex and Gender Information Value Date Recorded Sex Assigned at Not on file 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 Gender Identity Not on file Sexual Orientation Not on file documented as of this encounter Plan of Treatment Not on file documented as of this encounter Procedures Procedure Name Priority Date/Time Associated Diagnosis Comments BONE MARROW BIOPSY (STL) Routine 02/07/2025 8:49 AM CDT Illness, unspecified documented in this encounter Results * BONE MARROW BIOPSY (STL) (02/07/2025 8:49 AM CDT) Case Report Bone Marrow Patholog y Report Case: [id number] Authorizing Provider: Jeremy Peterson Collected: 02/07/2025 08:49 AM MD [place] Ordering Location: [facility] - Received: 02/08/2025 02:13 PM Pathology Lab Pathologist: Bonnie Bailey MD Specimens: A) - Bone Marrow Clot B) - Bone Marrow Core 02/10/2025 10:09 AM [facility] Final Diagnosis Bone marrow, iliac crest, core biopsy, clot section, and aspirate: - 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 The bone marrow shows features consistent with this history in that numerous monolobate megakaryocytes are identified. Features of a high-grade myeloid neoplasm are present including approximately 15% blasts by CD34 immunohistochemistry and 19% by flow cytometry, bordering on the diagnostic threshold criteria for acute myeloid leukemia (20% blasts required for AML). The lack of myeloid maturation beyond the blast phase is also suspicious for evolving acute myeloid leukemia. Correlation with cytogenetic, FISH, and molecular data is needed to fully evaluate the patient's myeloid neoplasm. As the cellular heterogeneity of bone marrow is somewhat variable, it's possible another sampled area may reach the threshold for acute myeloid leukemia. Clinical correlation is necessary. An increased percentage of plasma cells is noted, and immunohistochemistry evaluation is pending in an attempt to quantify and qualify the plasma cell infiltrate (polyclonal versus monoclonal). The results of additional immunohistochemistry stains will be reported as an addendum upon completion. 02/10/2025 10:09 AM [facility] Peripheral Smear Description The patient's CBC performed at the time of the bone marrow biopsy shows a white count of 200/mcL, hemoglobin 9 g/dL, hematocrit 26.6%, MCV 90.2 fL, and a platelet count of 40,000/mcL. The white cell differential shows 90.9% lymphocytes and 9.1% neutrophils. A peripheral blood smear is not received for review. 02/10/2025 10:09 AM [facility] Bone Marrow Aspirate Differential count not performed as the bone marrow aspirate smears are markedly hemodilute/without spicules. Specimen quality: inadequate. Spicules: absent. Rare dyspoietic, monolobate megakaryocytes are identified. Storage iron (by special stain): decreased but evaluation is suboptimal given the lack of cellular spicules. Sideroblastic iron (by special stain): no ring sideroblasts. 02/10/2025 10:09 AM [facility] Bone Marrow Core Biopsy and Clot Section Description Specimen quality: adequate with 2.0 cm of evaluable marrow. Cellularity: 20-30% Trilineage Hematopoiesis: Erythroid and megakaryocytic precursors are identified; maturation arrest of the myeloid lineage is present. Myeloid to Erythroid ratio: decreased. Myeloid maturation and localization: maturation arrest. Erythroid maturation and localization: normal. Megakaryocyte number: increased. Megakaryocyte distribution: atypical clusters. Lymphoid aggregates: small. Bone trabeculae: normal. Blood vessels: normal. Other: blasts are increased in number and show focal clustering. Plasma cells: increased, but normal morphology. Clot section marrow particles: present. Clot section morphology: similar to core biopsy. 02/10/2025 10:09 AM [facility] Flow Cytometry Summary Bone marrow, flow cytometric immunophenotyping ([id number]): - 19% [id number] blasts (favor myeloblasts) in a markedly paucicellular specimen, see comment - No diagnostic immunophenotypic evidence of monoclonal B-cells or plasma cell neoplasm Comment: [id number] blasts are increased (19%) which are favored [...] aspirate specimen is markedly paucicellular and hemodilute. 02/10/2025 10:09 AM [facility] Clinical History MDS 02/10/2025 10:09 AM [facility] Materials Received Received are 22 slide(s) and 4 block(s) labeled [id number] along with a copy of the outside pathology report. [place] [address]. All original materials are returned to the referring institution, along with a copy of our final report. 02/10/2025 10:09 AM [facility] Microscopic Description CD34 immunohistochemistry stains are performed on the core biopsy and clot section to assess the percentage of blasts. Immunohistochemistry stains are performed in addition to flow cytometry given the cellular heterogeneity and marrow. CD34 highlights 15-20% of total cells. Focal clustering of blasts is highlighted with the stain. A reticulin stain of the core biopsy highlights no significant increase in reticulin fibrosis. Iron stains of the core biopsy and clot sections reveal increased iron stores. All stains reacted with appropriate controls. 02/10/2025 10:09 AM [facility] Pathologist Location at [facility] 02/10/2025 10:09 AM [facility] Disclaimer The performance characteristics of all immunohistochemical and indirect immunofluorescence stains (if any) cited in this report were determined by the Histopathology Laboratory of [facility]. Some of these tests were developed by our own laboratory and have not been cleared or approved by the US Food and Drug Administration. The FDA does not require this test to go through premarket FDA review. These tests are used for clinical purposes. They should not be regarded as investigational or for research. This laboratory is certified under the Clinical Laboratory Improvement Amendments (CLIA) as qualified to perform high complexity clinical laboratory testing. This case has been personally reviewed and interpreted by the attending (teaching) pathologist. 02/10/2025 10:09 AM [facility] Addendum 1 This addendum is issued to report the results of additional immunohistochemistry stains performed on the bone marrow core biopsy with appropriately reactive controls. CD138 highlights approximately 10% plasma cells. Plasma cells are primarily aligned along blood vessels, their normal anatomic distribution. Large sheets of plasma cells are not identified. [place] and lambda immunohistochemistry stains each highlight a subset of plasma cells consistent with a polyclonal population. The plasma cell infiltrate is favored to be benign. 02/10/2025 10:09 AM [facility] Addendum electronically signed by Bonnie Bailey MD on 02/10/2025 at 1009 CDT Embedded Images 02/10/2025 10:09 AM CDT [facility] Pathology/Cytology BONE MARROW SPECIMEN / Unknown 02/07/2025 8:49 AM CDT 02/08/2025 2:13 PM CDT Miscellaneous samples (specimen) BONE MARROW SPECIMEN / Unknown 02/07/2025 8:49 AM CDT 02/08/2025 2:13 PM CDT Jeremy Peterson MD LAB - PATHO LOGY/CYTOLOGY ORDERABLES Edited Result - Final [facility] [address] [facility] [place] [address], [facility] [phone] documented in this encounter Visit Diagnoses Diagnosis Illness, unspecified documented in this encounter Care Teams Food And Beverage Associate Relationship Specialty Start Date End Date Winifred Mcdonough MD [address] [phone] PCP - General Internal Medicine 02/23/25 Florecita Abdi MD [address] [place] [address] Hide Shaker/Oncologist Hematology and Oncology 02/14/25 05/08/25 documented as of this encounter
--- OUTSIDE RECORDS SUMMARY | 2025-06-28 23:31 | XMS_ITS | Encounter Summary ---
Author Organization [facility] Address [address] [place] [address] Care Team Providers Care Rn Pool Name Role Phone Florecita Abdi MD Unavailable Winifred Mcdonough MD Primary Care Provider Encounter Details Date Type Department Care Team (Late st Contact Info) Description 02/17/2025 Lab Requisition [facility] - Pathology Lab [address] [place] [address] Florecita Abdi MD [address] [place] [address] Illness, unspecified Social History Tobacco Use Types Packs/Day Years Used Date Smoking Tobacco: Every Day Cigarettes 0.5 20 Alcohol Use Standard Drinks/Week Comments No 0 (1 standard drink = 0.6 oz pur e alcohol) Comments Unknown Sex and Gender Information Value Date Recorded Sex Assigned at Not on file 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 Gender Identity Not on file Sexual Orientation Not on file documented as of this encounter Plan of Treatment Not on file documented as of this encounter Procedures Procedure Name Priority Date/Time Associated Diagnosis Comments PATH CONSULT ON REFERRED CASE Routine 02/17/2025 10:08 AM CDT Illness, unspecified documented in this encounter Results * PATH CONSULT ON REFERRED CASE (02/17/2025 10:08 AM CDT) Final Diagnosis Bone marrow, core biopsy, clot section, touch prep and aspirate (OSC: [id number]; 07/07/2019): - Myelodysplastic syndrome with ring sideroblasts - Hypercellular bone marrow for age (70% cellularity) - See microscopic description 02/17/2025 1:21 PM [facility] at 1321 CDT Microscopic Description and Comment RBC: Normocytic and hypochromic anemia Moderate anisopoikilocytosis and polychromasia Rare to occasional microcytes, schistocytes, teardrop cells, pencil cells and spherocytes Rare circulating nucleated RBCs (1/100 WBCs) WBC: Unremarkable No circulating blasts seen Platelets: Unremarkable Aspirates: Specimen quality: Adequate Spicules: Present Trilineage Hematopoiesis: Normal Myeloid:Erythroid ratio: Normal Myeloid Maturation: Normal Erythroid Maturation: Normal, rare cells with nuclear contour irregularity, and rare binucleated cells Megakaryocyte morphology: Normal, rare microcytic forms, and forms with hypo- or mono-lobation Plasma cells and lymphocytes: Scattered seen Storage iron (by special stain): Increased Sideroblastic iron (by special stain): Frequent ring sideroblasts seen Core and clot Specimen quality: Adequate, 12 mm of evaluable marrow Cellularity: 70%, hypercellular Blasts: Few, no aggregates. <1% by CD34 stain. Trilineage Hematopoiesis: Present Myeloid to Erythroid ratio: Normal Myeloid maturation and localization: Normal Erythroid maturation and localization: Normal Megakaryocyte number: Mildly decreased Megakaryocyte distribution: Normal Lymphoid aggregates: none seen. Plasma cells: Scattered seen. Reticulin stain: No reticulin fibrosis (MF-0/3) Clot section marrow particles: Present. Clot section morphology: Similar to core biopsy specimen Storage iron (by special stain): Increased Sideroblastic iron (by special stain): Frequent ring sideroblasts seen Per outside report, the following tests are performed: Flow cytometry study: Flow cytometry study reveals no evidence for abnormal myeloid maturation or an increased blast population. There is no evidence of a lymphoproliferative disorder. Cytogenetic Analysis Report: Result: Normal female karyotype; 46, XX [20]. [facility] panel sequencing report: Detected genomic alterations: SF3B1 p.[id number]; TET2 p.Gyw088Sutif*2 Please also refer to the scanned reports for additional information. 02/17/2025 1:21 PM CDT [facility] Clinical History 02/17/2025 1:21 PM CDT [facility] Materials Received Received are 8 slide(s) labeled [id number] along with a copy of the outside pathology report. The materials originate from [employer] [address] [place] [id number]. All original materials are returned to the referring institution, along with a copy of our final report. 02/17/2025 1:21 PM CDT [facility] Pathologist Location at [facility] 02/17/2025 1:21 PM CDT [facility] Disclaimer The performance characteristics of all immunohistochemical and indirect immunofluorescence stains (if any) cited in this report were determined by the Histopathology Laboratory of [facility]. Some of these tests were developed by [...] and interpreted by the attending (teaching) pathologist. 02/17/2025 1:21 PM CDT [facility] Case Report Surgical Pathology Report Case: [id number] Authorizing Provider: Florecita Abdi MD Collected: 02/17/2025 10:08 AM Ordering Location: [facility] - Received: 02/17/2025 10:08 AM Pathology Lab Pathologist: Jaxon Bedolla MD Specimen: Slide Consultation 02/17/2025 1:21 PM CDT [facility] Embedded Images 02/17/2025 1:21 PM CDT [facility] Pathology/Cytolo gy SURGICAL PATHOLOGY CONSULTATION AND REPORT ON REFERRED SLIDES PREPARED ELSEWHERE / Unknown 02/17/2025 10:08 AM CDT 02/17/2025 10:08 AM CDT us Florecita Abdi MD LAB - PATHOLOGY/CYTOLOGY ORDERAB LES Final Result [facility] [address] [place], [place] [id number] [place] [address] documented in this encounter Visit Diagnoses Diagnosis Illness, unspecified documented in this encounter Care Teams Rn Pool Relationship Specialty Start Date End Date Winifred Mcdonough MD [address] [facility] [address] [place] [address] PCP - General Internal Medicine 02/23/25 Florecita Abdi MD [address] [place] [address] Supervisor Gluing/Oncologist Hematology and Oncology 02/14/25 05/08/25 documented as of this encounter
--- OUTSIDE RECORDS SUMMARY | 2025-06-28 23:32 | XMS_ITS ---
Author Organization [facility] Address [address], [facility] [address] [place] [address] Phone Care Team Providers Care Product Safety Manager Name Role Phone Ila Linares MD Primary Care Provider [phone] Active Problems Problem Noted Date Diagnosed Date [...]
--- OUTSIDE RECORDS SUMMARY | 2025-06-28 23:32 | XMS_ITS | Clinical Summary ---
Author Organization [facility] Address [address], [facility] [address] [place] [address] Phone Care Team Providers Care Medical Detail Representative Name Role Phone Ila Linares MD Primary Care Provider [phone] Allergies Active Allergy Reactions Criticality Noted Date [...] 9:08 AM CDT Height 162.6 cm (5' 4) 07/21/2019 9:08 AM CDT Body Mass Index 27.29 07/21/2019 9:08 AM CDT Plan of Treatment Health Maintenance Due Date Last Done Comments Hepatitis C Virus (HCV) Screening 1955 TdaP Immunization 1955 Pneumococcal Immunization (5 0+ years) (1 of 2 - PCV) 1975 Zoster Immunization (1 of 2) 1975 Cologuard 2001 Colonoscopy 2001 Colorectal Cancer Screening 2001 Immunochemical Fecal Occult Blood 2001 SARS-COV-2 Immunization (3 - Pfizer risk series) 04/11/2021 03/14/2021, 02/21/2021 Influenza Immunization (#1) 2025 Respiratory Syncytial Virus (RSV) Immunization (Adult) (1 - 1-dose 75+ series) 2031 Hepatitis B Immunization Aged Out No longer eligible based on patient's age to complete this topic Human Papillomavirus (HPV) Immunization Aged Out No longer eligible b ased on patient's age to complete this topic Meningococcal Immunization (ACWY) Aged Out No longer eligible b ased on patient's age to complete this topic Rotavirus Immunization Aged Out No lo nger eligible based on patient's age to complete this topic Insurance MEDICAID [employer] Care Teams Medical Detail Representative Relationship Specialty Start Date End Date Ila Linares MD [address] [place] [address] PCP - General Geriatric Medicine 06/24/19
--- OUTSIDE RECORDS SUMMARY | 2025-06-28 23:32 | XMS_ITS | Encounter Summary ---
Author Organization [facility] Address [address] [place] [address] Care Team Providers Care Mri Supervisor Name Role Phone Winifred Mcdonough MD Primary Care Provider Encounter Details Date Type Department Care Team ([facility] Contact Info) Description 06/26/2025 Orders Only [facility] - [address] [place] [address] Perry Garza MD [address] [place] [phone] Myelodysplastic syndrome (CMS/HCC) Social History Tobacco [...] Department Care Team (Late Contact Info) Description 07/31/2025 2:30 PM CDT Office Visit [facility] - [address] [place] [address] Perry Garza MD [address] [place] [phone] documented as of this encounter Visit Diagnoses Diagnosis Myelodysplastic syndrome (CMS/HCC) Myelodysplastic syndrome, unspecified documented in this encounter Care Teams Mri Supervisor Relationship Specialty Start Date End Date Winifred Mcdonough MD PCP - General Internal Medicine 03/14/22 documented as of this encounter
--- OUTSIDE RECORDS SUMMARY | 2025-06-28 23:32 | XMS_ITS | Clinical Summary ---
Author Organization [facility] Address [address] [place] [address] Care Team Providers Care Sales Representative Aircraft Name Role Phone Winifred Mcdonough MD Primary Care Provider Source Comments [facility],non-owned Affiliates and Associated Physician Practices is amultiple site organization consisting of ambulatory clinics and hospital sitesin [place], [place], [place] and [place]. This disclosure is being madepursuant to the Care Everywhere program and may not contain all information available regarding this patient. Last updated 18.[facility] Allergies Active Allergy Reactions Criticality Noted Date Comments Ibuprofen Itching 02/23/2025 Medications * Be aware that medications may not be up to date on this document. Alwaysverify current medications with the patient. amlodipine-michael zepril (LOTREL) 10-20 MG capsule Take 1 (one) capsule by mouth once daily Active acetaminophen-c odeine (TYLENOL #3) 300-30 MG tablet Take 1 (one) tablet by mouth every 4 hours as needed Active penicillin v potassium (VEETIDS) 500 MG tablet Take 1 Tab by mouth every 6 hours. 28 Tab 0 1 Active Additional Information Patient not taking.Reported on 03/31/2025 hydrocodone-arturo taminophen (VICODIN) 5-500 MG tablet Take 1 Tab by mouth every 6 hours as needed for Pain. 15 Tab 0 1 Active ferrous sulfate 325 (65 FE) MG tablet Take 1 (one) tablet by mouth once daily Active aspirin EC (Ecotrin) 81 MG tablet Take 1 tablet every day by oral route. Active Encounters Date Type Department Care Team Description 05/04/2025 3:00 PM CDT Office Visit [facility] - Hematology/Oncology [address] [place] [phone] Florecita Abdi MD MDS (myelodysplastic syndrome) (HCC) (Primary Dx) 05/04/2025 Travel 05/03/2025 Orders Only [facility] - Hematology/Oncology [address] [place] [phone] Clau Darby RN MDS (myelodysplastic syndrome) (HCC) 04/13/2025 2:18 PM CDT - 04/13/2025 11:59 PM CDT Hospital Encounter [facility] [address] [place] [id number] Discharge Disposition: Home or Self Care 04/13/2025 1:30 PM CDT Office Visit [facility] - Hematology/Oncology [address] [place] [phone] Florecita Abdi MD MDS (myelodysplastic syndrome) (HCC) (Primary Dx) 04/13/2025 Orders Only [facility] - Hematology/Oncology [address] [place] [phone] Florecita Abdi MD Pain in joint involving right ankle and foot 04/13/2025 Orders Only [facility] - H[facility]ology/Oncology [address] [place] [phone] Florecita Abdi MD Bone pain ; MDS (myelodysplastic syndrome) (HCC) 04/13/2025 Travel 04/10/2025 12:44 PM CDT - 04/10/2025 11:59 PM CDT Hospital Encounter [facility] [address] [place] [phone] Discharge Disposition: Home or Self Care 04/10/2025 Travel 03/31/2025 6:03 AM CDT - 03/31/2025 10:15 AM CDT Hospital Encounter [facility] [address] [place] [address] Florecita Abdi MD Liao, Millie, DO [facility] Discharge Disposition: Home or Self Care from Last 3 Months Social History Tobacco Use Types Packs/Day Years Used Date Smoking Tobacco: Every Day Cigarettes 0.5 20 Tobacco Cessation:Ready to Q uit: Yes; Counseling Given: Not Answered Alcohol Use Standard Drinks/Week Comments No 0 (1 standard drink = 0.6 oz pur e alcohol) AUDIT-C Answer Date Recorded Q1: How often do you have a drink containing alcohol? Never 03/31/2025 Q2: How many drinks containi ng alcohol do you have on a typical day when you are drinking? Patient does not drink Q3: How often do you have si x or more drinks on one occasion? Never 03/31/2025 Comments Unknown Sex and Gender Information Value Date Recorded Sex Assigned at Not on file Legal Sex Female 12:10 PM [employer]ICA PA[employer] Gender Identity Not on file Sexual Orientation Not on file Last Filed Vital Signs Vital Sign Reading Time Taken Comments Blood Pressure 133/70 05/04/2025 3:16 PM CDT Pulse 97 05/04/2025 3:16 PM CDT Temperature 36.8 C (98.2 F) 05/04/2025 3:16 PM CDT Respiratory Rate 16 05/04/2025 3:16 PM CDT Oxygen Saturation 97% 05/04/2025 3:16 PM CDT Inhaled Oxygen Concentration 21% 03/31/2025 1 0:00 AM CDT Weight 54.2 kg (119 lb 8 oz) 05/04/2025 3:16 PM CDT Height 162.6 cm (5' 4) 03/31/2025 7:07 AM CDT Body Mass Index 20.51 03/31/2025 7:07 AM CDT Plan of Treatment Health Maintenance Due Date Last Done Comments BONE DENSITY TESTING 1955 COLOGUARD (AGES 45-75) - COL ON CA SCREENING 1956 COLON MONITORING 1956 COLONOSCOPY - COLON CA SCREENING 1956 CT COLONOGRAPHY - COLON CA SCREENING 1955 Colorectal Cancer Screening 1956 FIT - COLON CA SCREENING 1956 FLEX SIG - COLON CA SCREENING 1956 MAMMOGRAM 1956 DTAP/TDAP/TD VACCINES (1 - Tdap) 1975 PNEUMOCOCCAL VACCINE 50+ (1 of 2 - PCV) 1975 ZOSTER VACCINE (1 of 2) 2006 DEPRESSION SCREENING 10/26/2024 MEDICARE AWV CALENDAR YEAR 2024 COVID-19 VACCINE (3 - 2024-2 6 season) 2025 03/14/2021, 02/21/2021 INFLUENZA VACCINE (#1) 2025 LIPID TESTING 04/13/2030 04/13/2025 Respiratory Syncytial Virus (RSV) Vaccine Pt: or over 60 yrs (1 - 1-dose 75+ series) 2031 HEPATITIS C SCREENING Completed 04/10/2025 HEPATITIS B VACCINE Aged Out No longe r eligible based on patient's age to complete this topic HIB VACCINE Aged Out No longer eligi ble based on patient's age to complete this topic HPV VACCINE Aged Out No longer eligi ble based on patient's age to complete this topic MENINGOCOCCAL (Group B) VACCINE SHARED DECISION-MAKING Aged Out No longer eligible based on patient's age to complete this topic MENINGOCOCCAL GROUPS A/C/Y/W VACCINE Aged Out No longer eligible b ased on patient's age to complete this topic Procedures Procedure Name Priority Date/Time Associated Diagnosis Comments DIFFERENTIAL MANUAL Routine 04/13/2025 2 :19 PM CDT MDS (myelodysplastic syndrome) (HCC) TRYPTASE STAT 04/13/2025 2:19 PM CDT Pain in joint involving right ankle and foot RHEUMATOID FACTOR BLOOD QUANTITATIVE Routine 04/13/2025 2:19 PM CDT Pain in joint involving right ankle and foot C-REACTIVE PROTEIN Routine 04/13/2025 2: 19 PM CDT Pain in joint involving right ankle and foot ERYTHROCYTE SEDIMENTATION RATE Routine 04/13/2025 2:19 PM CDT Pain in joint involving right ankle and foot HIRAM BLOOD SCREEN W/REFLEX TITER Routine 04/13/2025 2:19 PM CDT Pain in joint involving right ankle and foot LUPUS ANTICOAGULANT PANEL W RFLX Routine 04/13/2025 2:19 PM CDT MDS (myelodysplastic syndrome) (HCC) CBC W AUTO DIFFERENTIAL Routine 04/13/20 2:19 PM CDT MDS (myelodysplastic syndrome) (HCC) LIPID PROFILE Routine 04/13/2025 2:19 PM CDT MDS (myelodysplastic syndrome) (HCC) HEMOGLOBIN A1C Routine 04/13/2025 2:19 PM CDT MDS (myelodysplastic syndrome) (HCC) VITAMIN D 25-HYDROXY Routine 04/13/2025 2:19 PM CDT Bone pain HEPATITIS B SURFACE ANTIBODY QUANT Routine 04/10/2025 12:45 PM CDT Pancytopenia (HCC) PTT SLH Routine 04/10/2025 12:45 PM CDT Pancytopenia (HCC) PT-INR SLH Routine 04/10/2025 12:45 PM CDT Pancytopenia (HCC) PNH WBC+RBC PANEL Routine 04/10/2025 12: 45 PM CDT Pancytopenia (HCC) ERYTHROPOIETIN STAT 04/10/2025 12:45 PM CDT Pancytopenia (HCC) HAPTOGLOBIN STAT 04/10/2025 12:45 PM CDT Pancytopenia (HCC) RETIC COUNT STAT 04/10/2025 12:45 PM CDT Pancytopenia (HCC) HEPATITIS C ANTIBODY Routine 04/10/2025 12:45 PM CDT Pancytopenia (HCC) HEPATITIS B CORE ANTIBODY TOTAL Routine 04/10/2025 12:45 PM CDT Pancytopenia (HCC) FERRITIN ADE 04/10/2025 12:45 PM CDT Pancytopenia (HCC) ZINC BLOOD STAT 04/10/2025 12:45 PM CDT Pancytopenia (HCC) COPPER BLOOD STAT 04/10/2025 12:45 PM CDT Pancytopenia (HCC) URIC ACID BLOOD STAT 04/10/2025 12:45 PM CDT Pancytopenia (HCC) LDH BLOOD STAT 04/10/2025 12:45 PM CDT Pancytopenia (HCC) PARVOVIRUS B19 PCR Routine 04/10/2025 12 :45 PM CDT Pancytopenia (HCC) PARVOVIRUS B19 IGG/IGM AB PANEL Routine 04/10/2025 12:45 PM CDT Pancytopenia (HCC) LAURIE-BOWLING VIRUS ANTIBODY PANEL Routine 04/10/2025 12:45 PM CDT Pancytopenia (HCC) CYTOMEGALOVIRUS ANTIBODY IGG/IGM BLOOD Routine 04/10/2025 12:45 PM CDT Pancytopenia (HCC) HIV-1 HIV-2 ANTIBODY + HIV P24 AG PANEL Routine 04/10/2025 12:45 PM CDT Pancytopenia (HCC) HEPATITIS B SURFACE ANTIGEN W RFLX CONFIRMATION Routine 04/10/2025 12:45 PM CDT Pancytopenia (HCC) SOLUBLE TRANSFERRIN RECEPTOR Routine 04/10/2025 12:45 PM CDT Pancytopenia (HCC) IRON + TRANSFERRIN PANEL Routine 04/10/2025 12:45 PM CDT Pancytopenia (HCC) FLOW CYTOMETRY BONE MARROW Routine 03/31/2025 8:50 AM CDT Pancytopenia (HCC) CHROMOSOME ANALYSIS BONE MARROW PANEL Routine 03/31/2025 8:50 AM CDT Pancytopenia (HCC) BONE MARROW BIOPSY (STL) Routine 03/31/2025 8:50 AM CDT Pancytopenia (HCC) LAB MISC TEST (NOT BLOOD) Routine 03/31/2025 8:50 AM CDT Pancytopenia (HCC) LAB MISC TEST (NOT BLOOD) Routine 03/31/2025 8:50 AM CDT Pancytopenia (HCC) CT BONE MARROW BIOPSY Routine 03/31/2025 8:49 AM CDT Pancytopenia (HCC) DIFFERENTIAL MANUAL STAT 03/31/2025 7 :13 AM CDT Pancytopenia (HCC) PT-INR SLH STAT 03/31/2025 7:13 AM CDT Pancytopenia (HCC) COMPREHENSIVE METABOLIC PANEL STAT 03/31/2025 7:13 AM CDT Pancytopenia (HCC) CBC W AUTO DIFFERENTIAL STAT 03/31/20 7:13 AM CDT Pancytopenia (HCC) TSH REFLEX FREE T4 Routine 03/31/2025 7: 13 AM CDT Pancytopenia (HCC) VITAMIN B12 Routine 03/31/2025 7:13 AM CDT Pancytopenia (HCC) FOLATE Routine 03/31/2025 7:13 AM CDT Pancytopenia (HCC) from Last 3 Months Results * LUPUS ANTICOAGULANT PANEL W RFLX (04/13/2025 2:19 PM CDT) Prothrombin Time (PT) 13.4 12.0 - 15.5 s 04/15/2025 2:05 PM CDT [employer] ([facility]) PTT-LA Ratio 0.88 <=1.20 04/15/2025 2:05 PM CDT [facility] ([facility]) dRVVT Screen Ratio 0.83 <=1.20 2024 2:05 PM [facility] ([facility]) Anti-Xa Qualitative Interpretation Not Performed Not Present 04/15/2025 2:05 PM [facility] ([facility]) Thrombin Time (TT) Not Performed <=19.5 s 04/15/2025 2:05 PM T [facility] ([facility]) Anticoagulant Medication Neutralization Not Performed Not Performed 04/15/2025 2:05 PM T [facility] ([facility]) Neutralized PTT-LA Ratio Not Performed <=1.20 04/15/2025 2:05 PM T [facility] ([facility]) Neutralized dRVVT Screen Ratio Not Performed <=1.20 04/15/2025 2:05 PM [facility] ([facility]) dRVVT 1:1 Mix Ratio Not Performed <=1.20 04/15/2025 2:05 PM [facility] ([facility]) dRVVT Confirmation Ratio Not Performed <=1.20 04/15/2025 2:05 PM [facility] ([facility]) Hexagonal Phospholipid Confirmation Not Performed <=7.9 s 04/15/2025 2:05 PM [facility] ([facility]) Lupus Anticoagulant, Interpretation See Note 04/15/2025 2:05 PM [facility] ([facility]) Comment: Lupus anticoagulant not detected. This panel did not detect evidence for heparin, direct thrombin inhibitors, or direct Xa inhibitors and drug neutralization was not performed. Lupus anticoagulant antibodies are heterogeneous and antibody titers fluctuate over time. Laboratory tests used to identify lupus anticoagulant demonstrate variable sensitivity. Testing is best performed when the patient is not acutely ill and not anticoagulated. If there is strong clinical suspicion for antiphospholipid antibody syndrome (APS), consider testing for cardiolipin and beta-2 glycoprotein 1 antibodies (IgG and IgM) if this testing has not already been performed. INTERPRETIVE INFORMATION: Lupus Anticoagulant Reflex Panel This test was developed and its performance characteristics determined by [employer]. It has not been cleared or approved by the U.S. Food and Drug Administration. This test was performed in a CLIA-certified laboratory and is intended for clinical purposes. Performed By: [facility] [address] [place] [address] [employer] Software Developer: Krishan Ayala MD, PhD CLIA Number: [id number] Blood BLOOD SPECIMEN / Unknown Lab Venipuncture / Unknown 04/13/2025 2:19 PM CDT 04/13/2025 2:31 PM CDT us Florecita Abdi MD LAB - HEMATOLOGY ORDERABLES Debbie l Result [facility] ([facility]) [address] [place] [id number] * RHEUMATOID FACTOR BLOOD QUANTITATIVE (RF) (04/13/2025 2:19 PM CDT) Rheumatoid Factor <15 <30 IU/mL 04/13/2025 3:10 PM CDT [facility] Rheumatoid Factor Screen Negative Negative 04/13/2025 3:10 PM CDT [facility] Blood BLOOD SPECIMEN / Unknown Lab Venipuncture / Unknown 04/13/2025 2:19 PM CDT 04/13/2025 2:31 PM CDT us Florecita Abid MD LAB - CHEMISTRY ORDERABLES Final Result Performing Organization Address City/[facility]/ZIP Co de Phone Number [address] [address], [facility] [phone] * (ABNORMAL) C-REACTIVE PROTEIN (CRP) (04/13/2025 2:19 PM CDT) C-Reactive Protein 1.2(H) <=0.5 mg/dL 04/13/2025 3:11 PM CDT [facility] Blood BLOOD SPECIMEN / Unknown Lab Venipuncture / Unknown 04/13/2025 2:19 PM CDT 04/13/2025 2:36 PM CDT us Florecita Abdi MD LAB - CHEMISTRY ORDERABLES Final Result [facility] [address] [place] [address], [facility] [phone] * HIRAM BLOOD SCREEN W/REFLEX TITER (04/13/2025 2:19 PM CDT) HIRAM IgG None Detected None Detected 04/15/2025 5:57 AM CDT [facility] ([facility]) Comment: No Anti-Nuclear Antibodies (HIRAM) detected by [facility]. No further testing will be performed. If suspicion of connective tissue disease is strong and HIRAM ЕКАТЕРИНА is negative, consider testing for HIRAM by IFA ([id number]). INTERPRETIVE INFORMATION: Anti-Nuclear Antibodies (HIRAM), IgG by [facility] Antinuclear Antibodies (HIRAM), IgG by [facility]: HIRAM specimens are screened using enzyme-linked immunosorbent assay (ЕКАТЕРИНА) methodology. All Е[facility]ТЕРИН[facility] results reported as Detected are further tested by indirect fluorescent assay (IFA) using HEp-2 substrate with an IgG-specific conjugate. The HIRAM ЕКАТЕРИНА screen is designed to detect antibodies against dsDNA, histones, SS-A (Ro), SS-B (La), Molina, Molina/CABLE INSTALLATION MANAGER, Scl-70, Beverley-1, centromeric proteins, other antigens extracted from the HEp-2 cell nucleus. HIRAM ЕКАТЕРИНА assays have been reported to have lower sensitivities than HIRAM IFA for systemic autoimmune rheumatic diseases (SARD). Negative results do not necessarily rule out SARD. Performed By: [employer] [address] [place] [address] [employer] Systems Software Developer: Krishan Ayala MD, PhD CLIA Number: [id number] Blood BLOOD SPECIMEN / Unknown Lab Venipuncture / Unknown 04/13/2025 2:19 PM CDT 04/13/2025 2:31 PM CDT Florecita Abdi MD LAB - CHEMISTRY ORDERABLES Final Result [facility]) [address] [place] [address] * (ABNORMAL) HEMOGLOBIN A1C (HgbA1C) (04/13/2025 2:19 PM CDT) Hemoglobin A1c 6.1(H) <=5.6 % 04/13/2025 5:24 PM CDT [facility] Estimated Average Glucose 128 mg/dL 04/13/2025 5:24 PM CDT [facility] Comment: HbA1c Interpretation: Normal : < 5.7% Pre-diabetes: 5.7-6.4% Diabetes: Equal to or greater than 6.5% Test results diagnostic of diabetes should be repeated for confirmation. Treatment target values recommended by ADA and other clinical organizations should be used to evaluate metabolic control in patients. Reference: [place] Diabetes Association, Standards of Care in Diabetes -2020 In patients 70 years and older consider HbA1c target range of 7.0-7.5% (Reference: Dre Peacock et al. JAMDA. 2012) The Sebia assay for the measurement of HbA1c is a National Glycohemoglobin Standardization Program (NGSP) certified method. Blood BLOOD SPECIMEN / Unknown Lab Venipuncture / Unknown 04/13/2025 2:19 PM CDT 04/13/2025 2:36 PM CDT Florecita Abdi MD LAB - CHEMISTRY ORDERABLES Final Result [address] [address], [facility] [phone] * TRYPTASE (04/13/2025 2:19 PM CDT) [facility] Signature Tryptase 9.9 <=10.9 ug/L 04/14/2025 11:35 PM CDT [employer] ([facility]) Comment: Performed By: [employer] [address] [place] [address] [employer] Systems Software Developer: Krishan Ayala MD, PhD CLIA Number: [id number] Blood BLOOD SPECIMEN / Unknown Lab Venipuncture / Unknown 04/13/2025 2:19 PM CDT 04/13/2025 2:31 PM CDT Florecita Abdi MD LAB - CHEMISTRY ORDERABLES Final Result Performing Organization Address [facility]/ZIP Co de Phone Number [employer] [facility]) [address] [place] [address] * VITAMIN D 25-HYDROXY (04/13/2025 2:19 PM CDT) [facility] Vitamin D, 25 Hydroxy 38.0 30.0 - 80.0 ng/mL 04/13/2025 3:27 PM CDT [facility] Comment: The recommendations for 25-Hydroxy Vitamin D clinical decision points are as follows: Deficient: <20.0 ng/mL Insufficient: 20.0 - 29.9 ng/mL Sufficient: 30.0 - 100.0 ng/mL Potential Toxicity: >100 ng/mL Reference: The Endocrine Society Clinical Practice Guidelines. 2011 If the 25-Hydroxy Vitamin D results are inconsitent with clinical evidence, it is recommended that follow-up testing using a method such as LC/MS/MS be performed to confirm the result. Blood BLOOD SPECIMEN / Unknown Lab Venipuncture / Unknown 04/13/2025 2:19 PM CDT 04/13/2025 2:36 PM CDT us Florecita Abdi MD LAB - CHEMISTRY ORDERABLES Final Result Performing Organization Address City/[facility]/ZIP Co de Phone Number [address] [address], [place] [phone] * (ABNORMAL) SED RATE AUTO (ESR) (04/13/2025 2:19 PM CDT) [facility] Erythrocyte Sedimentation Rate Westergren 50(H) 0 - 30 MM/HR 04/13/2025 4:12 PM CDT [facility] Blood BLOOD SPECIMEN / Unknown Lab Venipuncture / Unknown 04/13/2025 2:19 PM CDT 04/13/2025 2:36 PM CDT us Florecita Abdi MD LAB - HEMATOLOGY ORDERABLES Debbie l Result Performing Organization Address City/[facility]/ZIP Co de Phone Number [address] [address], [place] [phone] * (ABNORMAL) DIFFERENTIAL MANUAL (04/13/2025 2:19 PM CDT) Only the most recent of2 resultswithin the time period is included. [facility] Neutrophil % 49 41 - 74 % 04/13/2025 4:26 PM [facility] Lymphocyte % 21 17 - 47 % 04/13/2025 4:26 PM [facility] Monocyte % 6 3 - 11 % 04/13/2025 4:26 PM [facility] Eosinophil % 24(H) 0 - 7 % 04/13/2025 4:26 PM [facility] Neutrophil Absolute 4.36 1.60 - 7.50 x10E9/L 04/13/2025 4:26 PM [facility] Lymphocyte Absolute 1.87 1.00 - 4.40 x10E9/L 04/13/2025 4:26 PM [facility] Monocyte Absolute 0.53 0.15 - 1.00 x10E9/L 04/13/2025 4:26 PM [facility] Eosinophil Absolute 2.14(H) 0.00 - 0.60 x10E9/L 04/13/2025 4:26 PM [facility] RBC Morphology REVIEWED 04/13/2025 4:26 PM [facility] Macrocytosis MODERATE(A) (none) 04/13/2025 4:26 PM [facility] Schistocytes FEW(A) (none) 04/13/2025 4:26 PM [facility] Blood BLOOD SPECIMEN / Unknown Lab Venipuncture / Unknown 04/13/2025 2:19 PM CDT 04/13/2025 2:36 PM CDT Florecita Abdi MD LAB - HEMATOLOGY ORDERABLES Debbie cueva Result [facility] [address] [place] [address], [facility] [phone] * (ABNORMAL) CBC W/ DIFFERENTIAL (04/13/2025 2:19 PM CDT) Only the most recent of2 resultswithin the time period is included. WBC 8.9 4.0 - 10.7 x10E9/L 04/13/2025 4:26 PM [facility] RBC Count 2.21(L) 3.90 - 5.20 x10E12/L 04/13/2025 4:26 PM [facility] Hemoglobin 6.5(L) 11.9 - 15.8 g/dL 04/13/2025 4:26 PM [facility] Hematocrit 20.8(L) 34.8 - 46.1 % 04/13/2025 4:26 PM [facility] MCV 94.1 80.0 - 98.0 fL 04/13/2025 4:26 PM [facility] MCH 29.4 26.7 - 33.6 pg 04/13/2025 4:26 PM [facility] MCHC 31.3(L) 31.7 - 36.3 g/dL 04/13/2025 4:26 PM [facility] RDW-CV 19.8(H) 11.3 - 14.8 % 04/13/2025 4:26 PM [facility] Platelet Count 135(L) 150 - 420 x10E9/L 04/13/2025 4:26 PM [facility] MPV 04/13/2025 4:26 PM [facility] Comment:Unable to report NRBC 1.2(H) <=0.0 /100 WBC 04/13/2025 4:26 PM [facility] Blood BLOOD SPECIMEN / Unknown Lab Venipuncture / Unknown 04/13/2025 2:19 PM CDT 04/13/2025 2:36 PM CDT us Florecita Abdi MD LAB - HEMATOLOGY ORDERABLES Debbie cueva Result [facility] [address] [place] [address], [facility] [phone] * (ABNORMAL) LIPID PROFILE (LIPID PANEL) (04/13/2025 2:19 PM CDT) [facility] Cholesterol Total 160 <200 mg/dL 04/13/2025 3:11 PM [facility] HDL 34(L) >40 mg/dL 04/13/2025 3:11 PM [facility] Comment: ATP III Classification of HDL Cholesterol: <40 mg/dL: Considered a major risk factor. >60 mg/dL: Considered a negative risk factor. LDL Calculated 98 <100 mg/dL 04/13/2025 3:11 PM CDT [facility] Comment: ATP III Classification of LDL Cholesterol: <100 mg/dL: Optimal 100 - 129 mg/dL: Near Optimal/Above Optimal 130 - 159 mg/dL: Borderline High 160 - 189 mg/dL: High >190 mg/dL: Very High Triglycerides 142 <150 mg/dL 04/13/2025 3:11 PM CDT [facility] Comment: ATP III Classification of Triglycerides: <150 mg/dL: Normal 150 - 199 mg/dL: Borderline High 200 - 400 mg/dL: High >500 mg/dL: Very High Blood BLOOD SPECIMEN / Unknown Lab Venipuncture / Unknown 04/13/2025 2:19 PM CDT 04/13/2025 2:36 PM CDT Narrative [facility] - 04/13/2025 3:11 PM CDT LDL is calculated using the Friedewald equation. Florecita Abdi MD LAB - CHEMISTRY ORDERABLES Final Result Performing Organization Address City/[facility]/ZIP Co de Phone Number [address] [address], [facility] [phone] * PTT [facility] (04/10/2025 12:45 PM CDT) APTT 27.1 23.0 - 38.4 Seconds 04/10/2025 1:33 PM CDT [facility] Comment:Suggested therapeuti c range for full dose I.V. unfractionated heparin therapy for venous thromboembolism is 71 to 109 seconds. Blood BLOOD SPECIMEN / Unknown Lab Venipuncture / Unknown 04/10/2025 12:45 PM CDT 04/10/2025 1:01 PM CDT us Florecita Abdi MD LAB - COAGULATION ORDERABLES Fin al Result [address] [address], [facility] [phone] * PT-INR [facility] (04/10/2025 12:45 PM CDT) Only the most recent of2 resultswithin the time period is included. PT 13.6 12.1 - 14.8 Seconds 04/10/2025 1:33 PM CDT [facility] LABORATORY [facility] INR 1.1 See Comment 04/10/2025 1:33 PM CDT [facility] Comment:The suggested therap eutic range for standard coumadin (warfarin) therapy is an INR of 2.0-3.0. For high-risk patients (Mechanical Mitral Valve Prosthesis, etc.), the suggested prophylactic therapeutic range is an INR of 2.5-3.5. Blood BLOOD SPECIMEN / Unknown Lab Venipuncture / Unknown 04/10/2025 12:45 PM CDT 04/10/2025 1:01 PM CDT Florecita Abdi MD LAB - COAGULATION ORDERABLES Fin al Result [address] [address], [facility] [phone] * HIV-1 HIV-2 ANTIBODY + HIV P24 AG PANEL (04/10/2025 12:45 PM CDT) Pathologist [facility] HIV Antigen/Antibod y 1 & 2 Non-reacti ve Non-react lana 04/10/2025 5:34 PM CDT [facility] Comment:No Laboratory eviden ce of HIV infection. Blood BLOOD SPECIMEN / Unknown Lab Venipuncture / Unknown 04/10/2025 12:45 PM CDT 04/10/2025 1:01 PM CDT Florecita Abdi MD LAB - CHEMISTRY ORDERABLES Final Result [address] [address], [facility] [phone] * (ABNORMAL) HEPATITIS B SURFACE ANTIBODY QUANT (04/10/2025 12:45 PM CDT) Hepatitis B Virus Surface Antibody Reactive( A) Non-react lana 04/11/2025 10:40 AM CDT [facility] Comment: > 12 mIU/mL Hepatitis B surface Antibody (HBsAb). Reactive for HBsAb - individual is considered immune to Hepatitis B Virus infection. Hepatitis B Surface Antibody Quantitative 99.9(H) <8.0 mIU/mL 04/11/2025 10:40 AM CDT [facility] Comment: Hepatitis B Surface Antibody Numeric Result Interpretation: Nonreactive: <8.0 mIU/mL Indeterminate: 8.0 - 12.0 mIU/mL Reactive: >12.0 mIU/mL Blood BLOOD SPECIMEN / Unknown Lab Venipuncture / Unknown 04/10/2025 12:45 PM CDT 04/10/2025 1:01 PM CDT Narrative [facility] - 04/11/2025 10:40 AM CDT This assay should not be used for blood, plasma, or tissue donor screening. This assay is not recommended for neonates born to HBV-infected or suspected HBV-infected mothers. us Florecita Abdi MD LAB - SEROLOGY ORDERABLES Final Result [address] [address], [facility] [phone] * URIC ACID BLOOD (04/10/2025 12:45 PM CDT) Pathologist [facility] Uric Acid 5.8 2.6 - 6.0 mg/dL 04/10/2025 1:41 PM CDT [facility] Blood BLOOD SPECIMEN / Unknown Lab Venipuncture / Unknown 04/10/2025 12:45 PM CDT 04/10/2025 1:05 PM CDT us Florecita Abdi MD LAB - CHEMISTRY ORDERABLES Final Result [address] [address], [place] [phone] * [facility] WBC+RBC PANEL (04/10/2025 12:45 PM CDT) % PNH Cells RBC <0.008 0.000 - 0.008 % 04/12/2025 7:01 PM CDT [employer] ([facility]) Comment: This test is preferred for the initial diagnosis of PNH, and was developed according to published guidelines (Cytometry B Clin. Cytom. 2010; 78:211) and as updated in 2018 (Cytometry B Clin. Cytom. 2018; 94B:49). The test includes high-sensitivity WBC and RBC analysis with a lower limit of quantification of 0.02 percent for PNH RBCs and PMNs (based on 250,000 cells analyzed) and 0.5 percent for PNH monocytes (based on 10,000 cells analyzed). The lower limit of detection for PNH RBCs and PMNs is 0.008 percent and for PNH monocytes 0.2 percent. For severely pancytopenic patients, the WBC assay sensitivity will be much lower. WBC analysis is the most accurate measurement of the PNH clone size. FLAER and CD157 are used as GPI-linked markers; CD15 (PMNs) and CD64 (monocytes) are used as lineage-specific markers. RBC analysis quantifies Type II and Type III RBC clones when the percentage of PNH RBCs is greater than 1 percent. Glycophorin A ([id number]) is used to gate the RBC population, and CD59 is the GPI-linked antigen. Recent RBC transfusions may decrease the percentage of PNH cells measured in RBCs (Cytometry 2000; 42:223). The presence of a subclinical PNH population in myelodysplastic bone marrow disorders, such as aplastic anemia or refractory anemia, may correlate with a positive immunotherapeutic response (Blood 2006; 107, 2259-4739). Patient Retesting Recommendations: The frequency of testing is dictated by clinical and hematological parameters; repeat testing is indicated upon any significant change in clinical or laboratory parameters and is suggested at least annually for routine monitoring. In the setting of aplastic anemia, international guidelines recommend screening for PNH at diagnosis, and every 3 to 6 months initially, reducing the frequency of testing if the proportion of GPI-deficient cells has remained stable over an initial two year period (Int J Lab Hematol 2019;41 Suppl 1:73-81). This test was developed and its performance characteristics determined by [employer]. It has not been cleared or approved by the US Food and Drug Administration. This test was performed in a CLIA certified laboratory and is intended for clinical purposes. Performed By: [facility] [employer] [address] [place] [address] [employer] Systems Software Developer: Krishan Ayala MD, PhD CLIA Number: [id number] PNH Phenotype Neutrophil Not Detected Not Detected 04/12/2025 7:01 PM CDT [facility]) % Normal PMNs <0.008 0.000 - 0.008 % 04/12/2025 7:01 PM CDT [facility] ([facility]) PNH Phenotype Monocyte Not Detected Not Detected 04/12/2025 7:01 PM CDT [facility]) PNH Profile WBC <0.200 0.000 - 0.200 % 04/12/2025 7:01 PM CDT [facility] ([facility]) PNH Phenotype RBC Not Detected Not Detected 04/12/2025 7:01 PM CDT [facility]) Blood BLOOD SPECIMEN / Unknown Lab Venipuncture / Unknown 04/10/2025 12:45 PM CDT 04/10/2025 1:01 PM CDT Florecita Abdi MD LAB - CHEMISTRY ORDERABLES Final Result [facility]) [address] [place] [address] * (ABNORMAL) PARVOVIRUS B19 IGG/IGM AB PANEL (04/10/2025 12:45 PM CDT) Parvovirus B19 Antibody IgG 1.24(H) <=0.90 IV 04/15/2025 1:06 AM CDT [facility]) Comment: INTERPRETIVE INFORMATION: Parvovirus B19 Antibody, IgG 0.90 IV or less .......... Negative - No significant level of detectable Parvovirus B19 IgG antibody. 0.91 - 1.09 IV ........... Equivocal - Repeat testing in 7-21 days may be helpful. 1.10 IV or greater ....... Positive - IgG antibody to Parvovirus B19 detected which may indicate a current or past infection. The best evidence for current infection is a significant change on two appropriately timed specimens, where both tests are done in the same laboratory at the same time. Parvovirus B19 Antibody IgM 0.53 <=0.89 IV 04/15/2025 1:06 AM CDT [facility] [employer] ([facility]) Comment: INTERPRETIVE INFORMATION: Parvovirus B19 Antibody, IgM 0.89 IV or less .......... Negative - No significant level of detectable Parvovirus B19 IgM antibody. 0.90 - 1.10 IV ........... Equivocal - Repeat testing in 7-21 days may be helpful. 1.11 IV or greater ........ Positive - IgM antibody to Parvovirus B19 detected which may indicate a current or recent infection. However, low levels of IgM antibodies may occasionally persist for more than 12 months post-infection. The best evidence for current infection is a significant change on two appropriately timed specimens, where both tests are done in the same laboratory at the same time. Appearance of an IgM antibody response normally occurs 7 to 14 days after the onset of disease. Testing immediately post-exposure is of no value without a later convalescent specimen. A residual IgM response may be distinguished from early IgM response to infection by testing sera from patients three to four weeks later for changing levels of specific IgM antibodies. Performed By: [employer] [address] [place] [address] [employer] Software Developer: Krishan Ayala MD, PhD CLIA Number: [id number] Blood BLOOD SPECIMEN / Unknown Lab Venipuncture / Unknown 04/10/2025 12:45 PM CDT 04/10/2025 1:01 PM CDT us Florecita Abdi MD LAB - SEROLOGY ORDERABLES Final Result [facility] ([facility]) [address] [place] [address], [facility] * (ABNORMAL) CYTOMEGALOVIRUS ANTIBODY IGG/IGM BLOOD (04/10/2025 12:45 PM CDT) Cytomegalovirus Antibody IgG >10.00(H) 0.00 - 0.59 U/mL 04/11/2025 12:10 PM CDT [facility] ([facility]) Comment: Negative <0.60 Equivocal 0.60 - 0.69 Positive >0.69 Cytomegalovirus Antibody IgM <30.0 0.0 - 29.9 AU/mL 04/11/2025 12:10 PM CDT [facility] ([facility]) Comment: Negative <30.0 Equivocal 30.0 - 34.9 Positive >34.9 A positive result is generally indicative of acute infection, reactivation or persistent IgM production. Blood BLOOD SPECIMEN / Unknown Lab Venipuncture / Unknown 04/10/2025 12:45 PM CDT 04/10/2025 1:01 PM CDT Narrative [facility] ([facility]) - 04/11/2025 12:10 PM CDT Performed at: [address] [place] [address] [address] [place], [place] [id number] [employer]: Aldo Poole PhD, Phone: [phone] Florecita Abdi MD LAB - CHEMISTRY ORDERABLES Final Result [facility] ([facility]) [address] [place] [address], [facility] * (ABNORMAL) LAURIE-BOWLING VIRUS ANTIBODY PANEL (04/10/2025 12:45 PM CDT) [facility] Laurie-Bowling Virus Antibody IgG Early Antigen 89.6(H) 0.0 - 10.9 U/mL 04/11/2025 10:34 PM CDT [employer] ([facility]) Comment: INTERPRETIVE INFORMATION: Laurie-Bowling Virus Antibody to Early D Antigen (EA-D), IgG 8.9 U/mL or less........Not Detected 9.0-10.9 U/mL...........Indeterminate - Repeat testing in 10-14 days may be helpful. 11.0 U/mL or greater....Detected Performed By: [employer] [address] [place] [id number] [employer] Software Developer: Krishan Ayala MD, PhD CLIA Number: [id number] Laurie-Bowling Virus Antibody IgG Viral Capsid Antigen >750.0(H) 0.0 - 21.9 U/mL 04/11/2025 10:34 PM CDT [facility] ([facility]) Comment: INTERPRETIVE INFORMATION: Laurie-Bowling Virus Antibody to Viral Capsid Antigen, IgG 17.9 U/mL or less.......Not Detected 18.0-21.9 U/mL..........Indeterminate - Repeat testing in 10-14 days may be helpful. 22.0 U/mL or greater....Detected Laurie-Bowling Virus Antibody IgM Viral Capsid Antigen <10.0 0.0 - 43.9 U/mL 04/11/2025 10:34 PM CDT [facility] ([facility]) Comment: INTERPRETIVE INFORMATION: Laurie-Bowling Virus Antibody to Viral Capsid Antigen, IgM 35.9 U/mL or less.......Not Detected 36.0-43.9 U/mL..........Indeterminate - Repeat testing in 10-14 days may be helpful. 44.0 U/mL or greater....Detected Laurie-Bowling Virus Antibody IgG Nuclear Antigen >600.0(H) 0.0 - 21.9 U/mL 04/11/2025 10:34 PM CDT [facility] ([facility]) Comment: INTERPRETIVE INFORMATION: Laurie-Bowling Virus Antibody to Nuclear Antigen, IgG 17.9 U/mL or less.......Not Detected 18.0-21.9 U/mL..........Indeterminate - Repeat testing in 10-14 days may be helpful. 22.0 U/mL or greater....Detected Blood BLOOD SPECIMEN / Unknown Lab Venipuncture / Unknown 04/10/2025 12:45 PM CDT 04/10/2025 1:01 PM CDT us Florecita Abdi MD LAB - CHEMISTRY ORDERABLES Final Result [facility] ([facility]) [address] [place] [address], [facility] * ZINC BLOOD (04/10/2025 12:45 PM CDT) Zinc 64.4 60.0 - 120.0 ug/dL 04/12/2025 3:26 AM CDT [facility] [employer] ([facility]) Comment: INTERPRETIVE INFORMATION: Zinc, Serum or Plasma Elevated results may be due to skin or collection-related contamination, including the use of a noncertified metal-free collection/transport tube. If contamination concerns exist due to elevated levels of serum/plasma zinc, confirmation with a second specimen collected in a certified metal-free tube is recommended. Circulating zinc concentrations are dependent on albumin status and are depressed with malnutrition. Zinc may also be lowered with infection, inflammation, stress, oral contraceptives, and . Zinc may be elevated with zinc supplementation or fasting. Elevated zinc concentrations may interfere with copper absorption. This test was developed and its performance characteristics determined by [employer] It has not been cleared or approved by the US Food and Drug Administration. This test was performed in a CLIA certified laboratory and is intended for clinical purposes. Performed By: [employer] [address] [place] [address] [employer] Software Developer: Krishan Ayala MD, PhD CLIA Number: [id number] Blood BLOOD SPECIMEN / Unknown Lab Venipuncture / Unknown 04/10/2025 12:45 PM CDT 04/10/2025 1:01 PM CDT Florecita Abdi MD LAB - CHEMISTRY ORDERABLES Final Result [facility] [employer] [facility]) [address] [place] [address] * PARVOVIRUS B19 PCR (04/10/2025 12:45 PM CDT) Pathologist [facility] Parvovirus B19 PCR Not Detected 04/13/2025 3:57 PM CDT [facility] [employer] ([facility]) Comment: NOT DETECTED - A negative result does not rule out the presence of PCR inhibitors in the patient specimen or assay specific nucleic acid in concentrations below the level of detection by the assay. INTERPRETIVE INFORMATION: Parvovirus B19 by Qualitative PCR This test was developed and its performance characteristics determined by [employer] It has not been cleared or approved by the US Food and Drug Administration. This test was performed in a CLIA certified laboratory and is intended for clinical purposes. Performed By: [employer] [address] [place] [address] [employer] Software Developer: Krishan Ayala MD, PhD CLIA Number: [id number] Source Parvovirus Blood 025 3:57 PM CDT [facility] ([facility]) Blood BLOOD SPECIMEN / Unknown Lab Venipuncture / Unknown 04/10/2025 12:45 PM CDT 04/10/2025 1:01 PM CDT Florecita Abdi MD LAB - CHEMISTRY ORDERABLES Final Result Performing Organization Address [facility] de Phone Number [facility]) [address] [place] [address] * COPPER BLOOD (04/10/2025 12:45 PM CDT) [facility] Signature Copper 141.2 80.0 - 155.0 ug/dL 04/12/2025 3:26 AM CDT [facility] ([facility]) Comment: INTERPRETIVE INFORMATION: Copper, Serum or Plasma Elevated results may be due to skin or collection-related contamination, including the use of a noncertified metal-free collection/transport tube. If contamination concerns exist due to elevated levels of serum/plasma copper, confirmation with a second specimen collected in a certified metal-free tube is recommended. Serum copper may be elevated with infection, inflammation, stress, and copper supplementation. In females, elevated copper may also be caused by oral contraceptives and (concentrations may be elevated up to 3 times normal during the third trimester). This test was developed and its performance characteristics determined by [employer]. It has not been cleared or approved by the US Food and Drug Administration. This test was performed in a CLIA certified laboratory and is intended for clinical purposes. Performed By: [employer] [address] [place] [address] [employer] Software Developer: Krishan Ayala MD, PhD CLIA Number: [id number] Blood BLOOD SPECIMEN / Unknown Lab Venipuncture / Unknown 04/10/2025 12:45 PM CDT 04/10/2025 1:01 PM CDT Florecita Abdi MD LAB - CHEMISTRY ORDERABLES Final Result Performing Organization Address [facility]/ZIP Co de Phone Number [facility]) [address] [place] [address], [facility] * (ABNORMAL) ERYTHROPOIETIN (04/10/2025 12:45 PM CDT) Erythropoietin 450(H) 4 - 27 mU/mL 04/11/2025 1:33 PM CDT [employer] ([facility]) Comment: INTERPRETIVE INFORMATION: Erythropoietin Normal serum concentrations of erythropoietin for 95% of individuals with normal hematocrits range from 4-27 mU/mL. As the hematocrit is lowered by iron deficiency, aplastic, or hemolytic anemia, the concentration of erythropoietin increases as shown in the graph below. In the absence of anemia, elevated concentrations are seen in renal tumors, as a manifestation of renal transplant rejection, and in secondary polycythemia. Low values may be observed in hemochromatosis. Expected Erythropoietin Concentrations in Patients with Uncomplicated Anemia Erythropoietin (mU/mL) 100,000 - + + 10,000 - +....... + ....... 1,000 - + ....... + ........ 100 - + ........ + ........ 10 - + ........ +---+---+---+---+---+---+ 10 20 30 40 50 60 70 (Hematocrit %) (Contributions To Nephrology 1988:66:54-62) Decreased erythropoietin concentrations with an elevated hematocrit are observed in patients with polycythemia rubra vera, and with a decreased hematocrit in patients with HIV infection who are receiving AZT. Patients on AZT who have anemia and erythropoietin concentrations of less than or equal to 500 mU/mL may benefit from therapy with recombinant EPO (NEJ 322:4746-4303,1989). Performed By: [employer] [address] [place] [address] [employer] Software Developer: Krishan Ayala MD, PhD CLIA Number: [id number] Blood BLOOD SPECIMEN / Unknown Lab Venipuncture / Unknown 04/10/2025 12:45 PM CDT 04/10/2025 1:01 PM CDT Florecita Abdi MD LAB - CHEMISTRY ORDERABLES Final Result Performing Organization Address [facility]/ZIP Co de Phone Number [employer] ([facility]) [address] * (ABNORMAL) SOLUBLE TRANSFERRIN RECEPTOR (04/10/2025 12:45 PM CDT) [facility] Soluble Transferrin Receptor 5.9(H) 1.9 - 4.4 mg/L 04/11/2025 8:02 PM CDT [employer] ([facility]) Comment: INTERPRETIVE INFORMATION: Soluble Transferrin Receptor People of descent and those residing at 5200 feet (1600 meters) above sea level were found to have a 6% higher normal value. These differences were additive. Reference intervals have not been established for females, patients under 18 years of age, and recent or frequent blood donors. Serum soluble transferrin receptor increases in iron deficiency and is usually unaffected by chronic disease states. In general, to increase sensitivity and specificity, the measurement of serum soluble transferrin receptor should be performed in combination with other tests of iron status, including ferritin, TIBC, and serum iron. (See Table Below). Tests for Iron Anemia of Combined Iron Changes Def. Chronic Def. and anemia Analyte in: Anemia Disease of Chronic Dz ------- -------- ------ --------- Ferritin Fe Stores Low High Normal or High TIBC Fe Status High Low Normal or High Serum Fe Fe Status Low Low Low sTfR Fe Status High Normal High Performed By: [employer] [address] [place] [address] [employer] Software Developer: Krishan Ayala MD, PhD CLIA Number: [id number] Blood BLOOD SPECIMEN / Unknown Lab Venipuncture / Unknown 04/10/2025 12:45 PM CDT 04/10/2025 1:01 PM CDT Florecita Abdi MD LAB - CHEMISTRY ORDERABLES Final Result Performing Organization Address [facility]/ZIP Co de Phone Number [employer] ([facility]) [address] * (ABNORMAL) RETIC COUNT (04/10/2025 12:45 PM CDT) [facility] Percent 1.95 0.50 - 2.40 % 04/10/2025 2:18 PM CDT [facility] [employer]ul[employer] Absolute 0.0468 0.0200 - 0.1100 x10E6/uL 04/10/2025 2:18 PM CDT [facility] Ret-HE 27.1(L) 29.0 - 37.9 pg 04/10/2025 2:18 PM CDT [facility] Immature Reticulocyte Fraction 20.3(H) 1.8 - 15.2 % 04/10/2025 2:18 PM CDT [facility] Blood BLOOD SPECIMEN / Unknown Lab Venipuncture / Unknown 04/10/2025 12:45 PM CDT 04/10/2025 1:05 PM CDT Florecita Abdi MD LAB - HEMATOLOGY ORDERABLES Debbie l Result [address] [address], [facility] [phone] * (ABNORMAL) LDH BLOOD (04/10/2025 12:45 PM CDT) [facility] LDH Total 261(H) 125 - 243 Units/L 04/10/2025 1:41 PM CDT [facility] Blood BLOOD SPECIMEN / Unknown Lab Venipuncture / Unknown 04/10/2025 12:45 PM CDT 04/10/2025 1:05 PM CDT Florecita Abdi MD LAB - CHEMISTRY ORDERABLES Final Result [address] [address], [facility] [phone] * (ABNORMAL) HEPATITIS B CORE ANTIBODY TOTAL (04/10/2025 12:45 PM CDT) [facility] HBc Antibody Total Reactive(A ) Non-reacti ve 04/10/2025 6:09 PM CDT [facility] Blood BLOOD SPECIMEN / Unknown Lab Venipuncture / Unknown 04/10/2025 12:45 PM CDT 04/10/2025 1:01 PM CDT us Florecita Abdi MD LAB - CHEMISTRY ORDERABLES Final Result [address] [address], [place] [phone] * HEPATITIS B SURFACE ANTIGEN W RFLX CONFIRMATION (04/10/2025 12:45 PM CDT) Hepatitis B Virus Surface Antigen Non-reacti ve Non-reacti ve 04/10/2025 5:34 PM CDT [facility] Blood BLOOD SPECIMEN / Unknown Lab Venipuncture / Unknown 04/10/2025 12:45 PM CDT 04/10/2025 1:01 PM CDT us Florecita Abdi MD LAB - CHEMISTRY ORDERABLES Final Result Performing Organization Address [facility]/ZIP Co de Phone Number [address] [address], [place] [phone] * (ABNORMAL) IRON + TRANSFERRIN PANEL (04/10/2025 12:45 PM CDT) Iron 132 40 - 150 ug/dL 04/10/2025 2:46 PM CDT [facility] Transferrin 204 174 - 382 mg/dL 04/10/2025 2:46 PM CDT [facility] Transferrin Saturation % 52(H) 16 - 50 % 04/10/2025 2:46 PM CDT [facility] TIBC Calculated 255 240 - 450 ug/dL 04/10/2025 2:46 PM CDT [facility] Blood BLOOD SPECIMEN / Unknown Lab Venipuncture / Unknown 04/10/2025 12:45 PM CDT 04/10/2025 1:01 PM CDT us Florecita Abdi MD LAB - CHEMISTRY ORDERABLES Final Result [address] [address], [place] [phone] * HAPTOGLOBIN (04/10/2025 12:45 PM CDT) [facility] Haptoglobin 115 14 - 258 mg/dL 04/10/2025 2:46 PM CDT [facility] Blood BLOOD SPECIMEN / Unknown Lab Venipuncture / Unknown 04/10/2025 12:45 PM CDT 04/10/2025 1:01 PM CDT Florecita Abdi MD LAB - CHEMISTRY ORDERABLES Final Result Performing Organization Address City/[facility]/ZIP Co de Phone Number [address] [address], [place] [phone] * HEPATITIS C ANTIBODY (04/10/2025 12:45 PM CDT) [facility] Hepatitis C Antibody Non-react lana Non-reac tive 04/10/2025 5:34 PM CDT [facility] Comment:Hepatitis C Antibody screen indicates no serologic evidence of past or current infection with Hepatitis C Virus. Patients with unexplained liver disease who are immunocompromised or suspected of having acute Hepatitis C infection may benefit from Nucleic Acid Test (DELMI) for Hepatitis C Viral RNA to confirm Hepatitis C status. Blood BLOOD SPECIMEN / Unknown Lab Venipuncture / Unknown 04/10/2025 12:45 PM CDT 04/10/2025 1:01 PM CDT us Florecita Abdi MD LAB - CHEMISTRY ORDERABLES Final Result [address] [address], [place] [phone] * (ABNORMAL) FERRITIN (04/10/2025 12:45 PM CDT) [facility] Ferritin 1,298(H) 13 - 204 ng/mL 04/10/2025 3:13 PM CDT [facility] Comment:Result obtained by billy pacheco. Blood BLOOD SPECIMEN / Unknown Lab Venipuncture / Unknown 04/10/2025 12:45 PM CDT 04/10/2025 1:01 PM CDT Florecita Abdi MD LAB - CHEMISTRY ORDERABLES Final Result [facility] [address] [place] [address], [facility] [phone] * FLOW CYTOMETRY BONE MARROW (03/31/2025 8:50 AM CDT) Case Report Flow Cytometry Case: [id number] Authorizing Provider: Florecita Abdi MD Collected: 03/31/2025 08:50 AM Ordering Location: [facility] - Received: 03/31/2025 10:13 AM Hematology/Oncolo gy Pathologist: Samra David MD Specimen: Bone Marrow 03/31/2025 12:59 PM CDT [facility] Final Diagnosis Bone marrow, flow cytometric immunophenotypic analysis: - No evidence of a monoclonal B-cell population or increase in blasts - See interpretation 03/31/2025 12:59 PM CDT [facility] at 1259 CDT Flow Cytometry Interpretation Viability: 97% B-cells: polytypic, kappa:lambda ratio 2:1 Blasts: 0.4% of events A bone marrow aspirate smear prepared from the flow cytometry specimen has been reviewed for quality assurance calibrator purposes. 03/31/2025 12:59 PM CDT [facility] Flow Cytometry Results Differential Result Comment Flow Cell Count /uL 36,800 Total Viability % 97.0 Lymphocytes % 10 Dim CD45 Region % 2 Monocytes % 7 Granulocytes % 81 03/31/2025 12:59 PM CDT [facility] Reason for test Pancytopenia (HCC) 0 03/31/2025 12:59 PM CDT [facility] Client Specimen ID # [id number] 03/31/2025 12:59 PM CDT [facility] Number of markers 19 were performed. A-2 Flow CD10 A-3 Flow CD13 A-5 Flow CD20 A-11 Flow CD2 A-13 Flow CD14 A-16 Flow CD117 A-17 Flow CD11b A-18 Flow CD11c A-1 Flow CD5 A-4 Flow CD19 A-6 Flow CD33 A-7 Flow CD34 A-8 Flow CD45 A-12 Flow CD7 A-14 Flow CD56 A-15 Flow CD64 A-9 [place]+CD19+ A-10 Lambda+CD19+ A-19 Flow HLA-DR 03/31/2025 12:59 PM CDT [facility] Pathologist Location at [facility] 03/31/2025 12:59 PM CDT [facility] Disclaimer Test performed at [facility], [address] [place] [address], [id number]. *The established laboratory minimum viability is 70%. [...] qualified to perform high complexity clinical testing. 03/31/2025 12:59 PM CDT [facility] Embedded Images 12:59 PM CDT [facility] Pathology/Cytolo gy BONE MARROW SPECIMEN / Unknown Collection / Unknown 03/31/2025 8:50 AM CDT 03/31/2025 10:13 AM CDT Florecita Abdi MD LAB - PATHOLOGY/CYTOLOGY ORDERAB LES Final Result [facility] [address] [place] [address]. [place] [address], [facility] [phone] * BONE MARROW BIOPSY (STL) (03/31/2025 8:50 AM CDT) Case Report Bone Marrow Patholog y Report Case: [id number] Authorizing Provider: Florecita Abdi MD Collected: 03/31/2025 08:50 AM Ordering Location: [facility] - Received: 03/31/2025 10:13 AM Hematology/Oncology Pathologist: Jaxon Bedolla MD Specimens: A) - Bone Marrow B) - Bone Marrow Core C) - Bone Marrow Aspirate D) - Blood Peripheral 04/04/2025 10:[address] [facility] Final Diagnosis Bone marrow, aspirate, clot section, and core biopsy: - Myelodysplastic neoplasm with ring sideroblasts - Hypercellular bone marrow for age (60% cellularity) - Increased iron storage Peripheral blood smear: - Normocytic normochromic anemia, moderate to severe - Mild thrombocytopenia 04/04/2025 10:[address] [facility] at 1039 CDT AP Comment The significant findings include multilineage dysplasia (megakaryocytes and erythroids), increased ring sideroblasts, and no significantly increased blasts. Overall, there is no diagnostic evidence of advanced myelodysplastic neoplasm, acute leukemia, plasma cell myeloma, or lymphoma. Clinical correlation, correlation with pending cytogenetics, and molecular studies recommended. 04/04/2025 10:[address] [facility] Peripheral Smear Description RBC: Normocytic and normochromic anemia, moderate to severe. Significant anisopoikilocytosis and polychromasia. Rare to occasional microcytes, schistocytes, teardrop cells, pencil cells and spherocytes. No circulating nucleated RBCs. WBC: Normal in number with absolute eosinophilia. Neutrophils predominantly normally segmented with normal granulation. Mild left shift with rare myelocytes at the scanning power. Lymphocytes include reactive forms, and small lymphocytes. No circulating blasts seen. Platelets: Mildly decreased in number. Normal granulation. Rare giant forms. 04/04/2025 10:[address] [facility] Bone Marrow Aspirate Specimen quality: Adequate. Spicules: Present. Trilineage Hematopoiesis: Normal. Myeloid:Erythroid ratio: Normal. Myeloid Maturation: Normal. Erythroid Maturation: Occasional to frequent cells with nuclear contour irregularity, bi- or multi- nucleated cells. Megakaryocyte morphology: Many microcytic forms, and forms with hypo- or mono-lobation. Plasma cells and lymphocytes: Scattered seen. Storage iron (by special stain): Mildly increased. Sideroblastic iron (by special stain): Frequent ring sideroblasts seen. 04/04/2025 10:[address] [facility] Bone Marrow Core Biopsy and Clot Section Description Specimen quality: Adequate, 10 mm of evaluable marrow. Cellularity: 60%, hypercellular. Blasts: Few, no aggregates. <1% by CD34 and CD117 stains. Trilineage Hematopoiesis: Present Myeloid to Erythroid ratio: Normal. Myeloid maturation and localization: Normal. Erythroid maturation and localization: Normal. Megakaryocyte number: Mildly increased, including many microcytic forms, and forms with hypo- or mono-lobation. Megakaryocyte distribution: Focal clustering, some are loose. Lymphoid aggregates: none seen. Plasma cells: Scattered seen. Reticulin stain: No reticulin fibrosis (MF-0/3). Clot section marrow particles: Present. Clot section morphology: Similar to core biopsy specimen. Storage iron (by special stain): Increased. Sideroblastic iron (by special stain): Frequent ring sideroblasts seen. 04/04/2025 10:[address] [facility] Flow Cytometry Summary Bone marrow, flow cytometric immunophenotypic analysis ([id number]): - No evidence of a monoclonal B-cell population or increase in blasts 04/04/2025 10:[address] [facility] Clinical History 69-year-old female with history of MDS, ring sideroblasts 04/04/2025 10:[address] [facility] Gross Description The requisition and specimen(s) are identified with the patient's name, Tanesha Gaviria. Received fresh, ordered as specimen B, redesignated as specimen A, clot is a 2.0 x 1.9 x 0.3 cm blood clot. The specimen is placed in a biopsy bag and entirely submitted in cassette A1. Received in formalin, ordered as specimen A, redesignated as specimen B, core is a 1.0 cm length by 0.3 cm diameter core of frost-red spongy bone. The specimen is entirely submitted in cassette B1 following a 1 hour decalicifcation in [employer]. [place] 04/04/2025 10:[address] [facility] Pathologist Location at [facility] 04/04/2025 10:[address] [facility] Disclaimer The performance characteristics of all immunohistochemical and indirect immunofluorescence stains (if any) cited in this report were determined by the Histopathology Laboratory of [facility]. Some of these tests were developed by [...] and interpreted by the attending (teaching) pathologist. 04/04/2025 10:39 AM CDT [facility] Embedded Images 04/04/2025 10:39 AM CDT [facility] Pathology/Cytology PERIPHERAL BLOOD / Unknown Collection / Unknown 03/31/2025 8:50 AM CDT 03/31/2025 10:13 AM CDT Miscellaneous samples (specimen) BONE MARROW SPECIMEN / Unknown 03/31/2025 8:50 AM CDT 03/31/2025 10:13 AM CDT Miscellaneous samples (specimen) SPECIMEN FROM BONE MARROW OBTAINED BY ASPIRATION / Unknown 03/31/2025 8:50 AM CDT 03/31/2025 10:13 AM CDT Miscellaneous samples (specimen) PERIPHERAL BLOOD / Unknown 03/31/2025 8:50 AM CDT 03/31/2025 11:24 AM CDT Florecita Abdi MD LAB - PATHOLOGY/CYTOLOGY ORDERAB LES Final Result [facility] [address] [place] [address], [facility] [phone] * LAB MISC TEST (NOT BLOOD) (03/31/2025 8:50 AM CDT) Only the most recent of2 resultswithin the time period is included. Test Name Comprehensive AML Panel + CEP8 + [id number] - [facility] 04/06/2025 11:13 AM CDT [facility] REF LAB NON INTERF Test Result See Scanned Report 04/06/2025 11:13 AM CDT [facility] REF LAB NON INTERF Comment Ref Lab [facility] 04/06/2025 11:13 AM CDT [facility] REF LAB NON INTERF Other BONE MARROW SPECIMEN / Unknown Collection / Unknown 03/31/2025 8:50 AM CDT 03/31/2025 10:58 AM CDT us Florecita Abdi MD LAB - BODY FLUID ORDERABLES Debbie cueva Result [facility] REF LAB NON INTERF [address] [place] [address], [place] [phone] * CHROMOSOME ANALYSIS BONE MARROW PANEL (03/31/2025 8:50 AM CDT) Pathologist [facility] Chromosome Analysis Bone Marrow See Note Normal 04/13/2025 1:51 PM CDT [employer] ([facility]) Comment: Test Performed: Chromosome Analysis Specimen Type: Bone Marrow Indication for Testing: Pancytopenia Number of cells counted: 24 Number of cells analyzed: 24 Number of cells karyotyped: 24 ISCN band level: 400 Banding method: G-Banding RESULT Abnormal Karyotype (Female) 46,XX,add(3)(p25)[5'/46,XX[19' INTERPRETATION This analysis showed additional material of unknown origin on chromosome 3p in 5/24 (21%) cells. The remaining cells showed a normal chromosome complement. The significance of this finding is uncertain, however it does represent a clonal change consistent with a neoplastic process. Please correlate this result with clinical and other laboratory findings. Recommendation: If clinically warranted, further analysis by genomic microarray may prove informative. This test is available, at a charge, through [employer]. Please order test code [id number], [employer] SNP Microarray - Oncology. Residual sample will only be available for 30 days from the date of specimen arrival. This result has been reviewed and approved by Bhavesh Jaquez, PhD, ABMGG A portion of this analysis was performed at the following location(s): [facility] Site CG-CO#1 [facility] [employer] Site CG-NE#1 INTERPRETIVE INFORMATION: Chromosome Analysis, Bone Marrow This test was developed and its performance characteristics determined by [employer]. It has not been cleared or approved by the [place] Food and Drug Administration. This test was performed in a CLIA certified laboratory and is intended for clinical purposes. [facility] Chromosome Analysis Bone Marrow See Note 04/13/2025 1:51 PM CDT [employer] ([facility]) Comment: Authorized individuals can access the [employer] Enhanced Report with an [employer] Connect account using the following link. Your local lab can assist you in obtaining the patient report if you don't have a Connect account. [email or web address] Performed By: [facility] [address] [place] [address] [employer] Systems Software Developer: Krishan Ayala MD, PhD CLIA Number: [id number] Bone marrow BONE MARROW SPECIMEN / Unknown 03/31/2025 8:50 AM CDT 03/31/2025 10:13 AM CDT Florecita Abdi MD LAB - PATHOLOGY/CYTOLOGY ORDERAB LES Final Result [facility] [employer] [facility]) [address] [place] [address], [facility] * CT Bone Marrow Biopsy (03/31/2025 8:49 AM CDT) Anatomical Region Laterality Modality Computed Tomogra phy 03/31/2025 9:12 AM CDT Impressions 03/31/2025 9:14 AM CDT Impression: CT-guided bone marrow aspiration and biopsy of the right iliac bone, as described above. The pathology report is pending at the time of this dictation. I, Dr. Ana Vela, was present and performed/supervised the entire procedure. Moderate sedation on this adult patient was ordered by me, administered intravenously in my presence, and monitored by the procedure nurse as an independent trained observer who was present throughout the procedure. The following parameters were monitored: oxygen saturation, heart rate, blood pressure, and response to care. Intra-service sedation start time was 08:19 and end time was 08:42 during which I was present. Total physician intra-service sedation time was 23 minutes. For details on pre moderate sedation and post moderate sedation patient evaluation, please review the evaluation forms in [facility]. For details on monitored clinical parameters during the intra-service sedation time, please review the procedure nurse documentation in [facility]. > Interpreting Provider: Ana Vela MD on 03/31/2025 9:14 AM Narrative 03/31/2025 9:14 AM CDT PROCEDURE: CT BONE MARROW BIOPSY DATE/TIME OF EXAM: 03/31/2025 8:59 AM History: 69-year-old female with MDS and severe anemia, presenting for bone marrow biopsy. Operators: 1.Dr. Vela, Attending Physician Anesthesia: 1.Local anesthesia - 10 mL of 1% lidocaine 2.Intravenous conscious sedation - Versed 2 mg and Fentanyl 100 mcg Procedure: 1.Limited non-contrast CT of the pelvis. 2.CT-guided bone marrow aspiration and biopsy of the right iliac bone. Procedure in detail: The procedure and possible complications were explained to the patient in detail, and informed consent was obtained. The patient was placed in a prone position on the CT table and a radio-opaque grid was placed over the region of interest. Limited non-contrast CT of the pelvis showed unremarkable iliac bones. A percutaneous entry site was marked on the skin to access the right iliac bone. The marked site and skin around the region was prepped and draped in a sterile fashion. Local anesthesia was provided with 1% Lidocaine. An 11 gauge coaxial needle system was advanced in stages under CT guidance using a power drill On-control system. With the needle tip within the iliac wing bone marrow, the inner stylet was removed and marrow aspiration was performed per protocol. In addition, one core sample was acquired by advancing the coaxial system across the iliac wing bone marrow. Final post-biopsy imaging did not show any immediate complications. The patient tolerated the procedure well and was transferred to the holding area in stable condition. Procedure Note Ana Vela, DO - 03/31/2025 PROCEDURE: CT BONE MARROW BIOPSY DATE/TIME OF EXAM: 03/31/2025 8:59 AM History: 69-year-old female with MDS and severe anemia, presenting forbone marrow biopsy. Operators: 1.Dr. Vela, Attending Physician Anesthesia: 1.Local anesthesia - 10 mL of 1% lidocaine 2.Intravenous conscious sedation - Versed 2 mg and Fentanyl 100 mcg Procedure: 1.Limited non-contrast CT of the pelvis. 2.CT-guided bone marrow aspiration and biopsy of the right iliac bone. Procedure in detail: The procedure and possible complications were explained to the patientin detail, and informed consent was obtained. The patient was placed in a prone position on the CT table and a radio-opaque grid was placed overthe region of interest. Limited non-contrast CT of the pelvis showed unremarkable iliac bones. A percutaneous entry site was marked on theskin to access the right iliac bone. The marked site and skin around the region was prepped and draped in a sterile fashion. Local anesthesia was provided with 1% Lidocaine. An 11 gauge coaxial needle system was advanced in stages under CT guidanceusing a power drill On-control system. With the needle tip within the iliacwing bone marrow, the inner stylet was removed and marrow aspiration was performed per protocol. In addition, one core sample was acquired by advancing the coaxial system across the iliac wing bone marrow. Final post-biopsy imaging did not show any immediate complications. The patient tolerated the procedure well and was transferred to the holding area in stable condition. Impression: CT-guided bone marrow aspiration and biopsy of the rightiliac bone, as described above. The pathology report is pending at the time of this dictation. I, Dr. Ana Vela, was present and performed/supervised the entire procedure. Moderate sedation on this adult patient was ordered by me, administered intravenously in my presence, and monitored by [facility] as an independent trained observer who was present throughout the procedure. The following parameters were monitored: oxygen saturation, heart rate, blood pressure, and response to care. Intra-service sedation start time was 08:19 and end time was 08:42 during which I was present. Total physician intra-service sedation time was 23 minutes. For detailson pre moderate sedation and post moderate sedation patient evaluation,please review the evaluation forms in [facility]. For details on monitored clinical parameters during the intra-service sedation time, please review the procedure nurse documentation in [facility]. > Interpreting Provider: Ana Vela MD on 03/31/2025 9:14 AM us Florecita Abdi MD CT ORDERABLES Final Result * TSH REFLEX FREE T4 (03/31/2025 7:13 AM CDT) TSH 0.817 0.350 - 4.940 uIU/mL 03/31/2025 8:25 AM [facility] Blood BLOOD SPECIMEN / Unknown Venipuncture / Unknown 03/31/2025 7:13 AM CDT 03/31/2025 7:26 AM CDT us Florecita Abdi MD LAB - CHEMISTRY ORDERABLES Final Result [facility] [address] [place] [id number], [facility] [phone] * (ABNORMAL) COMPREHENSIVE METABOLIC PANEL (03/31/2025 7:13 AM CDT) BUN 10 7 - 26 mg/dL 03/31/2025 7:54 AM [facility] Creatinine 0.83 0.56 - 0.96 mg/dL 03/31/2025 7:54 AM [facility] Sodium 138 136 - 145 mmol/L 03/31/2025 7:54 AM [facility] Potassium 3.9 3.5 - 4.5 mmol/L 03/31/2025 7:54 AM [facility] Chloride 106 98 - 107 mmol/L 03/31/2025 7:54 AM [facility] CO2 25 22 - 29 mmol/L 03/31/2025 7:54 AM [facility] Glucose 99 70 - 99 mg/dL 03/31/2025 7:54 AM [facility] Calcium 9.2 8.4 - 10.2 mg/dL 03/31/2025 7:54 AM [facility] Protein Total 6.9 6.0 - 8.3 g/dL 03/31/2025 7:54 AM [facility] Albumin 3.3(L) 3.4 - 5.0 g/dL 03/31/2025 7:54 AM [facility] Bilirubin Total 0.3 0.2 - 1.2 mg/dL 03/31/2025 7:54 AM [facility] Alkaline Phosphatase 82 40 - 150 U/L 03/31/2025 7:54 AM [facility] ALT 9 5 - 55 U/L 03/31/2025 7:54 AM [facility] AST 18 5 - 34 U/L 03/31/2025 7:54 AM [facility] Anion Gap 7 6 - 16 03/31/2025 7:54 AM [facility] BUN/Creatinine Ratio 12 7 - 23 03/31/2025 7:54 AM [facility] Osmolality Calculated 285 275 - 295 mOsm/kg 03/31/2025 7:54 AM [facility] Albumin/Globulin Ratio 0.9(L) 1.1 - 2.3 03/31/2025 7:54 AM [facility] eGFR by CKD-EPI 77(L) >=90 mL/min/1.7 3 m2 03/31/2025 7:54 AM [facility] Blood BLOOD SPECIMEN / Unknown Venipuncture / Unknown 03/31/2025 7:13 AM CDT 03/31/2025 7:[address] [facility] - 03/31/2025 7:54 AM [facility] Estimated Glomerular Filtration Rate (eGFR) calculated using the CKD-EPI Creatinine Equation (2020), per the National Kidney Foundation and [place] Society of Nephrology recommendations. us Florecita Abdi MD LAB - CHEMISTRY ORDERABLES Final Result [facility] [address] [place] [phone], [facility] [phone] * FOLATE (03/31/2025 7:13 AM CDT) Folate 13.0 7.0 - 31.4 ng/mL 03/31/2025 8:25 AM [facility] Blood BLOOD SPECIMEN / Unknown Venipuncture / Unknown 03/31/2025 7:13 AM CDT 03/31/2025 7:26 AM CDT us Florecita Abdi MD LAB - CHEMISTRY ORDERABLES Final Result [facility] [address] [place] [address], [place] [phone] * VITAMIN B12 (03/31/2025 7:13 AM CDT) Vitamin B12 725 213 - 816 pg/mL 03/31/2025 8:25 AM CDT [facility] Blood BLOOD SPECIMEN / Unknown Venipuncture / Unknown 03/31/2025 7:13 AM CDT 03/31/2025 7:26 AM CDT us Florecita Abdi MD LAB - CHEMISTRY ORDERABLES Final Result Performing Organization Address City/[facility]/ZIP Co de Phone Number [address] [address], [place] [phone] from Last 3 Months Insurance [facility] [place] [address] Care Teams Sales Representative Aircraft Relationship Specialty Start Date End Date Winifred Mcdonough MD [address] [phone] PCP - General Internal Medicine 02/23/25
[2025-06-28] MEDS: MORPHINE SULFATE (*CRX) 4 MG/ML INJ IV PUSH (23:52)
[2025-06-28 23:54] VITALS: BP 103/63; PULSE 97; RESP 18; TEMP 37.3; O2SAT 100
--- NOTE | 2025-06-28 23:54 | ED.WEAKNESS ---
HPI - Weakness General Chief complaint: Weakness Stated complaint: ALL OVER BODY PAINS, CP, SOB, CURRENT CHEMO PT Time Seen by Provider: 06/28/25 23:24 History of Present Illness HPI Narrative: This is a 69-year-old female with History of myelodysplastic syndrome currently on chemo who presents to the ED for weakness, fatigue, chest pain, shortness of breath. Patient states that about 5 days ago, she completed a new chemotherapy regimen that was a week-long p.o.. She states for past 3-4 days, she has had increasing difficulty ambulating due to weakness and fatigue and she has had chest pain and shortness of breath with exertion. She lives alone so she was concerned about her ability to take care of herself. Denies fevers, chills, nausea, vomiting, diarrhea, constipation, abdominal pain. Related Data Home Medications ?Medication ?Instructions ?Recorded ?Confirmed ?Last Taken ?Type amlodipine 10 mg-benazepril 20 mg 1 cap PO DAILY 10/15/22 06/29/25 06/28/25 History capsule decitabine 35 mg-cedazuridine 100 1 tablet PO DAILY 06/29/25 06/29/25 06/23/25 History mg tablet (Inqovi) megestrol 400 mg/10 mL (40 mg/mL) 400 mg PO DAILY Increase Appetite 06/29/25 06/29/25 06/27/25 History oral suspension ondansetron HCl 8 mg tablet 8 mg PO Q8H PRN nausea and vomiting 06/29/25 06/29/25 Unknown History Allergies Allergy/AdvReac Type Severity Reaction Status Date / Time ibuprofen Allergy Mild Itching Verified 06/28/25 22:42 Review of Systems Review of Systems: Gen.: Denies fevers or chills Eyes: Denies eye pain or visual change ENT: Denies congestion Respiratory: as per HPI CV: As per HPI GI: Denies abdominal pain nausea, emesis or diarrhea denies burning, urgency, frequency or hematuria Musculoskeletal: Denies back pain or muscle pain Neuro: Denies numbness, tingling, focal weakness Skin: Denies rash Except as documented, all other systems reviewed and negative PMF Past Medical History Medical History MDS (myelodysplastic syndrome) Family History Family History (Updated 02/01/25 @ 23:32 by Amy Echeverria RN) Father Lung cancer Mother Lung cancer Mother No problems noted. Social History Social History Smoking packs per day: 1 Smoking cigarettes per day: 20.0 Years smoked: 37 Smoking pack-years: 37.00 Smoking status: Current every day smoker Tobacco type: cigarettes Second hand tobacco smoke exposure: No Alcohol intake: never Substance use: never Substance use type: does not use Do You Feel Safe in your Home?: Yes Lack of Transportation: No Lack of Food: Never True Current Housing: I Have Housing Concerned About Future Housing: No Difficulty Paying Gas/Electric Bills: No Difficulty Paying for Meds: No Currently Unemployed: No Education: Grade School Difficulty w/ Childcare or Family Care: No Living arrangements: alone Spiritual care concerns: No Exam Narrative: APPEARANCE: No acute distress, nontoxic, resting in bed EYES: EOMI HEENT: Normocephalic, atraumatic, OMM. Conjunctival pallor. Mucosal pallor. RESPIRATORY: No respiratory distress Clear to auscultation bilaterally with no rhonchi wheezing or rales. CARDIOVASCULAR: Regular rate and rhythm without murmurs rubs or gallops. ABDOMINAL: Soft, nontender, nondistended, no rebound or guarding MUSCULOSKELETAl: Moves all extremities. No clubbing, cyanosis or edema. NEURO: Awake and alert. Following commands, speech normal, no focal deficits SKIN:: Warm, dry. No rashes lesions or abrasions PSYCHIATRIC: Normal affect/mood, Course Vital Signs Vital signs: Vital Signs Pulse Rate 94 06/28/25 22:32 Respiratory Rate 18 06/28/25 22:32 Blood Pressure 118/63 06/28/25 22:32 Pulse Oximetry 100 06/28/25 22:32 Temperature 98.4 F 06/29/25 01:50 Pulse Rate 99 06/29/25 02:00 Respiratory Rate 21 H 06/29/25 01:50 Blood Pressure 109/52 L 06/29/25 01:50 Pulse Oximetry 98 06/29/25 01:50 MDM - Weakness MDM Narrative Medical decision making narrative: 69-year-old female currently on Inqovi chemotherapy for myelodysplastic syndrome presented to the ED for fatigue, weakness, chest pain, shortness of breath. her initial evaluation, patient was uncomfortable appearing, afebrile, hemodynamically stable. She had mucosal pallor and conjunctival pallor. Heart and lungs were clear. Abdomen soft and nontender. Initial hemoglobin 4.3. She has had severe anemia in the past but never this low. Suspect side effect due to her chemotherapy. Also generally pancytopenic. CMP was without significant abnormalities. Troponin negative. Chest x-ray showed no acute process. EKG without concerning findings.Patient will require multiple units of PRBCs and will require admission for severe anemia. Case discussed with hospitalist will admit the patient. Differential Diagnosis Differential diagnosis: Likely anemia, sepsis, dehydration and other ( Medication side effect, electrolyte abnormality, ACS) Medical Records Attestation: I reviewed the patient's medical records. Lab Data Attestation: I reviewed the patient's lab results. 06/28/25 22:38 06/28/25 22:38 Labs: Lab Results 06/28/25 06/28/25 Range/Units 22:38 23:36 WBC 3.6 L (4.5-10.0) K/mm3 RBC 1.48 L (4.2-5.4) M/mm3 Hgb 4.3 L* (12.0-15.0) g/dL Hct 13.6 L* (37.0-47.0) % MCV 91.9 (80-100) fl MCH 29.1 (26-34) pg MCHC 31.6 L (32-36) g/dl RDW 17.3 H (11.5-14.5) % Plt Count 32 L D (150-375) k/mm3 MPV TNP Immature Gran % (Auto) Not Reportable Neut % (Auto) Not Reportable Lymph % (Auto) Not Reportable [place] % (Auto) Not Reportable Eos % (Auto) Not Reportable Baso % (Auto) Not Reportable Lymph # (Auto) Not Reportable [place] # (Auto) Not Reportable Eos # (Auto) Not Reportable Baso # (Auto) Not Reportable Abs Immat Gran (auto) Not Reportable Absolute Neuts (auto) Not Reportable Absolute Nucleated RBC Not Reportable Total Counted 100 Neutrophils % (Manual) 54 (46-73) % Band Neutrophils % 12 H (0-6) % Lymphocytes % (Manual) 25 (18-44) % Monocytes % (Manual) 1 L (3-9) % Eosinophils % (Manual) 8 H (0-4) % Nucleated RBC % Not Reportable Abs Neuts (Manual) 2.37 (1.3-6.7) K/mm3 Abs Lymphs (Manual) 0.90 L (1.1-4.5) K/mm3 Abs Monocytes (Manual) 0.03 L (0.1-0.90) K/mm3 Absolute Eos (Manual) 0.28 (0.02-0.50) K/mm3 Platelet Estimate Decreased (Adequate) % Immature Plt Fraction 12.6 H (0.9-11.2) % Hypochromasia 1+ Anisocytosis 1+ Ovalocytes 1+ Schistocytes None seen PT 13.4 (11.1-14.7) Seconds INR 1.0 APTT 25.9 (22.3-36.8) Seconds Sodium 134 L (137-145) mmol/L Potassium 4.3 (3.4-5.0) mmol/L Chloride 108 H (98-107) mmol/L Carbon Dioxide 19 L (22-30) mmol/L Anion Gap 7 (4-12) mmol/L BUN 18 H (7-17) mg/dL Creatinine 0.85 (0.7-1.0) mg/dL Estim Creat Clear Calc 47 ml/min Estimated GFR > 60 (59 - ) Glucose 96 (65-110) mg/dL Calcium 9.4 (8.4-10.2) mg/dL Total Bilirubin 0.5 (0.2-1.3) mg/dL AST 21 (14-36) U/L ALT 12 (6-35) U/L Alkaline Phosphatase 73 (38-126) U/L Troponin I < 0.012 (0.000-0.034) ng/mL Total Protein 7.0 (6.3-8.2) g/dL Albumin 3.8 (3.5-5.1) g/dL Lipase 97 (23-300) U/L Blood Type Pending Antibody Screen Pending ECG Data EKG #1: Attestation: I personally reviewed and interpreted this ECG as follows: ECG completion date: 06/28/25 ECG completion time: 22:46 Interpretation: Normal sinus rhythm rate of 92, normal axis, normal intervals, no acute ST or T-wave changes Discharge Plan Discharge Clinical Impression: Pancytopenia, Symptomatic anemia, MDS (myelodysplastic syndrome), low grade Patient Disposition: Still a Patient Condition: Serious
[2025-06-29] VITALS (29 sets, daily range): BP systolic 102–145; BP diastolic 44–84; PULSE 71–99; RESP 16–28; TEMP 36.5–37.3; O2SAT 98–100; BMI 20.5
--- NOTE | 2025-06-29 01:19 | ECG_ITS ---
Test Date: 2025-06-29 01:26:04 Measurements Intervals [place] Rate: 97 P: 49 CA: 164 QRS: 58 QRSD: 88 T: 54 QT: 351 QTc: 446 Interpretive Statements SINUS RHYTHM Compared to ECG 06/28/2025 22:46:23 No significant changes Electronically Signed On 06-29-2025 11:37:02 CDT by Drew Meyer M.D.
[2025-06-29 01:51] LABS: Troponin I < 0.012 ng/mL (0.000-0.034)
--- NOTE | 2025-06-29 02:21 | ADMIMU ---
This patient, Tanesha Gaviria, was admitted to IMU status, and placed in IMU Room 214-01. Patient/family oriented to hospital policies and general routines including ID bracelet, bed and alarms, visiting hours, pain management, procedures, bathroom and other care routines, personal items, smoking policy, room service/diet, and visiting hours. Valuables list has been completed. Information on how to activate the Rapid Response Team has been discussed. Patient/Family are encouraged to report perceived risks to care and to ask questions if they do not understand what they are told or what they should do.
--- NOTE | 2025-06-29 05:16 | PM.IMHP ---
H&P: HPI History of Present Illness Date/Time: 06/29/25 05:16 Chief Complaint: Generalized weakness Narrative: This is a 69-year-old female patient who has a history of myelodysplastic syndrome and is followed by Dr. garza. The patient was placed on a new chemo therapy treatment. Over the last 3-4 days the patient has been having difficulty ambulating due to fatigue and chest pain as well as shortness of breath with exertion. She has difficulty with activities of daily living and this has affected her quality of life. EKG was read as sinus rhythm. Her H&H is 4.3 and 13.6. RBCs 1.48 white blood count 3.6. Sodium level 134, chloride 108, carbon dioxide 19, BUN 18. Troponins are negative x2. The patient was given morphine in the emergency room and the patient stated that did help. She was also started on IV fluids. The patient has had multiple blood transfusions in the past. Patient is being admitted to inpatient status on the date of service of 06/29/2025 Review of Systems Constitutional: Constitutional: Reports as per HPI, Reports anorexia, Reports fatigue, Reports lethargy, Reports malaise, Reports poor appetite, Reports weakness and Reports weight loss Eyes: Eyes: Reports as per HPI and Reports no additional eye complaints ENT: Reports system reviewed and no additional complaints, except as documented and Reports Normal hearing present Respiratory: Respiratory: Reports no additional respiratory complaints and Reports no additional respiratory complaints Gastrointestinal: Gastrointestinal: Reports as per HPI and Reports no additional gastrointestinal complaints Musculoskeletal: Musculoskeletal: Reports no additional musculoskeletal complaints Integumentary/Breasts: Skin/Breast: Reports system reviewed and no additional complaints, except as docu and Reports as per HPI Neurologic: Reports system reviewed and no additional complaints, except as documented, Reports as per HPI and Reports Normal hearing present Psychiatric: Psychiatric: Reports no additional psychiatric complaints and Reports as per HPI Endocrine: Endocrine: Reports no additional endocrine complaints Hematologic/Lymphatic: Hematologic/Lymphatic: Reports no additional hematologic/lymphatic complaints Allergic/Immunologic: Allergic/Immunologic: Reports no additional allergic/immunologic complaints [facility] Past Medical History Medical History (Updated 06/29/25 @ 05:38 by Madeleine Bartlett, LEAVE SPECIALIST) MDS (myelodysplastic syndrome) Anemia Port-A-Cath in place HTN (hypertension), malignant Underweight Surgical History Surgical History (Updated 06/29/25 @ 05:25 by Madeleine Bartlett APRN) History of knee surgery History of 3 sections Family History Family History (Updated 06/29/25 @ 05:27 by Madeleine Bartlett APRN) Father Lung cancer Mother Lung cancer Sibling Throat cancer Anemia Leukemia Social History Social History (Updated 06/29/25 @ 05:34 by Madeleine Bartlett APRN) Social History: The patient has 3 children. She is retired. The patient stated that she is a full code. She also stated that she has been smoking a pack of cigarettes a day since she was diagnosed with MDS Smoking packs per day: 1 Smoking cigarettes per day: 20.0 Years smoked: 37 Smoking pack-years: 37.00 Smoking status: Current every day smoker Tobacco type: cigarettes Second hand tobacco smoke exposure: No Alcohol intake: never Substance use: never Substance use type: does not use Do You Feel Safe in your Home?: Yes Lack of Transportation: No Lack of Food: Never True Current Housing: I Have Housing Concerned About Future Housing: No Difficulty Paying Gas/Electric Bills: No Difficulty Paying for Meds: No Currently Unemployed: No Education: Grade School Difficulty w/ Childcare or Family Care: No Living arrangements: alone Spiritual care concerns: No Meds Home Medications and Allergies Home Medications ?Medication ?Instructions ?Recorded ?Confirmed ?Type amlodipine 10 mg-benazepril 20 mg 1 cap PO DAILY 10/15/22 06/29/25 History capsule decitabine 35 mg-cedazuridine 100 1 tablet PO DAILY 06/29/25 06/29/25 History mg tablet (Inqovi) megestrol 400 mg/10 mL (40 mg/mL) 400 mg PO DAILY Increase Appetite 06/29/25 06/29/25 History oral suspension ondansetron HCl 8 mg tablet 8 mg PO Q8H PRN nausea and vomiting 06/29/25 06/29/25 History Allergies Allergy/AdvReac Type Severity Reaction Status Date / Time ibuprofen Allergy Mild Itching Verified 06/28/25 22:42 Vital Signs Vital Signs - 24 hr 06/28/25 22:32 06/28/25 22:45 06/28/25 23:30 Temperature Pulse Rate 94 89 91 Respiratory Rate 18 18 18 Blood Pressure 118/63 113/60 118/63 Pulse Oximetry 100 99 100 Oxygen Delivery 06/28/25 23:54 06/29/25 00:45 06/29/25 01:50 Temperature 99.1 F 97.7 F 98.4 F Pulse Rate 97 92 85 Respiratory Rate 18 18 21 H Blood Pressure 103/63 114/58 L 109/52 L Pulse Oximetry 100 100 98 Oxygen Delivery 06/29/25 02:00 06/29/25 03:34 06/29/25 04:00 Temperature 98.3 F Pulse Rate 99 82 Respiratory Rate 25 H Blood Pressure 125/44 L Pulse Oximetry 100 Oxygen Delivery Room Air 06/29/25 04:00 06/29/25 04:20 06/29/25 04:35 Temperature 97.9 F 97.9 F Pulse Rate 88 94 71 Respiratory Rate 16 16 Blood Pressure 132/52 L 143/46 H Pulse Oximetry 100 100 Oxygen Delivery Exam Const: General: cooperative, comfortable, no acute distress, awake, Physically active and ill appearing Orientation/consciousness: oriented to person, oriented to place, oriented to time and patient oriented x3 Limitations: no limitations HENMT: Head: normal to inspection, No palpable skull fracture present, normocephalic, atraumatic and abrasion Ears: hearing grossly normal bilaterally and external ears normal Face/Nose/Sinus: Normal external nose present and Normal nares present Eyes: General: appearance normal, both eyes and all related structures Alignment and Position: alignment normal Periorbital: periorbital findings normal Eyelids: eyelids normal Sclera: sclerae normal Pupils: Equal, round and reactive pupils present EOM: EOMs intact bilaterally Neck: Neck: normal visual inspection, full ROM, no lymphadenopathy and trachea midline Resp: Effort & Inspection: normal respiratory effort Auscultation: clear to auscultation bilaterally Cardio: Palpation: normal PMI Rate: regular rate Rhythm: regular rhythm Heart sounds: S1 normal heart sound present and S2 normal heart sound present Peripheral pulses: Peripheral pulses 2+ throughout GI: Inspection: normal to inspection Auscultation: normal bowel sounds Rectal Exam: deferred Back/Spine/Pelvis: Back: no CVA tenderness Cervical Spine: cervical ROM normal Skin: General skin exam: normal color Lesions: no lesions Rashes: no rashes Trauma: no lacerations or abrasions Wounds: no wounds Hair: normal Nails: normal Neuro: General: oriented to person, oriented to place, oriented to time and patient oriented x3 Cranial nerves: Yes Equal, round and reactive pupils present and Yes Normal hearing present Cognition (Neuro): normal cognition Speech: normal speech Sensory Exam: normal sensation Extrem: General: normal to inspection Right upper extremity: normal to inspection and shoulder/upper arm Left upper extremity: normal to inspection and shoulder/upper arm Right lower extremity: normal to inspection Left lower extremity: normal to inspection Psych: Appearance: grossly normal Mental Status: mental status grossly normal Speech and movement: Normal speech and movement present Affect: normal affect Attitude: cooperative Thought process: Normal thought process present Thought content: Yes Normal thought content present Insight: Good insight present (Psych) Judgement: Good judgement present (Psych) H&P: Results Labs Labs: Short CBC 06/28/25 Range/Units 22:38 WBC 3.6 L (4.5-10.0) K/mm3 Hgb 4.3 L* (12.0-15.0) g/dL Hct 13.6 L* (37.0-47.0) % Plt Count 32 L D (150-375) k/mm3 BMP 06/28/25 22:38 Sodium 134 L Potassium 4.3 Chloride 108 H Carbon Dioxide 19 L BUN 18 H Creatinine 0.85 Glucose 96 Calcium 9.4 Cardiac Enzymes 06/28/25 06/29/25 Range/Units 22:38 01:22 Troponin I < 0.012 < 0.012 (0.000-0.034) ng/mL Liver Function 06/28/25 Range/Units 22:38 Total Bilirubin 0.5 (0.2-1.3) mg/dL AST 21 (14-36) U/L ALT 12 (6-35) U/L Alkaline Phosphatase 73 (38-126) U/L Albumin 3.8 (3.5-5.1) g/dL Assessment and Plan Assessment and plan (1) MDS (myelodysplastic syndrome): Code(s): D46.9 - Myelodysplastic syndrome, unspecified Status: Acute Assessment and Plan: -the patient sees Dr. garza and a consult was placed for him or his associate. I am unsure if he is out of town at this time. -the patient is on her 1st unit of 3 units. She is O positive blood type in the lab needed to confirm this blood type prior to transfusion. There was a delay in initiating the 1st unit due to this. The patient has had multiple blood transfusions. According the patient she is on a new treatment plan -monitor H&H every 6 hours. -monitor for signs and symptoms of bleeding. (2) Anemia: Code(s): D64.9 - Anemia, unspecified Status: Acute Assessment and Plan: -due to myelodysplastic syndrome. -she follows with Dr. Garza (3) Hypertension: Code(s): I10 - Essential (primary) hypertension Status: Acute Assessment and Plan: -antihypertensive medication on hold at this time due to her hypovolemic state. (4) Underweight: Code(s): R63.6 - Underweight Status: Acute Assessment and Plan: -Megace is currently on hold. May consider restarting tomorrow. Quality VTE Prophylaxis VTE prophylaxis: mechanical ordered
[2025-06-29] MEDS: SODIUM CHLORIDE 0.9% IV 250 ML 30 ML IV CONT (07:30)
[2025-06-29] MEDS: TUBING, BLOOD PLUM PUMP TUBING 1 EACH XX ×2 (07:30→12:11)
[2025-06-29] MEDS: SODIUM CHLORIDE 0.9% IV 250 ML 30 ML (12:11)
[2025-06-29 16:14] LABS: Hematocrit 29.4 % (37.0-47.0); Hemoglobin 9.8 g/dL (12.0-15.0)
[2025-06-29 16:30] LABS: Troponin I < 0.012 ng/mL (0.000-0.034)
[2025-06-29] MEDS: HYDROCORTISONE 1% 30 GM OINTMENT 1 APPLIC TOPICAL (21:00)
[2025-06-29 22:13] LABS: Hematocrit 27.9 % (37.0-47.0); Hemoglobin 9.5 g/dL (12.0-15.0)
[2025-06-30 03:00] VITALS: BP 137/88; PULSE 89; RESP 20; TEMP 37.1; O2SAT 100
[2025-06-30 06:44] LABS: Hematocrit 30.0 % (37.0-47.0); Hemoglobin 9.8 g/dL (12.0-15.0); Immature Granulocyte Percent A 0.9 % (0-0.5); Immature Platelet Fraction Pct 14.8 % (0.9-11.2); Lymphocytes Absolute Auto 1.09 K/mm3 (0.9-3.2); Mean Corpuscular HGB Conc 32.7 g/dl (32-36); Mean Corpuscular Hemoglobin 29.9 pg (26-34); Mean Corpuscular Volume 91.5 fl (80-100); Nucleated Red Blood Cells Absolute Auto 0.000 K/mm3 (0.0-0.012); Nucleated Red Blood Cells Perc 0.0 % (0.0-0.2); Red Blood Count 3.28 M/mm3 (4.2-5.4); White Blood Count 2.3 K/mm3 (4.5-10.0)
[2025-06-30 07:03] LABS: Anion Gap 6 mmol/L (4-12); Blood Urea Nitrogen 19 mg/dL (7-17); Calcium 9.5 mg/dL (8.4-10.2); Carbon Dioxide 22 mmol/L (22-30); Chloride 108 mmol/L (98-107); Estimated CRCL calculation 49 ml/min; Estimated Glomerular Filt Rate > 60; Glucose 87 mg/dL (65-110); Potassium 4.4 mmol/L (3.4-5.0); Sodium 136 mmol/L (137-145)
[2025-06-30 07:26] LABS: Platelet Count Result 16 k/mm3 (150-375)
[2025-06-30 07:43] LABS: Schistocytes None Seen
[2025-06-30 07:46] LABS: Hypochromasia 1+
[2025-06-30] MEDS: HYDROCORTISONE 1% 30 GM OINTMENT 1 APPLIC TOPICAL (10:31)
[2025-06-30 11:00] VITALS: BP 130/70; PULSE 72; RESP 20; TEMP 36.3; O2SAT 98
[2025-06-30 14:00] VITALS: BP 142/57; PULSE 79; RESP 18; TEMP 36.4; O2SAT 100
--- NOTE | 2025-06-30 15:25 | PM.DS ---
DS: Admitting Diagnosis Discharge Date 06/30/2025 Admitting Diagnosis Fatigue DS: Discharge Diagnosis Discharge Diagnosis (1) MDS (myelodysplastic syndrome): Code(s): D46.9 - Myelodysplastic syndrome, unspecified Status: Acute (2) Anemia: Code(s): D64.9 - Anemia, unspecified Status: Acute (3) Hypertension: Code(s): I10 - Essential (primary) hypertension Status: Acute (4) Underweight: Code(s): R63.6 - Underweight Status: Acute DS: Summary Hospital Course Hospital Course: This is a 69-year-old female patient who has a history of myelodysplastic syndrome and is followed by Dr. yeung. The patient was placed on a new chemo therapy treatment. Over the last 3-4 days the patient has been having difficulty ambulating due to fatigue and chest pain as well as shortness of breath with exertion. She has difficulty with activities of daily living and this has affected her quality of life. EKG was read as sinus rhythm. Her H&H is 4.3 and 13.6. RBCs 1.48 white blood count 3.6. Sodium level 134, chloride 108, carbon dioxide 19, BUN 18. Troponins are negative x2. The patient was given morphine in the emergency room and the patient stated that did help. She was also started on IV fluids. The patient has had multiple blood transfusions in the past. Patient is being admitted to inpatient status on the date of service of 06/29/2025. She received 3 units of packed red blood cell transfusion and post transfusion her hemoglobin had improved appropriately. No signs of bleeding. She did have worsening thrombocytopenia however did not require any transfusion. Hematology oncology was consulted for evaluation however patient did not want to stay and left against medical advice. Time Spent with Patient Time attestation: Total time spent providing and/or coordinating discharge services: 35 minutes DS: Data Data Completed and Pending Labs on day of discharge: Labs from last 24 hours 06/30/25 06/29/25 06/29/25 05:52 22:06 15:54 WBC 2.3 L RBC 3.28 L Hgb 9.8 L 9.5 L 9.8 L D Hct 30.0 L 27.9 L 29.4 L MCV 91.5 MCH 29.9 MCHC 32.7 RDW 14.9 H Plt Count 16 L* MPV TNP Immature Gran % (Auto) 0.9 H Neut % (Auto) 35.3 L Lymph % (Auto) 48.0 H [place] % (Auto) 0.9 L Eos % (Auto) 14.5 H Baso % (Auto) 0.4 Lymph # (Auto) 1.09 [place] # (Auto) 0.0 L Eos # (Auto) 0.3 Baso # (Auto) 0.0 Abs Immat Gran (auto) 0.02 Absolute Neuts (auto) 0.8 L Absolute Nucleated RBC 0.000 Band Neutrophils % Not Reportable Nucleated RBC % 0.0 Platelet Estimate Decreased % Immature Plt Fraction 14.8 H Hypochromasia 1+ Schistocytes None seen Sodium 136 L Potassium 4.4 Chloride 108 H Carbon Dioxide 22 Anion Gap 6 BUN 19 H Creatinine 0.83 Estim Creat Clear Calc 49 Estimated GFR > 60 Glucose 87 Calcium 9.5 Troponin I < 0.012 Crossmatch 06/28/25 23:36 WBC RBC Hgb Hct MCV MCH MCHC RDW Plt Count MPV Immature Gran % (Auto) Neut % (Auto) Lymph % (Auto) [place] % (Auto) Eos % (Auto) Baso % (Auto) Lymph # (Auto) [place] # (Auto) Eos # (Auto) Baso # (Auto) Abs Immat Gran (auto) Absolute Neuts (auto) Absolute Nucleated RBC Band Neutrophils % Nucleated RBC % Platelet Estimate % Immature Plt Fraction Hypochromasia Schistocytes Sodium Potassium Chloride Carbon Dioxide Anion Gap BUN Creatinine Estim Creat Clear Calc Estimated GFR Glucose Calcium Troponin I Crossmatch See Detail Imaging Radiologist's impression: ITS Impressions Chest X-Ray 06/29/25 08:12 IMPRESSION: No acute process. Chest X-Ray 06/29/25 08:16 IMPRESSION: No acute process. Discharge Plan Discharge Consulting providers: Court Dyson Patient Disposition: Left Against Medical Advice Patient Instructions: How to Stop Smoking (ED) Patient Language: Vietnamese Discharge Medications: No Action amlodipine-benazepril 10-20 mg Capsule 1 cap PO DAILY Patient Comments: . megestrol 400 mg/10 mL (40 mg/mL) suspension 400 mg PO DAILY ondansetron HCl 8 mg tablet 8 mg PO Q8H PRN (Reason: nausea and vomiting) Inqovi 35-100 mg tablet 1 tablet PO DAILY Rx Instructions: on days 1 though 5 of each 28-day cycle; administer on an empty stomach, at least 2 hours before or 2 hours after food/meal(s) Date of admission: 06/28/25 23:58 Primary Care Provider: Sharonda,Winifred Admitting Provider: Laura Benoit Attending physician on admission: Laura Benoit Condition: Serious
== END 2025-06-30 15:25 | disposition left against medical advice (07) | DRG 812 ==
LOC: ANHED 23:30 → ANHIMU 06-29 00:54 → ANH3MEDSUR 06-29 17:50
PROVIDERS: Nurse Practitioner; Admitting Provider General Practice; Emergency Provider Student in an Organized Health Care Education/Training Program; PCP Internal Medicine; Visit Provider Internal Medicine
DX: D46.9 Myelodysplastic syndrome, unspecified (principal); D63.0 Anemia in neoplastic disease; I10 Essential (primary) hypertension; F17.210 Nicotine dependence, cigarettes, uncomplicated; R63.6 Underweight; Z68.20 Body mass index [BMI] 20.0-20.9, adult; Z79.899 Other long term (current) drug therapy
CPT/HCPCS: 36415; 36430; 71045; 71046; 80048; 80053; 83690; 84484; 85014; 85018; 85025; 85055; 85610; 85730; 86850; 86900; 86901; 86923; 93005; A9270; J2270; J7050; P9016

== ENCOUNTER 2025-07-03 10:30 | Outpatient (RCR) | payer MEDICARE, MEDICAID, SELFPAY ==
[2025-07-03] VITALS (8 sets, daily range): BP systolic 143–156; BP diastolic 48–59; PULSE 82–94; RESP 20–22; TEMP 36.7–36.8; O2SAT 100
[2025-07-03] MEDS: ACETAMINOPHEN 325 MG TABLET 650 MG PO (11:18)
[2025-07-03] MEDS: diphenhydrAMINE HCl CAP 25 MG CAPSULE PO (11:20)
[2025-07-03] MEDS: SODIUM CHLORIDE 0.9% IV 250 ML 30 ML IV CONT (11:20)
[2025-07-03] MEDS: HEPARIN SODIUM LOCK FLUSH 500 UNITS/5 ML SYRINGE (13:04)
== END 2025-10-01 23:59 | disposition home or self-care (01) ==
LOC: ANHCPCTRAN 10:30
PROVIDERS: PCP Internal Medicine; Visit Provider Internal Medicine Hematology & Oncology
DX: D46.9 Myelodysplastic syndrome, unspecified (principal)
CPT/HCPCS: 36415; 36430; 86900; 86901; A9270; J7050; P9034

== ENCOUNTER 2025-09-26 06:57 | Outpatient (CLI) | payer MEDICARE, MEDICAID, SELFPAY ==
--- OUTSIDE RECORDS SUMMARY | 2025-09-26 07:05 | XMS_ITS | Encounter Summary ---
Author Organization [facility] DEVIN Clancy [facility] Address [address] [place] [address] Care Team Providers Care Highway Landscape Architect Name Role Phone Winifred Mcdonough MD Primary Care Provider Encounter Details Date Type Department Care Team (Late st Contact Info) Description 09/25/2025 Orders Only [facility] Oncology and Hematology - [place] [address] [facility] [address] [place] [address] Perry Garza MD [address] [facility] [address] [place] [address] Myelodysplastic syndrome (CMS/HCC) Social History Tobacco Use Types Packs/Day Years Used Date Smoking Tobacco: Every Day Cigarettes 0.5 37.9 Started: 1986 Smokeless Tobacco: Never Alcohol Use Standard Drinks/Week Comments Not Currently 0 (1 standard drink = 0.6 oz pur e alcohol) Food Insecurity Answer Date Recorded Do you find you are eating l ess than you should because you can t pay for food? Yes 07/26/2025 Transportation Needs Answer Date Record ed Have you gone without health care because you didn t have a way to get there? Or worry about transportation for future doctor visits, pick up worker medication, etc.? No 2024 Housing Stability Answer Date Recorded Do you worry you won t have a steady place to sleep or struggle to pay rent or mortgage? No 07/26/2025 Utility Needs Answer Date Recorded Do you have difficulty payin g for utility costs (electric, water or gas bills)? No 07/26/2025 Medication Needs Answer Date Recorded Have you skipped taking medi cation due to cost or worry you can t afford new medications? No 07/26/2025 Feeling Safe Answer Date Recorded Are you in a relationship wi th someone who hurts you emotionally and/or physically? No 08/07/2025 Food Insecurity Answer Date Recorded Patient needs follow up regardin 07/06/2025 Transportation Needs Answer Date Record ed Patient needs follow up regardin 08/08/2025 Utility Needs Answer Date Recorded Patient needs follow up regardin 07/06/2025 Comments Unknown Sex and Gender Information Value Date Recorded Sex Assigned at Not on file Legal Sex Female 2:29 PM CDT Gender Identity Not on file Sexual Orientation Not on file documented as of this encounter Plan of Treatment Upcoming Encounters Date Type Department Care Team (Late st Contact Info) Description 11/27/2025 11:30 AM LEATHER STAKER Office Visit [facility] Oncology and Hematology [facility] [address] [place] [address] [facility] [address] [place] [id number] [place] [address] [place] [address] [address] [place] [address] documented as of this encounter Visit Diagnoses Diagnosis Myelodysplastic syndrome (CMS/HCC) Myelodysplastic syndrome, unspecified documented in this encounter Care Teams Highway Landscape Architect Relationship Specialty Start Date End Date Winifred Mcdonough MD PCP - General Internal Medicine 03/14/22 documented as of this encounter
--- OUTSIDE RECORDS SUMMARY | 2025-09-26 07:05 | XMS_ITS | Encounter Summary ---
Author Organization [facility] DEVIN Clancy [facility] Address [address] [place] [address] Care Team Providers Care Executive Community Planning Name Role Phone Winifred Mcdonough MD Primary Care Provider Encounter Details Date Type Department Care Team (Late st Contact Info) Description 09/25/2025 Orders Only [facility] Oncology and Hematology - [place] [address] [facility] [address] [place] [address] Perry Garza MD [address] [facility] [address] [place] [address] Myelodysplastic syndrome (CMS/HCC) (Primary Dx) Social History Tobacco Use Types Packs/Day Years [...] transportation for future doctor visits, pick up driver medication, etc.? No 2024 Housing Stability Answer [...] st Contact Info) Description 11/27/2025 11:30 AM QUILTING SUPERVISOR Office Visit [facility] Oncology and Hematology - [place] [address] [place] [address] [address] [place] [address] Perry Garza MD [address] [facility] [address] [place] [address] Scheduled Orders Name Type Priority Associated Diagnoses Orde r Schedule TYPE AND SCREEN Blood Bank Routine Myelodysplastic syndrome (CMS/HCC) Expected: 09/25/2025, Expires: 09/25/2026 documented as of this encounter Visit Diagnoses Diagnosis Myelodysplastic syndrome (CMS/HCC)- Primary Myelodysplastic syndrome, unspecified documented in this encounter Care Teams Executive Community Planning Relationship Specialty Start Date End Date Winifred Mcdonough MD PCP - General Internal Medicine 03/14/22 documented as of this encounter
--- OUTSIDE RECORDS SUMMARY | 2025-09-26 07:05 | XMS_ITS | Clinical Summary ---
Author Organization [facility] Address [address], [facility] [address] [place] [address] Phone Care Team Providers Care Small Products Ii Assembler Name Role Phone Ila Linares MD Primary Care Provider [phone] Allergies Active Allergy Reactions Criticality Noted Date [...] Insurance MEDICAID [employer] Care Teams Small Products Ii Assembler Relationship Specialty Start Date End Date Ila Linares MD [address] [place] [address] PCP - General Geriatric Medicine 06/24/19
--- OUTSIDE RECORDS SUMMARY | 2025-09-26 07:05 | XMS_ITS ---
Author Organization [facility] Address [address], [facility] [address] [place] [address] Phone Care Team Providers Care Hydraulic Assembler Name Role Phone Ila Linares MD Primary Care Provider [phone] Active Problems Problem Noted Date Diagnosed Date [...]
--- OUTSIDE RECORDS SUMMARY | 2025-09-26 07:05 | XMS_ITS ---
Author Organization [facility] Scott Robledo Address [address] [place] [address] Care Team Providers Care Boiler/Chiller Technician Name Role Phone Winifred Mcdonough MD Primary Care Provider Active Problems Problem Noted Date Diagnosed Date Numbness and tingling in left hand 08/08/2025 Generalized weakness 08/08/2025 Pulmonary nodule 07/22/2025 Hepatic abscess 07/22/2025 Neutropenia 07/21/2025 Refractory anemia 07/12/2025 Goals of care, counseling/discussion 07/12/2025 E coli bacteremia 07/09/2025 Coffee ground emesis 07/08/2025 Neutropenic fever 07/07/2025 Assessment & Plan (08/07/2025 1:09 PM CDT): Last labs were stable/improving, awaiting imaging Protein-calorie malnutrition, severe 07/07/2025 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 Past Treatment and Therapy Plans No past plan information found. Lifetime Dose Tracking * Chemical Lifetime Dose Automatic Entry Manual Entr y Effective Dose 65.09 mSv 65.09 mSv 0 mSv Total DLP 5,208.46 DLP 5,208.46 DLP 0 DLP CTDIvol Max 109.69 mGy 109.69 mGy 0 mGy CTDIvol Min 24.75 mGy 24.75 mGy 0 mGy Resolved Problems Problem Noted Date Diagnosed Date Resolved Date Melena 07/09/2025 08/08/2025 Acute renal failure 07/09/2025 08/08/20 Hypokalemia 07/09/2025 08/08/2025 Acute GI bleeding 07/09/2025 08/08/2025 Metabolic acidosis 07/08/2025
--- OUTSIDE RECORDS SUMMARY | 2025-09-26 07:05 | XMS_ITS | Clinical Summary ---
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 Name Role Phone None, Provider MD Primary Care Provider Unavaila ble Allergies Active Allergy Reactions Criticality Noted Date Comments Ibuprofen Itching 07/05/2025 Medications No known medications Encounters Date Type Department Care Team Description 07/05/2025 10:29 PM CDT - 07/06/2025 8:03 AM CDT Emergency [facility] [place] [address] Cecy Howe DO Normansell, Daniel Allen, MD Generalized Weakness Discharge Disposition: Other Facility with Planned Inpatient Readmission 07/05/2025 Travel from Last 3 Months Social History Tobacco Use Types Packs/Day Years Used Date Smoking Tobacco: Every Day Cigarettes Smokeless Tobacco: Never Tobacco Cessation:Ready to Q uit: Not Asked; Counseling Given: Not Answered Comments No Sex and Gender Information Value Date Recorded Sex Assigned at Female 07/05/2025 10:17 PM CDT Legal Sex Female 10:15 PM CDT Gender Identity Not on file Sexual Orientation Not on file Last Filed Vital Signs Vital Sign Reading Time Taken Comments Blood Pressure 150/70 07/06/2025 7:30 AM CDT Pulse 89 07/06/2025 7:30 AM CDT Temperature 37.5 C (99.5 F) 07/06/2025 7:00 AM CDT Respiratory Rate 18 07/06/2025 7:30 AM CDT Oxygen Saturation 99% 07/06/2025 7:30 AM CDT Inhaled Oxygen Concentration - - Weight 53.5 kg (118 lb) 07/05/2025 10:16 PM CDT Height 162.6 cm (5' 4) 07/05/2025 10:16 PM CDT Body Mass Index 20.25 07/05/2025 10:16 PM CDT Plan of Treatment Health Maintenance Due Date Last Done Comments Colorectal Cancer Screening Colonoscopy (10 Years) 1955 DTaP, Tdap and Td Vaccines ( 1 - Tdap) 1975 Pneumococcal Vaccine: 50+ Years (1 of 2 - PCV) 1975 Mammogram Screening 1996 Zoster Vaccines (1 of 2) 2006 Annual Medicare Wellness Visit 2021 Dexa Scan (General) 2021 COVID-19 Vaccine (3 - 2024-2 6 season) 2025 03/14/2021, 02/21/2021 Influenza Adult (#1) 2025 RSV Immunization or 60+ Years (1 - 1-dose 75+ series) 2031 Hepatitis C Completed 04/10/2025 Hepatitis A Vaccines Aged Out No long er eligible based on patient's age to complete this topic Meningococcal B Vaccine Aged Out No l onger eligible based on patient's age to complete this topic Meningococcal Vaccine Aged Out No hilda ayaz eligible based on patient's age to complete this topic RSV Immunizations Under 20 Months Aged Out No longer eligible b ased on patient's age to complete this topic Procedures Procedure Name Priority Date/Time Associated Diagnosis Comments TRANSFUSE RED BLOOD CELLS STAT 07/06/2025 4:57 AM CDT TRANSFUSE RED BLOOD CELLS STAT 07/06/2025 1:36 AM CDT TYPE & SCREEN STAT 07/05/2025 10:59 PM CDT HC TROPONIN QN STAT 07/05/2025 10:59 PM CDT HC COMPREHENSIVE METABOLIC PANEL STAT 07/05/2025 10:59 PM CDT HC CBC AUTO W/AUTO DIFF STAT 07/05/2025 10:59 PM CDT ECG 12-LEAD Routine 07/05/2025 10:52 PM CDT XR CHEST PORTABLE STAT 07/05/2025 10: 36 PM CDT from Last 3 Months Results * TRANSFUSE RED BLOOD CELLS (07/06/2025 7:43 AM CDT) Only the most recent of2 resultswithin the time period is included. Cecy Howe DO NURSING TREATMENT ORDERABLES - BLOOD ADMIN Final Result * TYPE & SCREEN (07/05/2025 10:59 PM CDT) UNITS ORDERED 2 07/06/2025 12:49 AM CDT [facility] ABO/RH O POSITIVE 07/06/2025 12:19 AM CDT [facility] ANTIBODY SCREEN NEGATIVE 12:19 AM CDT [facility] SAMPLE EXPIRATION 07/08/2025,2356 07/06/2025 12:19 AM CDT [facility] BLOOD UNIT NUMBER [id number] 07/06/2025 12:49 AM CDT [facility] PRODUCT: PC LEUKOPOOR 07/06/2025 12:49 AM CDT [facility] UNIT DIVISION 00 07/06/2025 12:49 AM CDT [facility] BLOOD UNIT STATUS TRANSFUSED,FINAL 07/07/2025 6:40 AM CDT [facility] ISSUE DATE/TIME [id number] 025 6:40 AM CDT [facility] PRODUCT CODE [id number] 07/07/2025 6:40 AM CDT [facility] ABO/RH Unit O POS 07/07/2025 6:40 AM CDT [facility] ABO/RH UNIT ISBT CODE 5100 07/07/2025 6:40 AM CDT [facility] BLOOD UNIT EXPIRATION DATE [id number] 07/07/2025 6:40 AM CDT [facility] TRANSFUSION STATUS OK TO TRANSFUSE 07/06/2025 12:49 AM CDT [facility] CROSSMATCH COMPATIBLE-EXM 07/06/2025 12:49 AM CDT [facility] BLOOD UNIT NUMBER [id number] 07/06/2025 12:49 AM CDT [facility] PRODUCT: PC LEUKOPOOR 07/06/2025 12:49 AM CDT [facility] UNIT DIVISION 00 07/06/2025 12:49 AM CDT [facility] BLOOD UNIT STATUS TRANSFUSED,FINAL 07/07/2025 6:40 AM CDT [facility] ISSUE DATE/TIME [id number] 025 6:40 AM CDT [facility] PRODUCT CODE [id number] 07/07/2025 6:40 AM CDT [facility] ABO/RH Unit O POS 07/07/2025 6:40 AM CDT [facility] ABO/RH UNIT ISBT CODE 5100 07/07/2025 6:40 AM CDT [facility] BLOOD UNIT EXPIRATION DATE [id number] 07/07/2025 6:40 AM CDT [facility] TRANSFUSION STATUS OK TO TRANSFUSE 07/06/2025 12:49 AM CDT [facility] CROSSMATCH COMPATIBLE-EXM 07/06/2025 12:49 AM CDT [facility] 07/05/2025 10:5 9 PM CDT us Jessica CARRION BLOOD BANK TEST ORDERABLES Fin al Result [facility] [address] [place] [address], [place] [phone] * (ABNORMAL) COMPREHENSIVE METABOLIC PANEL (07/05/2025 10:59 PM CDT) [facility] GLUCOSE 103(H) 70 - 99 MG/DL 07/06/2025 12:06 AM CDT [facility] BUN 22(H) 7 - 18 MG/DL 07/06/2025 12:06 AM CDT [facility] CREATININE S/P/B 0.90 0.55 - 1.02 MG/DL 07/06/2025 12:06 AM CDT [facility] SODIUM S/P/B 138 136 - 145 MMOL/L 07/06/2025 12:06 AM T [facility] POTASSIUM S/P/B 4.1 3.5 - 5.1 MMOL/L 07/06/2025 12:06 AM CDT [facility] CHLORIDE S/P/B 114 97 - 115 MMOL/L 07/06/2025 12:06 AM T [facility] CO2 20.8(L) 21 - 32 MMOL/L 07/06/2025 12:06 AM T [facility] CALCIUM S/P/B 8.6 8.5 - 10.1 MG/DL 07/06/2025 12:06 AM T [facility] BILIRUBIN TOTAL S/P/B 0.4 0.2 - 1.2 MG/DL 07/06/2025 12:06 AM T [facility] Comment: THIS ASSAY IS NOT RECOMMENDED FOR PATIENTS UNDERGOING TREATMENT WITH ELTROMBOPAG DUE TO THE POTENTIAL FOR FALSELY ELEVATED RESULTS. TOTAL PROTEIN S/P/B 6.4 6.4 - 8.2 G/DL 07/06/2025 12:06 AM CDT [facility] ALBUMIN S/P/B 3.0(L) 3.4 - 5.0 G/DL 07/06/2025 12:06 AM CDT [facility] AST 14(L) 15 - 37 U/L 07/06/2025 12:06 AM CDT [facility] ALT 17 14 - 55 U/L 07/06/2025 12:06 AM CDT [facility] ALKALINE PHOSPHATASE S/P/B 80 50 - 136 U/L 07/06/2025 12:06 AM T [facility] ANION GAP 3.2 2 - 10 MMOL/L 07/06/2025 12:06 AM T [facility] BUN CREATININE RATIO 24.4 6 - 26 07/06/2025 12:06 AM T [facility] A/G RATIO 0.9(L) 1.0 - 2.0 RATIO 07/06/2025 12:06 AM [facility] GFR ESTIMATE 70(L) >90 ML/MIN/1.7 3 M2 07/06/2025 12:06 AM T [facility] Comment: NOTE: eGFR is not calculated for patients <18 years of age or gender unknown. This is an estimated GFR calculation using the new CKD EPI creatinine equation without race and so does not require a correction factor for race. This estimated GFR should not be used for calculating drug doses. 07/05/2025 10:5 9 PM CDT us Jessica [facility] Final Result [facility] [address] [place] [address], [place] [phone] * (ABNORMAL) CBC W/DIFF AUTOMATED (07/05/2025 10:59 PM CDT) WBC 0.76(LL) 4.5 - 11.0 x10'3/uL 07/06/2025 12:02 AM CDT [facility] Comment: This result has been called to LANA FUNEZ by [id number] on 07/06/2025 00:02:38, and has been read back. RBC 1.61(L) 4.20 - 5.40 x10'6/uL 07/06/2025 12:02 AM CDT [facility] HGB 4.9(LL) 12.0 - 16.0 G/DL 07/06/2025 12:02 AM CDT [facility] Comment: This result has been called to LANA FUNEZ by [id number] on 07/06/2025 00:02:38, and has been read back. HCT 14.8(LL) 38.0 - 48.0 % 07/06/2025 12:02 AM CDT [facility] Comment: This result has been called to LANA FUNEZ by [id number] on 07/06/2025 00:02:38, and has been read back. MCV 91.9 81.0 - 99.0 FL 07/06/2025 12:02 AM CDT [facility] MCH 30.4 27.0 - 31.0 PG 07/06/2025 12:02 AM CDT [facility] MCHC 33.1 32.0 - 36.0 G/DL 07/06/2025 12:02 AM CDT [facility] RDW 14.2 11.5 - 14.5 % 07/06/2025 12:02 AM CDT [facility] PLT 65(L) 130 - 400 x10'3/uL 07/06/2025 12:02 AM CDT [facility] MPV 10.8 9.3 - 12.2 FL 07/06/2025 12:02 AM CDT [facility] DIFFERENTIAL TYPE MANUAL DIFFERENTIAL 07/06/2025 12:07 AM T [facility] SEG NEUTROPHILS 3 % 12:07 AM CDT [facility] LYMPHOCYTES 89 % 07/06/2025 12:07 AM CDT [facility] MONOCYTES 2 % 07/06/2025 12:07 AM CDT [facility] EOSINOPHILS 5 % 07/06/2025 12:07 AM CDT [facility] BANDS 1 % 07/06/2025 12:07 AM CDT [facility] ABS. NEUTROPHILS 0.03(L) 1.80 - 7.70 x10'3/uL 07/06/2025 12:07 AM CDT [facility] ABS. LYMPHOCYTES 0.68(L) 1.00 - 4.80 x10'3/uL 07/06/2025 12:07 AM CDT [facility] ABS. MONOCYTES 0.02(L) 0.24 - 0.86 x10'3/uL 07/06/2025 12:07 AM CDT [facility] ABS. EOSINOPHILS 0.04 0.04 - 0.36 x10'3/uL 07/06/2025 12:07 AM CDT [facility] RBC MORPHOLOGY RBC MORPHOLOGY APPEARS NORMAL. SLIDE REVIEWED. 07/06/2025 12:07 AM CDT [facility] PLT EST. DECREASED 07/06/2025 12:07 AM CDT [facility] 07/05/2025 10:5 9 PM CDT Jessica [facility] Final Result [facility] [address] [place] [address], [place] [phone] * TROPONIN, QUANT (07/05/2025 10:59 PM CDT) TROPONIN I HIGH SENSITIVITY 12 <54 ng/L 07/06/2025 12:06 AM CDT [facility] Comment: HIGH DOSES OF BIOTIN, TROPONIN-SPECIFIC AUTOANTIBODIES, AND ANTIBODY THERAPY CONTAINING HAMA MAY INTERFERE WITH THIS TEST RESULT. CORRELATION TO CLINICAL HISTORY AND PRESENTATION RECOMMENDED. 07/05/2025 10:5 9 PM CDT Jessica [facility] Final Result 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 : 1955 Requested By: JESSICA BENJAMIN Order Number: [id number] Briana POWELL: Jin Duncan Measurements Intervals [place] Rate: 103 P: 76 [place]: 143 QRS: 86 QRSD: 78 T: 67 QT: 342 QTc: 448 Interpretive Statements SINUS TACHYCARDIA ABNORMAL RHYTHM ECG No previous ECG available for comparison Procedure Note Jin Duncan MD - 07/05/[address] Test Date: 2025-07-05 Pat Name: TANESHA DIALLO Department: 41 Room: EXAM05 Gender: Female Cut 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 Metal: [id number] : 1955 Requested By: JESSICA BENJAMIN Order Number: [id number] Reading MD: Jin Duncan Measurements Intervals [place] Rate: 103 P: 76 [place]: 143 QRS: 86 QRSD: 78 T: 67 QT: 342 QTc: 448 Interpretive Statements SINUS TACHYCARDIA ABNORMAL RHYTHM ECG No previous ECG available for comparison us Jessica Benjamin PA ECG ORDERABLES Final Result [facility] * XR CHEST PORTABLE (07/05/2025 10:36 PM CDT) Anatomical Region Laterality Modality Chest Radiographic Dyan ging 07/05/2025 10:4 4 PM CDT Impressions 07/05/2025 10:45 PM CDT IMPRESSION: No radiographic evidence of an acute cardiopulmonary abnormality. Referred By: Interpreted By: Sandeep Simeon MD, 07/05/2025 10:44 PM Narrative 07/05/2025 10:45 PM CDT [place] [address] EXAMINATION: XR CHEST PORTABLE, 07/05/2025 10:44 PM TECHNIQUE: Upright AP portable radiograph of the chest HISTORY: Low hemoglobin, wheezing in ear, weakness, fatigue COMPARISON: None available FINDINGS: Left chest wall Lndkau-m-Ziyv catheter with tip in superior vena cava. Heart size is normal. Pulmonary vascular pattern appears unremarkable. No focal pulmonary consolidation. No pleural effusion. No pneumothorax. Procedure Note Sandeep Simeon MD - 07/05/2025 [place] [address] EXAMINATION: XR CHEST PORTABLE, 07/05/2025 10:44 PM TECHNIQUE: Upright AP portable radiograph of the chest HISTORY: Low hemoglobin, wheezing in ear, weakness, fatigue COMPARISON: None available FINDINGS: Left chest wall Bhlafk-o-Thns catheter with tip in superior venacava. Heart size is normal. Pulmonary vascular pattern appearsunremarkable. No focal pulmonary consolidation. No pleural effusion. Nopneumothorax. IMPRESSION: No radiographic evidence of an acute cardiopulmonary abnormality. Referred By: Interpreted By: Sandeep Simeon MD, 07/05/2025 10:44 PM us Jessica Benjamin PA GENERAL IMAGING Final Result from Last 3 Months Insurance [facility] UHC MEDICARE Care Teams Dry Cleaning Checker Relationship Specialty Start Date End Date None, Provider, PCP - General UNKNOWN PHYSICIAN SPECIALTY 07/05/25
== END 2025-09-26 06:58 | disposition home or self-care (01) ==
PROVIDERS: PCP Internal Medicine; Visit Provider Internal Medicine Hematology & Oncology
DX: D46.9 Myelodysplastic syndrome, unspecified (principal)
CPT/HCPCS: 36415; 86850; 86900; 86901